=== PATIENT | male | born 1955 | race Caucasian/White ===

== ENCOUNTER 2016-12-26 22:35 | Emergency (ER) | payer OTHER ==
[~2016-12-26] VITALS: Ht 180.3 cm; Wt 115.0 kg
[~2016-12-26 22:35] MED LIST: 1-ME1LIQ PO; ASPI325T PO; CITA20 PO; CLON2TAB PO; CYMB30CA PO; DOXY100T PO; FLUT1SPR9; GLIP10TA6 PO; LISI40TA PO; METF850 PO; METO25 PO; NOVO7030P2 SQ; PRED20 PO; TAMS0.4C67 PO; TRAZ100 PO
[2016-12-26 22:39] VITALS: BP 189/104; PULSE 107; RESP 16; TEMP 97.8; O2SAT 96
[2016-12-27] MEDS ORDERED: PERI0.126 SWISH-SPIT (00:07)
--- NOTE | 2016-12-27 00:08 | PD ---
HPI Chief Complaint: Oral / Dental Pain or Problem Time Seen by Provider: 23:55 Travel History International Travel<30 days: No Contact w/Intl Traveler<30days: No Traveled to known affect area: No History of Present Illness HPI The patient is a 61-year-old male who presents to the emergency department for a lesion on the right mouth. The patient states he has had a lesion on the right mouth for the last 6 months. He was seen by his doctor, Dr. Brady James, and they're going to monitor it, if it progressed in size, he is going to be referred for evaluation. The patient does state that the lesion has enlarged over the last month. The patient was chewing a taco earlier tonight, when he bit the lesion, and in the started to bleed. The lesion is now stopped bleeding, is nonpainful, but is bothersome. The patient denies any history of tobacco use or oral chewing tobacco use. The patient denies any history of known squamous cell carcinoma. Symptoms are mild to moderate, exacerbated after biting into the lesion, and self alleviating. PFSH Past Medical History Hx Anticoagulant Therapy: Yes (ASA) ADHD: Yes Asthma: Yes Blood Disorders: No Anxiety: Yes Depression: Yes Cancer: Yes (MELANOMA STAGE 2 ,RESECTION WAS DONE IN 2009) Cardiovascular Problems: Yes ([place], STENT, OPEN HEART>2006) High Cholesterol: Yes Chest Pain: Yes Congestive Heart Failure: No Coronary Artery Disease: Yes Diabetes: Yes Diminished Hearing: No Endocrine: Yes Fibromyalgia: Yes Gastrointestinal Disorders: Yes Genitourinary: Yes Hypertension: Yes Immune Disorder: No Implanted Vascular Access Dvce: No Kidney Stones: Yes Musculoskeletal: Yes Neurologic: Yes (ADHD) Psychiatric: Yes Reproductive: Yes (ED) Respiratory: Yes Integumentary: Yes (FUNGAL INFECTION TO LEFT FOREARM) Myocardial Infarction: Yes Seizures: No Sleep Apnea: Yes (NO CPAP) Past Surgical History Cardiac Surgery: Yes (ANGINOPLASTY WITH STENT 2000,CABG 2006 4 VESSEL WITH 2 T' S,) Cholecystectomy: Yes Coronary Artery Bypass Graft: Yes (X 6 09/2007) Thoracic Surgery: Yes (SEE ABOVE) Other Surgery: Yes (STENT PLACED, HERNIA REPAIR, CABG) Social History Alcohol Use: No Tobacco Use: No Substance Use: No Allergies-Medications (Allergen,Severity, Reaction): Coded Allergies: Bactrim (Verified Allergy, Severe, ANAPHYLACTIC, 12/26/16) Sulfa (Verified Allergy, Severe, ANAPHYLACTIC REACTION, 12/26/16) Reported Meds & Prescriptions Reported Meds & Active Scripts Active Deltasone (Prednisone) 20 Mg Tab 20 Mg PO BID 4 Days Doxycycline Hyclate 100 mg (Doxycycline Hyclate) 100 Mg Tab 100 Mg PO BID Reported Trazodone Hcl (Trazodone HCl) 100 Mg Tab 100 Mg PO HS Celexa 20 Mg Tab (Citalopram Hydrobromide) 20 Mg Tab 20 Mg PO DAILY Flonase Allergy Relief (Fluticasone Propionate (Nasal)) 50 Mcg/Act Spr PRN Flomax (Tamsulosin HCl) 0.4 Mg Cap 0.4 Mg PO DAILY Metoprolol Tartrate 25 mg (Metoprolol Tartrate) 25 Mg Tab 25 Mg PO BID Clonazepam 2 Mg Tab 2 Mg PO TID Glucophage 850 mg (Metformin HCl) 850 Mg Tab 850 Mg PO BIDPC Glipizide 10 Mg Tab 20 Mg PO BID TAKE BEFORE MEALS Novolin 70/30 (Insulin Human Isoph/Insulin Regular) 100 Units/Ml Inj 0 SQ DIRECTED Sliding Scale As Directed. Cymbalta (Duloxetine HCl) 30 Mg Cap 30 Mg PO DAILY Amlodipine Besylate 10 mg (Amlodipine Besylate) 10 Mg Tab 1 Tab PO DAILY Aspirin 325 mg (Aspirin) 325 Mg Tab 325 Mg PO DAILY Prinivil 40 mg (Lisinopril) 40 Mg Tab 10 Mg PO DAILY Review of Systems Except as stated in HPI: all other systems reviewed are Neg General / Constitutional: No: Fever, Weight Loss HENT: Positive: Other (as noted in the history of present illness) Respiratory: No: Cough, Shortness of Breath Physical Exam Narrative GENERAL: Awake, alert, nontoxic-appearing 61-year-old male who appears his stated age and is in no acute respiratory distress. SKIN: Warm and dry. HEAD: Atraumatic. Normocephalic. EYES: Pupils equal and round. No scleral icterus. No injection or drainage. ENT: No nasal bleeding or discharge. The patient has a pedunculated lesion on the right mucosal surface measuring 1 cm in diameter. No active bleeding. No obvious lesions underlying the tongue. NECK: Trachea midline. No JVD. No significant cervical lymphadenopathy noted on exam. CARDIOVASCULAR: Regular rate and rhythm. No murmur appreciated. RESPIRATORY: No accessory muscle use. Clear to auscultation. Breath sounds equal bilaterally. MUSCULOSKELETAL: No obvious deformities. No clubbing. No cyanosis. No edema. NEUROLOGICAL: Awake and alert. No obvious cranial nerve deficits. Motor grossly within normal limits. Normal speech. PSYCHIATRIC: Appropriate mood and affect; insight and judgment normal. Data Data Last Documented VS Vital Signs Date Time Temp Pulse Resp B/P Pulse Ox O2 Delivery O2 Flow Rate FiO2 12/26/16 22:39 97.8 107 16 189/104 96 Room Air MDM Medical Decision Making Medical Screen Exam Complete: Yes Emergency Medical Condition: Yes Medical Record Reviewed: Yes Differential Diagnosis Differential diagnosis includes squamous cell carcinoma, oropharyngeal cancer, benign tumor, aphthous ulcer. Narrative Course The patient's bleeding has resolved, the lesion has been progressing over the last 6 months, therefore, patient will need follow-up with [facility] for biopsy results to evaluate for possible squamous cell carcinoma. The patient will be placed on Peridex and given a referral to see [facility]. Diagnosis Primary Impression: Oral mucosal lesion Referrals: Christophe Iraheta DDS call for appointment Additional Instructions: Follow-up with [facility] for ENT for evaluation of oropharyngeal mass on the beagle surfaces for possible biopsy to rule out squamous cell carcinoma. Peridex as directed. Return if symptoms worsen or progress. Med/Other Pt SpecificInfo: Prescription(s) given Scripts Chlorhexidine Gluconate (Mouth) Liq (Peridex Liq)0.12% Soln15 Ml SWISH-SPIT BID #[id number] ML Ref 0 Prov:Micky Trimble MD 12/27/16 Disposition: DISCHARGE HOME Condition: Stable Micky Trimble MD Dec 27, 2016 00:08
== END 2016-12-27 00:17 | disposition home or self-care (01) ==
LOC: NEPA 22:35
DX: K13.70 Unspecified lesions of oral mucosa (principal); I25.10 Atherosclerotic heart disease of native coronary artery without angina pectoris; E11.9 Type 2 diabetes mellitus without complications; M79.7 Fibromyalgia; I10 Essential (primary) hypertension; Z88.2 Allergy status to sulfonamides; Z95.1 Presence of aortocoronary bypass graft; Z79.82 Long term (current) use of aspirin
CPT/HCPCS: 99282

== ENCOUNTER 2017-01-26 13:34 | Emergency (ER) | payer OTHER ==
[~2017-01-26] VITALS: Ht 180.3 cm; Wt 120.0 kg
[~2017-01-26 13:34] MED LIST changes: +PERI0.126 SWISH-SPIT
[2017-01-26 13:38] VITALS: BP 113/57; PULSE 78; RESP 20; TEMP 97.4; O2SAT 94
--- NOTE | 2017-01-26 17:22 | PD ---
HPI Chief Complaint: Psychiatric Symptoms Time Seen by Provider: 17:17 Travel History International Travel<30 days: No Contact w/Intl Traveler<30days: No Traveled to known affect area: No History of Present Illness HPI 61-year-old male that presents to the ED for evaluation of psych evaluation. Per patient he has a history of heroine abuse and he has not used for about a week. Per patient he injects. Per patient his been feeling suicidal and depressed. He does have a history of bipolar as well as depression. Has a history of hypertension as well as diabetes. Per patient she is compliant with his medications but states that his been feeling more depressed because of the substance abuse as well as discontinuing the substance abuse. Unclear as to why he stopped. He denies any medical complaint at this time. He states having suicidal thoughts but no obvious plan. Denies any homicidal ideation. No recent trauma. Allergies to Bactrim and sulfa. Symptoms appeared to be moderate. PFSH Past Medical History Medical History: Unable to Obtain Hx Anticoagulant Therapy: Yes (ASA) ADHD: Yes Asthma: Yes Blood Disorders: No Anxiety: Yes Depression: Yes Cancer: Yes (MELANOMA STAGE 2 ,RESECTION WAS DONE IN 2009) Cardiovascular Problems: Yes ([place], STENT, OPEN HEART>2006) High Cholesterol: Yes Chest Pain: Yes Congestive Heart Failure: No Coronary Artery Disease: Yes Diabetes: Yes Patient Takes Glucophage: Yes Diminished Hearing: No Endocrine: Yes Fibromyalgia: Yes Gastrointestinal Disorders: Yes Genitourinary: Yes Hypertension: Yes Immune Disorder: No Implanted Vascular Access Dvce: No Kidney Stones: Yes Musculoskeletal: Yes Neurologic: Yes (ADHD) Psychiatric: Yes Reproductive: Yes (ED) Respiratory: Yes Integumentary: Yes (FUNGAL INFECTION TO LEFT FOREARM) Myocardial Infarction: Yes Seizures: No Sleep Apnea: Yes (NO CPAP) Tetanus Vaccination: Unknown ?: Not Past Surgical History Surgical History: Unable to Obtain Cardiac Surgery: Yes (ANGINOPLASTY WITH STENT 2000,CABG 2006 4 VESSEL WITH 2 T' S,) Cholecystectomy: Yes Coronary Artery Bypass Graft: Yes (X 6 09/2007) Thoracic Surgery: Yes (SEE ABOVE) Other Surgery: Yes (STENT PLACED, HERNIA REPAIR, CABG) Social History Alcohol Use: No Tobacco Use: No Substance Use: Yes (heroine, marijuana) Allergies-Medications (Allergen,Severity, Reaction): Coded Allergies: Bactrim (Verified Allergy, Severe, ANAPHYLACTIC, 12/27/16) Sulfa (Verified Allergy, Severe, ANAPHYLACTIC REACTION, 12/27/16) Reported Meds & Prescriptions Reported Meds & Active Scripts Active Clindamycin (Clindamycin HCl) 150 Mg Cap 300 Mg PO Q6H 10 Days Reported Trazodone HCl 100 Mg Tab 100 Mg PO HS Celexa 20 Mg Tab (Citalopram Hydrobromide) 20 Mg Tab 20 Mg PO DAILY Flonase Allergy Relief Ch (Fluticasone Propionate (Nasal)) 50 Mcg/Act Spr PRN Flomax (Tamsulosin HCl) 0.4 Mg Cap 0.4 Mg PO DAILY Metoprolol Tartrate 25 mg (Metoprolol Tartrate) 25 Mg Tab 25 Mg PO BID Clonazepam 2 Mg Tab 2 Mg PO TID Glucophage 850 mg (Metformin HCl) 850 Mg Tab 850 Mg PO BIDPC Glipizide 10 Mg Tab 20 Mg PO BID TAKE BEFORE MEALS Novolin 70/30 (Insulin Human Isoph/Insulin Regular) 100 Units/Ml Inj 0 SQ DIRECTED Sliding Scale As Directed. Cymbalta (Duloxetine HCl) 30 Mg Cap 30 Mg PO DAILY Aspirin 325 mg (Aspirin) 325 Mg Tab 325 Mg PO DAILY Prinivil 40 mg (Lisinopril) 40 Mg Tab 10 Mg PO DAILY Review of Systems General / Constitutional: No: Fever, Chills, Weight Gain, Weight Loss, Other Eyes: No: Diploplia, Blurred Vision, Photophobia, Drainage, Redness, Foreign Body Sensation, Pain, Tearing, Blind Spots, Visual changes, Blindness, Other HENT: No: Headaches, Vertigo, Lightheadedness, Sore Throat, Rhinitis, Rhinorrhea, Congestion, Nosebleed, Neck Stiffness, Neck Pain, Masses, Gingival Bleeding, Dental Difficulties, Ear Discharge, Earache, Other Cardiovascular: No: Chest Pain or Discomfort, Palpitations, Irregular Rhythm, Tachycardia, Diaphoresis, Syncope, Dyspnea on exertion, Varicosities, Edema, Cyanosis, Varicosities, Phlebitis, Claudication, Other Respiratory: No: Cough, Shortness of Breath, Wheezing, Sneezing, Orthopnea, Hemoptysis, Stridor, Night Sweats, Pleuritic Pain, Other Gastrointestinal: No: Nausea, Vomiting, Diarrhea, Abdominal Pain, Hematemesis, Hematochezia, Constipation, Changes in Bowel Habits, Indigestion, Dysphagia, Loss of Appetite, Other Genitourinary: No: Urgency, Frequency, Dysuria, Nocturia, Hematuria, Decreased Urinary Output, Oliguria, Hesitancy, Dribbling, Incontinence, Pelvic Pain, Flank Pain, Dyspareunia, Discharge, Dysmenorrhea, Menorrhagia, Metorrhagia, Vaginal Bleeding, Other Musculoskeletal: No: Myalgias, Arthralgias, Limited ROM, Weakness, Cramping, Edema, Pain, Atrophy, Other Skin: No Rash, No Itching, No Dryness, No Lumps, No Hives, No Change in Pigmentation, No Change in nails, No Alopecia, No Lesions, No Breast Lumps, No Breast Tenderness, No Breast Swelling, No Other Neurologic: No: Weakness, Dizziness, Syncope, Focal Abnormalities, Coordination Problem, Tremor, Ataxia, Headache, Change in Mentation, Slurred Speech, Paresthesia, Incontinence, Seizures, Sensory Disturbance, Other Psychiatric: Positive: Depression, Suicidal Ideations, Mood Disorder, Substance Abuse, No: Anxiety, Disorder of Thought, Homicidal Ideation, Other Endocrine: No: Heat Intolerance, Cold Intolerance, Polyuria, Polydipsia, Other Hematologic/Lymphatic: No: Easy Bruising, Lymph Node Enlargement, Other Physical Exam Narrative GENERAL: SKIN: Warm and dry. HEAD: Atraumatic. Normocephalic. EYES: Pupils equal and round 4 mm reactive to light and accommodation. No scleral icterus. No injection or drainage. ENT: No nasal bleeding or discharge. Mucous membranes pink and moist. Tongue is midline. No uvula deviation. NECK: Trachea midline. No JVD. CARDIOVASCULAR: Regular rate and rhythm. No murmurs, S3, S4. RESPIRATORY: No accessory muscle use. Clear to auscultation. Breath sounds equal bilaterally. GASTROINTESTINAL: Abdomen soft, non-tender, nondistended. Hepatic and splenic margins not palpable. MUSCULOSKELETAL: Extremities without clubbing, cyanosis, or edema. No obvious deformities. Full range of motion of the upper and lower extremities bilaterally. 2+ pulses bilaterally. Patient does have lesions to his arms and legs that appear to be old. Likely from injecting. Most of them appear to be well-healed. Some other ones in the left arm do appear to be possibly early infected with some erythema noted. NEUROLOGICAL: Awake and alert. No obvious cranial nerve deficits. Motor grossly within normal limits. Five out of 5 muscle strength in the arms and legs. Normal speech. PSYCHIATRIC: Depressed mood and affect; insight and judgment normal. Data Data Last Documented VS Vital Signs Date Time Temp Pulse Resp B/P Pulse Ox O2 Delivery O2 Flow Rate FiO2 01/26/17 13:38 97.4 78 20 113/57 94 Room Air Orders Diet Regular Basic (01/26/17 Dinner) Complete Blood Count With Diff (01/26/17 16:53) Comprehensive Metabolic Panel (01/26/17 16:53) Psych Screen (01/26/17 16:53) Drug Screen, Random Urine (01/26/17 16:53) Alcohol (Ethanol) (01/26/17 16:53) Clindamycin (Cleocin) (01/26/17 17:30) Insulin Human Reg Supp Scale (Novolin R (01/26/17 21:00) Labs Laboratory Tests Test 01/26/17 01/26/17 17:45 17:56 White Blood Count 4.7 TH/MM3 Red Blood Count 5.11 MIL/MM3 Hemoglobin 14.7 GM/DL Hematocrit 43.5 % Mean Corpuscular Volume 85.0 FL Mean Corpuscular Hemoglobin 28.8 PG Mean Corpuscular Hemoglobin 33.9 % Concent Red Cell Distribution Width 13.1 % Platelet Count 158 TH/MM3 Mean Platelet Volume 8.2 FL Neutrophils (%) (Auto) 46.3 % Lymphocytes (%) (Auto) 35.3 % Monocytes (%) (Auto) 12.3 % Eosinophils (%) (Auto) 5.3 % Basophils (%) (Auto) 0.8 % Neutrophils # (Auto) 2.2 TH/MM3 Lymphocytes # (Auto) 1.6 TH/MM3 Monocytes # (Auto) 0.6 TH/MM3 Eosinophils # (Auto) 0.2 TH/MM3 Basophils # (Auto) 0.0 TH/MM3 CBC Comment DIFF FINAL Differential Comment Sodium Level 137 MEQ/L Potassium Level 4.8 MEQ/L Chloride Level 104 MEQ/L Carbon Dioxide Level 25.3 MEQ/L Anion Gap 8 MEQ/L Blood Urea Nitrogen 24 MG/DL Creatinine 1.25 MG/DL Estimat Glomerular Filtration 59 ML/MIN Rate Random Glucose 203 MG/DL Calcium Level 9.0 MG/DL Total Bilirubin 0.5 MG/DL Aspartate Amino Transf 59 U/L (AST/SGOT) Alanine Aminotransferase 106 U/L (ALT/SGPT) Alkaline Phosphatase 75 U/L Total Protein 7.9 GM/DL Albumin 3.5 GM/DL Ethyl Alcohol Level LESS THAN 3 MG/DL Urine Opiates Screen POS Urine Barbiturates Screen NEG Urine Amphetamines Screen NEG Urine Benzodiazepines Screen NEG Urine Cocaine Screen NEG Urine Cannabinoids Screen NEG MDM Medical Decision Making Medical Screen Exam Complete: Yes Emergency Medical Condition: Yes Medical Record Reviewed: Yes Interpretation(s) CBC & BMP Diagram 01/26/17 17:45 tox screen positive for opiates Differential Diagnosis Depression versus suicidal ideation versus anxiety versus adjustment disorder versus mood disorder versus bipolar disorder versus schizophrenia versus paranoid disorder versus psychosis versus substance abuse versus alcohol abuse versus alcohol induced psychosis versus homicidality addition versus cutting versus personality disorder Narrative Course 61-year-old male that presents to the ED for evaluation of psych. Patient was properly examined and was found to have signs and symptoms consistent with appears to be psychiatric illness. No sign of acute medical distress. Patient does appear to have some lesions to his arm Could be an early infected. I will start patient on clindamycin for this. Patient was given first dose here. Labs will be drawn. Patient will be medically clear. Okay to be seen by psych. Mental health screening was discussed with the patient. 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
[2017-01-26] MEDS ORDERED: CLINDAMYCIN 150 MG CAP PO ONE (17:30)
[2017-01-26] MEDS ORDERED: CLIN1CAP5 PO (17:47)
[2017-01-26 18:09] LABS: AUTOMATED NEUTROPHIL # 2.2 TH/MM3 (1.8-7.7); BASOPHIL % 0.8 % (0.0-2.0); EOSINOPHIL # 0.2 TH/MM3 (0-0.4); EOSINOPHIL % 5.3 % (0.0-4.0); HEMATOCRIT 43.5 % (39.0-51.0); HEMO FLAGS DIFF FINAL; LYMPH % 35.3 % (9.0-44.0); LYMPHOCYTE # 1.6 TH/MM3 (1.0-4.8); MEAN CORPUSCULAR HEMOGLOBIN 28.8 PG (27.0-34.0); MEAN CORPUSCULAR HGB CONC 33.9 % (32.0-36.0); MONO % 12.3 % (0.0-8.0); NEUT % 46.3 % (16.0-70.0); PLATELET COUNT 158 TH/MM3 (150-450); RED BLOOD COUNT 5.11 MIL/MM3 (4.50-5.90); RED CELL DISTRIBUTION WIDTH 13.1 % (11.6-17.2); WHITE BLOOD COUNT 4.7 TH/MM3 (4.0-11.0)
[2017-01-26 18:18] LABS: AMPHETAMINE, URINE NEG (NEG); BARBITURATES, URINE NEG (NEG); COCAINE, URINE NEG (NEG)
[2017-01-26 18:27] LABS: ANION GAP 8 MEQ/L (5-15); AST (GOT) 59 U/L (15-37); BICARBONATE 25.3 MEQ/L (21.0-32.0); BLOOD UREA NITROGEN 24 MG/DL (7-18); CHLORIDE 104 MEQ/L (98-107); GLOMERULAR FILTRATION RATE 59 ML/MIN (>89); POTASSIUM 4.8 MEQ/L (3.5-5.1); SODIUM (NA) 137 MEQ/L (136-145)
[2017-01-26 18:28] LABS: ALKALINE PHOSPHATASE 75 U/L (45-117); ALT (GPT) 106 U/L (12-78); TOTAL BILIRUBIN ADULT 0.5 MG/DL (0.2-1.0)
[2017-01-26 18:46] VITALS: BP 134/75; PULSE 77; RESP 18; O2SAT 95
[2017-01-26] MEDS: INSULIN NovoLIN REGULAR SUPPLEMENTAL SCALE SQ SCH (21:45)
[2017-01-26 22:40] VITALS: BP 131/73; PULSE 81; RESP 18; O2SAT 97
[2017-01-27 02:21] VITALS: BP 129/71; PULSE 84; RESP 18; O2SAT 97
[2017-01-27 05:15] VITALS: BP 139/80; PULSE 77; RESP 18; O2SAT 97
[2017-01-27] MEDS: INSULIN NovoLIN REGULAR SUPPLEMENTAL SCALE SQ SCH (06:29)
--- NOTE | 2017-01-27 11:45 | PD ---
History of Present Illness Chief Complaint: Psychiatric Symptoms Time Seen by Provider: 11:30 Travel History International Travel<30 Days: No Contact w/Intl Traveler<30days: No Known affected area: No Legal Status Legal Status: Voluntary History of Present Illness: This is a 61-year-old male with a significant history of substance abuse who came into the emergency room discussing suicidality. He wishes his family would spend more time with him. He has adult children. However, he also admits to using heroin 3 days ago. He somehow does not correlate his use of illicit drugs with his family's wish to stay away from him. The patient does have an appointment with Dr. jacob, whom he has seen in the past. This appointment is in the next few weeks. He also has a place to live and he receives Social Security disability. The patient states he takes 16 pills for his physical ailments each day. He is also scheduled to appear in criminal court for upcoming charges against him. At this time he is not voicing any suicidal or homicidal ideation, plan or intention. He was informed that this facility is not licensed to do detox or rehabilitation. He does not qualify for psychiatric admission to our inpatient service and this physician feels if he threatens suicide that it would be counter therapeutic to give into these manipulations. He does continue to represent a moderate risk for harm to self. This is not changeable given his present drug use. PFSH Past Medical History Medical History: Unable to Obtain Hx Anticoagulant Therapy: Yes (ASA) ADHD: Yes Asthma: Yes Blood Disorders: No Anxiety: Yes Depression: Yes Cancer: Yes (MELANOMA STAGE 2 ,RESECTION WAS DONE IN 2009) Cardiovascular Problems: Yes ([place], STENT, OPEN HEART>2006) High Cholesterol: Yes Chest Pain: Yes Congestive Heart Failure: No Coronary Artery Disease: Yes Diabetes: Yes Patient Takes Glucophage: Yes Diminished Hearing: No Endocrine: Yes Fibromyalgia: Yes Gastrointestinal Disorders: Yes Genitourinary: Yes Hypertension: Yes Immune Disorder: No Implanted Vascular Access Dvce: No Kidney Stones: Yes Musculoskeletal: Yes Neurologic: Yes (ADHD) Psychiatric: Yes Reproductive: Yes (ED) Respiratory: Yes Integumentary: Yes (FUNGAL INFECTION TO LEFT FOREARM) Myocardial Infarction: Yes Seizures: No Sleep Apnea: Yes (NO CPAP) Tetanus Vaccination: Unknown ?: Not Past Surgical History Surgical History: Unable to Obtain Cardiac Surgery: Yes (ANGINOPLASTY WITH STENT 2000,CABG 2006 4 VESSEL WITH 2 T' S,) Cholecystectomy: Yes Coronary Artery Bypass Graft: Yes (X 6 09/2007) Thoracic Surgery: Yes (SEE ABOVE) Other Surgery: Yes (STENT PLACED, HERNIA REPAIR, CABG) Psychiatric History Psychiatric History Hx Psychiatric Treatment: YES History of Inpatient Treatment: Yes Guns or firearms in home: No Social History Hx Alcohol Use: No Hx Tobacco Use: No Hx Substance Use: Yes (heroine, marijuana) Substance Use Type: Alcohol Other Substances Used: ALCOHOL SOCIALY Hx of Substance Use Treatment: No Allergies-Medications (Allergen,Severity, Reaction): Coded Allergies: Bactrim (Verified Allergy, Severe, ANAPHYLACTIC, 12/27/16) Sulfa (Verified Allergy, Severe, ANAPHYLACTIC REACTION, 12/27/16) Reported Meds & Prescriptions Reported Meds & Active Scripts Active Clindamycin (Clindamycin HCl) 150 Mg Cap 300 Mg PO Q6H 10 Days Reported Trazodone HCl 100 Mg Tab 100 Mg PO HS Celexa 20 Mg Tab (Citalopram Hydrobromide) 20 Mg Tab 20 Mg PO DAILY Flonase Allergy Relief Ch (Fluticasone Propionate (Nasal)) 50 Mcg/Act Spr PRN Flomax (Tamsulosin HCl) 0.4 Mg Cap 0.4 Mg PO DAILY Metoprolol Tartrate 25 mg (Metoprolol Tartrate) 25 Mg Tab 25 Mg PO BID Clonazepam 2 Mg Tab 2 Mg PO TID Glucophage 850 mg (Metformin HCl) 850 Mg Tab 850 Mg PO BIDPC Glipizide 10 Mg Tab 20 Mg PO BID TAKE BEFORE MEALS Novolin 70/30 (Insulin Human Isoph/Insulin Regular) 100 Units/Ml Inj 0 SQ DIRECTED Sliding Scale As Directed. Cymbalta (Duloxetine HCl) 30 Mg Cap 30 Mg PO DAILY Aspirin 325 mg (Aspirin) 325 Mg Tab 325 Mg PO DAILY Prinivil 40 mg (Lisinopril) 40 Mg Tab 10 Mg PO DAILY Review of Systems ROS Limitations: Clinical Condition Except as stated in HPI: all other systems reviewed are Neg Exam Exam Limitations: Clinical Condition Alert: Yes [place]: Person, Place, Date, Situation Mood: Calm Affect: Restricted Speech: Clear, Logical Eye Contact: Normal Memory Intact: Immediate, Recent, Remote Insight/Judgement Adequate except where drug and alcohol use is concerned. MDM Medical Decision Making Medical Record Reviewed: Yes Assessment/Plan Patient is being discharged home with follow up scheduled already for Dr. jacob. Patient does not meet inpatient psychiatric criteria. If he threatens to kill himself if not admitted, this physician would still believe it is counter therapeutic to give into his manipulations. He was recommended to stop all illicit drug use and not consume alcohol. He was also recommended to attend AA and NA meetings Orders Diet Regular Basic (01/26/17 Dinner) Complete Blood Count With Diff (01/26/17 16:53) Comprehensive Metabolic Panel (01/26/17 16:53) Psych Screen (01/26/17 16:53) Drug Screen, Random Urine (01/26/17 16:53) Alcohol (Ethanol) (01/26/17 16:53) Clindamycin (Cleocin) (01/26/17 17:30) Insulin Human Reg Supp Scale (Novolin R (01/26/17 21:00) Diet Diabetic (01/27/17 Breakfast) Diet Diabetic (01/27/17 Lunch) Results Vital Signs Date Time Temp Pulse Resp B/P Pulse Ox O2 Delivery O2 Flow Rate FiO2 01/27/17 06:36 77 18 01/27/17 05:15 77 18 139/80 97 Room Air 01/27/17 02:21 84 18 129/71 97 Room Air 01/26/17 22:40 81 18 131/73 97 Room Air 01/26/17 18:46 77 18 01/26/17 18:46 77 18 134/75 95 Room Air 01/26/17 13:38 97.4 78 20 113/57 94 Room Air Laboratory Tests Test 01/26/17 01/26/17 17:45 17:56 White Blood Count 4.7 Red Blood Count 5.11 Hemoglobin 14.7 Hematocrit 43.5 Mean Corpuscular Volume 85.0 Mean Corpuscular Hemoglobin 28.8 Mean Corpuscular Hemoglobin 33.9 Concent Red Cell Distribution Width 13.1 Platelet Count 158 Mean Platelet Volume 8.2 Neutrophils (%) (Auto) 46.3 Lymphocytes (%) (Auto) 35.3 Monocytes (%) (Auto) 12.3 Eosinophils (%) (Auto) 5.3 Basophils (%) (Auto) 0.8 Neutrophils # (Auto) 2.2 Lymphocytes # (Auto) 1.6 Monocytes # (Auto) 0.6 Eosinophils # (Auto) 0.2 Basophils # (Auto) 0.0 CBC Comment DIFF FINAL Differential Comment Sodium Level 137 Potassium Level 4.8 Chloride Level 104 Carbon Dioxide Level 25.3 Anion Gap 8 Blood Urea Nitrogen 24 Creatinine 1.25 Estimat Glomerular Filtration 59 Rate Random Glucose 203 Calcium Level 9.0 Total Bilirubin 0.5 Aspartate Amino Transf 59 (AST/SGOT) Alanine Aminotransferase 106 (ALT/SGPT) Alkaline Phosphatase 75 Total Protein 7.9 Albumin 3.5 Ethyl Alcohol Level LESS THAN 3 Urine Opiates Screen POS Urine Barbiturates Screen NEG Urine Amphetamines Screen NEG Urine Benzodiazepines Screen NEG Urine Cocaine Screen NEG Urine Cannabinoids Screen NEG Diagnosis Primary Impression: Substance abuse Additional Impression: Wound infection Prescriptions Clindamycin 150 Mg [id number] Mg PO Q6H 10 Days Prov:Kourtney Parson MD 01/26/17 Problem Qualifiers Jose J Camacho MD Jan 27, 2017 11:45
== END 2017-01-27 12:59 | disposition home or self-care (01) ==
LOC: NEPJ 13:34
DX: F32.9 Major depressive disorder, single episode, unspecified (principal); F11.10 Opioid abuse, uncomplicated; B99.8 Other infectious disease; E11.9 Type 2 diabetes mellitus without complications; I10 Essential (primary) hypertension; I25.10 Atherosclerotic heart disease of native coronary artery without angina pectoris; J45.909 Unspecified asthma, uncomplicated; Z87.442 Personal history of urinary calculi; Z95.1 Presence of aortocoronary bypass graft; I25.2 Old myocardial infarction; E78.00 Pure hypercholesterolemia, unspecified; Z79.4 Long term (current) use of insulin
CPT/HCPCS: 80053; 80307; 85025; 96372

== ENCOUNTER 2017-03-05 03:00 | Emergency (ER) | payer OTHER ==
[~2017-03-05] VITALS: Ht 180.3 cm; Wt 115.0 kg
[~2017-03-05 03:00] MED LIST changes: -1-ME1LIQ PO; +CLIN1CAP5 PO; -DOXY100T PO; -PERI0.126 SWISH-SPIT; -PRED20 PO
[2017-03-05 03:02] VITALS: BP 173/84; PULSE 86; RESP 20; TEMP 97.8; O2SAT 97
--- NOTE | 2017-03-05 03:30 | PD ---
HPI Chief Complaint: Diabetic Time Seen by Provider: 03:26 Travel History International Travel<30 days: No Contact w/Intl Traveler<30days: No Traveled to known affect area: No History of Present Illness HPI The patient is a 61-year-old insulin-dependent diabetic who felt shaky this evening and took his blood sugar at 0240 this morning and it was 42. He ate a bun and now feels better. It took some time to get the blood sugar up so he came to emergency department. The Accu-Chek here in the emergency Department is 109. PFSH Past Medical History Hx Anticoagulant Therapy: Yes (ASA) ADHD: Yes Asthma: Yes Blood Disorders: No Anxiety: Yes Depression: Yes Cancer: Yes (MELANOMA STAGE 2 ,RESECTION WAS DONE IN 2009) Cardiovascular Problems: Yes (HTN, NH, CABGX6, AORTIC GRAFTS) High Cholesterol: Yes Chest Pain: Yes Congestive Heart Failure: No Coronary Artery Disease: Yes Diabetes: Yes Patient Takes Glucophage: Yes (METFORMIN AND GLIPIZIDE 03/04 1700) Diminished Hearing: No Endocrine: Yes Fibromyalgia: Yes Gastrointestinal Disorders: Yes Genitourinary: Yes Hypertension: Yes Immune Disorder: No Implanted Vascular Access Dvce: No Kidney Stones: Yes Musculoskeletal: Yes Neurologic: Yes (ADHD) Psychiatric: Yes Reproductive: Yes (ED) Respiratory: Yes Integumentary: Yes (FUNGAL INFECTION TO LEFT FOREARM) Myocardial Infarction: Yes Seizures: No Sleep Apnea: Yes (NO CPAP) Past Surgical History Cardiac Surgery: Yes (ANGINOPLASTY WITH STENT 2000,CABG 2006 4 VESSEL WITH 2 T' S,) Cholecystectomy: Yes Coronary Artery Bypass Graft: Yes (X 6 09/2007) Thoracic Surgery: Yes (SEE ABOVE) Other Surgery: Yes (STENT PLACED, HERNIA REPAIR, CABG) Social History Alcohol Use: No Tobacco Use: No Substance Use: Yes (heroine, marijuana) Allergies-Medications (Allergen,Severity, Reaction): Coded Allergies: Bactrim (Verified Allergy, Severe, ANAPHYLACTIC, 03/05/17) Sulfa (Verified Allergy, Severe, ANAPHYLACTIC REACTION, 03/05/17) Reported Meds & Prescriptions Reported Meds & Active Scripts Active Clindamycin (Clindamycin HCl) 150 Mg Cap 300 Mg PO Q6H 10 Days Reported Trazodone HCl 100 Mg Tab 100 Mg PO HS Celexa 20 Mg Tab (Citalopram Hydrobromide) 20 Mg Tab 20 Mg PO DAILY Flonase Allergy Relief Ch (Fluticasone Propionate (Nasal)) 50 Mcg/Act Spr PRN Flomax (Tamsulosin HCl) 0.4 Mg Cap 0.4 Mg PO DAILY Metoprolol Tartrate 25 mg (Metoprolol Tartrate) 25 Mg Tab 25 Mg PO BID Clonazepam 2 Mg Tab 2 Mg PO TID Glucophage 850 mg (Metformin HCl) 850 Mg Tab 850 Mg PO BIDPC Glipizide 10 Mg Tab 20 Mg PO BID TAKE BEFORE MEALS Novolin 70/30 (Insulin Human Isoph/Insulin Regular) 100 Units/Ml Inj 0 SQ DIRECTED Sliding Scale As Directed. Cymbalta (Duloxetine HCl) 30 Mg Cap 30 Mg PO DAILY Aspirin 325 mg (Aspirin) 325 Mg Tab 325 Mg PO DAILY Prinivil 40 mg (Lisinopril) 40 Mg Tab 10 Mg PO DAILY Review of Systems Except as stated in HPI: all other systems reviewed are Neg Physical Exam Narrative GENERAL: Well-nourished, well-developed patient in no apparent distress. He does not have a tremor. He does not smell of alcohol and does not appear intoxicated. His vital signs show blood pressure 173/84. SKIN: Focused skin assessment warm/dry. HEAD: Normocephalic. EYES: No scleral icterus. No injection or drainage. NECK: Supple, trachea midline. No JVD or lymphadenopathy. CARDIOVASCULAR: Regular rate and rhythm without murmurs, gallops, or rubs. RESPIRATORY: Breath sounds equal bilaterally. No accessory muscle use. GASTROINTESTINAL: Abdomen soft, non-tender, nondistended. No guarding or rebound is present. MUSCULOSKELETAL: No cyanosis, or edema. BACK: Nontender without obvious deformity. No CVA tenderness. Data Data Last Documented VS Vital Signs Date Time Temp Pulse Resp B/P Pulse Ox O2 Delivery O2 Flow Rate FiO2 03/05/17 03:02 97.8 86 20 173/84 97 Room Air Orders Blood Glucose (03/05/17 03:30) MDM Medical Decision Making Medical Screen Exam Complete: Yes Emergency Medical Condition: Yes Medical Record Reviewed: Yes Interpretation(s) The Accu-Chek at 338 is 131. Differential Diagnosis Hypoglycemia, insulin overdose, medication side effect Narrative Course The patient has hypoglycemia which resolved with his by mouth intake. Diagnosis Primary Impression: Hypoglycemia associated with diabetes Additional Instructions: Discontinue the [id number] medication that you are taking. Continue to take your Accu-Chek to see whether your sugar starts falling again. Follow-up with your primary care physician this week. Med/Other Pt SpecificInfo: No Change to Meds Disposition: 01 DISCHARGE HOME Condition: Stable Felipe Bal MD Mar 05, 2017 03:30
== END 2017-03-05 04:31 | disposition home or self-care (01) ==
LOC: NEPC 03:00
DX: E11.649 Type 2 diabetes mellitus with hypoglycemia without coma (principal); Z79.4 Long term (current) use of insulin; Z79.84 Long term (current) use of oral hypoglycemic drugs
CPT/HCPCS: 99284

== ENCOUNTER 2017-04-10 17:46 | Emergency (ER) | payer OTHER ==
[~2017-04-10] VITALS: Ht 177.8 cm; Wt 110.0 kg
[2017-04-10 17:48] VITALS: BP 162/72; PULSE 84; RESP 18; TEMP 97.9; O2SAT 95
--- NOTE | 2017-04-10 18:04 | PD ---
HPI Chief Complaint: Pain: Acute or Chronic Time Seen by Provider: 18:04 Travel History International Travel<30 days: No Contact w/Intl Traveler<30days: No Traveled to known affect area: No History of Present Illness HPI 61-year-old male with history of CAD, CABG 6, hypertension, diabetes, anxiety, and substance abuse, presents to emergency department for evaluation of right sided flank pain. This was an acute onset around 345pm today when it awoke the patient from his nap. Patient states it is intermittent and sharp, stabbing. It radiates to his belt line. Reports history of cholecystectomy. Denies a nausea or vomiting. No chest pain or tightness. No recent illnesses, fever, chills. Denies any urinary symptoms. No changes in bowel habits. He has no other symptoms to report. PFSH Past Medical History Hx Anticoagulant Therapy: Yes (ASA) ADHD: Yes Asthma: Yes Blood Disorders: No Anxiety: Yes Depression: Yes Cancer: Yes (MELANOMA STAGE 2 ,RESECTION WAS DONE IN 2009) Cardiovascular Problems: Yes High Cholesterol: Yes Chest Pain: Yes Congestive Heart Failure: No Coronary Artery Disease: Yes Diabetes: Yes Diminished Hearing: No Endocrine: Yes Fibromyalgia: Yes Gastrointestinal Disorders: Yes Genitourinary: Yes Hypertension: Yes Immune Disorder: No Implanted Vascular Access Dvce: No Kidney Stones: Yes Musculoskeletal: Yes Neurologic: Yes (ADHD) Psychiatric: Yes Reproductive: Yes (ED) Respiratory: Yes Integumentary: Yes (FUNGAL INFECTION TO LEFT FOREARM) Myocardial Infarction: Yes Seizures: No Sleep Apnea: Yes (NO CPAP) Past Surgical History Cardiac Surgery: Yes (ANGINOPLASTY WITH STENT 2000,CABG 2006 4 VESSEL WITH 2 T' S,) Cholecystectomy: Yes Coronary Artery Bypass Graft: Yes (X 6 09/2007) Thoracic Surgery: Yes (SEE ABOVE) Other Surgery: Yes (STENT PLACED, HERNIA REPAIR, CABG) Social History Alcohol Use: No Tobacco Use: No Substance Use: Yes (heroine, marijuana) Allergies-Medications (Allergen,Severity, Reaction): Coded Allergies: Bactrim (Verified Allergy, Severe, ANAPHYLACTIC, 04/10/17) Sulfa (Verified Allergy, Severe, ANAPHYLACTIC REACTION, 04/10/17) Reported Meds & Prescriptions Reported Meds & Active Scripts Active Keflex (Cephalexin) 500 Mg Cap 500 Mg PO Q12H 10 Days Lortab (Hydrocodone-Acetaminophen) 5-325 Mg Tab 1 Tab PO Q6H PRN Reported Clonazepam 2 Mg Tab 2 Mg PO TID Cymbalta DR (Duloxetine HCl) 30 Mg Capdr 30 Mg PO TID Flonase Nasal [place] (Fluticasone Nasal [place]) 50 Mcg/Act [place] 1 [place] EACH NARE TID Glipizide 10 Mg Tab 20 Mg PO BIDAC Take 30 minutes before a meal Novolin 70-30 Inj (Insulin Human Isoph/Insulin Regular) 1,000 Unit/10 Ml Vial Unknown Dose SQ ACHS Lisinopril 10 Mg Tab 10 Mg PO TID Metformin (Metformin HCl) 850 Mg Tab 850 Mg PO BIDPC With meals Metoprolol Tartrate 25 Mg Tab 25 Mg PO BID Trazodone (Trazodone HCl) 50 Mg Tab 100 Mg PO HS PRN Review of Systems Except as stated in HPI: all other systems reviewed are Neg Physical Exam Narrative GENERAL: Well-nourished male patient, ambulatory and in no acute distress SKIN: Focused skin assessment warm/dry. HEAD: Atraumatic. Normocephalic. EYES: Pupils equal and round. No scleral icterus. No injection or drainage. ENT: No nasal bleeding or discharge. Mucous membranes pink and moist. NECK: Trachea midline. No JVD. CARDIOVASCULAR: Regular rate and rhythm. No murmur appreciated. RESPIRATORY: No accessory muscle use. Clear to auscultation. Breath sounds equal bilaterally. GASTROINTESTINAL: Abdomen soft, non-tender, nondistended. Hepatic and splenic margins not palpable. MUSCULOSKELETAL: No obvious deformities. No clubbing. No cyanosis. No edema. Right CVA tenderness. NEUROLOGICAL: Awake and alert. No obvious cranial nerve deficits. Motor grossly within normal limits. Normal speech. PSYCHIATRIC: Appropriate mood and affect; insight and judgment normal. Data Data Last Documented VS Vital Signs Date Time Temp Pulse Resp B/P Pulse Ox O2 Delivery O2 Flow Rate FiO2 04/10/17 20:58 17 04/10/17 20:00 94 164/67 96 Room Air 04/10/17 17:48 97.9 Orders Complete Blood Count With Diff (04/10/17 18:10) Comprehensive Metabolic Panel (04/10/17 18:10) Lipase (04/10/17 18:10) Prothrombin Time / Inr (Pt) (04/10/17 18:10) Act Partial Throm Time (Ptt) (04/10/17 18:10) Urinalysis - C+S If Indicated (04/10/17 18:10) Ct Abd/Pel W Iv Contrast(Rout) (04/10/17 18:10) Iv Access Insert/Monitor (04/10/17 18:10) Ecg Monitoring (04/10/17 18:10) Oximetry (04/10/17 18:10) Ondansetron Inj (Zofran Inj) (04/10/17 18:15) Sodium Chloride 0.9% Flush (Ns Flush) (04/10/17 18:15) Electrocardiogram (04/10/17 18:10) Sodium Chlorid 0.9% 500 Ml Inj (Ns 500 M (04/10/17 18:15) Morphine Inj (Morphine Inj) (04/10/17 18:30) Iohexol 350 Inj (Omnipaque 350 Inj) (04/10/17 20:01) Morphine Inj (Morphine Inj) (04/10/17 21:45) Cephalexin (Keflex) (04/10/17 21:45) Labs Laboratory Tests Test 04/10/17 04/10/17 18:36 21:10 White Blood Count 9.8 TH/MM3 Red Blood Count 5.18 MIL/MM3 Hemoglobin 14.7 GM/DL Hematocrit 44.5 % Mean Corpuscular Volume 85.9 FL Mean Corpuscular Hemoglobin 28.3 PG Mean Corpuscular Hemoglobin 33.0 % Concent Red Cell Distribution Width 13.1 % Platelet Count 145 TH/MM3 Mean Platelet Volume 7.8 FL Neutrophils (%) (Auto) 72.6 % Lymphocytes (%) (Auto) 15.4 % Monocytes (%) (Auto) 10.0 % Eosinophils (%) (Auto) 1.7 % Basophils (%) (Auto) 0.3 % Neutrophils # (Auto) 7.1 TH/MM3 Lymphocytes # (Auto) 1.5 TH/MM3 Monocytes # (Auto) 1.0 TH/MM3 Eosinophils # (Auto) 0.2 TH/MM3 Basophils # (Auto) 0.0 TH/MM3 CBC Comment DIFF FINAL Differential Comment Prothrombin Time 11.7 SEC Prothromb Time International 1.1 RATIO Ratio Activated Partial 29.4 SEC Thromboplast Time Sodium Level 139 MEQ/L Potassium Level 4.0 MEQ/L Chloride Level 104 MEQ/L Carbon Dioxide Level 26.6 MEQ/L Anion Gap 8 MEQ/L Blood Urea Nitrogen 32 MG/DL Creatinine 1.63 MG/DL Estimat Glomerular Filtration 43 ML/MIN Rate Random Glucose 89 MG/DL Calcium Level 9.2 MG/DL Total Bilirubin 1.8 MG/DL Aspartate Amino Transf 64 U/L (AST/SGOT) Alanine Aminotransferase 99 U/L (ALT/SGPT) Alkaline Phosphatase 72 U/L Total Protein 8.1 GM/DL Albumin 3.7 GM/DL Lipase 54 U/L Urine Color YELLOW Urine Turbidity CLEAR Urine pH 5.5 Urine Specific Odem 1.050 Urine Protein TRACE mg/dL Urine Glucose (UA) NEG mg/dL Urine Ketones 10 mg/dL Urine Occult Blood MOD Urine Nitrite NEG Urine Bilirubin NEG Urine Urobilinogen LESS THAN 2.0 MG/DL Urine Leukocyte Esterase NEG Urine RBC 21 /hpf Urine WBC 3 /hpf Urine Squamous Epithelial <1 /hpf Cells Urine Mucus FEW /lpf Microscopic Urinalysis Comment CULT NOT INDICATED MDM Medical Decision Making Medical Screen Exam Complete: Yes Emergency Medical Condition: Yes Medical Record Reviewed: Yes Differential Diagnosis Renal calculi versus UTI versus biliary colic versus pneumonia versus muscle strain Narrative Course 61-year-old male presents to the emergency department for evaluation. Patient appears without distress. He does have right sided CVA tenderness. He is intermittently reporting sharp pains. He is treated for this and verbalizes marked relief upon reassessment. CBC is without acute concern. CMP is with BUN of 32, creatinine 1.63, GFR 43. Bilirubin is 1.8 with an AST is 64 and ALT of 99. Patient does have history of substance abuse and this could be related to that. He is given IV fluid bolus. Urinalysis is with 10 ketones, moderate local blood, 21 RBC, few mucus. Culture is not indicated CT of the abdomen and pelvis shows no acute abnormality. A mildly complex cyst involving the right kidney. They're stable from a prior study. There are nonobstructing right renal calculi with the largest measuring 14 mm. There is a prior ventral hernia repair. There is colonic diverticulosis. These results are discussed with the patient. With a mean of hematuria and multiple renal calculi identified within the kidney, the patient possibly could've passed a stone, causing him the pain. He will be treated for hemorrhagic cystitis. He is instructed to follow-up with a urologist, to contact the office on Thursday. He is provided pain control and a prescription for Keflex. He agrees to return immediately with any acute worsening of symptoms. Diagnosis Primary Impression: Renal colic on right side Additional Impressions: Kidney stone on right side Hematuria Referrals: Primary Care Physician call for appointment Urologist call for appointment Patient Instructions: General Instructions, Hematuria (ED), Renal Colic (DC), Renal Colic (ED) Additional Instructions: Maintain adequate oral hydration Follow-up with a primary care provider Seek urology evaluation Return immediately with any acute worsening of symptoms Med/Other Pt SpecificInfo: Prescription(s) given Scripts Cephalexin (Keflex)500 Mg [id number] Mg PO Q12H 10 Days Ref 0 Prov:Enid Hills MD 04/10/17 Hydrocodone-Acetaminophen (Lortab)5-325 Mg Tab1 Tab PO Q6H PRN (PAIN GREATER THAN 5) #15 TAB Ref 0 Prov:Enid Hills MD 04/10/17 Disposition: 01 DISCHARGE HOME Condition: Stable Jessica Winter Apr 10, 2017 18:04
[2017-04-10] MEDS ORDERED: SODIUM CHLORIDE 0.9% FLUSH 10 ML FLUSH IV FLUSH PRN (18:15)
[2017-04-10] MEDS ORDERED: SODIUM CHLORID 0.9% 500 ML INJ 500 ML IV ONE (18:15)
[2017-04-10] MEDS ORDERED: ONDANSETRON HCL 4 MG/2 ML VIAL IVP ONE (18:15)
[2017-04-10] MEDS ORDERED: MORPHINE SULFATE 4 MG/ML INJ IV PUSH ONE ×2 (18:30→21:45)
[2017-04-10 18:50] LABS: AUTOMATED NEUTROPHIL # 7.1 TH/MM3 (1.8-7.7); BASOPHIL % 0.3 % (0.0-2.0); EOSINOPHIL # 0.2 TH/MM3 (0-0.4); EOSINOPHIL % 1.7 % (0.0-4.0); HEMATOCRIT 44.5 % (39.0-51.0); HEMO FLAGS DIFF FINAL; LYMPH % 15.4 % (9.0-44.0); LYMPHOCYTE # 1.5 TH/MM3 (1.0-4.8); MEAN CELL VOLUME 85.9 FL (80.0-100.0); MEAN CORPUSCULAR HEMOGLOBIN 28.3 PG (27.0-34.0); NEUT % 72.6 % (16.0-70.0); PLATELET COUNT 145 TH/MM3 (150-450); RED BLOOD COUNT 5.18 MIL/MM3 (4.50-5.90); RED CELL DISTRIBUTION WIDTH 13.1 % (11.6-17.2); WHITE BLOOD COUNT 9.8 TH/MM3 (4.0-11.0)
[2017-04-10] MEDS ORDERED: METF850T PO (18:50)
[2017-04-10] MEDS ORDERED: METO25TA3 PO (18:50)
[2017-04-10] MEDS ORDERED: LISI10TA3 PO (18:50)
[2017-04-10] MEDS ORDERED: TRAZ50TA12 PO (18:50)
[2017-04-10] MEDS ORDERED: NOVO7030P2 SQ (18:50)
[2017-04-10] MEDS ORDERED: GLIP10TA6 PO (18:51)
[2017-04-10] MEDS ORDERED: CYMB30CA PO (18:53)
[2017-04-10] MEDS ORDERED: FLUT1SPR5 EACH NARE (18:53)
[2017-04-10] MEDS ORDERED: CLON2TAB PO (18:53)
[2017-04-10 19:01] LABS: APTT (PATIENT) 29.4 SEC (24.3-30.1); INTERNATIONAL NORMALIZED RATIO 1.1 RATIO; PROTHROMBIN TIME - PATIENT 11.7 SEC (9.8-11.6)
[2017-04-10 19:30] LABS: ANION GAP 8 MEQ/L (5-15); AST (GOT) 64 U/L (15-37); BICARBONATE 26.6 MEQ/L (21.0-32.0); BLOOD UREA NITROGEN 32 MG/DL (7-18); CHLORIDE 104 MEQ/L (98-107); GLOMERULAR FILTRATION RATE 43 ML/MIN (>89); SODIUM (NA) 139 MEQ/L (136-145)
[2017-04-10 19:34] LABS: ALKALINE PHOSPHATASE 72 U/L (45-117); ALT (GPT) 99 U/L (12-78); TOTAL BILIRUBIN ADULT 1.8 MG/DL (0.2-1.0)
[2017-04-10 20:00] VITALS: BP 164/67; PULSE 94; RESP 16; O2SAT 96
[2017-04-10] MEDS ORDERED: IOHEXOL 350 MG/ML 10 ML VIAL (for RAD DIAG) IV ONE (20:01)
--- NOTE | 2017-04-10 20:16 | RADRPT ---
EXAM DATE/TIME: 04/10/2017 19:57 [facility] COMPARISON: CT ABDOMEN & PELVIS W/O CONTRAST, March 20, 2014, 22:44. INDICATIONS : Right sided rib and abdomen pain. IV CONTRAST: 95 cc Omnipaque 350 (iohexol) IV ORAL CONTRAST: No oral contrast ingested. RADIATION DOSE: 16.95 CTDIvol (mGy) MEDICAL HISTORY : Cardiovascular disease. Hypertension. Diabetes mellitus type 2. SURGICAL HISTORY : Cholecystectomy. ENCOUNTER: Initial ACUITY: 1 day PAIN SCALE: 7/10 LOCATION: Right abdomen TECHNIQUE: Volumetric scanning of the abdomen and pelvis was performed. Using automated exposure control and ad justment of the mA and/or kV according to patient size, radiation dose was kept as low as reasonably achievable to obtain optimal diagnostic quality images. FINDINGS: LOWER LUNGS: The visualized lower lungs are clear. LIVER: Homogeneous density without lesion. There is no dilation of the biliary tree. No calcified gallston es. SPLEEN: Normal size without lesion. PANCREAS: Within normal limits. KIDNEYS: 2 mildly complex cysts are seen involving the right kidney. These measure 5.7 and 8.2 cm respectively . There is some linear calcification associated with the inferior wall of the larger cyst and a small thin septa involving the more superior cyst. A nonobstructing 14 mm right renal stone noted. A small er stones seen adjacent to this. Small cortical renal cysts on the left. No hydronephrosis or hydrour eter. ADRENAL GLANDS: Within normal limits. VASCULAR: Scattered calcified plaque. No aneurysmal change. BOWEL/MESENTERY: The stomach, small bowel, and colon demonstrate no acute abnormality. There is no free intraperitone al air or fluid. Scattered colonic diverticuli. No acute inflammation. ABDOMINAL WALL: Prior ventral hernia repair utilizing mesh. No recurrent hernia observed. RETROPERITONEUM: There is no lymphadenopathy. BLADDER: No wall thickening or mass. REPRODUCTIVE: Within normal limits. INGUINAL: There is no lymphadenopathy or hernia. MUSCULOSKELETAL: Within normal limits for patient age. CONCLUSION: 1. No acute abnormality. 2. Mildly complex cysts involve the right kidney as detailed above. These are stable from the prior s tudy. 3. Nonobstructing right renal calculi. The largest measures 14 mm. 4. Prior ventral hernia repair. 5. Colonic diverticulosis. Joshua Bermudez Jr., MD on April 10, 2017 at 20:08 Board Certified Radiologist. This report was verified electronically.
[2017-04-10 20:58] VITALS: RESP 17
[2017-04-10 21:23] LABS: BLOOD, URINE MOD (NEG); COMMENT (UR) CULT NOT INDICATED; CULTURE IF INDICATED CULT NOT INDICATED; GLUCOSE,URINE NEG (NEG); KETONE, URINE 10 mg/dL (NEG); MUCUS URINE FEW /lpf (OCC); NITRITE,URINE NEG (NEG); PH, URINE 5.5 (5.0-8.5); SQUAMOUS EPITHELIAL CELL URINE <1 /hpf (0-5); URINE COLOR YELLOW (YELLW/STRAW)
[2017-04-10] MEDS ORDERED: HYDR-3533 PO (21:40)
[2017-04-10] MEDS ORDERED: CEPH-460 PO (21:42)
[2017-04-10] MEDS ORDERED: CEPHALEXIN MONOHYDRATE 500 MG CAP PO ONE (21:45)
--- NOTE | 2017-04-11 15:06 | EKG ---
Date Performed: 04/10/2017 Time Performed: 18:54:02 PTAGE: 61 years EKG: Right bundle branch block Possible inferior infarct - age undetermined Since PREVIOUS TRACING 09/03/2016, no significant change. PREVIOUS TRACIN09/03/2016 23.13 DOCTOR: Jose J Hines Interpretating Date/Time 04/11/2017 15:05:10
== END 2017-04-10 22:03 | disposition home or self-care (01) ==
LOC: NEPC 17:46
DX: N20.0 Calculus of kidney (principal); R31.9 Hematuria, unspecified; M79.7 Fibromyalgia; I45.10 Unspecified right bundle-branch block; I10 Essential (primary) hypertension; Z79.4 Long term (current) use of insulin; E11.9 Type 2 diabetes mellitus without complications; Z79.84 Long term (current) use of oral hypoglycemic drugs
CPT/HCPCS: 74177; 80053; 81001; 83690; 85025; 85610; 85730; 93005; 96361; 96374; 96375; 99285; J2270; J2405; J7040; Q9967

== ENCOUNTER 2017-04-16 10:58 | Emergency (ER) | payer OTHER ==
[~2017-04-16] VITALS: Ht 180.3 cm; Wt 110.0 kg
[~2017-04-16 10:58] MED LIST changes: -ASPI325T PO; +CEPH-460 PO; -CITA20 PO; -CLIN1CAP5 PO; +FLUT1SPR5 EACH NARE; -FLUT1SPR9; +HYDR-3533 PO; +LISI10TA3 PO; -LISI40TA PO; -METF850 PO; +METF850T PO; -METO25 PO; +METO25TA3 PO; -TAMS0.4C67 PO; -TRAZ100 PO; +TRAZ50TA12 PO
[2017-04-16 11:01] VITALS: BP 118/67; PULSE 92; RESP 14; TEMP 97.7; O2SAT 95
--- NOTE | 2017-04-16 11:07 | PD ---
HPI Chief Complaint: heroin overdose Time Seen by Provider: 11:02 Travel History International Travel<30 days: No Contact w/Intl Traveler<30days: No History of Present Illness HPI 61-year-old man, found unresponsive by roommate. EMS found him blue in the face and apneic. Patient was given Narcan, 2 mg IM, and 1.2 mg IV followed by complete reversal. Patient admits using IV heroin this morning around 9 AM. He reports this as a "new batch". He is not overdosed before. Patient is somnolent. Denies any complaints at this time. History Past Medical History Narrative Medical Active IV drug use with heroin CAD, CABG in 2006 Hypertension Hyperlipidemia Diabetes Anxiety Social History Alcohol Use: No Tobacco Use: No Allergies-Medications (Allergen,Severity, Reaction): Coded Allergies: Bactrim (Verified Allergy, Severe, ANAPHYLACTIC, 04/10/17) Sulfa (Verified Allergy, Severe, ANAPHYLACTIC REACTION, 04/10/17) Reported Meds & Prescriptions Reported Meds & Active Scripts Active Keflex (Cephalexin) 500 Mg Cap 500 Mg PO Q12H 10 Days Lortab (Hydrocodone-Acetaminophen) 5-325 Mg Tab 1 Tab PO Q6H PRN Reported Clonazepam 2 Mg Tab 2 Mg PO TID Cymbalta DR (Duloxetine HCl) 30 Mg Capdr 30 Mg PO TID Flonase Nasal [place] (Fluticasone Nasal [place]) 50 Mcg/Act Dana 1 Dana EACH NARE TID Glipizide 10 Mg Tab 20 Mg PO BIDAC Take 30 minutes before a meal Novolin 70-30 Inj (Insulin Human Isoph/Insulin Regular) 1,000 Unit/10 Ml Vial Unknown Dose SQ ACHS Lisinopril 10 Mg Tab 10 Mg PO TID Metformin (Metformin HCl) 850 Mg Tab 850 Mg PO BIDPC With meals Metoprolol Tartrate 25 Mg Tab 25 Mg PO BID Trazodone (Trazodone HCl) 50 Mg Tab 100 Mg PO HS PRN Review of Systems ROS Limitations: Altered Mental Status Physical Exam Narrative GENERAL: 61-year-old man, sluggish, no acute distress. SKIN: Focused skin assessment warm/dry. HEAD: Atraumatic. Normocephalic. NECK: Trachea midline. No JVD. CARDIOVASCULAR: Regular rate and rhythm. No murmur appreciated. RESPIRATORY: Coarse breath sounds bilaterally. No respiratory distress. GASTROINTESTINAL: Abdomen soft, non-tender, nondistended. Hepatic and splenic margins not palpable. MUSCULOSKELETAL: No obvious deformities. No edema. NEUROLOGICAL: Sluggishness. Easily arousable to voice. Answers questions appropriately. Moves all extremities. PSYCHIATRIC: Appropriate mood and affect; insight and judgment fair. Data Data Last Documented VS Vital Signs Date Time Temp Pulse Resp B/P Pulse Ox O2 Delivery O2 Flow Rate FiO2 04/16/17 12:51 91 16 121/75 95 Room Air 04/16/17 11:04 2 04/16/17 11:01 97.7 Orders Chest, Single Ap (04/16/17 ) Complete Blood Count With Diff (04/16/17 11:03) Comprehensive Metabolic Panel (04/16/17 11:03) Iv Access Insert/Monitor (04/16/17 11:03) Labs Laboratory Tests Test 04/16/17 11:10 White Blood Count 5.7 TH/MM3 Red Blood Count 4.84 MIL/MM3 Hemoglobin 13.7 GM/DL Hematocrit 41.1 % Mean Corpuscular Volume 85.1 FL Mean Corpuscular Hemoglobin 28.4 PG Mean Corpuscular Hemoglobin 33.4 % Concent Red Cell Distribution Width 13.0 % Platelet Count 143 TH/MM3 Mean Platelet Volume 7.9 FL Neutrophils (%) (Auto) 63.4 % Lymphocytes (%) (Auto) 22.4 % Monocytes (%) (Auto) 9.4 % Eosinophils (%) (Auto) 4.0 % Basophils (%) (Auto) 0.8 % Neutrophils # (Auto) 3.6 TH/MM3 Lymphocytes # (Auto) 1.3 TH/MM3 Monocytes # (Auto) 0.5 TH/MM3 Eosinophils # (Auto) 0.2 TH/MM3 Basophils # (Auto) 0.0 TH/MM3 CBC Comment DIFF FINAL Differential Comment Sodium Level 140 MEQ/L Potassium Level 3.4 MEQ/L Chloride Level 107 MEQ/L Carbon Dioxide Level 24.7 MEQ/L Anion Gap 8 MEQ/L Blood Urea Nitrogen 24 MG/DL Creatinine 1.26 MG/DL Estimat Glomerular Filtration 58 ML/MIN Rate Random Glucose 168 MG/DL Calcium Level 8.3 MG/DL Total Bilirubin 0.6 MG/DL Aspartate Amino Transf 43 U/L (AST/SGOT) Alanine Aminotransferase 64 U/L (ALT/SGPT) Alkaline Phosphatase 65 U/L Total Protein 7.4 GM/DL Albumin 3.1 GM/DL [facility] Medical Decision Making Medical Screen Exam Complete: Yes Emergency Medical Condition: Yes Interpretation(s) LABS: CBC is unremarkable. Platelet count 143. CMP generally unremarkable. BUN to bit elevated at 24. Glucose 168. Chest x-ray: Negative Differential Diagnosis Heroin overdose, aspiration, pneumonia, congestion, other Narrative Course Medical decision making INITIAL: 61-year-old male with accidental heroin overdose. Reversed with Narcan. W will be monitored in the emergency department. Diagnosis Primary Impression: Accidental heroin overdose Qualified Code: T40.1X1A - Accidental heroin overdose, initial encounter Referrals: [facility] day Additional Instructions: Do not use illicit drugs. Avoid IV drug use altogether. Return to the emergency department for any new or worsening symptoms. Med/Other Pt SpecificInfo: No Change to Meds Disposition: 01 DISCHARGE HOME Condition: Stable Ovi Bee MD Apr 16, 2017 11:07
[2017-04-16 11:24] LABS: AUTOMATED NEUTROPHIL # 3.6 TH/MM3 (1.8-7.7); BASOPHIL % 0.8 % (0.0-2.0); EOSINOPHIL # 0.2 TH/MM3 (0-0.4); HEMATOCRIT 41.1 % (39.0-51.0); HEMO FLAGS DIFF FINAL; LYMPH % 22.4 % (9.0-44.0); LYMPHOCYTE # 1.3 TH/MM3 (1.0-4.8); MEAN CELL VOLUME 85.1 FL (80.0-100.0); MEAN CORPUSCULAR HEMOGLOBIN 28.4 PG (27.0-34.0); MEAN CORPUSCULAR HGB CONC 33.4 % (32.0-36.0); MONO % 9.4 % (0.0-8.0); NEUT % 63.4 % (16.0-70.0); PLATELET COUNT 143 TH/MM3 (150-450); RED BLOOD COUNT 4.84 MIL/MM3 (4.50-5.90); WHITE BLOOD COUNT 5.7 TH/MM3 (4.0-11.0)
[2017-04-16 11:41] LABS: ALT (GPT) 64 U/L (12-78); ANION GAP 8 MEQ/L (5-15); AST (GOT) 43 U/L (15-37); BICARBONATE 24.7 MEQ/L (21.0-32.0); BLOOD UREA NITROGEN 24 MG/DL (7-18); CHLORIDE 107 MEQ/L (98-107); POTASSIUM 3.4 MEQ/L (3.5-5.1); SODIUM (NA) 140 MEQ/L (136-145)
[2017-04-16 11:42] LABS: GLOMERULAR FILTRATION RATE 58 ML/MIN (>89); TOTAL BILIRUBIN ADULT 0.6 MG/DL (0.2-1.0)
[2017-04-16 11:43] LABS: ALKALINE PHOSPHATASE 65 U/L (45-117)
--- NOTE | 2017-04-16 12:02 | RADRPT ---
EXAM DATE/TIME: 04/16/2017 11:09 [facility] COMPARISON: CHEST SINGLE AP, September 04, 2016, 1:16. INDICATIONS : Syncopal episode; Possible overdose. MEDICAL HISTORY : Hypertension. Myocardial infarction. Diabetes mellitus type II. CAD SURGICAL HISTORY : CABG. ENCOUNTER: Initial ACUITY: 1 day PAIN SCORE: 0/10 LOCATION: Bilateral chest FINDINGS: A single view of the chest demonstrates the lungs to be symmetrically aerated without evidence of mas s, infiltrate or effusion. The cardiomediastinal contours are unremarkable. Chronic elevation right hemidiaphragm, stable from prior. Osseous structures are intact. Evidence of prior median sternoto my with intact sternal wire sutures. CONCLUSION: The lungs are clear. No evidence pneumothorax. Joshua Tucker MD on April 16, 2017 at 11:59 Board Certified Radiologist. This report was verified electronically.
[2017-04-16 12:51] VITALS: BP 121/75; PULSE 91; RESP 16; O2SAT 95
[2017-04-16 15:53] VITALS: BP 124/71; TEMP 98
== END 2017-04-16 15:54 | disposition home or self-care (01) ==
LOC: NEPC 10:58
DX: T40.1X1A Poisoning by heroin, accidental (unintentional), initial encounter (principal); F19.90 Other psychoactive substance use, unspecified, uncomplicated; I10 Essential (primary) hypertension; E78.5 Hyperlipidemia, unspecified; E11.9 Type 2 diabetes mellitus without complications; Z79.4 Long term (current) use of insulin; Z86.59 Personal history of other mental and behavioral disorders; Z86.79 Personal history of other diseases of the circulatory system
CPT/HCPCS: 71010; 80053; 85025; 99284

== ENCOUNTER 2017-05-03 02:46 | Emergency (ER) | payer OTHER ==
[2017-05-03 03:28] VITALS: BP 162/84; PULSE 105; RESP 16; TEMP 98.2; O2SAT 97
--- NOTE | 2017-05-03 03:32 | PD ---
HPI Chief Complaint: act Time Seen by Provider: 03:27 Travel History International Travel<30 days: No Contact w/Intl Traveler<30days: No Traveled to known affect area: No History of Present Illness HPI 61-year-old white male presents to emergency department under act by PD. The patient is an IV drug abuser. He states that he had shot IV black tar heroin earlier this evening. He was concerned that he may have accidentally injected more than he typically uses. [place] in case he became unconscious or possibly overdose. The patient now is feeling better. His initial heart rate by EMS was in the 130s. It is down in the high 100s. The patient denies that this was a intentional overdose. He denies any suicidal or homicidal ideation. He states that he is a IV drug abuser was getting high. PFSH Past Medical History Narrative Medical Active IV drug use with heroin CAD, CABG in 2006 Hypertension Hyperlipidemia Diabetes Anxiety Hx Anticoagulant Therapy: Yes (ASA) ADHD: Yes Asthma: Yes Blood Disorders: No Anxiety: Yes Depression: Yes Cancer: Yes (MELANOMA STAGE 2 ,RESECTION WAS DONE IN 2009) Cardiovascular Problems: Yes High Cholesterol: Yes Chest Pain: Yes Congestive Heart Failure: No Coronary Artery Disease: Yes Diabetes: Yes Diminished Hearing: No Endocrine: Yes Fibromyalgia: Yes Gastrointestinal Disorders: Yes Genitourinary: Yes Hypertension: Yes Immune Disorder: No Implanted Vascular Access Dvce: No Kidney Stones: Yes Musculoskeletal: Yes Neurologic: Yes (ADHD) Psychiatric: Yes Reproductive: Yes (ED) Respiratory: Yes Integumentary: Yes (FUNGAL INFECTION TO LEFT FOREARM) Myocardial Infarction: Yes Seizures: No Sleep Apnea: Yes (NO CPAP) Tetanus Vaccination: < 5 Years Past Surgical History Cardiac Surgery: Yes (ANGINOPLASTY WITH STENT 2000,CABG 2006 4 VESSEL WITH 2 T' S,) Cholecystectomy: Yes Coronary Artery Bypass Graft: Yes (X 6 09/2007) Neurologic Surgery: No Thoracic Surgery: Yes (SEE ABOVE) Other Surgery: Yes (STENT PLACED, HERNIA REPAIR, CABG) Social History Alcohol Use: No Tobacco Use: No Substance Use: Yes (HEROIN) Allergies-Medications (Allergen,Severity, Reaction): Coded Allergies: Bactrim (Verified Allergy, Severe, ANAPHYLACTIC, 04/10/17) Sulfa (Verified Allergy, Severe, ANAPHYLACTIC REACTION, 04/10/17) Reported Meds & Prescriptions Reported Meds & Active Scripts Active Keflex (Cephalexin) 500 Mg Cap 500 Mg PO Q12H 10 Days Lortab (Hydrocodone-Acetaminophen) 5-325 Mg Tab 1 Tab PO Q6H PRN Reported Clonazepam 2 Mg Tab 2 Mg PO TID Cymbalta DR (Duloxetine HCl) 30 Mg Capdr 30 Mg PO TID Flonase Nasal [place] (Fluticasone Nasal [place]) 50 Mcg/Act [place] 1 [place] EACH NARE TID Glipizide 10 Mg Tab 20 Mg PO BIDAC Take 30 minutes before a meal Novolin 70-30 Inj (Insulin Human Isoph/Insulin Regular) 1,000 Unit/10 Ml Vial Unknown Dose SQ ACHS Lisinopril 10 Mg Tab 10 Mg PO TID Metformin (Metformin HCl) 850 Mg Tab 850 Mg PO BIDPC With meals Metoprolol Tartrate 25 Mg Tab 25 Mg PO BID Trazodone (Trazodone HCl) 50 Mg Tab 100 Mg PO HS PRN Review of Systems ROS Limitations: Intoxication Physical Exam Narrative GENERAL: Well-nourished, well-developed patient. Patient appears to be under the influence of narcotics. SKIN: Warm and dry. No abscesses. HEAD: Normocephalic and atraumatic. EYES: No scleral icterus. No injection or drainage. ENT: No nasal drainage noted. Mucous membranes pink. Airway patent. NECK: Supple, trachea midline. Moves head freely without obvious discomfort. CARDIOVASCULAR: Regular tachycardic rate and rhythm without murmurs, gallops, or rubs. RESPIRATORY: Breath sounds equal bilaterally. No accessory muscle use. GASTROINTESTINAL: Abdomen soft, non-tender, nondistended. EXTREMITIES: No cyanosis or edema. BACK: Nontender without obvious deformity. No CVA tenderness. NEURO: Patient is alert and oriented. no sensorimotor deficits. Nonfocal. Normal speech. PSYCH: No delusions. No auditory or visual hallucinations. MDM Medical Decision Making Medical Screen Exam Complete: Yes Emergency Medical Condition: Yes Medical Record Reviewed: Yes Differential Diagnosis Differential diagnoses: Alcohol intoxication, substance abuse, electrolyte abnormality, malingering Narrative Course The patient is here under [employer] act due to an accidental overdose of heroin. The patient here denies any suicidal homicidal ideation. He states that he had accidentally used too much heroin this evening. The patient will be allowed to sober up here in the ER once he exhibits a higher level of sobriety is [facility] act will be lifted and he will be allowed to go home. This is accidental heroin overdose, IV drug abuse Diagnosis Primary Impression: Accidental heroin overdose Qualified Code: T40.1X1A - Accidental heroin overdose, initial encounter Additional Impression: IV drug abuse Additional Instructions: Rest. Increase fluids. Avoid alcohol. Avoid illegal substances. Follow-up with [facility] for detox. Do not operate a car or any heavy machinery under the influence of alcohol or drugs. Follow-up with a medical doctor this week. Return to the ER for emergencies Med/Other Pt SpecificInfo: No Meds Exist/No RX given Disposition: 01 DISCHARGE HOME Condition: Stable Orlando Castanon May 03, 2017 03:32
[2017-05-03 04:50] VITALS: BP 158/90; PULSE 98; RESP 17; O2SAT 94
[2017-05-03] MEDS ORDERED: ONDANSETRON ODT 4 MG TAB PO ONE (05:00)
[2017-05-03 06:13] VITALS: BP 159/83
== END 2017-05-03 06:18 | disposition home or self-care (01) ==
LOC: NEPD 02:46
DX: T40.1X1A Poisoning by heroin, accidental (unintentional), initial encounter (principal); F19.10 Other psychoactive substance abuse, uncomplicated; I10 Essential (primary) hypertension; E78.5 Hyperlipidemia, unspecified; E11.9 Type 2 diabetes mellitus without complications; G47.30 Sleep apnea, unspecified; Z79.4 Long term (current) use of insulin; Z79.82 Long term (current) use of aspirin; Z86.79 Personal history of other diseases of the circulatory system; Z86.59 Personal history of other mental and behavioral disorders; Z87.09 Personal history of other diseases of the respiratory system; Z87.39 Personal history of other diseases of the musculoskeletal system and connective tissue; Z87.19 Personal history of other diseases of the digestive system; Z87.448 Personal history of other diseases of urinary system; Z87.2 Personal history of diseases of the skin and subcutaneous tissue
CPT/HCPCS: 99283

== ENCOUNTER 2017-06-05 10:06 | Emergency (ER) | payer OTHER ==
[~2017-06-05] VITALS: Ht 180.3 cm; Wt 110.0 kg
[~2017-06-05 10:06] MED LIST changes: -CEPH-460 PO
[2017-06-05 10:08] VITALS: BP 170/89; PULSE 93; RESP 22; TEMP 98.7; O2SAT 95
--- NOTE | 2017-06-05 10:50 | PD ---
HPI Chief Complaint: Flank/Kidney Pain Time Seen by Provider: 10:19 Travel History International Travel<30 days: No Contact w/Intl Traveler<30days: No Traveled to known affect area: No History of Present Illness HPI 61yo M with PMH of DM, diabetic neuropathy, CAD, HTN presents to the ED with c/ o right flank pain since yesterday. States he had a lithotripsy for his kidney stone with Dr. Hall yesterday but the percocet is not enough. Pt last took percocet at 3am and pain is not relieved. Pain is localized in right flank, intermittent and associated with nausea. Denies any fever, chest pain, sob, vomiting, testicular pain, dysuria, hematuria, focal weakness or numbness. Pt also has a history of heroin addiction. PFSH Past Medical History Hx Anticoagulant Therapy: Yes (ASA) ADHD: Yes Asthma: Yes Blood Disorders: No Anxiety: Yes Depression: Yes Cancer: Yes (MELANOMA STAGE 2 ,RESECTION WAS DONE IN 2009) Cardiovascular Problems: Yes High Cholesterol: Yes Chest Pain: Yes Congestive Heart Failure: No Coronary Artery Disease: Yes Diabetes: Yes Patient Takes Glucophage: No Diminished Hearing: No Endocrine: Yes Fibromyalgia: Yes Gastrointestinal Disorders: Yes Genitourinary: Yes Hypertension: Yes Immune Disorder: No Implanted Vascular Access Dvce: No Kidney Stones: Yes Medical other: Yes (DIABETIC NUEROPATHY) Musculoskeletal: Yes Neurologic: Yes (ADHD) Psychiatric: Yes Reproductive: Yes (ED) Respiratory: Yes Integumentary: Yes (FUNGAL INFECTION TO LEFT FOREARM) Myocardial Infarction: Yes Seizures: No Sleep Apnea: Yes (NO CPAP) Tetanus Vaccination: Unknown Past Surgical History Cardiac Surgery: Yes (ANGINOPLASTY WITH STENT 2000,CABG 2006 4 VESSEL WITH 2 T' S,) Cholecystectomy: Yes Coronary Artery Bypass Graft: Yes (X 6 09/2007) Neurologic Surgery: No Thoracic Surgery: Yes (SEE ABOVE) Other Surgery: Yes (LITRHOTRIPSY) Social History Alcohol Use: No Tobacco Use: No Substance Use: No Allergies-Medications (Allergen,Severity, Reaction): Coded Allergies: Bactrim (Verified Allergy, Severe, ANAPHYLACTIC, 06/05/17) Sulfa (Verified Allergy, Severe, ANAPHYLACTIC REACTION, 06/05/17) Reported Meds & Prescriptions Reported Meds & Active Scripts Active Lortab (Hydrocodone-Acetaminophen) 5-325 Mg Tab 1 Tab PO Q6H PRN Reported Clonazepam 2 Mg Tab 2 Mg PO TID Cymbalta DR (Duloxetine HCl) 30 Mg Capdr 30 Mg PO TID Flonase Nasal [place] (Fluticasone Nasal [place]) 50 Mcg/Act [place] 1 [place] EACH NARE TID Glipizide 10 Mg Tab 20 Mg PO BIDAC Take 30 minutes before a meal Novolin 70-30 Inj (Insulin Human Isoph/Insulin Regular) 1,000 Unit/10 Ml Vial Unknown Dose SQ ACHS Lisinopril 10 Mg Tab 10 Mg PO TID Metformin (Metformin HCl) 850 Mg Tab 850 Mg PO BIDPC With meals Metoprolol Tartrate 25 Mg Tab 25 Mg PO BID Trazodone (Trazodone HCl) 50 Mg Tab 100 Mg PO HS PRN Review of Systems Except as stated in HPI: all other systems reviewed are Neg Physical Exam Narrative GENERAL: 61yo M not in distress. SKIN: Focused skin assessment warm/dry. HEAD: Atraumatic. Normocephalic. EYES: Pupils equal and round. No scleral icterus. No injection or drainage. ENT: No nasal bleeding or discharge. Mucous membranes pink and moist. NECK: Trachea midline. No JVD. CARDIOVASCULAR: Regular rate and rhythm. No murmur appreciated. RESPIRATORY: No accessory muscle use. Clear to auscultation. Breath sounds equal bilaterally. GASTROINTESTINAL: Abdomen soft, +TTP right flank. No rebound tenderness or guarding. MUSCULOSKELETAL: No obvious deformities. No clubbing. No cyanosis. No edema. NEUROLOGICAL: Awake and alert. No obvious cranial nerve deficits. Motor grossly within normal limits. Normal speech. PSYCHIATRIC: Appropriate mood and affect; insight and judgment normal. Data Data Last Documented VS Vital Signs Date Time Temp Pulse Resp B/P Pulse Ox O2 Delivery O2 Flow Rate FiO2 06/05/17 11:26 68 182/87 98 Room Air 06/05/17 10:08 98.7 22 Orders Complete Blood Count With Diff (06/05/17 10:46) Comprehensive Metabolic Panel (06/05/17 10:46) Lipase (06/05/17 10:46) Urinalysis - C+S If Indicated (06/05/17 10:46) Ct Abd/Pel W/O Iv Contrast (06/05/17 10:46) Iv Access Insert/Monitor (06/05/17 10:46) Ecg Monitoring (06/05/17 10:46) Oximetry (06/05/17 10:46) Morphine Inj (Morphine Inj) (06/05/17 11:00) Ondansetron Inj (Zofran Inj) (06/05/17 11:00) Sodium Chloride 0.9% Flush (Ns Flush) (06/05/17 11:00) Metoclopramide Inj (Reglan Inj) (06/05/17 12:45) Hydromorphone Pf Inj (Dilaudid Pf Inj) (06/05/17 12:45) Labs Laboratory Tests Test 06/05/17 06/05/17 11:00 11:55 White Blood Count 7.6 TH/MM3 Red Blood Count 5.00 MIL/MM3 Hemoglobin 14.6 GM/DL Hematocrit 42.5 % Mean Corpuscular Volume 84.9 FL Mean Corpuscular Hemoglobin 29.2 PG Mean Corpuscular Hemoglobin 34.4 % Concent Red Cell Distribution Width 12.8 % Platelet Count 154 TH/MM3 Mean Platelet Volume 8.0 FL Neutrophils (%) (Auto) 71.0 % Lymphocytes (%) (Auto) 16.6 % Monocytes (%) (Auto) 11.0 % Eosinophils (%) (Auto) 1.1 % Basophils (%) (Auto) 0.3 % Neutrophils # (Auto) 5.4 TH/MM3 Lymphocytes # (Auto) 1.3 TH/MM3 Monocytes # (Auto) 0.8 TH/MM3 Eosinophils # (Auto) 0.1 TH/MM3 Basophils # (Auto) 0.0 TH/MM3 CBC Comment DIFF FINAL Differential Comment Sodium Level 133 MEQ/L Potassium Level 4.5 MEQ/L Chloride Level 101 MEQ/L Carbon Dioxide Level 23.2 MEQ/L Anion Gap 9 MEQ/L Blood Urea Nitrogen 21 MG/DL Creatinine 1.23 MG/DL Estimat Glomerular Filtration 60 ML/MIN Rate Random Glucose 278 MG/DL Calcium Level 9.0 MG/DL Total Bilirubin 0.9 MG/DL Aspartate Amino Transf 43 U/L (AST/SGOT) Alanine Aminotransferase 63 U/L (ALT/SGPT) Alkaline Phosphatase 81 U/L Total Protein 8.1 GM/DL Albumin 3.7 GM/DL Lipase 102 U/L Urine Color YELLOW Urine Turbidity CLEAR Urine pH 5.5 Urine Specific [place] 1.019 Urine Protein 30 mg/dL Urine Glucose (UA) 1000 mg/dL Urine Ketones NEG mg/dL Urine Occult Blood MOD Urine Nitrite NEG Urine Bilirubin NEG Urine Urobilinogen LESS THAN 2.0 MG/DL Urine Leukocyte Esterase NEG Urine RBC /hpf Urine WBC 1 /hpf Microscopic Urinalysis Comment CULT NOT INDICATED MDM Medical Decision Making Medical Screen Exam Complete: Yes Emergency Medical Condition: Yes Interpretation(s) Laboratory Tests Test 06/05/17 06/05/17 11:00 11:55 White Blood Count 7.6 TH/MM3 (4.0-11.0) Red Blood Count 5.00 MIL/MM3 (4.50-5.90) Hemoglobin 14.6 GM/DL (13.0-17.0) Hematocrit 42.5 % (39.0-51.0) Mean Corpuscular Volume 84.9 FL (80.0-100.0) Mean Corpuscular Hemoglobin 29.2 PG (27.0-34.0) Mean Corpuscular Hemoglobin 34.4 % Concent (32.0-36.0) Red Cell Distribution Width 12.8 % (11.6-17.2) Platelet Count 154 TH/MM3 (150-450) Mean Platelet Volume 8.0 FL (7.0-11.0) Neutrophils (%) (Auto) 71.0 % (16.0-70.0) Lymphocytes (%) (Auto) 16.6 % (9.0-44.0) Monocytes (%) (Auto) 11.0 % (0.0-8.0) Eosinophils (%) (Auto) 1.1 % (0.0-4.0) Basophils (%) (Auto) 0.3 % (0.0-2.0) Neutrophils # (Auto) 5.4 TH/MM3 (1.8-7.7) Lymphocytes # (Auto) 1.3 TH/MM3 (1.0-4.8) Monocytes # (Auto) 0.8 TH/MM3 (0-0.9) Eosinophils # (Auto) 0.1 TH/MM3 (0-0.4) Basophils # (Auto) 0.0 TH/MM3 (0-0.2) CBC Comment DIFF FINAL Differential Comment Sodium Level 133 MEQ/L (136-145) Potassium Level 4.5 MEQ/L (3.5-5.1) Chloride Level 101 MEQ/L (98-107) Carbon Dioxide Level 23.2 MEQ/L (21.0-32.0) Anion Gap 9 MEQ/L (5-15) Blood Urea Nitrogen 21 MG/DL (7-18) Creatinine 1.23 MG/DL (0.60-1.30) Estimat Glomerular Filtration 60 ML/MIN (>89) Rate Random Glucose 278 MG/DL (74-106) Calcium Level 9.0 MG/DL (8.5-10.1) Total Bilirubin 0.9 MG/DL (0.2-1.0) Aspartate Amino Transf 43 U/L (15-37) (AST/SGOT) Alanine Aminotransferase 63 U/L (12-78) (ALT/SGPT) Alkaline Phosphatase 81 U/L (45-117) Total Protein 8.1 GM/DL (6.4-8.2) Albumin 3.7 GM/DL (3.4-5.0) Lipase 102 U/L (73-393) Urine Color YELLOW (YELLW/STRAW) Urine Turbidity CLEAR (CLEAR) Urine pH 5.5 (5.0-8.5) Urine Specific [place] 1.019 (1.002-1.035) Urine Protein 30 mg/dL (NEG-TRACE) Urine Glucose (UA) 1000 mg/dL (NEG) Urine Ketones NEG mg/dL (NEG) Urine Occult Blood MOD (NEG) Urine Nitrite NEG (NEG) Urine Bilirubin NEG (NEG) Urine Urobilinogen LESS THAN 2.0 MG/DL (LESS THAN 2.0) Urine Leukocyte Esterase NEG (NEG) Urine RBC /hpf (0-3) Urine WBC 1 /hpf (0-5) Microscopic Urinalysis Comment CULT NOT INDICATED Last Impressions Abdomen/Pelvis CT 06/05/17 1046 Signed Impressions: Service Date/Time: Monday, June 05, 2017 11:19 - CONCLUSION: 1. Slight hydronephrosis in the right kidney with multiple stones in the proximal and distal ureter not present previously. 2. Bladder stones not present previously. 3. Acute fracture of right 11th rib not present on the study from 04/2017. Shannan Jo MD Differential Diagnosis Nephrolithiasis vs. malingering Narrative Course 61yo M who just had a lithotripsy yesterday by Dr. Hall here with c/o right flank pain not controlled with percocet. Labs reviewed, no leukocytosis. Creatinine 1.23. Glucose elevated at 278. Normal CO2, no increased anion gap. Normal lipase. UA showed moderate blood. CTa/p showed slight hydronephrosis in right kidney with multiple stones in proximal and distal ureter. Acute fracture of right 11th rib not present from 04/2017. Pt denies any recent trauma. Pt has been given morphine 4mg, zofran and still had nausea and pain so reglan and dilaudid 1mg IV was given. Pt reevaluated with improvement of pain and nausea. I discussed with pt's urologist Dr. Hall and he said pt can follow up with him as outpatient. Return precautions given. Diagnosis Primary Impression: Nephrolithiasis Additional Impression: Rib fracture Qualified Code: S22.31XA - Closed fracture of one rib of right side, initial encounter Patient Instructions: General Instructions Departure Forms: Tests/Procedures Additional Instructions: Please follow up with Dr. Hall as an outpatient in 1-2 days. Return to the ED if symptoms worsen. Med/Other Pt SpecificInfo: Prescription(s) given Scripts Ondansetron Odt (Zofran Odt)4 Mg Tab4 Mg SL Q12HR PRN (Nausea/Vomiting) #7 TAB Ref 0 Prov:Bianca Davis DO 06/05/17 Disposition: 01 DISCHARGE HOME Condition: Stable Bianca Davis DO Jun 05, 2017 10:50
[2017-06-05] MEDS: SODIUM CHLORIDE 0.9% FLUSH 10 ML FLUSH IV FLUSH PRN ×2 (10:58→13:00)
[2017-06-05] MEDS ORDERED: MORPHINE SULFATE 4 MG/ML INJ IV PUSH ONE (11:00)
[2017-06-05] MEDS ORDERED: ONDANSETRON HCL 4 MG/2 ML VIAL IVP ONE (11:00)
[2017-06-05 11:24] VITALS: BP 182/87; PULSE 77
[2017-06-05 11:26] VITALS: BP 182/87; PULSE 68; O2SAT 98
[2017-06-05 11:27] LABS: AUTOMATED NEUTROPHIL # 5.4 TH/MM3 (1.8-7.7); BASOPHIL % 0.3 % (0.0-2.0); EOSINOPHIL # 0.1 TH/MM3 (0-0.4); EOSINOPHIL % 1.1 % (0.0-4.0); HEMATOCRIT 42.5 % (39.0-51.0); HEMO FLAGS DIFF FINAL; LYMPH % 16.6 % (9.0-44.0); LYMPHOCYTE # 1.3 TH/MM3 (1.0-4.8); MEAN CELL VOLUME 84.9 FL (80.0-100.0); MEAN CORPUSCULAR HEMOGLOBIN 29.2 PG (27.0-34.0); MEAN CORPUSCULAR HGB CONC 34.4 % (32.0-36.0); PLATELET COUNT 154 TH/MM3 (150-450); RED CELL DISTRIBUTION WIDTH 12.8 % (11.6-17.2); WHITE BLOOD COUNT 7.6 TH/MM3 (4.0-11.0)
[2017-06-05 11:49] LABS: ANION GAP 9 MEQ/L (5-15); AST (GOT) 43 U/L (15-37); BICARBONATE 23.2 MEQ/L (21.0-32.0); BLOOD UREA NITROGEN 21 MG/DL (7-18); CHLORIDE 101 MEQ/L (98-107); GLOMERULAR FILTRATION RATE 60 ML/MIN (>89); POTASSIUM 4.5 MEQ/L (3.5-5.1); SODIUM (NA) 133 MEQ/L (136-145)
[2017-06-05 11:50] LABS: ALT (GPT) 63 U/L (12-78)
[2017-06-05 11:53] LABS: ALKALINE PHOSPHATASE 81 U/L (45-117); TOTAL BILIRUBIN ADULT 0.9 MG/DL (0.2-1.0)
--- NOTE | 2017-06-05 11:54 | RADRPT ---
EXAM DATE/TIME: 06/05/2017 11:19 [facility] COMPARISON: CT ABDOMEN & PELVIS W CONTRAST, April 10, 2017, 19:57. CT ABDOMEN & PELVIS W/O CONTRAST, March 20, 2014 , 22:44. INDICATIONS : Right flank pain, right sided lithotripsy yesterday with nausea and vomiting. ORAL CONTRAST: No oral contrast ingested. RADIATION DOSE: 8.56 CTDIvol (mGy) MEDICAL HISTORY : Cardiovascular disease. Hypertension. Diabetes mellitus type 1. SURGICAL HISTORY : Cholecystectomy. ENCOUNTER: Initial ACUITY: 1 day PAIN SCALE: 8/10 LOCATION: Right flank TECHNIQUE: Volumetric scanning of the abdomen and pelvis was performed. Using automated exposure control and ad justment of the mA and/or kV according to patient size, radiation dose was kept as low as reasonably achievable to obtain optimal diagnostic quality images. DICOM format image data is available electro nically for review and comparison. FINDINGS: CT Abdomen: There is a tiny 2 mm stone in the left kidney without any hydronephrosis. The right kidne y demonstrates slight hydronephrosis due to multiple stones in the right ureter. There are 2 small 4- 5 mm stones in the right proximal ureter past the UPJ and there is a string of stones distally at the level of UVJ the largest one measures almost 5 mm in size. There are also stones in the posterior po rtion of the bladder at least 2 separate areas one near the left UVJ and one near the right UVJ measu ring 4-5 mm each. There are multiple cysts in the kidneys the largest measures 8.6 cm on the right pr esent on the older exams going back to 2013. The liver, spleen, pancreas, adrenals are unremarkable. There is no evidence for any appreciable pathological adenopathy, free fluid, or bowel obstruction. There is an acute fracture of 11th rib on the right side. There are lymph nodes in the maria m hepatis benign in appearance not significantly changed. CT pelvis: There is no evidence for mass, abscess formation, or any significant adenopathy within the pelvis. The prostate gland is inhomogeneous and measures 3.8 x 4.4 cm in AP and transverse diameters and nonspecific. CONCLUSION: 1. Slight hydronephrosis in the right kidney with multiple stones in the proximal and distal ureter n ot present previously. 2. Bladder stones not present previously. 3. Acute fracture of right 11th rib not present on the study from 04/2017. Shannan Jo MD on June 05, 2017 at 11:45 Board Certified Radiologist. This report was verified electronically.
[2017-06-05 12:28] LABS: BLOOD, URINE MOD (NEG); COMMENT (UR) CULT NOT INDICATED; CULTURE IF INDICATED CULT NOT INDICATED; GLUCOSE,URINE 1000 mg/dL (NEG); KETONE, URINE NEG (NEG); NITRITE,URINE NEG (NEG); PH, URINE 5.5 (5.0-8.5); URINE COLOR YELLOW (YELLW/STRAW)
[2017-06-05] MEDS ORDERED: HYDROmorphone HCL PF 1 MG/ML VIAL IV PUSH ONE (12:45)
[2017-06-05] MEDS: METOCLOPRAMIDE HCL 10 MG/2 ML VIAL IV PUSH ONE ×2 (12:48→13:01)
[2017-06-05] MEDS ORDERED: ZOFR4TAB3 SL (13:27)
[2017-06-05 13:47] VITALS: BP 177/87; PULSE 92; RESP 17; O2SAT 94
== END 2017-06-05 14:26 | disposition home or self-care (01) ==
LOC: NEPE 10:06
DX: N20.0 Calculus of kidney (principal); S22.31XA Fracture of one rib, right side, initial encounter for closed fracture; R11.0 Nausea; E11.9 Type 2 diabetes mellitus without complications; I10 Essential (primary) hypertension; E78.00 Pure hypercholesterolemia, unspecified; X58.XXXA Exposure to other specified factors, initial encounter; Z98.890 Other specified postprocedural states; Z79.4 Long term (current) use of insulin; Z79.82 Long term (current) use of aspirin; Z86.79 Personal history of other diseases of the circulatory system; Z86.59 Personal history of other mental and behavioral disorders; Z87.09 Personal history of other diseases of the respiratory system; Z85.828 Personal history of other malignant neoplasm of skin; Z87.39 Personal history of other diseases of the musculoskeletal system and connective tissue; Z87.19 Personal history of other diseases of the digestive system; Z87.448 Personal history of other diseases of urinary system; Z86.69 Personal history of other diseases of the nervous system and sense organs
CPT/HCPCS: 74176; 80053; 81001; 83690; 85025; 96374; 96375; 99285; J1170; J2270; J2405; J2765

== ENCOUNTER 2017-07-03 17:05 | Emergency (ER) | payer OTHER ==
[~2017-07-03] VITALS: Ht 177.8 cm; Wt 110.0 kg
[~2017-07-03 17:05] MED LIST changes: +ZOFR4TAB3 SL
[2017-07-03 17:07] VITALS: BP 194/104; PULSE 105; RESP 17; TEMP 98.3; O2SAT 98
--- NOTE | 2017-07-03 17:17 | PD ---
HPI Chief Complaint: Neuro Symptoms/ Deficits Time Seen by Provider: 17:17 Travel History International Travel<30 days: No Contact w/Intl Traveler<30days: No Traveled to known affect area: No History of Present Illness HPI 62-year-old male came to the emergency room with history of not feeling well and generalized weakness progressive for past 1 week. Today he says he has been feeling dizzy and lightheaded and feels like he is on a pass out. His vision has been blurry since yesterday. No history of chest pain. He does have history of headache in the center of his head head on the front. No history of vomiting. He has been nauseous. Patient is a diabetic. His bedside blood glucose was 312. Vital signs were otherwise stable. He appeared to be anxious and in moderate distress. [facility] Past Medical History Narrative Medical List of his past medical, surgical, social and family history is reviewed from the nursing note Hx Anticoagulant Therapy: Yes (ASA) ADHD: Yes Asthma: Yes Blood Disorders: No Anxiety: Yes Depression: Yes Cancer: Yes (MELANOMA STAGE 2 ,RESECTION WAS DONE IN 2009) Cardiovascular Problems: Yes High Cholesterol: Yes Chest Pain: Yes Congestive Heart Failure: No Coronary Artery Disease: Yes Diabetes: Yes Diminished Hearing: No Endocrine: Yes Fibromyalgia: Yes Gastrointestinal Disorders: Yes Genitourinary: Yes Hypertension: Yes Immune Disorder: No Implanted Vascular Access Dvce: No Kidney Stones: Yes Musculoskeletal: Yes Neurologic: Yes (ADHD) Psychiatric: Yes Reproductive: Yes (ED) Respiratory: Yes Integumentary: Yes (FUNGAL INFECTION TO LEFT FOREARM) Myocardial Infarction: Yes Seizures: No Sleep Apnea: Yes (NO CPAP) Past Surgical History Cardiac Surgery: Yes (ANGINOPLASTY WITH STENT 2000,CABG 2006 4 VESSEL WITH 2 T' S,) Cholecystectomy: Yes Coronary Artery Bypass Graft: Yes (X 6 09/2007) Neurologic Surgery: No Thoracic Surgery: Yes (SEE ABOVE) Other Surgery: Yes (LITRHOTRIPSY) Social History Alcohol Use: No Tobacco Use: No Substance Use: No Allergies-Medications (Allergen,Severity, Reaction): Coded Allergies: Sulfa (Sulfonamide Antibiotics) (Unverified Allergy, Severe, ANAPHYLACTIC REACTION, 06/23/17) sulfamethoxazole (Unverified Allergy, Severe, ANAPHYLACTIC, 06/23/17) trimethoprim (Unverified Allergy, Severe, ANAPHYLACTIC, 06/23/17) Comments List of his allergies reviewed from the nursing note. Reported Meds & Prescriptions Reported Meds & Active Scripts Active Zofran Odt (Ondansetron Odt) 4 Mg Tab 4 Mg SL Q12HR PRN Lortab (Hydrocodone-Acetaminophen) 5-325 Mg Tab 1 Tab PO Q6H PRN Reported Clonazepam 2 Mg Tab 2 Mg PO TID Cymbalta DR (Duloxetine HCl) 30 Mg Capdr 30 Mg PO TID Flonase Nasal Almond (Fluticasone Nasal Almond) 50 Mcg/Act Almond 1 Almond EACH NARE TID Glipizide 10 Mg Tab 20 Mg PO BIDAC Take 30 minutes before a meal Lisinopril 10 Mg Tab 10 Mg PO TID Metformin (Metformin HCl) 850 Mg Tab 850 Mg PO BIDPC With meals Metoprolol Tartrate 25 Mg Tab 25 Mg PO BID Trazodone (Trazodone HCl) 50 Mg Tab 100 Mg PO HS PRN Narrative Medication List of his home medications reviewed from the nursing note. Review of Systems Except as stated in HPI: all other systems reviewed are Neg Physical Exam Narrative GENERAL: Awake, alert, anxious, moderate distress SKIN: Focused skin assessment warm/dry. HEAD: Atraumatic. Normocephalic. EYES: Pupils equal and round. No scleral icterus. No injection or drainage. ENT: No nasal bleeding or discharge. Mucous membranes pink and moist. NECK: Trachea midline. No JVD. CARDIOVASCULAR: Regular rate and rhythm. No murmur appreciated. RESPIRATORY: No accessory muscle use. Clear to auscultation. Breath sounds equal bilaterally. GASTROINTESTINAL: Abdomen soft, non-tender, nondistended. Hepatic and splenic margins not palpable. MUSCULOSKELETAL: No obvious deformities. No clubbing. No cyanosis. No edema. NEUROLOGICAL: Awake and alert. No obvious cranial nerve deficits. Motor grossly within normal limits. Normal speech. NIH stroke score of 0 PSYCHIATRIC: Appropriate mood and affect; insight and judgment normal. Data Data Last Documented VS Vital Signs Date Time Temp Pulse Resp B/P (MAP) Pulse Ox O2 Delivery O2 Flow Rate FiO2 07/03/17 21:20 70 20 165/75 (105) 98 07/03/17 19:14 98.3 Room Air Orders Orders Prothrombin Time / Inr (Pt) (07/03/17 17:26) Complete Blood Count With Diff (07/03/17 17:26) Basic Metabolic Panel (Bmp) (07/03/17 17:26) Creatine Kinase (Cpk) (07/03/17 17:26) Troponin I (07/03/17 17:26) Urinalysis - C+S If Indicated (07/03/17 17:26) Ct Brain W/O Iv Contrast(Rout) (07/03/17 17:26) Ecg Monitoring (07/03/17 17:26) Iv Access Insert/Monitor (07/03/17 17:26) Oximetry (07/03/17 17:26) Sodium Chloride 0.9% Flush (Ns Flush) (07/03/17 17:30) Blood Gas Venous (Vbg) (07/03/17 17:26) Beta Hydroxybutyrate (Acetone) (07/03/17 17:26) Sodium Chlor 0.9% 1000 Ml Inj (Ns 1000 M (07/03/17 17:30) Insulin Human Regular Inj (Novolin R Inj (07/03/17 18:30) Sodium Chlor 0.9% 1000 Ml Inj (Ns 1000 M (07/03/17 18:45) Electrocardiogram (07/03/17 17:37) Labs Laboratory Tests Test 07/03/17 17:41 07/03/17 18:20 07/03/17 18:31 White Blood Count 6.6 TH/MM3 Red Blood Count 4.95 MIL/MM3 Hemoglobin 14.1 GM/DL Hematocrit 40.8 % Mean Corpuscular Volume 82.5 FL Mean Corpuscular Hemoglobin 28.5 PG Mean Corpuscular Hemoglobin Concent 34.6 % Red Cell Distribution Width 12.7 % Platelet Count 196 TH/MM3 Mean Platelet Volume 8.8 FL Neutrophils (%) (Auto) 56.4 % Lymphocytes (%) (Auto) 29.4 % Monocytes (%) (Auto) 12.4 % Eosinophils (%) (Auto) 1.3 % Basophils (%) (Auto) 0.5 % Neutrophils # (Auto) 3.7 TH/MM3 Lymphocytes # (Auto) 1.9 TH/MM3 Monocytes # (Auto) 0.8 TH/MM3 Eosinophils # (Auto) 0.1 TH/MM3 Basophils # (Auto) 0.0 TH/MM3 CBC Comment DIFF FINAL Differential Comment Prothrombin Time 11.4 SEC Prothromb Time International Ratio 1.0 RATIO Blood Urea Nitrogen 19 MG/DL Creatinine 1.00 MG/DL Random Glucose 323 MG/DL Calcium Level 8.8 MG/DL Sodium Level 131 MEQ/L Potassium Level 4.0 MEQ/L Chloride Level 95 MEQ/L Carbon Dioxide Level 23.9 MEQ/L Anion Gap 12 MEQ/L Estimat Glomerular Filtration Rate 75 ML/MIN Total Creatine Kinase 295 U/L Troponin I LESS THAN 0.02 NG/ML B-Hydroxybutyrate 1.29 MMOL/L Urine Color YELLOW Urine Turbidity CLEAR Urine pH 6.0 Urine Specific [place] 1.032 Urine Protein 100 mg/dL Urine Glucose (UA) 1000 mg/dL Urine Ketones 40 mg/dL Urine Occult Blood MOD Urine Nitrite NEG Urine Bilirubin NEG Urine Urobilinogen LESS THAN 2.0 MG/DL Urine Leukocyte Esterase NEG Urine RBC 25 /hpf Urine WBC LESS THAN 1 /hpf Urine Granular Casts 3 /lpf Microscopic Urinalysis Comment CATH-CULT NOT IND Blood Gas Puncture Site LINE Blood Gas Patient Temperature 98.6 Venous Blood pH 7.37 Venous Blood Partial Pressure CO2 43 mmHg Venous Blood Partial Pressure O2 38 mmHg Venous Blood HCO3 24 mmol/L Venous Blood Oxygen Saturation 67 % Venous Blood Oxygen Content 12.5 Vol % Venous Blood Base Excess -0.6 mmol/L MDM Medical Decision Making Medical Screen Exam Complete: Yes Emergency Medical Condition: Yes Medical Record Reviewed: Yes Interpretation(s) Twelve-lead EKG was reviewed by me. Normal sinus rhythm, normal axis, right bundle branch block. Heart rate of 99 bpm. Differential Diagnosis TIA, DKA, sepsis, UTI Narrative Course 6:36 PM CBC is back and within normal limit. Head CT is within normal limit. Chemistry is back and sides hyperglycemia everything else appears to be in acceptable limits. Patient does have high ketones in the blood. Awaiting for the VBG. Patient is given 1 L IV fluid bolus and 10 units of subcutaneous insulin. I will order for another liter and there would be a blood glucose repeated after one hour. 7:20 PM case will be signed over to the oncoming ER physician. Procedures EKG Prior to Arrival: Cecy Butterfield MD Jul 03, 2017 17:17
[2017-07-03] MEDS ORDERED: SODIUM CHLOR 0.9% 1000 ML INJ 1,000 ML IV ONE ×2 (17:30→18:45)
[2017-07-03] MEDS ORDERED: SODIUM CHLORIDE 0.9% FLUSH 10 ML FLUSH IVF PRN (17:30)
[2017-07-03 17:34] VITALS: RESP 18; O2SAT 97
[2017-07-03 18:07] LABS: AUTOMATED NEUTROPHIL # 3.7 TH/MM3 (1.8-7.7); BASOPHIL % 0.5 % (0.0-2.0); EOSINOPHIL # 0.1 TH/MM3 (0-0.4); EOSINOPHIL % 1.3 % (0.0-4.0); HEMATOCRIT 40.8 % (39.0-51.0); HEMO FLAGS DIFF FINAL; LYMPH % 29.4 % (9.0-44.0); LYMPHOCYTE # 1.9 TH/MM3 (1.0-4.8); MEAN CELL VOLUME 82.5 FL (80.0-100.0); MEAN CORPUSCULAR HEMOGLOBIN 28.5 PG (27.0-34.0); MEAN CORPUSCULAR HGB CONC 34.6 % (32.0-36.0); MONO % 12.4 % (0.0-8.0); NEUT % 56.4 % (16.0-70.0); PLATELET COUNT 196 TH/MM3 (150-450); RED BLOOD COUNT 4.95 MIL/MM3 (4.50-5.90); RED CELL DISTRIBUTION WIDTH 12.7 % (11.6-17.2); WHITE BLOOD COUNT 6.6 TH/MM3 (4.0-11.0)
[2017-07-03 18:19] LABS: PROTHROMBIN TIME - PATIENT 11.4 SEC (9.8-11.6)
[2017-07-03 18:24] LABS: ANION GAP 12 MEQ/L (5-15); BICARBONATE 23.9 MEQ/L (21.0-32.0); BLOOD UREA NITROGEN 19 MG/DL (7-18); CHLORIDE 95 MEQ/L (98-107); GLOMERULAR FILTRATION RATE 75 ML/MIN (>89); SODIUM (NA) 131 MEQ/L (136-145)
[2017-07-03 18:28] LABS: BETA-HYDROXYBUTYRATE 1.29 MMOL/L (0.00-0.39); CREATINE KINASE 295 U/L (39-308)
[2017-07-03] MEDS ORDERED: INSULIN HUMAN REGULAR 1,000 UNITS/10 ML VIAL SQ ONE (18:30)
--- NOTE | 2017-07-03 18:30 | RADRPT ---
EXAM DATE/TIME: 07/03/2017 18:11 [place] COMPARISON: CT BRAIN W/O CONTRAST, February 03, 2016, 15:10. INDICATIONS : Stroke, nausea, vomiting, blurred vision, dizziness, confussion. RADIATION DOSE: 38.95 CTDIvol (mGy) MEDICAL HISTORY : Cardiovascular disease. Hypertension. Melanoma SURGICAL HISTORY : CABG Cholecystectomy.Lithotripsy ENCOUNTER: Initial ACUITY: 1 week PAIN SCALE: 0/10 LOCATION: cranial TECHNIQUE: Multiple contiguous axial images were obtained of the head. Using automated exposure control and adj ustment of the mA and/or kV according to patient size, radiation dose was kept as low as reasonably a chievable to obtain optimal diagnostic quality images. DICOM format image data is available electro nically for review and comparison. FINDINGS: CEREBRUM: The ventricles are normal for age. No evidence of midline shift, mass lesion, hemorrhage or acute in farction. No extra-axial fluid collections are seen. POSTERIOR FOSSA: The cerebellum and brainstem are intact. The 4th ventricle is midline. The cerebellopontine angle i s unremarkable. EXTRACRANIAL: The visualized portion of the orbits is intact. SKULL: The calvaria is intact. No evidence of skull fracture. CONCLUSION: Negative noncontrast head CT. Alan Monteiro MD on July 03, 2017 at 18:27 Board Certified Radiologist. This report was verified electronically.
[2017-07-03 18:51] LABS: BLOOD GAS VENOUS BASE EXCESS -0.6 mmol/L (-2-2); BLOOD GAS VENOUS HCO3 24 mmol/L (22-26); BLOOD GAS VENOUS O2 CONTENT 12.5 Vol % (9.0-17.0); BLOOD GAS VENOUS O2 HGB SAT 67 % (70-76); BLOOD GAS VENOUS PCO2 43 mmHg (44-48); BLOOD GAS VENOUS PO2 38 mmHg (35-40); BLOOD GAS VENOUS pH 7.37 (7.360-7.400); TEMP CORR TO 98.6
[2017-07-03 18:52] LABS: CRITICAL VALUE NO; DRAW SITE LINE; STAT YES
[2017-07-03 18:57] LABS: BLOOD, URINE MOD (NEG); GLUCOSE,URINE 1000 mg/dL (NEG); GRANULAR CAST, URINE 3 /lpf; KETONE, URINE 40 mg/dL (NEG); NITRITE,URINE NEG (NEG); URINE COLOR YELLOW (YELLW/STRAW)
[2017-07-03 19:01] LABS: COMMENT (UR) CATH-CULT NOT IND; CULTURE IF INDICATED CATH CULTURE NOT IND
[2017-07-03 19:14] VITALS: BP 169/79; PULSE 86; RESP 12; TEMP 98.3; O2SAT 97
--- NOTE | 2017-07-03 20:40 | PD ---
Physical Exam Date Seen by Provider: Jul 03, 2017 Time Seen by Provider: 19:00 Narrative Patient initially seen and evaluated by Dr. Perera, please see her notes for further details. Patient is awaiting reevaluation of blood sugar after receiving IV fluids and insulin. At this point, on reevaluation at 8:30 PM, patient is sitting up, dressed, states that he feels much better and is ready to go. Vital signs are stable and blood sugar is now 260. At this point, my plan would be to release the patient with follow-up to primary care doctor. Return for any worsening in symptoms as necessary. The plan has been discussed with him and he states understanding. Data Data Last Documented VS Vital Signs Date Time Temp Pulse Resp B/P (MAP) Pulse Ox O2 Delivery O2 Flow Rate FiO2 07/03/17 19:14 98.3 86 12 169/79 (109) 97 Room Air Orders Orders Prothrombin Time / Inr (Pt) (07/03/17 17:26) Complete Blood Count With Diff (07/03/17 17:26) Basic Metabolic Panel (Bmp) (07/03/17 17:26) Creatine Kinase (Cpk) (07/03/17 17:26) Troponin I (07/03/17 17:26) Urinalysis - C+S If Indicated (07/03/17 17:26) Ct Brain W/O Iv Contrast(Rout) (07/03/17 17:26) Ecg Monitoring (07/03/17 17:26) Iv Access Insert/Monitor (07/03/17 17:26) Oximetry (07/03/17 17:26) Sodium Chloride 0.9% Flush (Ns Flush) (07/03/17 17:30) Blood Gas Venous (Vbg) (07/03/17 17:26) Beta Hydroxybutyrate (Acetone) (07/03/17 17:26) Sodium Chlor 0.9% 1000 Ml Inj (Ns 1000 M (07/03/17 17:30) Insulin Human Regular Inj (Novolin R Inj (07/03/17 18:30) Sodium Chlor 0.9% 1000 Ml Inj (Ns 1000 M (07/03/17 18:45) Labs Laboratory Tests Test 07/03/17 17:41 07/03/17 18:20 07/03/17 18:31 White Blood Count 6.6 TH/MM3 Red Blood Count 4.95 MIL/MM3 Hemoglobin 14.1 GM/DL Hematocrit 40.8 % Mean Corpuscular Volume 82.5 FL Mean Corpuscular Hemoglobin 28.5 PG Mean Corpuscular Hemoglobin Concent 34.6 % Red Cell Distribution Width 12.7 % Platelet Count 196 TH/MM3 Mean Platelet Volume 8.8 FL Neutrophils (%) (Auto) 56.4 % Lymphocytes (%) (Auto) 29.4 % Monocytes (%) (Auto) 12.4 % Eosinophils (%) (Auto) 1.3 % Basophils (%) (Auto) 0.5 % Neutrophils # (Auto) 3.7 TH/MM3 Lymphocytes # (Auto) 1.9 TH/MM3 Monocytes # (Auto) 0.8 TH/MM3 Eosinophils # (Auto) 0.1 TH/MM3 Basophils # (Auto) 0.0 TH/MM3 CBC Comment DIFF FINAL Differential Comment Prothrombin Time 11.4 SEC Prothromb Time International Ratio 1.0 RATIO Blood Urea Nitrogen 19 MG/DL Creatinine 1.00 MG/DL Random Glucose 323 MG/DL Calcium Level 8.8 MG/DL Sodium Level 131 MEQ/L Potassium Level 4.0 MEQ/L Chloride Level 95 MEQ/L Carbon Dioxide Level 23.9 MEQ/L Anion Gap 12 MEQ/L Estimat Glomerular Filtration Rate 75 ML/MIN Total Creatine Kinase 295 U/L Troponin I LESS THAN 0.02 NG/ML B-Hydroxybutyrate 1.29 MMOL/L Urine Color YELLOW Urine Turbidity CLEAR Urine pH 6.0 Urine Specific [place] 1.032 Urine Protein 100 mg/dL Urine Glucose (UA) 1000 mg/dL Urine Ketones 40 mg/dL Urine Occult Blood MOD Urine Nitrite NEG Urine Bilirubin NEG Urine Urobilinogen LESS THAN 2.0 MG/DL Urine Leukocyte Esterase NEG Urine RBC 25 /hpf Urine WBC LESS THAN 1 /hpf Urine Granular Casts 3 /lpf Microscopic Urinalysis Comment CATH-CULT NOT IND Blood Gas Puncture Site LINE Blood Gas Patient Temperature 98.6 Venous Blood pH 7.37 Venous Blood Partial Pressure CO2 43 mmHg Venous Blood Partial Pressure O2 38 mmHg Venous Blood HCO3 24 mmol/L Venous Blood Oxygen Saturation 67 % Venous Blood Oxygen Content 12.5 Vol % Venous Blood Base Excess -0.6 mmol/L [facility] Medical Record Reviewed: Yes Supervised Visit with HANG: No Diagnosis Primary Impression: Hyperglycemia Disposition: 01 DISCHARGE HOME Condition: Stable [place],Rewadee MD Jul 03, 2017 20:40
[2017-07-03 21:20] VITALS: BP 165/75
--- NOTE | 2017-07-04 18:31 | EKG ---
Date Performed: 07/03/2017 Time Performed: 17:37:33 PTAGE: 62 years EKG: Sinus rhythm RIGHT BUNDLE BRANCH BLOCK ABNORMAL ECG PREVIOUS TRACING : 04/10/2017 18.54 Compared to prior tracing no significant change DOCTOR: Hayden Barrera Interpretating Date/Time 07/04/2017 18:30:25
== END 2017-07-03 21:39 | disposition home or self-care (01) ==
LOC: NEPE 17:05
DX: I45.10 Unspecified right bundle-branch block (principal); R42 Dizziness and giddiness; E11.9 Type 2 diabetes mellitus without complications; I10 Essential (primary) hypertension; M79.7 Fibromyalgia; I25.10 Atherosclerotic heart disease of native coronary artery without angina pectoris; F90.9 Attention-deficit hyperactivity disorder, unspecified type; J45.909 Unspecified asthma, uncomplicated; I25.2 Old myocardial infarction
CPT/HCPCS: 70450; 80048; 81001; 82010; 82550; 82805; 84484; 85025; 85610; 93005; 96372; 99285; J1815; J7030

== ENCOUNTER 2017-07-15 18:26 | Inpatient (IN) | payer OTHER, MEDICARE ==
[~2017-07-15] VITALS: Ht 180.3 cm; Wt 102.0 kg
[~2017-07-15 18:26] MED LIST changes: -NOVO7030P2 SQ
[2017-07-15 18:28] VITALS: BP 137/75; PULSE 112; RESP 20; TEMP 97.3; O2SAT 95
[2017-07-15] MEDS ORDERED: VANCOMYCIN INJ 1,000 MG in SODIUM CHLOR 0.9% 250 ML INJ 250 ML IV ONE (19:45)
[2017-07-15] MEDS ORDERED: LIDOCAINE HCL 1% 50 ML VIAL INFIL ONE (19:45)
--- NOTE | 2017-07-15 20:06 | PD ---
HPI Chief Complaint: Skin Problem Time Seen by Provider: 19:50 Travel History International Travel<30 days: No Contact w/Intl Traveler<30days: No Traveled to known affect area: No History of Present Illness HPI 62-year-old male with history of IV drug abuse presents for evaluation of soft tissue swelling in the left antecubital region. He reports that he injected heroin in this region one week ago and he believes that he missed the vein. Since then he has had increasing pain and soft tissue swelling. Throbbing pain that is worse with palpation. Denies drainage, fevers or chills, chest pain or shortness of breath, neck or back pain. He has no other complaints at this time. PFSH Past Medical History Hx Anticoagulant Therapy: Yes (ASA) ADHD: Yes Asthma: Yes Blood Disorders: No Anxiety: Yes Depression: Yes Cancer: Yes (MELANOMA STAGE 2 ,RESECTION WAS DONE IN 2009) Cardiovascular Problems: Yes (OPEN HEART SX) High Cholesterol: Yes Chest Pain: Yes Congestive Heart Failure: No Coronary Artery Disease: Yes Diabetes: Yes Diminished Hearing: No Endocrine: Yes Fibromyalgia: Yes Gastrointestinal Disorders: Yes Genitourinary: Yes Hypertension: Yes Immune Disorder: No Implanted Vascular Access Dvce: No Kidney Stones: Yes Musculoskeletal: Yes Neurologic: Yes (ADHD) Psychiatric: Yes Reproductive: Yes (ED) Respiratory: Yes Integumentary: Yes (FUNGAL INFECTION TO LEFT FOREARM) Myocardial Infarction: Yes Seizures: No Sleep Apnea: Yes (NO CPAP) Past Surgical History Cardiac Surgery: Yes (ANGINOPLASTY WITH STENT 2000,CABG 2006 4 VESSEL WITH 2 T' S,) Cholecystectomy: Yes Coronary Artery Bypass Graft: Yes (X 6 09/2007) Neurologic Surgery: No Thoracic Surgery: Yes (SEE ABOVE) Other Surgery: Yes (LITRHOTRIPSY) Social History Alcohol Use: No Tobacco Use: No Substance Use: No Allergies-Medications (Allergen,Severity, Reaction): Coded Allergies: Sulfa (Sulfonamide Antibiotics) (Unverified Allergy, Severe, ANAPHYLACTIC REACTION, 06/23/17) sulfamethoxazole (Unverified Allergy, Severe, ANAPHYLACTIC, 06/23/17) trimethoprim (Unverified Allergy, Severe, ANAPHYLACTIC, 06/23/17) Reported Meds & Prescriptions Reported Meds & Active Scripts Active Reported Amlodipine (Amlodipine Besylate) 10 Mg Tab 10 Mg PO BID Glipizide 10 Mg Tab 20 Mg PO BIDAC Take 30 minutes before a meal Metformin (Metformin HCl) 850 Mg Tab 850 Mg PO BIDPC With meals Metoprolol Tartrate 25 Mg Tab 25 Mg PO BID Trazodone (Trazodone HCl) 50 Mg Tab 100 Mg PO HS PRN Review of Systems Except as stated in HPI: all other systems reviewed are Neg Physical Exam Narrative GENERAL: Well-developed well-nourished male in no acute distress. He is tachycardic in triage. SKIN: Warm and dry. 3 cm area of fluctuance to the left antecubital region. Tender to palpation. HEAD: Atraumatic. Normocephalic. EYES: Pupils equal and round. No scleral icterus. No injection or drainage. ENT: No nasal bleeding or discharge. Mucous membranes pink and moist. NECK: Trachea midline. No JVD. CARDIOVASCULAR: Regular rate and rhythm. No murmur appreciated. RESPIRATORY: No accessory muscle use. Clear to auscultation. Breath sounds equal bilaterally. GASTROINTESTINAL: Abdomen soft, non-tender, nondistended. Hepatic and splenic margins not palpable. MUSCULOSKELETAL: No obvious deformities. No clubbing. No cyanosis. No edema. NEUROLOGICAL: Awake and alert. No obvious cranial nerve deficits. Motor grossly within normal limits. Normal speech. PSYCHIATRIC: Appropriate mood and affect; insight and judgment normal. Data Data Last Documented VS Vital Signs Date Time Temp Pulse Resp B/P (MAP) Pulse Ox O2 Delivery O2 Flow Rate FiO2 07/15/17 18:28 97.3 112 20 137/75 (95) 95 Room Air Orders Orders Complete Blood Count With Diff (07/15/17 19:44) Comprehensive Metabolic Panel (07/15/17 19:44) Lactic Acid Sepsis Protocol (07/15/17 19:44) Blood Culture (07/15/17 19:44) Wound Culture And Gram Stain (07/15/17 19:44) Sodium Chlor 0.9% 1000 Ml Inj (Ns 1000 M (07/15/17 19:44) Vancomycin Inj (Vancomycin Inj) (07/15/17 19:45) Lidocaine 1% Inj (50 Ml) (Xylocaine 1% I (07/15/17 19:45) Sodium Chlor 0.9% 1000 Ml Inj (Ns 1000 M (07/15/17 20:55) Admit Order (Ed Use Only) (07/15/17 21:03) Labs Laboratory Tests Test 07/15/17 19:52 White Blood Count 9.5 TH/MM3 Red Blood Count 5.04 MIL/MM3 Hemoglobin 14.4 GM/DL Hematocrit 41.6 % Mean Corpuscular Volume 82.5 FL Mean Corpuscular Hemoglobin 28.6 PG Mean Corpuscular Hemoglobin Concent 34.6 % Red Cell Distribution Width 13.5 % Platelet Count 189 TH/MM3 Mean Platelet Volume 8.0 FL Neutrophils (%) (Auto) 65.4 % Lymphocytes (%) (Auto) 21.5 % Monocytes (%) (Auto) 11.7 % Eosinophils (%) (Auto) 0.9 % Basophils (%) (Auto) 0.5 % Neutrophils # (Auto) 6.2 TH/MM3 Lymphocytes # (Auto) 2.0 TH/MM3 Monocytes # (Auto) 1.1 TH/MM3 Eosinophils # (Auto) 0.1 TH/MM3 Basophils # (Auto) 0.0 TH/MM3 CBC Comment DIFF FINAL Differential Comment Blood Urea Nitrogen 27 MG/DL Creatinine 1.35 MG/DL Random Glucose 292 MG/DL Total Protein 8.2 GM/DL Albumin 3.3 GM/DL Calcium Level 9.0 MG/DL Alkaline Phosphatase 119 U/L Aspartate Amino Transf (AST/SGOT) 23 U/L Alanine Aminotransferase (ALT/SGPT) 48 U/L Total Bilirubin 0.9 MG/DL Sodium Level 136 MEQ/L Potassium Level 4.0 MEQ/L Chloride Level 98 MEQ/L Carbon Dioxide Level 26.1 MEQ/L Anion Gap 12 MEQ/L Estimat Glomerular Filtration Rate 53 ML/MIN Lactic Acid Level 2.7 mmol/L MDM Medical Decision Making Medical Screen Exam Complete: Yes Emergency Medical Condition: Yes Medical Record Reviewed: Yes Differential Diagnosis Cutaneous abscess, IV infiltration, cellulitis, myositis, sepsis Narrative Course 62-year-old male history of IV heroin abuse presents with soft tissue swelling left antecubital region, symptoms started 1 week ago after injecting heroin in the region. On examination he has a 3 cm area of fluctuance consistent with abscess. He is tachycardic in triage. Therefore basic lab work and blood cultures will be drawn. He will be given IV fluids and vancomycin. He has verbally consented to incision and drainage of the abscess. Wound culture was performed. The patient's lab work is been reviewed. His lactic acid is 2.7. Therefore given his history of IV drug abuse, tachycardia, lactic acidosis, left arm abscess, the patient will be admitted for IV antibiotic therapy and closer monitoring. Procedures Procedure Narrative INCISION AND DRAINAGE OF ABSCESS: The area was prepped and was sterilely draped. A subcutaneous wheal of 1% Xylocaine with a total number 6 mL was used to anesthetize the area. The area was properly anesthetized. A number 11 scalpel was used to make a 1.5 -cm incision across the area of the abscess. Cultures were obtained. The abscess was drained an irrigated with normal saline. Sepsis Criteria SIRS Criteria (2 or more): Heart rate over 90 Sepsis Criteria (SIRS+source): Infect source susp/known Diagnosis Primary Impression: Abscess of left arm Additional Impressions: IV drug abuse Lactic acidosis Admitting Information Admitting Physician Requests: Vickey Tim Jul 15, 2017 20:06
[2017-07-15 20:28] LABS: AUTOMATED NEUTROPHIL # 6.2 TH/MM3 (1.8-7.7); BASOPHIL % 0.5 % (0.0-2.0); EOSINOPHIL # 0.1 TH/MM3 (0-0.4); EOSINOPHIL % 0.9 % (0.0-4.0); HEMATOCRIT 41.6 % (39.0-51.0); HEMO FLAGS DIFF FINAL; LYMPH % 21.5 % (9.0-44.0); MEAN CELL VOLUME 82.5 FL (80.0-100.0); MEAN CORPUSCULAR HEMOGLOBIN 28.6 PG (27.0-34.0); MEAN CORPUSCULAR HGB CONC 34.6 % (32.0-36.0); MONO % 11.7 % (0.0-8.0); NEUT % 65.4 % (16.0-70.0); PLATELET COUNT 189 TH/MM3 (150-450); RED BLOOD COUNT 5.04 MIL/MM3 (4.50-5.90); RED CELL DISTRIBUTION WIDTH 13.5 % (11.6-17.2); WHITE BLOOD COUNT 9.5 TH/MM3 (4.0-11.0)
[2017-07-15] MEDS ORDERED: DOXY100C PO (20:44)
[2017-07-15 20:45] LABS: ALT (GPT) 48 U/L (12-78); ANION GAP 12 MEQ/L (5-15); AST (GOT) 23 U/L (15-37); BICARBONATE 26.1 MEQ/L (21.0-32.0); BLOOD UREA NITROGEN 27 MG/DL (7-18); CHLORIDE 98 MEQ/L (98-107); GLOMERULAR FILTRATION RATE 53 ML/MIN (>89); SODIUM (NA) 136 MEQ/L (136-145)
[2017-07-15 20:48] LABS: ALKALINE PHOSPHATASE 119 U/L (45-117); TOTAL BILIRUBIN ADULT 0.9 MG/DL (0.2-1.0)
[2017-07-15] MEDS ORDERED: SODIUM CHLOR 0.9% 1000 ML INJ 1,000 ML IV SCH (20:55)
[2017-07-15] MEDS ORDERED: NALOXONE HCL 0.4 MG/ML AMP IV PRN (21:15)
[2017-07-15] MEDS ORDERED: SODIUM CHLORIDE 0.9% FLUSH 10 ML FLUSH IV FLUSH PRN (21:15)
[2017-07-15] MEDS ORDERED: MEPERIDINE HCL 50 MG/ML VIAL IM PRN (21:30)
[2017-07-15] MEDS: SODIUM CHLOR 0.9% 1000 ML INJ 1,000 ML IV SCH ×2 (21:40→23:23)
[2017-07-15 22:19] LABS: LACTIC ACID GHOST NOT REPORTABLE
[2017-07-15] MEDS ORDERED: ENALAPRILAT 2.5 MG/2 ML VIAL IV PUSH PRN (23:45)
[2017-07-15] MEDS ORDERED: LISINOPRIL 20 MG TAB PO ONE (23:45)
[2017-07-15] MEDS ORDERED: AMLO10TA2 PO (23:52)
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
[2017-07-16] VITALS (7 sets, daily range): BP systolic 134–166; BP diastolic 75–93; PULSE 80–89; RESP 18–20; TEMP 96.3–98.6; O2SAT 94–98
[2017-07-16] MEDS ORDERED: DEXTROSE 50% IN WATER 50 ML VIAL(D50) IV PRN (00:30)
[2017-07-16] MEDS ORDERED: Vancomycin Consult Pharmacy 1 EA OTHER SCH (00:30)
[2017-07-16] MEDS ORDERED: GLUCAGON 1 MG/ML VIAL OTHER PRN (00:30)
[2017-07-16] MEDS: SODIUM CHLOR 0.9% 1000 ML INJ 1,000 ML IV SCH ×2 (00:58→07:02)
[2017-07-16] MEDS ORDERED: ceFAZolin 1,000 MG/NS 100 ML IV SCH ×2 (01:00)
[2017-07-16] MEDS: INSULIN ASPART SUPPLEMENTAL SCALE SQ SCH ×4 (05:44→20:51)
[2017-07-16] MEDS ORDERED: traZODone HCL 100 MG TAB PO PRN (07:30)
[2017-07-16] MEDS: SODIUM CHLORIDE 0.9% FLUSH 10 ML FLUSH IV FLUSH SCH ×2 (08:25→20:48)
[2017-07-16] MEDS: METOPROLOL TARTRATE 25 MG TAB PO SCH ×2 (08:28→20:44)
[2017-07-16 09:28] LABS: AUTOMATED NEUTROPHIL # 3.8 TH/MM3 (1.8-7.7); BASOPHIL % 0.4 % (0.0-2.0); EOSINOPHIL # 0.1 TH/MM3 (0-0.4); EOSINOPHIL % 2.1 % (0.0-4.0); HEMATOCRIT 38.7 % (39.0-51.0); HEMO FLAGS DIFF FINAL; LYMPH % 27.1 % (9.0-44.0); LYMPHOCYTE # 1.7 TH/MM3 (1.0-4.8); MEAN CORPUSCULAR HEMOGLOBIN 28.3 PG (27.0-34.0); MEAN CORPUSCULAR HGB CONC 34.2 % (32.0-36.0); MONO % 10.8 % (0.0-8.0); NEUT % 59.6 % (16.0-70.0); PLATELET COUNT 166 TH/MM3 (150-450); RED BLOOD COUNT 4.66 MIL/MM3 (4.50-5.90); RED CELL DISTRIBUTION WIDTH 13.3 % (11.6-17.2); WHITE BLOOD COUNT 6.4 TH/MM3 (4.0-11.0)
[2017-07-16] MEDS: PIPERACIL-TAZO 4.5 GM PREMIX 100 ML IV SCH ×3 (09:31→20:44)
[2017-07-16 09:52] LABS: BICARBONATE 25.7 MEQ/L (21.0-32.0); POTASSIUM 3.5 MEQ/L (3.5-5.1)
[2017-07-16] MEDS ORDERED: VANCOMYCIN INJ 1,500 MG in SODIUM CHLORID 0.9% 500 ML INJ 500 ML IV SCH (10:00)
--- NOTE | 2017-07-16 11:33 | PD.CONS ---
History of Present Illness Service Infectious disease Consult Requested By Dr Bora Astorga Reason for Consult Evaluate patient with abscess, known IV drug use Primary Care Physician Papo James M.D. Diagnoses: History of Present Illness Patient seen and examined. Records reviewed. Patient is a 62-year-old male, with known history of IV drug use, injects mostly in both upper extremity, had injected in his left antecubital area about a week ago. He apparently started developing a problem immediately with some pain and redness. It progressively worsened, so he presented to the hospital for further evaluation and treatment. He has not had any fever or chills or sweats. Denies any other respiratory or any or GI problem. In the emergency room he had I&D of an abscess in his left antecubital area. He is afebrile. WBC is normal. He is on IV Vanco and Zosyn. Infectious disease consultation has been requested to make recommendation regarding patient with abscess and known IV drug use. Review of Systems Constitutional: DENIES: Fever, Chills Eyes: DENIES: Eye pain Ears, nose, mouth, throat: DENIES: Nasal discharge, Oral lesions, Throat pain, Ear Pain, Sinus Pain Respiratory: DENIES: Cough, Shortness of breath Cardiovascular: DENIES: Chest pain, Palpitations, Dyspnea on Exertion Gastrointestinal: DENIES: Abdominal pain, Constipation, Diarrhea, Nausea, Vomiting, Difficulty Swallowing Genitourinary: DENIES: Urgency, Dysuria, Nocturia Musculoskeletal: DENIES: Back pain, Neck pain Integumentary: DENIES: Rash Neurologic: DENIES: Headache Psychiatric: DENIES: Hallucinations Past Family Social History Allergies: Coded Allergies: Sulfa (Sulfonamide Antibiotics) (Unverified Allergy, Severe, ANAPHYLACTIC REACTION, 06/23/17) sulfamethoxazole (Unverified Allergy, Severe, ANAPHYLACTIC, 06/23/17) trimethoprim (Unverified Allergy, Severe, ANAPHYLACTIC, 06/23/17) Past Medical History Hypertension Diabetes CAD - S/P stent 1 in 2002 hHpatitis C- not treated CKD 2 renal stones on the right- one taken out by lithotripsy a month ago Melanoma neck - s/p excision - sentinel node biopsy- no mets BPH Previous MRSA infection IVDU Past Surgical History CABG 2006 Cardiac cath Lithotripsies Laproscopic cholecystectomy Active Ordered Medications [place] Norvasc Vasotec Insulin Lopressor Zosyn Desyrel Vancomycin Family History Hx DM and CAD Social History Quit smoking 1976 Denies ETOH IVDU with heroine Physical Exam Vital Signs Vital Signs Date Time Temp Pulse Resp B/P (MAP) Pulse Ox O2 Delivery O2 Flow Rate FiO2 07/16/17 07:30 97.8 80 20 134/75 (94) 95 07/16/17 04:00 98.3 83 18 154/88 (110) 96 07/16/17 04:00 86 07/16/17 00:50 80 07/16/17 00:45 96.6 85 18 166/81 (109) 98 07/15/17 18:28 97.3 112 20 137/75 (95) 95 Room Air Physical Exam GENERAL: Patient is a well-nourished, well-developed male, awake and alert, not in respiratory distress. SKIN: Warm and dry. No generalized rash, no ecchymoses and no evidence of embolic lesions. HEAD: Atraumatic. Normocephalic. No temporal wasting, or tenderness. EYES: Garceno conjunctiva. No petechia or hemorrhage. Pupils equal, round and reactive to light. Extraocular movements full and intact. No scleral icterus. No injection or drainage. EARS, NOSE AND THROAT: Nose without bleeding or purulent nasal discharge. No sinus tenderness. Mucous membranes pink and moist. No oral lesions noted. No exudate. No oral thrush. NECK: Trachea midline. Supple and not tender, no meningeal signs CARDIOVASCULAR: Regular rate and rhythm. No murmurs, rubs or gallops heard RESPIRATORY: Clear to auscultation. Breath sounds equal bilaterally. No rales , wheezing or rhonchi ABDOMEN: Soft, non-tender, nondistended. Bowel sounds present and normoactive. No guarding. No rebound. No organomegaly. EXTREMITIES: No clubbing, cyanosis, or edema in BLE. No joint effusion, has good ROM. No calf tenderness. Well perfused and warm. LUE - has a small incision about 1 cm with some dried blood, indurated, no fluctuant and has mild erythema. No palpable cord NEUROLOGICAL: Awake and alert. Cranial nerves grossly intact. Motor grossly within normal limits. PSYCHIATRIC: Normal affect, calm and cooperative. LINE: No evidence of infection Laboratory Laboratory Tests Test 07/15/17 19:52 07/15/17 23:10 07/16/17 08:08 White Blood Count 9.5 6.4 Red Blood Count 5.04 4.66 Hemoglobin 14.4 13.2 Hematocrit 41.6 38.7 Mean Corpuscular Volume 82.5 83.0 Mean Corpuscular Hemoglobin 28.6 28.3 Mean Corpuscular Hemoglobin Concent 34.6 34.2 Red Cell Distribution Width 13.5 13.3 Platelet Count 189 166 Mean Platelet Volume 8.0 7.9 Neutrophils (%) (Auto) 65.4 59.6 Lymphocytes (%) (Auto) 21.5 27.1 Monocytes (%) (Auto) 11.7 10.8 Eosinophils (%) (Auto) 0.9 2.1 Basophils (%) (Auto) 0.5 0.4 Neutrophils # (Auto) 6.2 3.8 Lymphocytes # (Auto) 2.0 1.7 Monocytes # (Auto) 1.1 0.7 Eosinophils # (Auto) 0.1 0.1 Basophils # (Auto) 0.0 0.0 CBC Comment DIFF FINAL DIFF FINAL Differential Comment Blood Urea Nitrogen 27 19 Creatinine 1.35 0.79 Random Glucose 292 253 Total Protein 8.2 Albumin 3.3 Calcium Level 9.0 8.7 Alkaline Phosphatase 119 Aspartate Amino Transf (AST/SGOT) 23 Alanine Aminotransferase (ALT/SGPT) 48 Total Bilirubin 0.9 Sodium Level 136 135 Potassium Level 4.0 3.5 Chloride Level 98 100 Carbon Dioxide Level 26.1 25.7 Anion Gap 12 9 Estimat Glomerular Filtration Rate 53 99 Lactic Acid Level 2.7 1.8 Date/Time Source Procedure Growth Status 07/15/17 19:52 Blood Peripheral Aerobic Blood Culture - Preliminary NO GROWTH IN 1 DAY Resulted 07/15/17 19:52 Blood Peripheral Anaerobic Blood Culture - Preliminary NO GROWTH IN 1 DAY Resulted 07/15/17 19:56 Wound Arm Gram Stain - Final Resulted 07/15/17 19:56 Wound Arm Wound Culture Pending Resulted Result Diagram: 07/16/17 0808 07/16/17 0808 Assessment and Plan Assessment and Plan IMPRESSION Cellulitis and abscess LUE, known IVDU Known CAD, S/P CABG RECOMMENDATION Follow C/S and adjust Abx Monitor temps Continue Vanco and Zosyn Monitor progress If BC negative, will be able to use oral Abx on D/C Thank you for this consultation Discussed Condition With Explained plan to the patient Cristina Friend MD Jul 16, 2017 11:33
--- NOTE | 2017-07-16 15:15 | HHI.PR ---
Subjective Remarks Follow-up for left antecubital abscess Left antecubital area less swelling, less pain. No fever, no nausea or vomiting. Objective Vitals Vital Signs Date Time Temp Pulse Resp B/P (MAP) Pulse Ox O2 Delivery O2 Flow Rate FiO2 07/16/17 11:30 98.4 82 20 165/89 (114) 96 07/16/17 07:30 97.8 80 20 134/75 (94) 95 07/16/17 04:00 98.3 83 18 154/88 (110) 96 07/16/17 04:00 86 07/16/17 00:50 80 07/16/17 00:45 96.6 85 18 166/81 (109) 98 07/15/17 18:28 97.3 112 20 137/75 (95) 95 Room Air I/O 07/15/17 07/15/17 07/15/17 07/16/17 07/16/17 07/16/17 07:00 15:00 23:00 07:00 15:00 23:00 Intake Total 720 ml Balance 720 ml Intake Oral 720 ml # Voids 3 # Bowel Movements 1 Result Diagram: 07/16/17 0808 07/16/17 0808 Objective Remarks GENERAL: This is a well-nourished, well-developed patient, in no apparent distress. SKIN: left antecubital area cellulitis-better, mild tenderness, no bleeding, no fluctuance. CARDIOVASCULAR: Regular rate and rhythm without murmurs, gallops, or rubs. RESPIRATORY: Clear to auscultation. Breath sounds equal bilaterally. No wheezes , rales, or rhonchi. GASTROINTESTINAL: Abdomen soft, non-tender, nondistended. No guarding. MUSCULOSKELETAL: Extremities without clubbing, cyanosis, or edema. No calf tenderness. NEUROLOGICAL: Awake and alert. Motor and sensory grossly within normal limits.Normal speech. A/P Problem List: (1) Diabetes mellitus type 2 in obese ICD Code: E11.9 - Diabetes mellitus type 2 in obese; E66.9 - Obesity, unspecified Status: Chronic (2) Coronary artery disease ICD Code: I25.10 - Coronary artery disease Status: Chronic (3) Abscess of left arm ICD Code: L02.414 - Cutaneous abscess of left upper limb Status: Acute Assessment and Plan This is a 62-year-old male admitted for left antecubital abscess Left antecubital abscess-patient has history of MRSA and IV drug use. Infectious disease following, continue vancomycin and Zosyn, and blood cultures negative, may switch to oral. Continue pain control with oral narcotics, lactic acidosis resolved. Hypertension-continue Norvasc, metoprolol, Vasotec as needed Diabetes mellitus-hold oral hypoglycemic agents, sliding scale insulin for now Coronary artery disease-status post stenting in 2002, status post CABG, continue metoprolol. Chronic kidney disease-creatinine is stable, monitor. Lovenox for DVT prophylaxis Bashir Biggs MD Jul 16, 2017 15:15
[2017-07-16] MEDS: ENOXAPARIN SODIUM 40 MG/0.4 ML SYRINGE SQ SCH (17:00)
[2017-07-16] MEDS: ACETAMINOPHEN/HYDROcodone 325 MG/5 MG TAB PO PRN (20:55)
[2017-07-16] MEDS: VANCOMYCIN INJ 1,500 MG in SODIUM CHLORID 0.9% 500 ML INJ 500 ML IV SCH (23:03)
[2017-07-17] VITALS: BP 168/88; PULSE 68; PULSE 71; RESP 18; TEMP 98.7; O2SAT 96
[2017-07-17] MEDS: PIPERACIL-TAZO 4.5 GM PREMIX 100 ML IV SCH ×2 (02:32→11:01)
[2017-07-17] MEDS: ACETAMINOPHEN/HYDROcodone 325 MG/5 MG TAB PO PRN (03:00)
[2017-07-17] MEDS: SODIUM CHLOR 0.9% 1000 ML INJ 1,000 ML IV SCH ×3 (03:02→17:00)
[2017-07-17 04:00] VITALS: BP 140/84; PULSE 83; PULSE 87; RESP 18; TEMP 98.3; O2SAT 95
[2017-07-17] MEDS: INSULIN ASPART SUPPLEMENTAL SCALE SQ SCH ×4 (06:19→20:38)
[2017-07-17 08:00] VITALS: BP 163/89; PULSE 87; PULSE 96; RESP 18; TEMP 97.9; O2SAT 96
[2017-07-17] MEDS: METOPROLOL TARTRATE 25 MG TAB PO SCH ×2 (09:00→20:01)
[2017-07-17] MEDS: SODIUM CHLORIDE 0.9% FLUSH 10 ML FLUSH IV FLUSH SCH ×2 (09:00→20:01)
[2017-07-17] MEDS ORDERED: PHARMACY ORDERED LAB ONE ×2 (09:45→11:45)
[2017-07-17] MEDS: VANCOMYCIN INJ 1,500 MG in SODIUM CHLORID 0.9% 500 ML INJ 500 ML IV SCH (10:00)
[2017-07-17 12:00] VITALS: BP 154/89; PULSE 101; PULSE 87; RESP 16; TEMP 97.8; O2SAT 97
[2017-07-17] MEDS ORDERED: VANCOMYCIN INJ 1,500 MG in SODIUM CHLORID 0.9% 500 ML INJ 500 ML IV SCH (12:00)
[2017-07-17] MEDS ORDERED: Vancomycin Consult Pharmacy 1 EA OTHER SCH (13:15)
--- NOTE | 2017-07-17 14:10 | HHI.PR ---
Subjective Remarks patient complain of swelling in his left arm around the wound Denied fever or chills Positive nausea and one time vomiting today Objective Vitals Vital Signs Date Time Temp Pulse Resp B/P (MAP) Pulse Ox O2 Delivery O2 Flow Rate FiO2 07/17/17 12:00 97.8 87 16 154/89 (110) 97 07/17/17 08:00 97.9 96 18 163/89 (113) 96 07/17/17 04:00 98.3 83 18 140/84 (102) 95 07/17/17 04:00 87 07/17/17 00:00 68 07/17/17 00:00 98.7 71 18 168/88 (114) 96 07/16/17 20:00 96.3 89 18 166/89 (114) 94 07/16/17 20:00 87 07/16/17 15:50 98.6 86 20 165/93 (117) 97 I/O 07/16/17 07/16/17 07/16/17 07/17/17 07/17/17 07/17/17 07:00 15:00 23:00 07:00 15:00 23:00 Intake Total 720 ml 480 ml 480 ml Balance 720 ml 480 ml 480 ml Intake Oral 720 ml 480 ml 480 ml # Voids 3 2 3 4 # Bowel Movements 1 Result Diagram: 07/16/17 0807/16/17 08 Objective Remarks GENERAL: This is a well-nourished, well-developed patient, in no apparent distress. SKIN: No rashes, warm and dry HEAD: Atraumatic. Normocephalic. EYES: Pupils equal round and reactive. Extraocular motions intact. No scleral icterus. ENT: Nose without bleeding, or drainage, Airway patent. NECK: Trachea midline. Supple CARDIOVASCULAR: Regular rate and rhythm without murmurs, gallops, or rubs. RESPIRATORY: Fair air entry bilaterally. No wheezes, rales, or rhonchi. GASTROINTESTINAL: Abdomen soft, non-tender, nondistended. Positive bowel sounds MUSCULOSKELETAL: Left upper extremity, antecubital area with induration and swelling, the wound incision have some necrotic skin, lower Extremities without clubbing, cyanosis, or edema. Pedal pulses appreciated NEUROLOGICAL: Awake and alert. Moves all extremity. Normal speech.no focal neurological deficit A/P Problem List: (1) Diabetes mellitus type 2 in obese ICD Code: E11.9 - Diabetes mellitus type 2 in obese; E66.9 - Obesity, unspecified Status: Chronic (2) Coronary artery disease ICD Code: I25.10 - Coronary artery disease Status: Chronic (3) Abscess of left arm ICD Code: L02.414 - Cutaneous abscess of left upper limb Status: Acute Assessment and Plan This is a 62-year-old male admitted for left antecubital abscess Left antecubital abscess-patient has history of MRSA and IV drug use. Infectious disease following, continue vancomycin and Zosyn for now, follow blood cultures negative, Continue pain control with oral narcotics, lactic acidosis resolved. Hypertension-continue Norvasc, metoprolol, Vasotec as needed Diabetes mellitus-hold oral hypoglycemic agents, sliding scale insulin, I will add 5 units Levemir daily at bedtime and resume glipizide for better control of blood glucose Coronary artery disease-status post stenting in 2002, status post CABG, continue metoprolol. Chronic kidney disease-creatinine is stable, trending down monitor. Lovenox for DVT prophylaxis Jacqui Sanchez MD Jul 17, 2017 14:10
[2017-07-17 16:00] VITALS: BP 169/96; PULSE 88; PULSE 99; RESP 18; TEMP 97.3; O2SAT 98
--- NOTE | 2017-07-17 16:12 | HHI.IDPN ---
Subjective Subjective Remarks Patient is a 62-year-old male, with known history of IV drug use, injects mostly in both upper extremity, had injected in his left antecubital area about a week ago. He apparently started developing a problem immediately with some pain and redness. It progressively worsened, so he presented to the hospital for further evaluation and treatment. He has not had any fever or chills or sweats. Denies any other respiratory or any or GI problem. In the emergency room he had I&D of an abscess in his left antecubital area. He is afebrile. WBC is normal. He is on IV Vanco and Zosyn. Infectious disease consultation has been requested to make recommendation regarding patient with abscess and known IV drug use Notes reviewed No fever One BC with Staph aureus Abscess C/S with MSSA Antibiotics Vancomycin Zosyn Past Medical History Hypertension Diabetes CAD - S/P stent 1 in 2002 hHpatitis C- not treated CKD 2 renal stones on the right- one taken out by lithotripsy a month ago Melanoma neck - s/p excision - sentinel node biopsy- no mets BPH Previous MRSA infection IVDU Past Surgical History CABG 2006 Cardiac cath Lithotripsies Laproscopic cholecystectomy Allergies: Coded Allergies: Sulfa (Sulfonamide Antibiotics) (Unverified Allergy, Severe, ANAPHYLACTIC REACTION, 06/23/17) sulfamethoxazole (Unverified Allergy, Severe, ANAPHYLACTIC, 06/23/17) trimethoprim (Unverified Allergy, Severe, ANAPHYLACTIC, 06/23/17) Objective . Vital Signs Date Time Temp Pulse Resp B/P (MAP) Pulse Ox O2 Delivery O2 Flow Rate FiO2 07/17/17 12:00 97.8 87 16 154/89 (110) 97 07/17/17 08:00 97.9 96 18 163/89 (113) 96 07/17/17 04:00 98.3 83 18 140/84 (102) 95 07/17/17 04:00 87 07/17/17 00:00 68 07/17/17 00:00 98.7 71 18 168/88 (114) 96 07/16/17 20:00 96.3 89 18 166/89 (114) 94 07/16/17 20:00 87 07/17/17 07/17/17 07/18/17 15:00 23:00 07:00 Intake Total 615 ml Balance 615 ml IV Total 615 ml # Voids 4 . Laboratory Tests Test 07/15/17 19:52 07/16/17 08:08 White Blood Count 9.5 TH/MM3 6.4 TH/MM3 Red Blood Count 5.04 MIL/MM3 4.66 MIL/MM3 Hemoglobin 14.4 GM/DL 13.2 GM/DL Hematocrit 41.6 % 38.7 % Mean Corpuscular Volume 82.5 FL 83.0 FL Mean Corpuscular Hemoglobin 28.6 PG 28.3 PG Mean Corpuscular Hemoglobin Concent 34.6 % 34.2 % Red Cell Distribution Width 13.5 % 13.3 % Platelet Count 189 TH/MM3 166 TH/MM3 Mean Platelet Volume 8.0 FL 7.9 FL Neutrophils (%) (Auto) 65.4 % 59.6 % Lymphocytes (%) (Auto) 21.5 % 27.1 % Monocytes (%) (Auto) 11.7 % 10.8 % Eosinophils (%) (Auto) 0.9 % 2.1 % Basophils (%) (Auto) 0.5 % 0.4 % Neutrophils # (Auto) 6.2 TH/MM3 3.8 TH/MM3 Lymphocytes # (Auto) 2.0 TH/MM3 1.7 TH/MM3 Monocytes # (Auto) 1.1 TH/MM3 0.7 TH/MM3 Eosinophils # (Auto) 0.1 TH/MM3 0.1 TH/MM3 Basophils # (Auto) 0.0 TH/MM3 0.0 TH/MM3 CBC Comment DIFF FINAL DIFF FINAL Differential Comment Laboratory Tests Test 07/15/17 19:52 07/15/17 23:10 07/16/17 08:08 Blood Urea Nitrogen 27 MG/DL 19 MG/DL Creatinine 1.35 MG/DL 0.79 MG/DL Random Glucose 292 MG/DL 253 MG/DL Total Protein 8.2 GM/DL Albumin 3.3 GM/DL Calcium Level 9.0 MG/DL 8.7 MG/DL Alkaline Phosphatase 119 U/L Aspartate Amino Transf (AST/SGOT) 23 U/L Alanine Aminotransferase (ALT/SGPT) 48 U/L Total Bilirubin 0.9 MG/DL Sodium Level 136 MEQ/L 135 MEQ/L Potassium Level 4.0 MEQ/L 3.5 MEQ/L Chloride Level 98 MEQ/L 100 MEQ/L Carbon Dioxide Level 26.1 MEQ/L 25.7 MEQ/L Anion Gap 12 MEQ/L 9 MEQ/L Estimat Glomerular Filtration Rate 53 ML/MIN 99 ML/MIN Lactic Acid Level 2.7 mmol/L 1.8 mmol/L Microbiology Date/Time Source Procedure Growth Status 07/15/17 19:52 Blood Peripheral Aerobic Blood Culture - Preliminary NO GROWTH IN 2 DAYS Resulted 07/15/17 19:52 Blood Peripheral Anaerobic Blood Culture - Preliminary NO GROWTH IN 2 DAYS Resulted 07/15/17 19:52 Blood Peripheral Aerobic Blood Culture - Preliminary Staphylococcus Aureus Resulted 07/15/17 19:52 Blood Peripheral Anaerobic Blood Culture - Preliminary NO GROWTH IN 2 DAYS Resulted 07/15/17 19:56 Wound Arm Gram Stain - Final Complete 07/15/17 19:56 Wound Culture - Final Staphylococcus Aureus Complete Physical Exam GENERAL: awake and alert, not in respiratory distress. SKIN: Warm and dry. No generalized rash, no ecchymoses and no evidence of embolic lesions. HEAD: Atraumatic. Normocephalic. No temporal wasting, or tenderness. EYES: [place] conjunctiva. No petechia or hemorrhage. No scleral icterus. No injection or drainage. EARS, NOSE AND THROAT: Nose without bleeding or purulent nasal discharge. Mucous membranes pink and moist. No oral lesions noted. No exudate. No oral thrush. NECK: Trachea midline. Supple and not tender, no meningeal signs CARDIOVASCULAR: Regular rate and rhythm. No murmurs, rubs or gallops heard RESPIRATORY: Clear to auscultation. Breath sounds equal bilaterally. No rales , wheezing or rhonchi ABDOMEN: Soft, non-tender, nondistended. Bowel sounds present and normoactive. No guarding. No rebound. No organomegaly. EXTREMITIES: No clubbing, cyanosis, or edema in BLE. No joint effusion, has good ROM. No calf tenderness. Well perfused and warm. LUE - has a small incision about 1 cm with some dried blood, indurated, no fluctuant and has min erythema. No palpable cord NEUROLOGICAL: Non-focal PSYCHIATRIC: Normal affect, calm and cooperative. LINE: No evidence of infection Assessment & Plan Remarks IMPRESSION Cellulitis and abscess LUE, known IVDU - thrombosed vein MSSA bacteremia due to above - endocarditis - ?thrombosed vein Known CAD, S/P CABG RECOMMENDATION Follow C/S and adjust Abx repeat 2 BC today Echo Doppler US LUE Monitor temps Change Abx to Ancef Monitor progress May need vascular evaluation for vein removal if with infected phlebitis Cristina Friend MD Jul 17, 2017 16:11
[2017-07-17] MEDS: glipiZIDE 10 MG TAB PO SCH (16:19)
[2017-07-17] MEDS: ceFAZolin 2 GM PREMIX 50 ML IV SCH ×2 (16:20→22:45)
[2017-07-17] MEDS: ENOXAPARIN SODIUM 40 MG/0.4 ML SYRINGE SQ SCH (16:20)
[2017-07-17] MEDS ORDERED: PIPERACIL-TAZO 4.5 GM PREMIX 100 ML IV SCH (17:00)
[2017-07-17 20:00] VITALS: BP 137/90; PULSE 104; PULSE 89; RESP 20; TEMP 98.6; O2SAT 96
[2017-07-17] MEDS: ONDANSETRON HCL 4 MG/2 ML VIAL IV PUSH PRN (20:01)
[2017-07-17] MEDS ORDERED: INSULIN DETEMIR 100 UNITS/ML VIAL SQ SCH (21:00)
[2017-07-18] VITALS: BP 135/65; PULSE 82; RESP 20; TEMP 99; O2SAT 96
[2017-07-18] MEDS ORDERED: VANCOMYCIN INJ 1,750 MG in SODIUM CHLORID 0.9% 500 ML INJ 500 ML IV SCH ×2
[2017-07-18 04:00] VITALS: BP 161/89; PULSE 103; RESP 19; TEMP 96.7; O2SAT 96
[2017-07-18] MEDS: ceFAZolin 2 GM PREMIX 50 ML IV SCH (06:21)
[2017-07-18] MEDS: glipiZIDE 10 MG TAB PO SCH (06:23)
[2017-07-18] MEDS: INSULIN ASPART SUPPLEMENTAL SCALE SQ SCH (06:26)
[2017-07-18] MEDS: ONDANSETRON HCL 4 MG/2 ML VIAL IV PUSH PRN (06:33)
[2017-07-18 08:00] VITALS: BP 178/88; PULSE 91; RESP 18; TEMP 98.8; O2SAT 96
[2017-07-18 08:21] VITALS: BP 178/88; PULSE 91; RESP 18; TEMP 98.8
--- NOTE | 2017-07-18 09:12 | RADRPT ---
EXAM DATE/TIME: 07/18/2017 08:30 [facility] COMPARISON: No previous studies available for comparison. INDICATIONS : Left arm swelling. MEDICAL HISTORY : Myocardial infarction. Hypercholesterolemia. Hypertension. IV drug use. Thyroid disease. Attention de ficit hyperactivity disorder. Coronary artery disease. BPH. Hepatitis C. Anticoagulant therapy. Chest pain. Asthma. Sleep apnea. Kidney stones. Chronic kidney disease. MRSA. Osteoporosis. Diabetes. Anx iety. Melanoma. Blood transfusions. SURGICAL HISTORY : Angioplasty. Coronary artery stent. Cholecystectomy. Lithotripsy. CABG ENCOUNTER: Initial ACUITY: 2 weeks PAIN SCORE: 6/10 LOCATION: Left arm FINDINGS: There are abnormal intraluminal echoes within the left cephalic vein near the antecubital fossa. This vessel also demonstrates lack of normal compression and blood flow. The remaining veins of the left upper extremity are patent including the internal jugular vein. CONCLUSION: 1. There is superficial venous thrombosis of the left cephalic vein near the antecubital fossa. 2. Remaining veins of the left upper extremity are patent. Alan Marinelli MD on July 18, 2017 at 9:09 Board Certified Radiologist. This report was verified electronically.
[2017-07-18] MEDS: METOPROLOL TARTRATE 25 MG TAB PO SCH (09:39)
[2017-07-18] MEDS: SODIUM CHLORIDE 0.9% FLUSH 10 ML FLUSH IV FLUSH SCH (09:40)
--- NOTE | 2017-07-18 11:30 | HHI.PR ---
Subjective Remarks Patient thing his arm needs debridement around the wound No fever or chills, ultrasound showed superficial thrombosis Objective Vitals Vital Signs Date Time Temp Pulse Resp B/P (MAP) Pulse Ox O2 Delivery O2 Flow Rate FiO2 07/18/17 08:21 98.8 91 18 178/88 (118) 07/18/17 08:00 98.8 91 18 178/88 (118) 96 07/18/17 04:00 96.7 103 19 161/89 (113) 96 07/18/17 00:00 99.0 82 20 135/65 (88) 96 07/17/17 20:00 89 07/17/17 20:00 98.6 104 20 137/90 (106) 96 07/17/17 16:00 88 07/17/17 16:00 97.3 99 18 169/96 (120) 98 07/17/17 12:00 101 07/17/17 12:00 97.8 87 16 154/89 (110) 97 I/O 07/17/17 07/17/17 07/17/17 07/18/17 07/18/17 07/18/17 06:59 14:59 22:59 06:59 14:59 22:59 Intake Total 480 ml 615 ml 410 ml 290 ml Balance 480 ml 615 ml 410 ml 290 ml Intake Oral 480 ml 360 ml 240 ml IV Total 615 ml 50 ml 50 ml # Voids 3 4 3 2 # Bowel Movements 0 0 Result Diagram: 07/16/17 0808 07/16/17 0808 Objective Remarks GENERAL: This is a well-nourished, well-developed patient, in no apparent distress. SKIN: No rashes, warm and dry HEAD: Atraumatic. Normocephalic. EYES: Pupils equal round and reactive. Extraocular motions intact. No scleral icterus. ENT: Nose without bleeding, or drainage, Airway patent. NECK: Trachea midline. Supple CARDIOVASCULAR: Regular rate and rhythm without murmurs, gallops, or rubs. RESPIRATORY: Fair air entry bilaterally. No wheezes, rales, or rhonchi. GASTROINTESTINAL: Abdomen soft, non-tender, nondistended. Positive bowel sounds MUSCULOSKELETAL: Left upper extremity, antecubital area with induration and swelling, the wound incision have some necrotic skin, lower Extremities without clubbing, cyanosis, or edema. Pedal pulses appreciated NEUROLOGICAL: Awake and alert. Moves all extremity. Normal speech.no focal neurological deficit A/P Problem List: (1) Diabetes mellitus type 2 in obese ICD Code: E11.9 - Diabetes mellitus type 2 in obese; E66.9 - Obesity, unspecified Status: Chronic (2) Coronary artery disease ICD Code: I25.10 - Coronary artery disease Status: Chronic (3) Abscess of left arm ICD Code: L02.414 - Cutaneous abscess of left upper limb Status: Acute Assessment and Plan 07/18: Ultrasound of the upper extremity showed superficial thrombus no deep thrombosis, keep elevating the arm, warm pad, NSAID, continue antibiotic A/P: This is a 62-year-old male admitted for left antecubital abscess Left antecubital abscess-patient has history of MRSA and IV drug use. Infectious disease following, continue vancomycin and Zosyn for now, follow blood cultures negative, Continue pain control with oral narcotics, lactic acidosis resolved. Hypertension-continue Norvasc, metoprolol, Vasotec as needed Diabetes mellitus-hold oral hypoglycemic agents, sliding scale insulin, I will add 5 units Levemir daily at bedtime and resume glipizide for better control of blood glucose Coronary artery disease-status post stenting in 2002, status post CABG, continue metoprolol. Chronic kidney disease-creatinine is stable, trending down monitor. Lovenox for DVT prophylaxis Jacqui Sanchez MD Jul 18, 2017 11:30
--- NOTE | 2017-07-18 12:15 | ECHRPT ---
Indication: EVAL ENDOCARDITIS CONCLUSIONS Normal left ventricular size. Wall thickness is measured at the upper limits of normal. The left ventricular systolic function is normal with an estimated ejection fraction in the range of 60-65%. No evidence of endocarditis Trace mitral valve regurgitation. There is trace tricuspid valve regurgitation. The estimated pulmonary arterial pressure is 24 mmHg. BP: / HR: Rhythm: Sinus MEASUREMENTS (Male / Female) Normal Values Technical Quality:Good 2D ECHO LV Diastolic Diameter PLAX 4.1 cm 4.2 - 5.9 / 3.9 - 5.3 cm LV Systolic Diameter PLAX 2.9 cm IVS Diastolic Thickness 1.6 cm 0.6 - 1.0 / 0.6 - 0.9 cm LVPW Diastolic Thickness 0.8 cm 0.6 - 1.0 / 0.6 - 0.9 cm LV Relative Wall Thickness 0.6 RV Internal Dim ED PLAX 2.2 cm M-MODE Aortic Root Diameter MM 3.3 cm AV Cusp Separation MM 2.0 cm DOPPLER Mitral E Point Velocity 61.2 cm/s Mitral A Point Velocity 95.8 cm/s Mitral E to A Ratio 0.6 TR Peak Velocity 186.0 cm/s TR Peak Gradient 13.8 mmHg FINDINGS LEFT VENTRICLE Normal left ventricular size. Wall thickness is measured at the upper limits of normal. The left ventricular systolic function is normal with an estimated ejection fraction in the range of 60-65%. Doppler parameters are consistent with impaired left ventricular relaxtion (grade 1 diastolic dysfun ction). RIGHT VENTRICLE Normal right ventricular size and systolic function. LEFT ATRIUM The left atrial size is normal. RIGHT ATRIUM The right atrial size is normal. ATRIAL SEPTUM Normal atrial septal thickness without atrial level shunting by limited color doppler interrogation. AORTA The aortic root and proximal ascending aorta are normal in size on limited imaging. MITRAL VALVE Trace mitral valve regurgitation. AORTIC VALVE Trileaflet aortic valve. No aortic valve stenosis or regurgitation. TRICUSPID VALVE There is trace tricuspid valve regurgitation. The estimated pulmonary arterial pressure is 24 mmHg. PULMONARY VALVE The pulmonary valve is not well visualized. VESSELS The inferior vena cava is normal in size. PERICARDIUM No pericardial effusion. Jonn Marcus MD (Electronically Signed) Final Date:18 July 2017 12:14
[2017-07-18 14:51] LABS: HEMOGLOBIN A1a 1.1 %; HEMOGLOBIN A1b 1.1 %; HEMOGLOBIN F 1.7 %; HEMOGLOBIN LA1C 3.1 %; HEMOGLOBIN P3 5.3 %
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
[2017-07-19] MEDS ORDERED: PHARMACY ORDERED LAB ONE (11:45)
== END 2017-07-18 13:38 | disposition left against medical advice (07) | DRG 580 ==
LOC: NEPD 18:26 → NEDA 21:04 → HOCA 07-16 00:28 → N07B 07-17 15:21
PROVIDERS: ADMIT Hospitalist; ATTEND Hospitalist
PROC: 0J9F0ZZ Drainage of Left Upper Arm Subcutaneous Tissue and Fascia, Open Approach (ICD-10-PCS; principal; 2017-07-15)
DX: L02.414 Cutaneous abscess of left upper limb (principal); E87.2 Acidosis; I38 Endocarditis, valve unspecified; L03.114 Cellulitis of left upper limb; E11.22 Type 2 diabetes mellitus with diabetic chronic kidney disease; F19.10 Other psychoactive substance abuse, uncomplicated; I12.9 Hypertensive chronic kidney disease with stage 1 through stage 4 chronic kidney disease, or unspecified chronic kidney disease; N18.9 Chronic kidney disease, unspecified; Z86.14 Personal history of Methicillin resistant Staphylococcus aureus infection; I25.10 Atherosclerotic heart disease of native coronary artery without angina pectoris; Z95.1 Presence of aortocoronary bypass graft; B19.20 Unspecified viral hepatitis C without hepatic coma; Z95.5 Presence of coronary angioplasty implant and graft; I45.4 Nonspecific intraventricular block; Z87.442 Personal history of urinary calculi; Z85.820 Personal history of malignant melanoma of skin; B95.61 Methicillin susceptible Staphylococcus aureus infection as the cause of diseases classified elsewhere; E78.00 Pure hypercholesterolemia, unspecified; G47.30 Sleep apnea, unspecified; I25.2 Old myocardial infarction; J45.909 Unspecified asthma, uncomplicated; M79.7 Fibromyalgia; F90.9 Attention-deficit hyperactivity disorder, unspecified type; E66.9 Obesity, unspecified; Z68.31 Body mass index [BMI] 31.0-31.9, adult; F41.8 Other specified anxiety disorders; R00.0 Tachycardia, unspecified
CPT/HCPCS: 10060; 80048; 80053; 80202; 82948; 83036; 83605; 85025; 86403; 87040; 87070; 87147; 87186; 87205; 93306; 93971; J0690; J1650; J1815; J2405; J2543; J3370; J7030; J7040; J7050

== ENCOUNTER 2017-07-21 13:38 | Emergency (ER) | payer MEDICARE, OTHER ==
[~2017-07-21] VITALS: Ht 180.3 cm; Wt 76.0 kg
[~2017-07-21 13:38] MED LIST changes: +AMLO10TA2 PO; -CLON2TAB PO; -CYMB30CA PO; -FLUT1SPR5 EACH NARE; -HYDR-3533 PO; -LISI10TA3 PO; -ZOFR4TAB3 SL
[2017-07-21 13:40] VITALS: BP 93/70; PULSE 85; RESP 18; TEMP 97.5; O2SAT 97
[2017-07-21] MEDS ORDERED: SODIUM CHLORIDE 0.9% FLUSH 10 ML FLUSH IVF PRN (14:45)
[2017-07-21 14:47] VITALS: BP_SYST 130; BP_SYST 135; BP_DIAS 78; BP_DIAS 82; PULSE 79; RESP 18; O2SAT 97
[2017-07-21 15:11] LABS: AUTOMATED NEUTROPHIL # 4.5 TH/MM3 (1.8-7.7); BASOPHIL # 0.1 TH/MM3 (0-0.2); BASOPHIL % 0.7 % (0.0-2.0); EOSINOPHIL # 0.2 TH/MM3 (0-0.4); EOSINOPHIL % 2.3 % (0.0-4.0); HEMATOCRIT 40.9 % (39.0-51.0); HEMO FLAGS DIFF FINAL; LYMPH % 27.2 % (9.0-44.0); MEAN CORPUSCULAR HEMOGLOBIN 28.2 PG (27.0-34.0); MONO % 8.9 % (0.0-8.0); NEUT % 60.9 % (16.0-70.0); PLATELET COUNT 222 TH/MM3 (150-450); RED BLOOD COUNT 4.93 MIL/MM3 (4.50-5.90); RED CELL DISTRIBUTION WIDTH 13.5 % (11.6-17.2); WHITE BLOOD COUNT 7.4 TH/MM3 (4.0-11.0)
[2017-07-21 15:21] LABS: APTT (PATIENT) 27.6 SEC (24.3-30.1); PROTHROMBIN TIME - PATIENT 11.4 SEC (9.8-11.6)
--- NOTE | 2017-07-21 15:28 | PD ---
HPI Chief Complaint: Skin Problem Time Seen by Provider: 14:24 Travel History International Travel<30 days: No Contact w/Intl Traveler<30days: No Traveled to known affect area: No History of Present Illness HPI Patient is a 62-year-old male presenting to emergency evaluation of left antecubital abscess. Patient was seen and evaluated in the emergency department last week and symptoms currently admitted when he left AMA on July 18. Patient states he and family emergency to attend to. He presents today due to the abscess becoming more enlarged. He denies any increased pain, fevers, chills. He does report midsternal chest pain that gets worse with deep breathing. He reports the pain is a 5 out of 10. He states this started this morning and was exacerbated when he walked to the bus stop today. His any further IV drug use since he was admitted. PFSH Past Medical History Hx Anticoagulant Therapy: Yes (ASA) ADHD: Yes Asthma: Yes Blood Disorders: No Anxiety: Yes Depression: Yes Cancer: Yes (MELANOMA STAGE 2 ,RESECTION WAS DONE IN 2009) Cardiovascular Problems: Yes (OPEN HEART SX) High Cholesterol: Yes Chest Pain: Yes Congestive Heart Failure: No Coronary Artery Disease: Yes Diabetes: Yes Patient Takes Glucophage: Yes Diminished Hearing: No Endocrine: Yes Fibromyalgia: Yes Gastrointestinal Disorders: Yes Genitourinary: Yes Hypertension: Yes Immune Disorder: No Implanted Vascular Access Dvce: No Kidney Stones: Yes Musculoskeletal: Yes Neurologic: Yes (ADHD) Psychiatric: Yes Reproductive: Yes (ED) Respiratory: Yes Integumentary: Yes (FUNGAL INFECTION TO LEFT FOREARM) Myocardial Infarction: Yes Seizures: No Sleep Apnea: Yes (NO CPAP) Past Surgical History Cardiac Surgery: Yes (ANGINOPLASTY WITH STENT 2000,CABG 2006 4 VESSEL WITH 2 T' S,) Cholecystectomy: Yes Coronary Artery Bypass Graft: Yes (X 6 09/2007) Neurologic Surgery: No Thoracic Surgery: Yes (SEE ABOVE) Other Surgery: Yes (LITRHOTRIPSY) Social History Alcohol Use: No Tobacco Use: No Substance Use: Yes (IV heroin use) Allergies-Medications (Allergen,Severity, Reaction): Coded Allergies: Sulfa (Sulfonamide Antibiotics) (Unverified Allergy, Severe, ANAPHYLACTIC REACTION, 07/21/17) sulfamethoxazole (Unverified Allergy, Severe, ANAPHYLACTIC, 07/21/17) trimethoprim (Unverified Allergy, Severe, ANAPHYLACTIC, 07/21/17) Reported Meds & Prescriptions Reported Meds & Active Scripts Active Reported Amlodipine (Amlodipine Besylate) 10 Mg Tab 10 Mg PO BID Glipizide 10 Mg Tab 20 Mg PO BIDAC Take 30 minutes before a meal Metformin (Metformin HCl) 850 Mg Tab 850 Mg PO BIDPC With meals Metoprolol Tartrate 25 Mg Tab 25 Mg PO BID Trazodone (Trazodone HCl) 50 Mg Tab 100 Mg PO HS PRN Review of Systems Except as stated in HPI: all other systems reviewed are Neg General / Constitutional: No: Fever, Chills HENT: No: Headaches Cardiovascular: Positive: Chest Pain or Discomfort Respiratory: No: Shortness of Breath Gastrointestinal: No: Nausea, Vomiting Skin: Positive Change in Pigmentation, Positive Lesions Physical Exam Narrative GENERAL: Well-developed, well-nourished, alert male. Resting comfortably in no acute distress. SKIN: Warm and dry. 3 cm x 2 cm area of fluctuance and erythema to the left antecubital fossa. No surrounding induration. Nontender to palpation. HEAD: Atraumatic. Normocephalic. EYES: Pupils equal and round. No scleral icterus. No injection or drainage. ENT: No nasal bleeding or discharge. Mucous membranes pink and moist. NECK: Trachea midline. No JVD. CARDIOVASCULAR: Regular rate and rhythm. RESPIRATORY: No accessory muscle use. Clear to auscultation. Breath sounds equal bilaterally. GASTROINTESTINAL: Abdomen soft, non-tender, nondistended. Hepatic and splenic margins not palpable. MUSCULOSKELETAL: Extremities without clubbing, cyanosis, or edema. No obvious deformities. NEUROLOGICAL: Awake and alert. No obvious cranial nerve deficits. Motor grossly within normal limits. Five out of 5 muscle strength in the arms and legs. Normal speech. PSYCHIATRIC: Appropriate mood and affect; insight and judgment normal. Data Data Last Documented VS Vital Signs Date Time Temp Pulse Resp B/P (MAP) Pulse Ox O2 Delivery O2 Flow Rate FiO2 07/21/17 14:47 79 135/82 (99) 130/78 (95) 07/21/17 14:47 96 Room Air 07/21/17 14:47 18 07/21/17 13:40 97.5 Orders Orders Electrocardiogram (07/21/17 14:36) Ckmb (Isoenzyme) Profile (07/21/17 14:36) Complete Blood Count With Diff (07/21/17 14:36) Comprehensive Metabolic Panel (07/21/17 14:36) Magnesium (Mg) (07/21/17 14:36) Prothrombin Time / Inr (Pt) (07/21/17 14:36) Act Partial Throm Time (Ptt) (07/21/17 14:36) Troponin I (07/21/17 14:36) Chest, Single Ap (07/21/17 14:36) Ecg Monitoring (07/21/17 14:36) Bilateral Bp Monitoring (07/21/17 14:36) Iv Access Insert/Monitor (07/21/17 14:36) Oximetry (07/21/17 14:36) Oxygen Administration (07/21/17 14:36) Sodium Chloride 0.9% Flush (Ns Flush) (07/21/17 14:45) C-Reactive Protein (Crp) (07/21/17 14:36) Westergren Sedimentation Rate (07/21/17 14:36) Labs Laboratory Tests Test 07/21/17 14:53 White Blood Count 7.4 TH/MM3 Red Blood Count 4.93 MIL/MM3 Hemoglobin 13.9 GM/DL Hematocrit 40.9 % Mean Corpuscular Volume 83.0 FL Mean Corpuscular Hemoglobin 28.2 PG Mean Corpuscular Hemoglobin Concent 34.0 % Red Cell Distribution Width 13.5 % Platelet Count 222 TH/MM3 Mean Platelet Volume 7.9 FL Neutrophils (%) (Auto) 60.9 % Lymphocytes (%) (Auto) 27.2 % Monocytes (%) (Auto) 8.9 % Eosinophils (%) (Auto) 2.3 % Basophils (%) (Auto) 0.7 % Neutrophils # (Auto) 4.5 TH/MM3 Lymphocytes # (Auto) 2.0 TH/MM3 Monocytes # (Auto) 0.7 TH/MM3 Eosinophils # (Auto) 0.2 TH/MM3 Basophils # (Auto) 0.1 TH/MM3 CBC Comment DIFF FINAL Differential Comment Erythrocyte Sedimentation Rate 49 mm/hr Prothrombin Time 11.4 SEC Prothromb Time International Ratio 1.0 RATIO Activated Partial Thromboplast Time 27.6 SEC Blood Urea Nitrogen 22 MG/DL Creatinine 1.35 MG/DL Random Glucose 57 MG/DL Total Protein 8.1 GM/DL Albumin 3.6 GM/DL Calcium Level 8.9 MG/DL Magnesium Level 2.0 MG/DL Alkaline Phosphatase 96 U/L Aspartate Amino Transf (AST/SGOT) 40 U/L Alanine Aminotransferase (ALT/SGPT) 61 U/L Total Bilirubin 0.9 MG/DL Sodium Level 137 MEQ/L Potassium Level 3.8 MEQ/L Chloride Level 104 MEQ/L Carbon Dioxide Level 24.1 MEQ/L Anion Gap 9 MEQ/L Estimat Glomerular Filtration Rate 53 ML/MIN Total Creatine Kinase 48 U/L Troponin I LESS THAN 0.02 NG/ML C-Reactive Protein LESS THAN 0.29 MG/DL MDM Medical Decision Making Medical Screen Exam Complete: Yes Emergency Medical Condition: Yes Medical Record Reviewed: Yes Interpretation(s) Laboratory Tests Test 07/21/17 14:53 White Blood Count 7.4 TH/MM3 Red Blood Count 4.93 MIL/MM3 Hemoglobin 13.9 GM/DL Hematocrit 40.9 % Mean Corpuscular Volume 83.0 FL Mean Corpuscular Hemoglobin 28.2 PG Mean Corpuscular Hemoglobin Concent 34.0 % Red Cell Distribution Width 13.5 % Platelet Count 222 TH/MM3 Mean Platelet Volume 7.9 FL Neutrophils (%) (Auto) 60.9 % Lymphocytes (%) (Auto) 27.2 % Monocytes (% %) (Auto) 2.3 % Basophils (%) (Auto) 0.7 % Neutrophils # (Auto) 4.5 TH/MM3 Lymphocytes # (Auto) 2.0 TH/MM3 Monocytes # (Auto) 0.7 TH/MM3 Eosinophils # (Auto) 0.2 TH/MM3 Basophils # (Auto) 0.1 TH/MM3 CBC Comment DIFF FINAL Differential Comment Erythrocyte Sedimentation Rate 49 mm/hr Prothrombin Time 11.4 SEC Prothromb Time International Ratio 1.0 RATIO Activated Partial Thromboplast Time 27.6 SEC Blood Urea Nitrogen 22 MG/DL Creatinine 1.35 MG/DL Random Glucose 57 MG/DL Total Protein 8.1 GM/DL Albumin 3.6 GM/DL Calcium Level 8.9 MG/DL Magnesium Level 2.0 MG/DL Alkaline Phosphatase 96 U/L Aspartate Amino Transf (AST/SGOT) 40 U/L Alanine Aminotransferase (ALT/SGPT) 61 U/L Total Bilirubin 0.9 MG/DL Sodium Level 137 MEQ/L Potassium Level 3.8 MEQ/L Chloride Level 104 MEQ/L Carbon Dioxide Level 24.1 MEQ/L Anion Gap 9 MEQ/L Estimat Glomerular Filtration Rate 53 ML/MIN Total Creatine Kinase 48 U/L Troponin I LESS THAN 0.02 NG/ML C-Reactive Protein LESS THAN 0.29 MG/DL Vital Signs Date Time Temp Pulse Resp B/P (MAP) Pulse Ox O2 Delivery O2 Flow Rate FiO2 07/21/17 14:47 79 135/82 (99) 130/78 (95) 07/21/17 14:47 96 Room Air 07/21/17 14:47 18 97 Room Air 07/21/17 14:31 74 07/21/17 13:40 97.5 85 18 93/70 (78) 97 Differential Diagnosis ACS versus [place] versus sepsis versus cellulitis versus abscess versus other Narrative Course Patient is a 62-year-old male visiting to the emergency department for evaluation of a left antecubital fossa abscess. Patient was admitted last week and left AMA on the . He also subsequently complained of chest pain that started when he was walking to the bus stop this morning. He is currently pain free. Labs and imaging ordered and pending. Initial EKG shows sinus rhythm with a right bundle-branch block with a rate of 73, this was reviewed by my attending physician. CBC is unremarkable, chemistry and the slight bump in the BUN and creatinine, sedimentation rate is 49, CRP is normal. Cardiac enzymes are negative 1 set, chest x-ray shows no acute disease. Discussed with my attending physician. It is not felt that patient's chest pain is cardiac in nature. Please see procedure report for I&D. Patient will be placed on Levaquin. He is encouraged follow-up with his primary doctor. Patient verbalized understanding of instructions. He was encouraged to return to emergency department immediately for any new or worsening symptoms. Patient verbalized understanding of instructions. Patient stable for discharge. Was advised to return to emergency department 48 hours for reevaluation and to have packing removed. Procedures Procedure Narrative After the risks and benefits were discussed the following procedure was performed: INCISION AND DRAINAGE OF ABSCESS: The area was prepped and was sterilely draped. A subcutaneous wheal of 1 % Xylocaine with a total number 1 mL was used to anesthetize the area. The area was properly anesthetized. A number 11 scalpel was used to make a 1 -cm incision across the area of the abscess. Cultures were obtained. The abscess was drained an irrigated with normal saline. Quarter inch iodoform packing was placed in the wound. Sterile dressing applied. Patient advised to have packing removed in two days. Diagnosis Primary Impression: Abscess Additional Impressions: Chest pain made worse by breathing Encounter for incision and drainage procedure Referrals: Primary Care Physician 2 days Patient Instructions: Abscess (GEN), Abscess Incision and Drainage (DC), Chest Pain (ED), General Instructions Additional Instructions: Follow-up with your primary doctor Complete full course of antibiotics as prescribed Return to emergency department for any new or worsening symptoms Return to emergency department in 48 hours to have packing removed Med/Other Pt SpecificInfo: Prescription(s) given Scripts Levofloxacin (Levaquin) 500 Mg Tablet 500 MG PO DAILY for Infection for 10 Days, #10 TAB 0 Refills Prov: Tiara Pérez 07/21/17 Disposition: 01 DISCHARGE HOME Condition: Stable Tiara Pérez Jul 21, 2017 15:28
[2017-07-21 15:42] LABS: ALKALINE PHOSPHATASE 96 U/L (45-117); ALT (GPT) 61 U/L (12-78); TOTAL BILIRUBIN ADULT 0.9 MG/DL (0.2-1.0)
--- NOTE | 2017-07-21 15:42 | RADRPT ---
EXAM DATE/TIME: 07/21/2017 15:11 [facility] COMPARISON: CHEST SINGLE AP, April 16, 2017, 11:09. INDICATIONS : Chest pain and shortness of breath. MEDICAL HISTORY : Myocardial infarction. Hypercholesterolemia. Hypertension. IV drug use. Thyroid disease. Attention de ficit hyperactivity disorder. Coronary artery disease. BPH. Hepatitis C. Anticoagulant therapy. Chest pain. Asthma. Sleep apnea. Kidney stones. Chronic kidney disease. MRSA. Osteoporosis. Diabetes. Anxi ety. Melanoma. Blood transfusions. SURGICAL HISTORY : Angioplasty. Coronary artery stent. Cholecystectomy. Lithotripsy. CABG ENCOUNTER: Initial ACUITY: 3 days PAIN SCORE: 6/10 LOCATION: Bilateral chest FINDINGS: Median sternotomy wires are noted status post cardiac surgery. The heart is normal. Minimal bibasila r scarring and/or atelectasis is noted. There is mild elevation of the right hemidiaphragm. No foca l alveolar consolidation is noted. CONCLUSION: 1. Minimal bibasilar scarring and/or atelectasis. 2. Elevation of the right hemidiaphragm. Fausto Manrique MD on July 21, 2017 at 15:29 Board Certified Radiologist. This report was verified electronically.
[2017-07-21 15:44] LABS: CREATINE KINASE 48 U/L (39-308)
[2017-07-21 15:45] LABS: ANION GAP 9 MEQ/L (5-15); AST (GOT) 40 U/L (15-37); BICARBONATE 24.1 MEQ/L (21.0-32.0); BLOOD UREA NITROGEN 22 MG/DL (7-18); CHLORIDE 104 MEQ/L (98-107); GLOMERULAR FILTRATION RATE 53 ML/MIN (>89); POTASSIUM 3.8 MEQ/L (3.5-5.1); SODIUM (NA) 137 MEQ/L (136-145)
[2017-07-21] MEDS ORDERED: LEVA500T20 PO (16:15)
--- NOTE | 2017-07-22 21:49 | EKG ---
Date Performed: 07/21/2017 Time Performed: 15:01:35 PTAGE: 62 years EKG: Sinus rhythm RIGHT BUNDLE BRANCH BLOCK ABNORMAL ECG PREVIOUS TRACING : 07/03/2017 17.37 Compared to prior tracing no significant change DOCTOR: Hayden Barrera Interpretating Date/Time 07/22/2017 21:48:36
== END 2017-07-21 17:14 | disposition home or self-care (01) ==
LOC: NEPD 13:38
DX: L02.414 Cutaneous abscess of left upper limb (principal); B95.61 Methicillin susceptible Staphylococcus aureus infection as the cause of diseases classified elsewhere; I10 Essential (primary) hypertension; R07.9 Chest pain, unspecified; E11.9 Type 2 diabetes mellitus without complications; I45.10 Unspecified right bundle-branch block; J45.909 Unspecified asthma, uncomplicated; Z79.899 Other long term (current) drug therapy
CPT/HCPCS: 10061; 71010; 80053; 82550; 83735; 84484; 85025; 85610; 85652; 85730; 86140; 86403; 87070; 87186; 93005

== ENCOUNTER 2017-07-23 11:45 | Emergency (ER) | payer OTHER ==
[~2017-07-23] VITALS: Ht 180.3 cm; Wt 110.0 kg
[~2017-07-23 11:45] MED LIST changes: +LEVA500T20 PO
[2017-07-23 11:48] VITALS: BP 89/52; PULSE 68; RESP 20; TEMP 97.3; O2SAT 95
--- NOTE | 2017-07-23 12:14 | PD ---
HPI Chief Complaint: Wound/Suture/Staple Re-Check Time Seen by Provider: 12:12 Travel History International Travel<30 days: No Contact w/Intl Traveler<30days: No Traveled to known affect area: No History of Present Illness HPI Patient comes in for recheck of abscess to his left antecubital that was I&D 2 days ago. Patient states packing came out this morning. Patient is not able get antibiotics because he left without his prescription last time. Patient denies any complaints or concerns with it. Denies any fevers. PFSH Past Medical History Hx Anticoagulant Therapy: Yes (ASA) ADHD: Yes Asthma: Yes Blood Disorders: No Anxiety: Yes Depression: Yes Cancer: Yes (MELANOMA STAGE 2 ,RESECTION WAS DONE IN 2009) Cardiovascular Problems: Yes High Cholesterol: Yes Chest Pain: Yes Congestive Heart Failure: No Coronary Artery Disease: Yes Diabetes: Yes Diminished Hearing: No Endocrine: Yes Fibromyalgia: Yes Gastrointestinal Disorders: Yes Genitourinary: Yes Hypertension: Yes Immune Disorder: No Implanted Vascular Access Dvce: No Kidney Stones: Yes Musculoskeletal: Yes Neurologic: Yes (ADHD) Psychiatric: Yes Reproductive: Yes (ED) Respiratory: Yes Integumentary: Yes (FUNGAL INFECTION TO LEFT FOREARM) Myocardial Infarction: Yes Seizures: No Sleep Apnea: Yes (NO CPAP) Past Surgical History Cardiac Surgery: Yes (ANGINOPLASTY WITH STENT 2000,CABG 2006 4 VESSEL WITH 2 T' S,) Cholecystectomy: Yes Coronary Artery Bypass Graft: Yes (X 6 09/2007) Neurologic Surgery: No Thoracic Surgery: Yes (SEE ABOVE) Other Surgery: Yes (LITRHOTRIPSY) Social History Alcohol Use: No Tobacco Use: No Substance Use: Yes (IV heroin use) Allergies-Medications (Allergen,Severity, Reaction): Coded Allergies: Sulfa (Sulfonamide Antibiotics) (Unverified Allergy, Severe, ANAPHYLACTIC REACTION, 07/21/17) sulfamethoxazole (Unverified Allergy, Severe, ANAPHYLACTIC, 07/21/17) trimethoprim (Unverified Allergy, Severe, ANAPHYLACTIC, 07/21/17) Reported Meds & Prescriptions Reported Meds & Active Scripts Active Levaquin (Levofloxacin) 500 Mg Tablet 500 Mg PO DAILY 10 Days Reported Amlodipine (Amlodipine Besylate) 10 Mg Tab 10 Mg PO BID Glipizide 10 Mg Tab 20 Mg PO BIDAC Take 30 minutes before a meal Metformin (Metformin HCl) 850 Mg Tab 850 Mg PO BIDPC With meals Metoprolol Tartrate 25 Mg Tab 25 Mg PO BID Trazodone (Trazodone HCl) 50 Mg Tab 100 Mg PO HS PRN Review of Systems Except as stated in HPI: all other systems reviewed are Neg Physical Exam Narrative GENERAL: Well-developed, overly nourished, in no acute distress, and non-ill appearing. SKIN: Well-healing abscess noted left antecubital. There is no drainage or crepitus. HEAD: Atraumatic. Normocephalic. EYES: Pupils equal and round. EOMI. No scleral icterus. No injection or drainage. ENT: No nasal bleeding or discharge. Mucous membranes pink and moist. NECK: Trachea midline. Supple. No nuclear rigidity. RESPIRATORY: No accessory muscle use. No respiratory distress. MUSCULOSKELETAL: No obvious deformities. No clubbing. No cyanosis. No edema. Full range of motion. NEUROLOGICAL: Awake and alert. No obvious cranial nerve deficits. Motor grossly within normal limits. Normal speech. PSYCHIATRIC: Appropriate mood and affect; insight and judgment normal. Data Data Last Documented VS Vital Signs Date Time Temp Pulse Resp B/P (MAP) Pulse Ox O2 Delivery O2 Flow Rate FiO2 07/23/17 12:31 07/23/17 11:48 97.3 68 20 95 Room Air MDM Medical Decision Making Medical Screen Exam Complete: Yes Emergency Medical Condition: Yes Differential Diagnosis Cellulitis, abscess, recheck, other Narrative Course Patient in no obvious distress upon re-evaluation. Patient was asked if they wanted to speak to my attending, which the patient did not wish to do at this time. Any questions/concerns in reference to patient diagnosis/condition discussed and clarified prior to patient's discharge. Reinforced sheer importance of close follow up with patient's primary physician or primary care clinic. Instructed patient to return to ED immediately, if symptoms return/ worsen. Pt showed understanding of above instructions. Further instructions and recommendations were detailed in discharge paperwork. Pt ambulated without difficulty out of ED at discharge. Diagnosis Primary Impression: Abscess re-check Patient Instructions: Abscess (GEN), Abscess Follow-up (ED), General Instructions Additional Instructions: Follow-up with your primary care physician next week for re-evaluation. Take all medication as prescribed. Keep wound dry and clean as possible using soap and water. Do not soak or submerge wound. Return to the emergency department if symptoms get worse. Med/Other Pt SpecificInfo: Prescription(s) given Scripts Levofloxacin (Levaquin) 500 Mg Tablet 500 MG PO DAILY for Infection for 10 Days, #10 TAB 0 Refills Prov: Benoit Alejandra MD 07/23/17 Disposition: 01 DISCHARGE HOME Condition: Stable Carlos Ryan Jul 23, 2017 12:14
[2017-07-23] MEDS ORDERED: CLIN1CAP5 PO (12:15)
[2017-07-23] MEDS ORDERED: LEVA500T20 PO (12:17)
== END 2017-07-23 13:25 | disposition home or self-care (01) ==
LOC: EDTENT 11:45
DX: L02.414 Cutaneous abscess of left upper limb (principal); F11.90 Opioid use, unspecified, uncomplicated
CPT/HCPCS: 99283

== ENCOUNTER 2018-03-19 17:13 | Emergency (ER) | payer OTHER ==
[~2018-03-19] VITALS: Ht 180.3 cm; Wt 111.0 kg
[~2018-03-19 17:13] MED LIST changes: -LEVA500T20 PO; +LEVA500T33 PO
[2018-03-19] MEDS ORDERED: IOHEXOL 350 MG/ML 10 ML VIAL (for RAD DIAG) IVCONTRAST ONE (17:14)
[2018-03-19 17:26] VITALS: BP 173/89; PULSE 84; RESP 17; TEMP 98.3; O2SAT 96
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
[2018-03-19] MEDS ORDERED: MORPHINE SULFATE 4 MG/ML INJ IV PUSH ONE (18:45)
[2018-03-19] MEDS ORDERED: AMPICILLIN-SULBACTAM INJ 1,500 MG in SODIUM CHLORIDE 0.9% INJ 100 ML IV ONE (18:45)
[2018-03-19] MEDS ORDERED: ONDANSETRON ODT 4 MG TAB PO ONE (18:45)
[2018-03-19] MEDS ORDERED: TETANUS/DIPHTHERIA TOXOID ADULT 0.5 ML VIAL IM ONE (18:45)
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
[2018-03-19 19:55] LABS: AUTOMATED NEUTROPHIL # 4.7 TH/MM3 (1.8-7.7); BASOPHIL % 0.4 % (0.0-2.0); EOSINOPHIL # 0.1 TH/MM3 (0-0.4); EOSINOPHIL % 1.4 % (0.0-4.0); HEMATOCRIT 46.6 % (39.0-51.0); HEMOGLOBIN 16.1 GM/DL (13.0-17.0); LYMPH % 22.7 % (9.0-44.0); LYMPHOCYTE # 1.6 TH/MM3 (1.0-4.8); MEAN CELL VOLUME 82.8 FL (80.0-100.0); MEAN CORPUSCULAR HEMOGLOBIN 28.6 PG (27.0-34.0); MEAN CORPUSCULAR HGB CONC 34.6 % (32.0-36.0); MEAN PLATELET VOLUME 8.5 FL (7.0-11.0); MONO % 9.1 % (0.0-8.0); MONOCYTE # 0.6 TH/MM3 (0-0.9); NEUT % 66.4 % (16.0-70.0); PLATELET COUNT 164 TH/MM3 (150-450); RED BLOOD COUNT 5.63 MIL/MM3 (4.50-5.90); RED CELL DISTRIBUTION WIDTH 12.8 % (11.6-17.2)
[2018-03-19 19:58] LABS: INTERNATIONAL NORMALIZED RATIO 1.1 RATIO; PROTHROMBIN TIME - PATIENT 10.9 SEC (9.8-11.6)
[2018-03-19 20:17] LABS: BICARBONATE 22.6 MEQ/L (21.0-32.0); CREATININE 1.4 MG/DL (0.60-1.30)
[2018-03-19] MEDS ORDERED: SODIUM CHLOR 0.9% 1000 ML INJ 1,000 ML IV SCH (20:31)
[2018-03-19] MEDS ORDERED: INSULIN HUMAN REGULAR 1,000 UNITS/10 ML VIAL IV PUSH ONE (20:45)
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
[2018-03-19] MEDS ORDERED: DICL50TA3 PO (22:00)
[2018-03-19] MEDS ORDERED: AUGM875T3 PO (22:00)
== END 2018-03-19 22:41 | disposition home or self-care (01) ==
LOC: NEPE 17:13
DX: J39.2 Other diseases of pharynx (principal); S60.512A Abrasion of left hand, initial encounter; T14.8XXA Other injury of unspecified body region, initial encounter; E78.00 Pure hypercholesterolemia, unspecified; I25.10 Atherosclerotic heart disease of native coronary artery without angina pectoris; I12.9 Hypertensive chronic kidney disease with stage 1 through stage 4 chronic kidney disease, or unspecified chronic kidney disease; N18.9 Chronic kidney disease, unspecified; E11.22 Type 2 diabetes mellitus with diabetic chronic kidney disease; M79.7 Fibromyalgia; Y08.02XA Assault by strike by baseball bat, initial encounter; Y92.830 Public park as the place of occurrence of the external cause; Z85.820 Personal history of malignant melanoma of skin; Z87.442 Personal history of urinary calculi; Z95.1 Presence of aortocoronary bypass graft; Z88.2 Allergy status to sulfonamides; Z79.4 Long term (current) use of insulin; Z23 Encounter for immunization
CPT/HCPCS: 70450; 71045; 72125; 72132; 73140; 74177; 80048; 85025; 85610; 85730; 90471; 90714; 96365; 96375; 99285; J0295; J1815; J2270; J7030; Q9967; 96372

== ENCOUNTER 2018-03-30 10:58 | Inpatient (IN) | payer OTHER, MEDICARE ==
[~2018-03-30] VITALS: Ht 172.7 cm; Wt 109.5 kg
[2018-03-30] VITALS (15 sets, daily range): BP systolic 158–209; BP diastolic 81–129; PULSE 80–117; RESP 14–25; TEMP 97.6–98.8; O2SAT 94–100
[~2018-03-30 10:58] MED LIST changes: +AUGM875T3 PO; +DICL50TA3 PO
--- NOTE | 2018-03-30 11:06 | PD ---
HPI Chief Complaint: Altered Mental Status Time Seen by Provider: 11:02 Travel History International Travel<30 days: No Contact w/Intl Traveler<30days: No Traveled to known affect area: No History of Present Illness HPI 62-year-old male that was seen talking normally last night but not acting himself over the past couple of days presents by ambulance with expressive aphasia and right-sided weakness. In the ambulance he had a leftward gaze that has resolved. Patient still has expressive aphasia and history is significantly limited. PFSH Past Medical History Hx Anticoagulant Therapy: Yes (ASA) ADHD: Yes Asthma: Yes Blood Disorders: No Anxiety: Yes Depression: Yes Cancer: Yes (MELANOMA STAGE 2 ,RESECTION WAS DONE IN 2009) Cardiovascular Problems: Yes High Cholesterol: Yes Chest Pain: Yes Congestive Heart Failure: No Coronary Artery Disease: Yes Diabetes: Yes Diminished Hearing: No Endocrine: Yes Fibromyalgia: Yes Gastrointestinal Disorders: Yes Genitourinary: Yes Hypertension: Yes Immune Disorder: No Implanted Vascular Access Dvce: No Kidney Stones: Yes Musculoskeletal: Yes Neurologic: Yes (ADHD) Psychiatric: Yes Reproductive: Yes (ED) Respiratory: Yes Integumentary: Yes (FUNGAL INFECTION TO LEFT FOREARM) Myocardial Infarction: Yes Seizures: No Sleep Apnea: Yes (NO CPAP) Past Surgical History Cardiac Surgery: Yes (ANGINOPLASTY WITH STENT 2000,CABG 2006 4 VESSEL WITH 2 T' S,) Cholecystectomy: Yes Coronary Artery Bypass Graft: Yes (X 6 09/2007) Neurologic Surgery: No Thoracic Surgery: Yes (SEE ABOVE) Other Surgery: Yes (LITRHOTRIPSY) Social History Alcohol Use: No Tobacco Use: No Substance Use: No Allergies-Medications (Allergen,Severity, Reaction): Coded Allergies: Sulfa (Sulfonamide Antibiotics) (Unverified Allergy, Severe, ANAPHYLACTIC REACTION, 03/30/18) sulfamethoxazole (Unverified Allergy, Severe, ANAPHYLACTIC, 03/30/18) trimethoprim (Unverified Allergy, Severe, ANAPHYLACTIC, 03/30/18) Reported Meds & Prescriptions Reported Meds & Active Scripts Active Reported Viagra (Sildenafil Citrate) 50 Mg Tab 50 Mg PO DAILY PRN Simvastatin 20 Mg Tab 20 Mg PO DAILY Amlodipine (Amlodipine Besylate) 10 Mg Tab 10 Mg PO BID Glipizide 10 Mg Tab 20 Mg PO BIDAC Take 30 minutes before a meal Metformin (Metformin HCl) 850 Mg Tab 850 Mg PO BIDPC With meals Metoprolol Tartrate 25 Mg Tab 25 Mg PO BID Trazodone (Trazodone HCl) 50 Mg Tab 100 Mg PO HS PRN Review of Systems ROS Limitations: Altered Mental Status Physical Exam Exam Limitations: Altered Mental Status Narrative GENERAL: 62-year-old male in no apparent distress SKIN: Focused skin assessment warm/dry. HEAD: Atraumatic. Normocephalic. EYES: Pupils equal and round. No scleral icterus. No injection or drainage. ENT: No nasal bleeding or discharge. Mucous membranes pink and moist. NECK: Trachea midline. No JVD. CARDIOVASCULAR: Regular rate and rhythm. RESPIRATORY: No accessory muscle use. Clear to auscultation. Breath sounds equal bilaterally. GASTROINTESTINAL: Abdomen soft, non-tender, nondistended. MUSCULOSKELETAL: No obvious deformities. No clubbing. No cyanosis. NEUROLOGICAL: Eyes open, just keeps repeating yes or no to all questions even when you ask him his name, moves all extremities but appears weaker on the right Data Data Last Documented VS Vital Signs Date Time Temp Pulse Resp B/P (MAP) Pulse Ox O2 Delivery O2 Flow Rate FiO2 03/30/18 12:58 86 16 179/109 (132) 96 03/30/18 11:04 98.1 Orders Orders Electrocardiogram (03/30/18 11:02) Ammonia (03/30/18 11:02) Complete Blood Count With Diff (03/30/18 11:02) Comprehensive Metabolic Panel (03/30/18 11:02) Creatine Kinase (Cpk) (03/30/18 11:02) Prothrombin Time / Inr (Pt) (03/30/18 11:02) Act Partial Throm Time (Ptt) (03/30/18 11:02) Troponin I (03/30/18 11:02) Urinalysis - C+S If Indicated (03/30/18 11:02) Chest, Single Ap (03/30/18 11:02) Ct Brain W/O Iv Contrast(Rout) (03/30/18 11:02) Blood Glucose (03/30/18 11:02) Ecg Monitoring (03/30/18 11:02) Iv Access Insert/Monitor (03/30/18 11:02) Oximetry (03/30/18 11:02) Sodium Chloride 0.9% Flush (Ns Flush) (03/30/18 11:15) Drug Screen, Random Urine (03/30/18 11:02) Alcohol (Ethanol) (03/30/18 11:02) (Hub Use Only)Inp Phy Cons/Ref (03/30/18 ) Blood Culture (03/30/18 11:57) Sodium Chloride 0.9% Flush (Ns Flush) (03/30/18 12:00) Ceftriaxone Inj (Rocephin Inj) (03/30/18 12:00) Azithromycin Inj (Zithromax Inj) (03/30/18 12:00) Metronidazole 500 Mg Inj (Flagyl 500 Mg (03/30/18 12:00) Urine Culture (03/30/18 11:44) Nursing Bedside Swallow Assess .ONCE (03/30/18 13:08) Aspirin (Aspirin) (03/30/18 13:15) Metoclopramide Inj (Reglan Inj) (03/30/18 13:30) Diphenhydramine Inj (Benadryl Inj) (03/30/18 13:30) Lactic Acid (03/30/18 13:18) Admit Order (Ed Use Only) (03/30/18 13:37) Labs Laboratory Tests Test 03/30/18 11:10 03/30/18 11:44 White Blood Count 6.5 TH/MM3 Red Blood Count 5.51 MIL/MM3 Hemoglobin 15.7 GM/DL Hematocrit 45.5 % Mean Corpuscular Volume 82.7 FL Mean Corpuscular Hemoglobin 28.4 PG Mean Corpuscular Hemoglobin Concent 34.4 % Red Cell Distribution Width 13.1 % Platelet Count 162 TH/MM3 Mean Platelet Volume 8.3 FL Neutrophils (%) (Auto) 63.5 % Lymphocytes (%) (Auto) 26.4 % Monocytes (%) (Auto) 7.4 % Eosinophils (%) (Auto) 2.2 % Basophils (%) (Auto) 0.5 % Neutrophils # (Auto) 4.1 TH/MM3 Lymphocytes # (Auto) 1.7 TH/MM3 Monocytes # (Auto) 0.5 TH/MM3 Eosinophils # (Auto) 0.1 TH/MM3 Basophils # (Auto) 0.0 TH/MM3 CBC Comment DIFF FINAL Differential Comment Prothrombin Time 10.9 SEC Prothromb Time International Ratio 1.1 RATIO Activated Partial Thromboplast Time 24.0 SEC Blood Urea Nitrogen 25 MG/DL Creatinine 1.33 MG/DL Random Glucose 226 MG/DL Total Protein 7.4 GM/DL Albumin 3.3 GM/DL Calcium Level 8.9 MG/DL Alkaline Phosphatase 118 U/L Aspartate Amino Transf (AST/SGOT) 38 U/L Alanine Aminotransferase (ALT/SGPT) 57 U/L Total Bilirubin 1.1 MG/DL Sodium Level 142 MEQ/L Potassium Level 3.7 MEQ/L Chloride Level 107 MEQ/L Carbon Dioxide Level 23.3 MEQ/L Anion Gap 12 MEQ/L Estimat Glomerular Filtration Rate 54 ML/MIN Ammonia 37 MCMOL/L Total Creatine Kinase 87 U/L Troponin I LESS THAN 0.02 NG/ML Ethyl Alcohol Level LESS THAN 3 MG/DL Urine Color YELLOW Urine Turbidity CLEAR Urine pH 5.5 Urine Specific [place] 1.032 Urine Protein 300 OR GREATER mg/dL Urine Glucose (UA) 100 mg/dL Urine Ketones NEG mg/dL Urine Occult Blood MOD Urine Nitrite NEG Urine Bilirubin NEG Urine Urobilinogen 0.2 MG/DL Urine Leukocyte Esterase NEG Urine RBC 82 /hpf Urine WBC 3 /hpf Urine Amorphous Sediment MOD Urine Bacteria FEW /hpf Urine Mucus FEW /lpf Microscopic Urinalysis Comment CATH-CULTURE IND Urine Opiates Screen NEG Urine Barbiturates Screen NEG Urine Amphetamines Screen NEG Urine Benzodiazepines Screen NEG Urine Cocaine Screen NEG Urine Cannabinoids Screen NEG MDM Medical Decision Making Medical Screen Exam Complete: Yes Emergency Medical Condition: Yes Medical Record Reviewed: Yes (Past history confirmed) Interpretation(s) CBC & BMP Diagram 03/30/18 11:10 Total Protein 7.4, Albumin 3.3 L, Calcium Level 8.9, Alkaline Phosphatase 118 H , Aspartate Amino Transf (AST/SGOT) 38 H, Alanine Aminotransferase (ALT/SGPT) 57 , Total Bilirubin 1.1 H Last [address] 03/30/18 1102 Signed Impressions: CONCLUSION: Chest X-Ray 03/30/18 1102 Signed Impressions: CONCLUSION: Mild infiltrate in the left costophrenic angle. stable ct head Differential Diagnosis Subdural, stroke, alcohol, drug use Narrative Course Patient outside stroke window will check blood work, imaging and monitor Given chest x-ray will place on antibiotics for possible aspiration pneumonia. Patient's urinalysis shows signs of infection but is already covered with prior antibiotics. He will need to be admitted for further care and workup of expressive aphasia Patient is less cooperative and pulled his IV. He had an episode of nonbloody emesis. Will be given Reglan and Benadryl and monitored. If he needs additional sedation will give Ativan Physician Communication Physician Communication dr eagle agrees to admit Diagnosis Primary Impression: Altered mental status Qualified Codes: R41.82 - Altered mental status, unspecified Additional Impressions: Pneumonia Qualified Codes: J18.9 - Pneumonia, unspecified organism UTI (urinary tract infection) Qualified Codes: N39.0 - Urinary tract infection, site not specified Expressive aphasia Weakness Vomiting Qualified Codes: R11.10 - Vomiting, unspecified Admitting Information Admitting Physician Requests: Admit Daiana Panchal MD March 30, 2018 11:06
[2018-03-30] MEDS ORDERED: SODIUM CHLORIDE 0.9% FLUSH 10 ML FLUSH IV FLUSH PRN ×2 (11:15→14:15)
[2018-03-30] MEDS ORDERED: VIAG50TA PO (11:19)
[2018-03-30] MEDS ORDERED: SIMV20TA PO (11:19)
--- NOTE | 2018-03-30 11:28 | RADRPT ---
EXAM DATE: 03/30/2018 11:20 AM EDT AGE/SEX: 62 years / Male INDICATIONS: Syncope, altered mental status, short of breath CLINICAL DATA: This is the patient's initial encounter. Patient reports that signs and symptoms have been present for 1 day and indicates a pain score of Nonresponsive. MEDICAL/SURGICAL HISTORY: Cardiovascular disease. CABG. [place] [facility] [place]. . FINDINGS: There appears to be a focal mild infiltrate in the left costophrenic angle. There is hypoa eration of both lung aaron most likely from poor inspiration. Otherwise, the lungs are grossly clear . The heart size is mildly enlarged but stable compared to the prior study. There is evidence of prev ious cardiothoracic surgery. The bony structures are stable. CONCLUSION: Mild infiltrate in the left costophrenic angle. Electronically signed by: Fly John MD 03/30/2018 11:27 AM EDT
[2018-03-30 11:47] LABS: AUTOMATED NEUTROPHIL # 4.1 TH/MM3 (1.8-7.7); BASOPHIL % 0.5 % (0.0-2.0); EOSINOPHIL # 0.1 TH/MM3 (0-0.4); EOSINOPHIL % 2.2 % (0.0-4.0); HEMATOCRIT 45.5 % (39.0-51.0); HEMOGLOBIN 15.7 GM/DL (13.0-17.0); LYMPH % 26.4 % (9.0-44.0); LYMPHOCYTE # 1.7 TH/MM3 (1.0-4.8); MEAN CELL VOLUME 82.7 FL (80.0-100.0); MEAN CORPUSCULAR HEMOGLOBIN 28.4 PG (27.0-34.0); MEAN CORPUSCULAR HGB CONC 34.4 % (32.0-36.0); MEAN PLATELET VOLUME 8.3 FL (7.0-11.0); MONO % 7.4 % (0.0-8.0); MONOCYTE # 0.5 TH/MM3 (0-0.9); NEUT % 63.5 % (16.0-70.0); PLATELET COUNT 162 TH/MM3 (150-450); RED BLOOD COUNT 5.51 MIL/MM3 (4.50-5.90); RED CELL DISTRIBUTION WIDTH 13.1 % (11.6-17.2); WHITE BLOOD COUNT 6.5 TH/MM3 (4.0-11.0)
[2018-03-30 11:52] LABS: INTERNATIONAL NORMALIZED RATIO 1.1 RATIO; PROTHROMBIN TIME - PATIENT 10.9 SEC (9.8-11.6)
[2018-03-30] MEDS ORDERED: cefTRIAXone INJ 1,000 MG in SODIUM CHLORIDE 0.9% INJ 100 ML IV ONE (12:00)
[2018-03-30] MEDS ORDERED: AZITHROMYCIN INJ 500 MG in SODIUM CHLOR 0.9% 250 ML INJ 250 ML IV ONE (12:00)
[2018-03-30] MEDS ORDERED: metroNIDAZOLE 500 MG INJ 100 ML IV ONE (12:00)
[2018-03-30] MEDS ORDERED: SODIUM CHLORIDE 0.9% FLUSH 10 ML FLUSH IVF PRN (12:00)
[2018-03-30 12:05] LABS: ALBUMIN 3.3 GM/DL (3.4-5.0); ALT (GPT) 57 U/L (12-78); AST (GOT) 38 U/L (15-37); BICARBONATE 23.3 MEQ/L (21.0-32.0); CALCIUM 8.9 MG/DL (8.5-10.1); CHLORIDE 107 MEQ/L (98-107); CREATININE 1.33 MG/DL (0.60-1.30); GLOMERULAR FILTRATION RATE 54 ML/MIN (>89); GLUCOSE,RANDOM 226 MG/DL (74-106); SODIUM (NA) 142 MEQ/L (136-145)
[2018-03-30 12:12] LABS: ALKALINE PHOSPHATASE 118 U/L (45-117); BLOOD UREA NITROGEN 25 MG/DL (7-18); TOTAL BILIRUBIN ADULT 1.1 MG/DL (0.2-1.0); TOTAL PROTEIN 7.4 GM/DL (6.4-8.2); TROPONIN I LESS THAN 0.02 NG/ML (0.02-0.05)
--- NOTE | 2018-03-30 12:27 | RADRPT ---
EXAM DATE: 03/30/2018 12:24 PM EDT AGE/SEX: 62 years / Male INDICATIONS: Right sided weakness and left facial droop CLINICAL DATA: This is the patient's initial encounter. Patient reports that signs and symptoms have been present for 1 day and indicates a pain score of Nonresponsive. MEDICAL/SURGICAL HISTORY: Cardiovascular disease. Hypertension. Diabetes. None. RADIATION DOSE: 56.35 CTDI (mGy) COMPARISON: [facility] – [place], [place] BRAIN W/O CONTRAST, 07/03/2017. . TECHNIQUE: CT of the head without contrast. Using automated exposure control and adjustment of the mA and/or kV according to patient size, radiation dose was kept as low as reasonably achievable to ob tain optimal diagnostic quality images. FINDINGS: Cerebrum: The ventricles are normal for age. No evidence of midline shift, mass lesion, hemorrhage or acute infarction. No extraaxial fluid collections are seen. Posterior Fossa: The cerebellum and brainstem are intact. The 4th ventricle is midline. The cerebe llopontine angle is unremarkable. Extracranial: The visualized portion of the orbits is intact. Skull: The calvaria is intact. No evidence of skull fracture. Post Contrast: No abnormal areas of parenchymal or dural enhancement. No evidence of blood-brain ba rrier breakdown. CONCLUSION: 1. Stable and unremarkable CT scan compared to 2017. Electronically signed by: Fly John MD 03/30/2018 12:26 PM EDT
[2018-03-30 12:47] LABS: BILIRUBIN, URINE NEG (NEG); BLOOD, URINE MOD (NEG); GLUCOSE,URINE 100 mg/dL (NEG); KETONE, URINE NEG (NEG); NITRITE,URINE NEG (NEG); PH, URINE 5.5 (5.0-8.5); URINE COLOR YELLOW (YELLW/STRAW); URINE LEUKOCYTE ESTERASE NEG (NEG)
[2018-03-30 12:51] LABS: AMORPHOUS SEDIMENT, URINE MOD; BACTERIA, URINE FEW /hpf; MUCUS URINE FEW /lpf (OCC)
[2018-03-30] MEDS ORDERED: ASPIRIN 325 MG TAB PO ONE (13:15)
[2018-03-30] MEDS ORDERED: METOCLOPRAMIDE HCL 10 MG/2 ML VIAL IV PUSH ONE (13:30)
[2018-03-30] MEDS ORDERED: diphenhydrAMINE HCL 50 MG/ML VIAL IV PUSH ONE (13:30)
--- NOTE | 2018-03-30 14:04 | EKG ---
Date Performed: 03/30/2018 Time Performed: 11:05:39 PTAGE: 62 years EKG: Sinus rhythm WITH SINUS ARRHYTHMIA RIGHT BUNDLE BRANCH BLOCK ABNORMAL ECG Compared to prior electrocardiogram, ra te has increased . DOCTOR: Miky Lockett Interpretating Date/Time 03/30/2018 14:04:23
[2018-03-30] MEDS ORDERED: METOPROLOL TARTRATE 5 MG/5 ML VIAL IV PUSH STA (14:20)
[2018-03-30] MEDS ORDERED: GLUCAGON 1 MG/ML VIAL OTHER PRN (14:30)
[2018-03-30] MEDS ORDERED: DEXTROSE 50% IN WATER 50 ML VIAL(D50) IV PUSH PRN (14:30)
[2018-03-30] MEDS ORDERED: cloNIDine HCL 0.1 MG TAB PO PRN (14:30)
[2018-03-30] MEDS ORDERED: ASPIRIN 325 MG TAB PO SCH (14:45)
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
[2018-03-30] MEDS ORDERED: hydrALAZINE HCL 20 MG/ML VIAL IV PUSH ONE (15:30)
[2018-03-30] MEDS ORDERED: LORazepam 2 MG/ML VIAL IV PUSH PRN ×2 (15:45→20:15)
[2018-03-30] MEDS ORDERED: ENALAPRILAT 1.25 MG/ML VIAL IV PUSH PRN (15:45)
--- NOTE | 2018-03-30 15:46 | RADRPT ---
EXAM DATE: 03/30/2018 3:32 PM EDT AGE/SEX: 62 years / Male INDICATIONS: Cerebrovascular accident. CLINICAL DATA: This is the patient's initial encounter. Patient reports that signs and symptoms have been present for 1 day and indicates a pain score of Nonresponsive. MEDICAL/SURGICAL HISTORY: . Thyroid disease. ADHD. PA. CAD. Hypercholesterol. HTN. Kidne y stones. Diabetic. Melanoma. . Lithotripsy. CABG. Cholecystectomy. Angioplasty. COMPARISON: No prior [facility] exams available for comparison. VELOCITY PARAMETERS: ICA/CCA Ratio: Right 1.2 , Left 1.7 ICA: Right 52 cm/sec, Left 95 cm/sec CCA: Right 44 cm/sec, Left 55 cm/sec ECA: Right 69 cm/sec, Left 78 cm/sec Vertebral: Right 44 cm/sec antegrade, Left 48 cm/sec antergrade FINDINGS: Right Carotid: Mild atherosclerotic plaquing at the carotid bifurcation. No significant stenosis is v isualized. The waveforms are within normal limits. Left Carotid: Mild atherosclerotic plaquing at the bifurcation. No significant stenosis is visualize d. The waveforms are within normal limits. Other: None. CONCLUSION: 1. Mild atherosclerotic plaquing at both carotid bifurcations. 2. No focal high-grade or hemodynamically significant stenosis. Electronically signed by: Fly John MD 03/30/2018 3:45 PM EDT
[2018-03-30] MEDS: HEPARIN SODIUM - SQ 10,000 UNITS/ML VIAL SQ SCH (16:04)
--- NOTE | 2018-03-30 17:06 | HHI.HP ---
[facility] Primary Care Physician Papo James M.D. Admission Diagnosis Altered mental status, expressive aphasia, pneumonia Diagnoses: Chief Complaint: Altered mental status Travel History International Travel<30 Days: No Contact w/Intl Traveler <30 Da: No Traveled to Known Affected Are: No History of Present Illness 62-year-old male brought into the emergency room by EMS today after the patient was found by his roommate wrapped up in feces in a blanket. The roommate reportedly saw him talking normally yesterday. There is report that he has been acting out for the past couple of days. EMS reported expressive aphasia, right-sided weakness and a leftward gaze. In the emergency room the patient is very lethargic and is unable to provide any history. History obtained from review of EMR and EMS report. Discussed with ER nurse and ER physician. Review of Systems ROS Limitations: Clinical Condition, Altered Mental Status, Unresponsive Unable to obtain review of systems due to the patient's current clinical condition. Past Family Social History Past Medical History History reviewed from EMR. Patient is unable to contribute due to his mental status. Coronary artery disease status post stent in 2002. CABG 6 in 2006 Hypertension Diabetes History of hep C, untreated History of MRSA Bundle branch block Neck melanoma status post excision Kidney stones bph Past Surgical History CABG Laparoscopic cholecystectomy Lithotripsy Reported Medications Reported Meds & Active Scripts Active Reported Viagra (Sildenafil Citrate) 50 Mg Tab 50 Mg PO DAILY PRN Simvastatin 20 Mg Tab 20 Mg PO DAILY Amlodipine (Amlodipine Besylate) 10 Mg Tab 10 Mg PO BID Glipizide 10 Mg Tab 20 Mg PO BIDAC Take 30 minutes before a meal Metformin (Metformin HCl) 850 Mg Tab 850 Mg PO BIDPC With meals Metoprolol Tartrate 25 Mg Tab 25 Mg PO BID Trazodone (Trazodone HCl) 50 Mg Tab 100 Mg PO HS PRN Allergies: Coded Allergies: Sulfa (Sulfonamide Antibiotics) (Unverified Allergy, Severe, ANAPHYLACTIC REACTION, 03/30/18) sulfamethoxazole (Unverified Allergy, Severe, ANAPHYLACTIC, 03/30/18) trimethoprim (Unverified Allergy, Severe, ANAPHYLACTIC, 03/30/18) Family History Brother has history of diabetes Father has history of coronary artery disease Social History Documented history of IV drug use. No reported history of alcohol and tobacco currently. Physical Exam Vital Signs Vital Signs Date Time Temp Pulse Resp B/P (MAP) Pulse Ox O2 Delivery O2 Flow Rate FiO2 03/30/18 16:51 97.6 80 20 205/108 (140) 100 03/30/18 15:42 191/100 (130) 03/30/18 15:26 208/102 (137) 03/30/18 15:05 189/115 (139) 03/30/18 14:15 209/129 (155) 03/30/18 13:42 87 209/109 (142) 03/30/18 12:58 86 16 179/109 (132) 96 03/30/18 11:17 16 96 03/30/18 11:04 98.1 03/30/18 11:01 94 14 169/102 (124) 96 Physical Exam GENERAL: Patient is lethargic and is unable to answer questions or follow commands. He is moving his extremities spontaneously except for the right arm. SKIN: No rashes, ecchymoses or lesions. Cool and dry. HEAD: Atraumatic. Normocephalic. No temporal or scalp tenderness. EYES: Pupils equal round and reactive. CARDIOVASCULAR: Normal rate and regular rhythm without murmurs, gallops, or rubs. RESPIRATORY: Clear to auscultation. Breath sounds equal bilaterally. No wheezes , rales, or rhonchi. GASTROINTESTINAL: Abdomen soft, non-tender, nondistended. No hepato-splenomegaly , or palpable masses. No guarding. MUSCULOSKELETAL: Extremities without clubbing, cyanosis, or edema. Neuro: Lethargic. Can move all extremities spontaneously except for right upper extremity. Laboratory Laboratory Tests Test 03/30/18 11:10 03/30/18 11:44 03/30/18 14:00 White Blood Count 6.5 Red Blood Count 5.51 Hemoglobin 15.7 Hematocrit 45.5 Mean Corpuscular Volume 82.7 Mean Corpuscular Hemoglobin 28.4 Mean Corpuscular Hemoglobin Concent 34.4 Red Cell Distribution Width 13.1 Platelet Count 162 Mean Platelet Volume 8.3 Neutrophils (%) (Auto) 63.5 Lymphocytes (%) (Auto) 26.4 Monocytes (%) (Auto) 7.4 Eosinophils (%) (Auto) 2.2 Basophils (%) (Auto) 0.5 Neutrophils # (Auto) 4.1 Lymphocytes # (Auto) 1.7 Monocytes # (Auto) 0.5 Eosinophils # (Auto) 0.1 Basophils # (Auto) 0.0 CBC Comment DIFF FINAL Differential Comment Prothrombin Time 10.9 Prothromb Time International Ratio 1.1 Activated Partial Thromboplast Time 24.0 Blood Urea Nitrogen 25 Creatinine 1.33 Random Glucose 226 Total Protein 7.4 Albumin 3.3 Calcium Level 8.9 Alkaline Phosphatase 118 Aspartate Amino Transf (AST/SGOT) 38 Alanine Aminotransferase (ALT/SGPT) 57 Total Bilirubin 1.1 Sodium Level 142 Potassium Level 3.7 Chloride Level 107 Carbon Dioxide Level 23.3 Anion Gap 12 Estimat Glomerular Filtration Rate 54 Ammonia 37 Total Creatine Kinase 87 Troponin I LESS THAN 0.02 Ethyl Alcohol Level LESS THAN 3 Urine Color YELLOW Urine Turbidity CLEAR Urine pH 5.5 Urine Specific [place] 1.032 Urine Protein 300 OR GREATER Urine Glucose (UA) 100 Urine Ketones NEG Urine Occult Blood MOD Urine Nitrite NEG Urine Bilirubin NEG Urine Urobilinogen 0.2 Urine Leukocyte Esterase NEG Urine RBC 82 Urine WBC 3 Urine Amorphous Sediment MOD Urine Bacteria FEW Urine Mucus FEW Microscopic Urinalysis Comment CATH-CULTURE IND Urine Opiates Screen NEG Urine Barbiturates Screen NEG Urine Amphetamines Screen NEG Urine Benzodiazepines Screen NEG Urine Cocaine Screen NEG Urine Cannabinoids Screen NEG Lactic Acid Level 1.2 Date/Time Source Procedure Growth Status 03/30/18 12:05 Blood Peripheral Aerobic Blood Culture Pending Received 03/30/18 12:05 Blood Peripheral Anaerobic Blood Culture Pending Received 03/30/18 11:44 Urine Catheterized Urine Urine Culture Pending Received Result Diagram: 03/30/18 1110 03/30/18 1110 Caprini VTE Risk Assessment Caprini VTE Risk Assessment: Mod/High Risk (score >= 2) Caprini Risk Assessment Model Point Value = 1 Point Value = 2 Point Value = 3 Point Value = 5 Age 41-60 Minor surgery BMI > 25 kg/m2 Swollen legs Varicose veins or History of unexplained or recurrent spontaneous Oral contraceptives or hormone replacement Sepsis (< 1 month) Serious lung disease, including pneumonia (< 1 month) Abnormal pulmonary function Acute myocardial infarction Congestive heart failure (< 1 month) History of inflammatory bowel disease Medical patient at bed rest Age 61-74 Arthroscopic surgery Major open surgery (> 45 min) Laparoscopic surgery (> 45 min) Malignancy Confined to bed (> 72 hours) Immobilizing plaster cast Central venous access Age >= 75 History of VTE Family history of VTE Factor V Leiden Prothrombin [id number] Lupus anticoagulant Anticardiolipin antibodies Elevated serum homocysteine Heparin-induced thrombocytopenia Other congenital or acquired thrombophilia Stroke (< 1 month) Elective arthroplasty Hip, pelvis, or leg fracture Acute spinal cord injury (< 1 month) Prophylaxis Regimen Total Risk Factor Score Risk Level Prophylaxis Regimen 0-1 Low Early ambulation 2 Moderate Order ONE of the following: *Sequential Compression Device (SCD) *Heparin 5000 units SQ BID 3-4 Higher Order ONE of the following medications: *Heparin 5000 units SQ TID *Enoxaparin/Lovenox 40 mg SQ daily (WT < 150 kg, CrCl > 30 mL/min) *Enoxaparin/Lovenox 30 mg SQ daily (WT < 150 kg, CrCl > 10-29 mL/min) *Enoxaparin/Lovenox 30 mg SQ BID (WT < 150 kg, CrCl > 30 mL/min) AND/OR *Sequential Compression Device (SCD) 5 or more Highest Order ONE of the following medications: *Heparin 5000 units SQ TID (Preferred with Epidurals) *Enoxaparin/Lovenox 40 mg SQ daily (WT < 150 kg, CrCl > 30 mL/min) *Enoxaparin/Lovenox 30 mg SQ daily (WT < 150 kg, CrCl > 10-29 mL/min) *Enoxaparin/Lovenox 30 mg SQ BID (WT < 150 kg, CrCl > 30 mL/min) AND *Sequential Compression Device (SCD) Assessment and Plan Problem List: (1) Accelerated hypertension ICD Code: I10 - Essential (primary) hypertension (2) Acute encephalopathy ICD Code: G93.40 - Encephalopathy, unspecified Status: Acute (3) Expressive aphasia ICD Code: R47.01 - Aphasia Status: Acute (4) Vomiting ICD Code: R11.10 - Vomiting, unspecified Status: Acute (5) Diabetes mellitus type 2 in obese ICD Code: E11.9 - Diabetes mellitus type 2 in obese; E66.9 - Obesity, unspecified Status: Chronic (6) Coronary artery disease ICD Code: I25.10 - Coronary artery disease Status: Chronic Assessment and Plan 62-year-old male presented with acute encephalopathy, markedly elevated blood pressure, reported expressive aphasia and right-sided weakness. Need to rule out CVA Acute encephalopathy: Concern for CVA versus hypertensive encephalopathy - Need to rule out CVA. There was report of expressive aphasia and right-sided weakness. -Head CT unremarkable. Obtain MRI, carotid ultrasound, and 2D echocardiogram - Give aspirin 325 mg p.o. daily - Consult neurology Accelerated hypertension, ? Hypertensive encephalopathy: - Start lowering blood pressure. Resume home dose amlodipine and metoprolol. - Patient did not respond to IV Lopressor or IV Vasotec. - Patient started on a Cardene drip and moved to the ICU. Possible UTI, ?infiltrate on CXR: - Doubt pneumonia. Received Rocephin, azithromycin and Flagyl in the ED. - Continue Rocephin for now and follow cultures. Diabetes Mellitus - chronic sliding scale insulin Accu checks 4x daily CAD w/ stents, H/O CABG -chronic daily aspirin H/O IV drug use -heroin - Follow cultures - Watch for possible withdrawals. UDS was negative Code Status Assumed to be full code. Patient is critically ill. Admit to ICU. Discussed Condition With Dr. Panchal. Physician Certification 2 Midnight Certification Type: Admission for Inpatient Services Order for Inpatient Services The services are ordered in accordance with Medicare regulations or non- Medicare payer requirements, as applicable. In the case of services not specified as inpatient-only, they are appropriately provided as inpatient services in accordance with the 2-midnight benchmark. Estimated LOS (days): 5 days is the estimated time the patient will need to remain in the hospital, assuming treatment plan goals are met and no additional complications. Post-Hospital Plan: Not yet determined Problem Qualifiers (1) Vomiting: Qualified Codes: R11.10 - Vomiting, unspecified Kt Garcia MD March 30, 2018 17:06
[2018-03-30] MEDS: niCARdipine INJ 25 MG in SODIUM CHLOR 0.9% 250 ML INJ 250 ML IV PRN ×2 (18:05→23:05)
[2018-03-30] MEDS: 1/2 NS + KCL 20 MEQ INJ 1,000 ML IV SCH (18:47)
[2018-03-30] MEDS: INSULIN ASPART SUPPLEMENTAL SCALE SQ SCH ×2 (18:52→20:47)
[2018-03-30] MEDS: SODIUM CHLORIDE 0.9% FLUSH 10 ML FLUSH IV FLUSH SCH (19:18)
[2018-03-30 19:28] LABS: BILIRUBIN, URINE NEG (NEG); BLOOD, URINE MOD (NEG); GLUCOSE,URINE 1000 mg/dL (NEG); HYALINE CAST, URINE 3 /lpf (RARE); KETONE, URINE 10 mg/dL (NEG); NITRITE,URINE NEG (NEG); URINE COLOR YELLOW (YELLW/STRAW); URINE LEUKOCYTE ESTERASE NEG (NEG)
[2018-03-30] MEDS ORDERED: METOPROLOL TARTRATE 5 MG/5 ML VIAL IV PUSH ONE (20:15)
[2018-03-30] MEDS: METOPROLOL TARTRATE 25 MG TAB PO SCH (20:46)
[2018-03-30] MEDS ORDERED: traZODone HCL 50 MG TAB PO PRN (21:00)
--- NOTE | 2018-03-30 23:05 | RADRPT ---
EXAM DATE: 03/30/2018 10:38 PM EDT AGE/SEX: 62 years / Male INDICATIONS: CVA. . CLINICAL DATA: This is the patient's initial encounter. Patient reports that signs and symptoms have been present for 1 day and indicates a pain score of Nonresponsive. MEDICAL/SURGICAL HISTORY: Hypertension. Carcinoma, skin cancer. Hepatitis C. [place],Kidney stone s. CABG. Coronary artery stent. Cholecystectomy. . COMPARISON: [facility] [place], CT BRAIN W/O CONTRAST, 03/30/2018. . TECHNIQUE: Multiplanar, multisequence examination of the brain was performed without contrast. FINDINGS: Cerebrum: The ventricles, sulci, and basal cisterns are prominent, characteristic of moderate severi ty central cortical atrophy. No evidence of midline shift, mass lesion, hemorrhage or acute infarcti on. No extraaxial fluid collections are seen. The pituitary gland and suprasellar cistern are peter l in configuration. White Matter: Diffuse confluent T2 prolongation in the periventricular white matter characteristic o f degenerative changes. Posterior Fossa: The cerebellum and brainstem are intact. The 4th ventricle is midline. The cerebel lopontine angle is unremarkable. The cerebellar tonsils are normal in position. Diffusion Imaging: No focal areas of restricted diffusion are seen. No evidence of acute infarction . Extracranial: There is a 2 cm round mass in the midline nasopharynx with smooth margins and intermed iate intensity signal on T1 and mild T2 prolongation. The visualized portions of the orbits and paran ariana sinuses are unremarkable. CONCLUSION: 1. Moderate central and cortical atrophy. 2. No evidence for acute stroke. 3. 2 cm midline nasopharyngeal mass. Electronically signed by: Joshua Tucker MD 03/30/2018 11:04 PM EDT
[2018-03-30] MEDS ORDERED: HALOPERIDOL LACTATE 5 MG/ML AMP IM ONE (23:15)
[2018-03-31] VITALS (21 sets, daily range): BP systolic 110–168; BP diastolic 62–86; PULSE 91–115; RESP 19–32; TEMP 97.8–98.8; O2SAT 90–99
[2018-03-31] MEDS: niCARdipine INJ 25 MG in SODIUM CHLOR 0.9% 250 ML INJ 250 ML IV PRN ×4 (01:57→21:21)
[2018-03-31] MEDS: HEPARIN SODIUM - SQ 10,000 UNITS/ML VIAL SQ SCH ×2 (03:22→14:18)
[2018-03-31] MEDS: 1/2 NS + KCL 20 MEQ INJ 1,000 ML IV SCH ×2 (05:13→15:42)
[2018-03-31 07:12] LABS: CHOLESTEROL/ HDL RATIO 5.3 RATIO; HDL CHOLESTEROL 24.7 MG/DL (40.0-60.0)
[2018-03-31] MEDS: PRAVASTATIN SOD 40 MG TAB PO SCH (09:00)
[2018-03-31] MEDS: METOPROLOL TARTRATE 25 MG TAB PO SCH ×2 (09:00→21:20)
[2018-03-31 09:28] LABS: HEMATOCRIT 41.7 % (39.0-51.0); HEMOGLOBIN 14.3 GM/DL (13.0-17.0); MEAN CELL VOLUME 83.7 FL (80.0-100.0); MEAN CORPUSCULAR HEMOGLOBIN 28.7 PG (27.0-34.0); MEAN CORPUSCULAR HGB CONC 34.3 % (32.0-36.0); MEAN PLATELET VOLUME 8.5 FL (7.0-11.0); PLATELET COUNT 154 TH/MM3 (150-450); RED BLOOD COUNT 4.98 MIL/MM3 (4.50-5.90); RED CELL DISTRIBUTION WIDTH 13.2 % (11.6-17.2); WHITE BLOOD COUNT 8.3 TH/MM3 (4.0-11.0)
[2018-03-31 09:53] LABS: ALBUMIN 2.9 GM/DL (3.4-5.0); ALKALINE PHOSPHATASE 116 U/L (45-117); ALT (GPT) 47 U/L (12-78); AST (GOT) 30 U/L (15-37); BICARBONATE 23.2 MEQ/L (21.0-32.0); BLOOD UREA NITROGEN 20 MG/DL (7-18); CALCIUM 8.1 MG/DL (8.5-10.1); CHLORIDE 109 MEQ/L (98-107); CREATININE 1.22 MG/DL (0.60-1.30); GLOMERULAR FILTRATION RATE 60 ML/MIN (>89); GLUCOSE,RANDOM 259 MG/DL (74-106); SODIUM (NA) 143 MEQ/L (136-145); TOTAL BILIRUBIN ADULT 1.3 MG/DL (0.2-1.0); TOTAL PROTEIN 6.6 GM/DL (6.4-8.2)
--- NOTE | 2018-03-31 10:16 | HHI.PR ---
Subjective Remarks Woke up briefly when I called his name but remains lethargic and not answering any questions. Still on Cardene drip. Unable to take PO. Objective Vitals Vital Signs Date Time Temp Pulse Resp B/P (MAP) Pulse Ox O2 Delivery O2 Flow Rate FiO2 03/31/18 09:00 96 03/31/18 08:02 97 Nasal Cannula 2.00 03/31/18 08:00 98.7 95 21 135/76 (95) 98 03/31/18 08:00 95 03/31/18 07:00 98 03/31/18 06:45 94 155/84 03/31/18 06:15 96 150/88 03/31/18 06:00 95 03/31/18 05:45 97 128/76 03/31/18 05:00 93 158/80 03/31/18 04:00 100 03/31/18 04:00 97.8 100 23 110/62 (78) 98 03/31/18 03:15 106 104/61 03/31/18 02:45 110 123/63 03/31/18 02:00 115 03/31/18 02:00 115 134/71 03/31/18 01:57 115 142/67 03/31/18 00:27 96 Nasal Cannula 2.00 03/31/18 00:15 123 127/74 03/31/18 00:00 97.8 113 32 127/74 (91) 90 03/31/18 00:00 113 03/30/18 23:05 105 149/83 03/30/18 22:00 94 03/30/18 20:30 118 150/79 03/30/18 20:00 117 03/30/18 20:00 98.8 117 25 158/81 (106) 95 03/30/18 19:59 95 21 03/30/18 19:15 115 181/102 03/30/18 18:16 97.9 99 25 184/94 (124) 94 03/30/18 18:05 92 183/107 03/30/18 18:00 102 03/30/18 16:51 97.6 80 20 205/108 (140) 100 03/30/18 15:42 191/100 (130) 03/30/18 15:26 208/102 (137) 03/30/18 15:05 189/115 (139) 03/30/18 14:15 209/129 (155) 03/30/18 13:42 87 209/109 (142) 03/30/18 12:58 86 16 179/109 (132) 96 03/30/18 11:17 16 96 03/30/18 11:04 98.1 03/30/18 11:01 94 14 169/102 (124) 96 I/O 03/30/18 03/30/18 03/30/18 03/31/18 03/31/18 03/31/18 07:00 15:00 23:00 07:00 15:00 23:00 Intake Total 350 ml 260 ml 1260 ml Output Total 825 ml Balance 350 ml 260 ml 435 ml Intake IV Total 350 ml 260 ml 1260 ml Output Urine Total 825 ml # Bowel Movements 1 Result Diagram: 03/31/1881903/31/18819 Objective Remarks GENERAL: Patient is lethargic and is unable to answer questions or follow commands. CARDIOVASCULAR: Normal rate and regular rhythm without murmurs, gallops, or rubs. RESPIRATORY: Clear to auscultation anteriorly. GASTROINTESTINAL: Abdomen soft, nondistended. MUSCULOSKELETAL: Extremities without clubbing, cyanosis, or edema. Neuro: Lethargic. Can move all extremities spontaneously. A/P Problem List: (1) Accelerated hypertension ICD Code: I10 - Essential (primary) hypertension (2) Acute encephalopathy ICD Code: G93.40 - Encephalopathy, unspecified Status: Acute (3) Expressive aphasia ICD Code: R47.01 - Aphasia Status: Acute (4) Vomiting ICD Code: R11.10 - Vomiting, unspecified Status: Acute (5) Diabetes mellitus type 2 in obese ICD Code: E11.9 - Diabetes mellitus type 2 in obese; E66.9 - Obesity, unspecified Status: Chronic (6) Coronary artery disease ICD Code: I25.10 - Coronary artery disease Status: Chronic Assessment and Plan 62-year-old male presented with acute encephalopathy, markedly elevated blood pressure, reported expressive aphasia and right-sided weakness. No CVA on imaging. Acute encephalopathy: Imaging negative for CVA. ? Hypertensive encephalopathy. Synthetic illicit drugs may also be a possibility. - Obtain MRI, carotid ultrasound, and 2D echocardiogram - Give aspirin 325 mg p.o. daily - Consult neurology Accelerated hypertension, ? Hypertensive encephalopathy: -Patient is not able to take oral medications for now. Normally on amlodipine and metoprolol at home. - Patient is still requiring Cardene drip. Continue to titrate as tolerated. Possible UTI, ?infiltrate on CXR: - Doubt pneumonia. Received Rocephin, azithromycin and Flagyl in the ED. - Continue Rocephin for now and follow cultures. Diabetes Mellitus - chronic sliding scale insulin Accu checks 4x daily CAD w/ stents, H/O CABG -chronic daily aspirin H/O IV drug use -heroin - Follow cultures - Watch for possible withdrawals. UDS was negative Code Status Assumed to be full code. Discharge Planning Keep in ICU for today. Requiring Cardene drip. Continue to monitor. Problem Qualifiers (1) Vomiting: Qualified Codes: R11.10 - Vomiting, unspecified Kt Garcia MD March 31, 2018 10:16
[2018-03-31] MEDS: INSULIN ASPART SUPPLEMENTAL SCALE SQ SCH ×4 (10:51→20:54)
[2018-03-31] MEDS: cefTRIAXone INJ 1,000 MG in SODIUM CHLORIDE 0.9% INJ 100 ML IV SCH ×2 (10:52→21:20)
[2018-03-31] MEDS: SODIUM CHLORIDE 0.9% FLUSH 10 ML FLUSH IV FLUSH SCH ×2 (10:52→20:54)
--- NOTE | 2018-03-31 13:02 | RADRPT ---
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 CLINICAL DATA: This is the patient's initial encounter. Patient reports that signs and symptoms have been present for 1 day and indicates a pain score of Nonresponsive. MEDICAL/SURGICAL HISTORY: Hypertension. Carcinoma, skin cancer. Cardiovascular disease. IN,I VDU. CABG. Coronary artery stent. Cholecystectomy. Best image possible. Patient was very difficu lt and would not hold still even with ativan given. Was ordered with contrast but stopped exam when patient got aggressive. COMPARISON: [facility], CT BRAIN W/O CONTRAST, 11/04/2012. [facility], MRI BRAIN W/O CONTRAST, 03/30/2018. C, CT BRAIN W/O CONTRAST, 03/30/2018. [facility], CT BRAIN W/O CONTRAST, 03/19/2018. C, CT BRAIN W/O CONTR AST, 07/03/2017. C, CT BRAIN W/O CONTRAST, 02/03/2016. . TECHNIQUE: Multisequence, multiplanar MRI examination was performed without contrast. FINDINGS: The study could not be completed. The study was performed ordered with contrast however th e patient was combative and postcontrast images were not obtained. Nasopharynx: There is a smooth rounded mass in the posterior left nasopharynx extending into the fos sa of [place]. This measures 2.9 x 2.4 x 2.5 cm. In retrospect, this can be seen on multiple prio r exams. It does appear smooth. Oropharynx: The intrinsic muscles of the tongue are symmetric. The tonsillar pillars are intact. T he prevertebral soft tissues are not thickened. Larynx: The supraglottic, glottic, and infraglottic structures are intact. Parapharyngeal: The parapharyngeal space is intact. Salivary Glands: The parotid and submandibular glands are intact. Lymph Nodes: No enlarged or necrotic appearing nodes. Thyroid: Homogeneous signal without evidence of nodule. Bones: Homogeneous signal in the marrow of the visualized osseous structures. The patient is status post sternotomy. CONCLUSION: Left nasopharyngeal mass. This is nonspecific. One could consider benign cystic lesion such as a muco us retention cyst. Neoplasm cannot be excluded but given its smooth appearance and that it has little change, benign etiology should also be considered. Electronically signed by: Alan Mcginnis MD 03/31/2018 1:00 PM EDT
[2018-03-31] MEDS ORDERED: Vancomycin Consult Pharmacy 1 EA OTHER SCH (13:30)
[2018-03-31] MEDS ORDERED: VANCOMYCIN INJ 1,000 MG in SODIUM CHLOR 0.9% 250 ML INJ 250 ML IV SCH (13:30)
[2018-03-31] MEDS: VANCOMYCIN INJ 1,750 MG in SODIUM CHLORID 0.9% 500 ML INJ 500 ML IV SCH (16:39)
[2018-03-31] MEDS ORDERED: ACYCLOVIR IV SCH (22:00)
[2018-03-31] MEDS ORDERED: SODIUM CHLOR 0.9% IV SCH (22:00)
[2018-04-01] VITALS (18 sets, daily range): BP systolic 130–163; BP diastolic 64–106; PULSE 84–107; RESP 28–37; TEMP 98.1–98.7; O2SAT 93–98
[2018-04-01] MEDS: niCARdipine INJ 25 MG in SODIUM CHLOR 0.9% 250 ML INJ 250 ML IV PRN ×2 (00:29→07:33)
[2018-04-01] MEDS: 1/2 NS + KCL 20 MEQ INJ 1,000 ML IV SCH ×4 (00:30→22:08)
[2018-04-01] MEDS: HEPARIN SODIUM - SQ 10,000 UNITS/ML VIAL SQ SCH ×2 (03:41→18:02)
[2018-04-01 06:34] LABS: HEMATOCRIT 41.4 % (39.0-51.0); HEMOGLOBIN 14.1 GM/DL (13.0-17.0); MEAN CELL VOLUME 83.3 FL (80.0-100.0); MEAN CORPUSCULAR HEMOGLOBIN 28.5 PG (27.0-34.0); MEAN CORPUSCULAR HGB CONC 34.2 % (32.0-36.0); PLATELET COUNT 151 TH/MM3 (150-450); RED BLOOD COUNT 4.97 MIL/MM3 (4.50-5.90); RED CELL DISTRIBUTION WIDTH 13.1 % (11.6-17.2); WHITE BLOOD COUNT 6.7 TH/MM3 (4.0-11.0)
[2018-04-01 07:01] LABS: BICARBONATE 20.2 MEQ/L (21.0-32.0); CREATININE 1.1 MG/DL (0.60-1.30)
--- NOTE | 2018-04-01 08:01 | MG ---
cc: Avila Perez MD EEG NUMBER: [id number] INDICATIONS: RI, sleep apnea, depression, melanoma, low pressure. MEDICATIONS: Aspirin. DESCRIPTION: Some diffuse low-amplitude theta rhythms are noted at about 6 Hz. The recording overall is synchronous and symmetric. No hemisphere asymmetry is noted. No epileptiform or seizure activity is seen. Sometimes down into the 4 Hz slowing is noted. Photic stimulation is performed without significant posterior driving. Hyperventilation not performed. IMPRESSION: A 4-6 Hz background consistent with a moderate diffuse encephalopathy. No focal abnormality was noted. No seizure activity was seen. Avila Perez MD DJM/DL , 07:51 AM , 08:00 AM
--- NOTE | 2018-04-01 08:38 | HHI.PR ---
Review/Management Diagnosis/Plan: (1) Acute encephalopathy ICD Codes: G93.40 - Encephalopathy, unspecified Status: Acute Plan: Possibility of posttraumatic injury versus toxic metabolic, DT MRI brain negative for any acute lesion EEG showed moderate encephalopathy no seizure activity 's been afebrile no leukocytosis Recommendations Mental status improved PT eval Okay for floor with telemetry Discharge planning from neurologic standpoint (2) Renal insufficiency ICD Codes: N28.9 - Disorder of kidney and ureter, unspecified Status: Chronic Plan: Per medical (3) Pneumonia ICD Codes: J18.9 - Pneumonia, unspecified organism Status: Acute Plan: Per medical Subjective Subjective Comments No acute events reported Denies any alcohol consumption, binge drinking or illicit drug use. Admits to recent physical trauma to the head and body Denies any history of seizures No headache No chest pain No dyspnea Active Medications Current Medications Medications (Trade) Dose Ordered Sig/Steffi Route Start Time Stop Time Status Last Admin (Norvasc) 10 mg DAILY PO 03/30/18 15:00 (Lopressor) 25 mg BID PO 03/30/18 21:00 03/31/18 21:20 (Desyrel) 100 mg HS PRN PO 03/30/18 21:00 (Pravachol) 40 mg DAILY PO 03/31/18 09:00 (NS Flush) 2 ml BID IV FLUSH 03/30/18 21:00 03/31/18 10:52 (NS Flush) 2 ml UNSCH PRN IV FLUSH 03/30/18 14:15 (Heparin Inj) 5,000 units Q12H SQ 03/30/18 15:00 04/01/18 03:41 (D50w (Vial) Inj) 50 ml UNSCH PRN IV PUSH 03/30/18 14:30 (Glucagon Inj) 1 mg UNSCH PRN OTHER 03/30/18 14:30 (NovoLOG SUPPLEMENTAL SCALE) 1 ACHS SLIDING SCALE SQ 03/30/18 17:00 03/31/18 16:41 (Catapres) 0.1 mg Q6H PRN PO 03/30/18 14:30 (Vasotec Inj) 1.25 mg Q6H PRN IV PUSH 03/30/18 15:45 03/30/18 16:47 Potassium Chloride/Sodium Chloride 1,000 ml @ 100 mls/hr Q10H IV 03/30/18 15:45 04/01/18 00:30 (Ativan Inj) 1 mg Q4H PRN IV PUSH 03/30/18 15:45 03/30/18 23:05 Nicardipine HCl 25 mg/Sodium Chloride 260 ml @ 52 mls/hr TITRATE PRN IV 03/30/18 18:00 04/01/18 07:33 Ceftriaxone Sodium 1000 mg/ Sodium Chloride 100 ml @ 200 mls/hr Q12H IV 03/31/18 08:00 03/31/18 21:20 Pharmacy Profile Note 0 ml @ 0 mls/hr UNSCH OTHER 03/31/18 13:30 Vancomycin HCl 1750 mg/Sodium Chloride 517.5 ml @ 250 mls/hr Q18H IV 03/31/18 16:00 03/31/18 16:39 ([facility] Ordered Lab Info) SPECIFIC LAB TO BE DRAWN:VANCOMYCIN TROUGH DATE TO... ONCE ONCE .XX 04/02/18 21:45 04/02/18 21:46 Acyclovir Sodium 1000 mg/Sodium Chloride 250 ml @ 250 mls/hr Q12H IV 03/31/18 22:00 03/31/18 21:20 (Aspirin Chew) 81 mg DAILY PO 04/01/18 09:00 Allergies Allergies Coded Allergies Sulfa (Sulfonamide Antibiotics) (Unverified Allergy, Severe, ANAPHYLACTIC REACTION, 03/30/18) sulfamethoxazole (Unverified Allergy, Severe, ANAPHYLACTIC, 03/30/18) trimethoprim (Unverified Allergy, Severe, ANAPHYLACTIC, 03/30/18) Review of Systems All other ROS: ROS reviewed as documented in chart Exam I&O / VS Vital Signs Date Time Temp Pulse Resp B/P (MAP) Pulse Ox O2 Delivery O2 Flow Rate FiO2 04/01/18 07:33 101 142/70 04/01/18 06:00 104 04/01/18 05:45 104 152/80 04/01/18 04:00 104 04/01/18 04:00 98.7 104 29 150/64 (92) 96 04/01/18 03:00 102 146/71 04/01/18 02:00 106 04/01/18 01:00 109 142/70 04/01/18 00:29 109 155/79 04/01/18 00:00 98.1 107 31 160/80 (106) 93 04/01/18 00:00 107 03/31/18 22:00 97 03/31/18 21:21 116 156/83 03/31/18 20:16 97 Nasal Cannula 2.00 03/31/18 20:00 99 03/31/18 20:00 98.3 99 23 160/85 (110) 97 03/31/18 19:30 103 166/92 03/31/18 18:00 93 03/31/18 17:00 94 03/31/18 16:56 93 158/83 03/31/18 16:00 94 03/31/18 16:00 98.5 94 19 162/83 (109) 98 03/31/18 15:00 93 03/31/18 14:00 97 03/31/18 13:00 92 03/31/18 12:00 98.8 93 24 168/86 (113) 99 03/31/18 12:00 93 03/31/18 11:21 95 154/82 03/31/18 11:00 91 03/31/18 10:00 92 03/31/18 09:00 96 General: Alert and Oriented Eye: EOMI Respiratory: Non-labored respirations Cardiology: No murmur Neurologic: Alert, Oriented, Normal DTR's Exam Comments Awake alert oriented 3 follows nose current president, visual aaron full, extra ocular movements intact. No facial asymmetry was all 4 limbs to gravity no pronator drift Objective Micro and Labs Laboratory Tests Test 04/01/18 06:20 White Blood Count 6.7 Red Blood Count 4.97 Hemoglobin 14.1 Hematocrit 41.4 Mean Corpuscular Volume 83.3 Mean Corpuscular Hemoglobin 28.5 Mean Corpuscular Hemoglobin Concent 34.2 Red Cell Distribution Width 13.1 Platelet Count 151 Mean Platelet Volume 8.0 Blood Urea Nitrogen 14 Creatinine 1.10 Random Glucose 216 Calcium Level 8.0 Sodium Level 140 Potassium Level 4.0 Chloride Level 108 Carbon Dioxide Level 20.2 Anion Gap 12 Estimat Glomerular Filtration Rate 68 Date/Time Source Procedure Growth Status 03/30/18 12:05 Blood Peripheral Aerobic Blood Culture - Preliminary Staph Sp Coagulase Negative Resulted 03/30/18 12:05 Blood Peripheral Anaerobic Blood Culture - Preliminary NO GROWTH IN 1 DAY Resulted 03/30/18 11:44 Urine Catheterized Urine Urine Culture - Preliminary NO GROWTH IN 24 HOURS. Resulted Problem Qualifiers (1) Pneumonia: Qualified Codes: J18.9 - Pneumonia, unspecified organism Jarrett Bansal MD April 01, 2018 08:38
[2018-04-01] MEDS: SODIUM CHLORIDE 0.9% FLUSH 10 ML FLUSH IV FLUSH SCH ×2 (09:19→20:00)
[2018-04-01] MEDS: PRAVASTATIN SOD 40 MG TAB PO SCH (09:19)
[2018-04-01] MEDS: METOPROLOL TARTRATE 25 MG TAB PO SCH ×2 (09:19→19:59)
[2018-04-01] MEDS: ASPIRIN 81 MG CHEW TAB PO SCH (09:19)
[2018-04-01] MEDS: INSULIN ASPART SUPPLEMENTAL SCALE SQ SCH ×4 (09:20→20:00)
[2018-04-01] MEDS: cefTRIAXone INJ 1,000 MG in SODIUM CHLORIDE 0.9% INJ 100 ML IV SCH ×2 (09:20→20:00)
[2018-04-01] MEDS: VANCOMYCIN INJ 1,750 MG in SODIUM CHLORID 0.9% 500 ML INJ 500 ML IV SCH (11:23)
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
[2018-04-01] MEDS: FLUTICASONE PROPIONATE 50 MCG/ACT 16 GM NASAL SPRAY NASAL SCH ×2 (12:00→19:59)
[2018-04-02] VITALS (8 sets, daily range): BP systolic 143–166; BP diastolic 67–81; PULSE 81–96; RESP 12–27; TEMP 97.9–98.2; O2SAT 96–99
[2018-04-02] MEDS: HEPARIN SODIUM - SQ 10,000 UNITS/ML VIAL SQ SCH ×2 (02:29→15:00)
[2018-04-02] MEDS: VANCOMYCIN INJ 1,750 MG in SODIUM CHLORID 0.9% 500 ML INJ 500 ML IV SCH (03:35)
[2018-04-02] MEDS: PRAVASTATIN SOD 40 MG TAB PO SCH (07:39)
[2018-04-02] MEDS: ASPIRIN 81 MG CHEW TAB PO SCH (07:39)
[2018-04-02] MEDS: METOPROLOL TARTRATE 25 MG TAB PO SCH (07:39)
[2018-04-02] MEDS: SODIUM CHLORIDE 0.9% FLUSH 10 ML FLUSH IV FLUSH SCH (07:40)
[2018-04-02] MEDS: cefTRIAXone INJ 1,000 MG in SODIUM CHLORIDE 0.9% INJ 100 ML IV SCH (07:40)
[2018-04-02] MEDS: FLUTICASONE PROPIONATE 50 MCG/ACT 16 GM NASAL SPRAY NASAL SCH (07:41)
[2018-04-02] MEDS: INSULIN ASPART SUPPLEMENTAL SCALE SQ SCH ×3 (09:21→17:00)
[2018-04-02 11:44] LABS: BICARBONATE 20.1 MEQ/L (21.0-32.0); CALCIUM 8.8 MG/DL (8.5-10.1); CREATININE 0.99 MG/DL (0.60-1.30)
[2018-04-02] MEDS: 1/2 NS + KCL 20 MEQ INJ 1,000 ML IV SCH (13:45)
[2018-04-02] MEDS ORDERED: CEFU1TAB20 PO (14:05)
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
[2018-04-02] MEDS ORDERED: PHARMACY ORDERED LAB ONE (21:45)
== END 2018-04-02 17:15 | disposition home or self-care (01) | DRG 77 ==
LOC: NEPC 10:58 → NEDA 13:38 → HCIS 16:27 → HIMN 17:41
PROVIDERS: ADMIT Family Medicine; ATTEND Family Medicine
DX: I67.4 Hypertensive encephalopathy (principal); J18.9 Pneumonia, unspecified organism; E72.20 Disorder of urea cycle metabolism, unspecified; E11.22 Type 2 diabetes mellitus with diabetic chronic kidney disease; I16.1 Hypertensive emergency; R47.01 Aphasia; E78.00 Pure hypercholesterolemia, unspecified; I25.10 Atherosclerotic heart disease of native coronary artery without angina pectoris; N18.9 Chronic kidney disease, unspecified; I12.9 Hypertensive chronic kidney disease with stage 1 through stage 4 chronic kidney disease, or unspecified chronic kidney disease; I25.2 Old myocardial infarction; G47.30 Sleep apnea, unspecified; R11.10 Vomiting, unspecified; B19.20 Unspecified viral hepatitis C without hepatic coma; N40.0 Benign prostatic hyperplasia without lower urinary tract symptoms; I45.4 Nonspecific intraventricular block; R29.810 Facial weakness; I45.10 Unspecified right bundle-branch block; M79.7 Fibromyalgia; E66.9 Obesity, unspecified; F11.10 Opioid abuse, uncomplicated; F32.9 Major depressive disorder, single episode, unspecified; F41.9 Anxiety disorder, unspecified; Z68.36 Body mass index [BMI] 36.0-36.9, adult; Z79.84 Long term (current) use of oral hypoglycemic drugs; Z82.49 Family history of ischemic heart disease and other diseases of the circulatory system; Z85.820 Personal history of malignant melanoma of skin; Z86.14 Personal history of Methicillin resistant Staphylococcus aureus infection; Z87.891 Personal history of nicotine dependence; Z88.2 Allergy status to sulfonamides; Z95.1 Presence of aortocoronary bypass graft; Z95.5 Presence of coronary angioplasty implant and graft; Z83.3 Family history of diabetes mellitus
CPT/HCPCS: 70450; 70540; 70551; 71045; 76937; 80048; 80053; 80061; 80307; 81001; 82140; 82550; 82948; 83605; 84484; 85025; 85027; 85610; 85652; 85730; 86140; 86403; 87040; 87077; 87086; 87186; 87205; 87641; 93005; 93880; 95819; 96365; 96368; 96375; J0133; J0456; J0696; J1200; J1630; J1644; J1815; J2060; J2765; J3370; J7040; J7050

== ENCOUNTER 2018-04-06 08:29 | Emergency (ER) | payer MEDICARE, OTHER ==
[~2018-04-06] VITALS: Ht 180.3 cm; Wt 118.0 kg
[~2018-04-06 08:29] MED LIST changes: -AUGM875T3 PO; +CEFU1TAB20 PO; -DICL50TA3 PO; -LEVA500T33 PO; +SIMV20TA PO; +VIAG50TA PO
[2018-04-06 08:46] VITALS: BP 199/112; PULSE 84; RESP 20; TEMP 97.6; O2SAT 95
[2018-04-06] MEDS ORDERED: SODIUM CHLOR 0.9% 1000 ML INJ 1,000 ML IV ONE (09:15)
[2018-04-06] MEDS ORDERED: KETOROLAC TROMETHAMINE 30 MG/ML (IVP) VIAL IV PUSH ONE (09:15)
[2018-04-06] MEDS ORDERED: ONDANSETRON ODT 4 MG TAB PO ONE (09:15)
[2018-04-06] MEDS ORDERED: HYDROmorphone HCL PF 1 MG/ML VIAL IV PUSH ONE (09:30)
[2018-04-06 09:34] LABS: AUTOMATED NEUTROPHIL # 3.6 TH/MM3 (1.8-7.7); BASOPHIL % 0.8 % (0.0-2.0); EOSINOPHIL # 0.1 TH/MM3 (0-0.4); EOSINOPHIL % 2.4 % (0.0-4.0); HEMATOCRIT 43.2 % (39.0-51.0); HEMOGLOBIN 15.1 GM/DL (13.0-17.0); LYMPH % 28.7 % (9.0-44.0); LYMPHOCYTE # 1.8 TH/MM3 (1.0-4.8); MEAN CELL VOLUME 82.7 FL (80.0-100.0); MEAN CORPUSCULAR HEMOGLOBIN 28.9 PG (27.0-34.0); MONO % 8.6 % (0.0-8.0); MONOCYTE # 0.5 TH/MM3 (0-0.9); NEUT % 59.5 % (16.0-70.0); PLATELET COUNT 205 TH/MM3 (150-450); RED BLOOD COUNT 5.23 MIL/MM3 (4.50-5.90); RED CELL DISTRIBUTION WIDTH 13.6 % (11.6-17.2); WHITE BLOOD COUNT 6.1 TH/MM3 (4.0-11.0)
[2018-04-06 09:47] LABS: CHLORIDE 105 MEQ/L (98-107); SODIUM (NA) 138 MEQ/L (136-145)
[2018-04-06 10:00] VITALS: BP 184/88; PULSE 82; RESP 16; O2SAT 98
[2018-04-06] MEDS ORDERED: HYDROmorphone HCL PF 2 MG/ML VIAL IVS ONE (10:00)
--- NOTE | 2018-04-06 10:37 | PD ---
HPI Chief Complaint: Flank/Kidney Pain Time Seen by Provider: 09:00 Travel History International Travel<30 days: No Contact w/Intl Traveler<30days: No Traveled to known affect area: No History of Present Illness HPI 62-year-old male presents to the emergency department complaining of left flank pain. He has a history of kidney stones in the past. He states symptoms started this morning, are similar to his previous kidney stones. Some nausea. Some dark urine. No fevers or chills. No other complaints. Patient was recently admitted with some type of encephalopathy. He diagnosed with accelerated hypertension, after he was found with bizarre behavior, sitting at home, wrapped in a blanket with feces, and may be some left thigh gaze. Workup for stroke was negative. There is suspicion for toxic encephalopathy versus possible synthetic illicit drug use. Patient has a history of IV drug use in the past. Denies any illicit drug use leading up to this admission. Discharge several days ago. Patient has history of pain with nephrolithiasis without ureterolithiasis well. History Past Medical History Narrative Medical Diabetes CAD, history of CABG Hypertension History of IVDU History of recent diagnosis of nasal pharyngeal mass, referred to outpatient follow-up. Social History Alcohol Use: Yes Tobacco Use: No Allergies-Medications (Allergen,Severity, Reaction): Coded Allergies: Sulfa (Sulfonamide Antibiotics) (Verified Allergy, Severe, ANAPHYLACTIC REACTION, 04/06/18) sulfamethoxazole (Verified Allergy, Severe, ANAPHYLACTIC, 04/06/18) trimethoprim (Verified Allergy, Severe, ANAPHYLACTIC, 04/06/18) Reported Meds & Prescriptions Reported Meds & Active Scripts Active Reported Viagra (Sildenafil Citrate) 50 Mg Tab 50 Mg PO DAILY PRN Simvastatin 20 Mg Tab 20 Mg PO DAILY Amlodipine (Amlodipine Besylate) 10 Mg Tab 10 Mg PO BID Glipizide 10 Mg Tab 20 Mg PO BIDAC Take 30 minutes before a meal Metoprolol Tartrate 25 Mg Tab 25 Mg PO BID Trazodone (Trazodone HCl) 50 Mg Tab 100 Mg PO HS PRN Review of Systems Except as stated in HPI: all other systems reviewed are Neg Physical Exam Narrative GENERAL: Well-appearing 62-year-old man, appears uncomfortable, nontoxic. SKIN: Focused skin assessment warm/dry. HEAD: Atraumatic. Normocephalic. EYES: Pupils equal and round. No scleral icterus. No injection or drainage. ENT: No nasal bleeding or discharge. Mucous membranes pink and moist. NECK: Trachea midline. No JVD. CARDIOVASCULAR: Regular rate and rhythm. No murmur appreciated. RESPIRATORY: No accessory muscle use. Clear to auscultation. Breath sounds equal bilaterally. GASTROINTESTINAL: Abdomen is obese, soft, mild diffuse tenderness. MUSCULOSKELETAL: No obvious deformities. No clubbing. No cyanosis. No edema. NEUROLOGICAL: Awake and alert. No obvious cranial nerve deficits. Motor grossly within normal limits. Normal speech. PSYCHIATRIC: Appropriate mood and affect; insight and judgment normal. Data Data Last Documented VS Vital Signs Date Time Temp Pulse Resp B/P (MAP) Pulse Ox O2 Delivery O2 Flow Rate FiO2 04/06/18 10:00 82 16 184/88 (120) 98 Room Air 04/06/18 08:46 97.6 Orders Orders Complete Blood Count With Diff (04/06/18 09:10) Comprehensive Metabolic Panel (04/06/18 09:10) Urinalysis - C+S If Indicated (04/06/18 09:10) Iv Access Insert/Monitor (04/06/18 09:10) Ketorolac Inj (Toradol Inj) (04/06/18 09:15) Sodium Chlor 0.9% 1000 Ml Inj (Ns 1000 M (04/06/18 09:15) Ondansetron Odt (Zofran Odt) (04/06/18 09:15) Hydromorphone Pf Inj (Dilaudid Pf Inj) (04/06/18 09:30) Hydromorphone Pf Inj (Dilaudid Pf Inj) (04/06/18 10:00) Alcohol (Ethanol) (04/06/18 11:52) Osmolality,Serum (04/06/18 11:52) Labs Laboratory Tests Test 04/06/18 09:00 04/06/18 10:05 White Blood Count 6.1 TH/MM3 Red Blood Count 5.23 MIL/MM3 Hemoglobin 15.1 GM/DL Hematocrit 43.2 % Mean Corpuscular Volume 82.7 FL Mean Corpuscular Hemoglobin 28.9 PG Mean Corpuscular Hemoglobin Concent 35.0 % Red Cell Distribution Width 13.6 % Platelet Count 205 TH/MM3 Mean Platelet Volume 8.0 FL Neutrophils (%) (Auto) 59.5 % Lymphocytes (%) (Auto) 28.7 % Monocytes (%) (Auto) 8.6 % Eosinophils (%) (Auto) 2.4 % Basophils (%) (Auto) 0.8 % Neutrophils # (Auto) 3.6 TH/MM3 Lymphocytes # (Auto) 1.8 TH/MM3 Monocytes # (Auto) 0.5 TH/MM3 Eosinophils # (Auto) 0.1 TH/MM3 Basophils # (Auto) 0.0 TH/MM3 CBC Comment DIFF FINAL Differential Comment Blood Urea Nitrogen 21 MG/DL Creatinine 1.31 MG/DL Random Glucose 182 MG/DL Total Protein 7.3 GM/DL Albumin 3.0 GM/DL Calcium Level 8.8 MG/DL Alkaline Phosphatase 148 U/L Aspartate Amino Transf (AST/SGOT) 56 U/L Alanine Aminotransferase (ALT/SGPT) 72 U/L Total Bilirubin 0.5 MG/DL Sodium Level 138 MEQ/L Potassium Level 3.9 MEQ/L Chloride Level 105 MEQ/L Carbon Dioxide Level 24.9 MEQ/L Anion Gap 8 MEQ/L Estimat Glomerular Filtration Rate 55 ML/MIN Urine Color YELLOW Urine Turbidity HAZY Urine pH 6.0 Urine Specific Nunda 1.011 Urine Protein 100 mg/dL Urine Glucose (UA) 70 mg/dL Urine Ketones NEG mg/dL Urine Occult Blood TRACE Urine Nitrite NEG Urine Bilirubin NEG Urine Urobilinogen LESS THAN 2.0 MG/DL Urine Leukocyte Esterase NEG Urine RBC 14 /hpf Urine Squamous Epithelial Cells <1 /hpf Urine Calcium Oxalate Crystals OCC /hpf Urine Mucus FEW /lpf Microscopic Urinalysis Comment CULT NOT INDICATED MDM Medical Decision Making Medical Screen Exam Complete: Yes Emergency Medical Condition: Yes Interpretation(s) LABS: CBC is unremarkable. CMP UA Differential Diagnosis Renal lithiasis, renal colic, drug-seeking, zoster, AAA, other Narrative Course Medical decision making 59-year-old man with history of renal colic, also suspicion of IV drug use in the past, looks well now. Uncomfortable. Will check labs, urine. Will try to defer CT imaging if minimize opiates. Likely discharge. FINAL: Patient feeling much improved. Pathologist called and spoke to him regarding the patient's urine. She reports that there are unusual uric acid crystals in the urine could be seen in the setting of ethylene glycol toxicity. Clinically history is not suggestive ethyl glycol toxicity. I did initially order serum also was then at the alcohol. Patient came to me and states that he has an appointment and feels much better needs to leave. I discussed the concern for ethylene glycol toxicity and the potential sources for that. He states he will monitor for any potential exposures. Diagnosis Primary Impression: Kidney stones Additional Instructions: Follow-up with your primary doctor. Monitor for any potential exposures ethylene glycol, commonly found in any freeze. Return to the emergency department for any new or worsening symptoms. Med/Other Pt SpecificInfo: No Change to Meds Disposition: 01 DISCHARGE HOME Condition: Ovi Cruran MD April 06, 2018 10:37
[2018-04-06 10:53] LABS: BILIRUBIN, URINE NEG (NEG); BLOOD, URINE TRACE (NEG); GLUCOSE,URINE 70 mg/dL (NEG); KETONE, URINE NEG (NEG); MUCUS URINE FEW /lpf (OCC); NITRITE,URINE NEG (NEG); SQUAMOUS EPITHELIAL CELL URINE <1 /hpf (0-5); URINE COLOR YELLOW (YELLW/STRAW); URINE LEUKOCYTE ESTERASE NEG (NEG)
[2018-04-06 10:57] LABS: ALT (GPT) 72 U/L (12-78); AST (GOT) 56 U/L (15-37); BICARBONATE 24.9 MEQ/L (21.0-32.0); BLOOD UREA NITROGEN 21 MG/DL (7-18); CALCIUM 8.8 MG/DL (8.5-10.1); CREATININE 1.31 MG/DL (0.60-1.30); GLOMERULAR FILTRATION RATE 55 ML/MIN (>89); GLUCOSE,RANDOM 182 MG/DL (74-106)
[2018-04-06 11:03] LABS: ALKALINE PHOSPHATASE 148 U/L (45-117); TOTAL BILIRUBIN ADULT 0.5 MG/DL (0.2-1.0); TOTAL PROTEIN 7.3 GM/DL (6.4-8.2)
[2018-04-06 11:41] LABS: CALCIUM OXALATE CRYSTALS,URINE OCC /hpf
[2018-04-06 12:42] VITALS: BP 162/82
== END 2018-04-06 12:47 | disposition home or self-care (01) ==
LOC: NEPC 08:29
DX: N20.0 Calculus of kidney (principal); I10 Essential (primary) hypertension; Z79.899 Other long term (current) drug therapy
CPT/HCPCS: 80053; 80307; 81001; 83930; 85025; 96361; 96374; 96375; 99284; J1170; J1885; J7030

== ENCOUNTER 2018-04-28 11:25 | Inpatient (IN) | payer OTHER, MEDICARE ==
[2018-04-28] VITALS (7 sets, daily range): BP systolic 152–186; BP diastolic 78–101; PULSE 80–98; RESP 15–18; TEMP 97.3–97.9; O2SAT 89–98
[~2018-04-28] VITALS: Ht 180.3 cm; Wt 125.4 kg
[~2018-04-28 11:25] MED LIST changes: -CEFU1TAB20 PO; -METF850T PO
[2018-04-28] MEDS ORDERED: DEXTROSE 50% IN WATER 50 ML SYRINGE ONE (11:28)
--- NOTE | 2018-04-28 11:39 | PD ---
HPI Chief Complaint: Altered mental status Time Seen by Provider: 11:32 Travel History International Travel<30 days: No Contact w/Intl Traveler<30days: No Traveled to known affect area: No History of Present Illness HPI This is a diabetic patient who is driving with his friend. His friend called 911 when patient became unresponsive. Paramedics found him seated in the front seat of his car behind the steering well at a gas station. He was not able to answer any questions or provide any useful history or review of systems. The friend told paramedics that his sugar was elevated at 230 and so a friend gave him 70 units of 70/30 subcu. Paramedics had an Accu-Chek of 69 on scene. His current Accu-Chek is 54. Symptoms are severe. No alleviating factors. Symptoms may be exacerbated by hypoglycemia. Duration 1 hour PFSH Past Medical History Hx Anticoagulant Therapy: Yes (ASA) ADHD: Yes Asthma: Yes Blood Disorders: No Anxiety: Yes Depression: Yes Cancer: Yes (MELANOMA STAGE 2 ,RESECTION WAS DONE IN 2009) Cardiovascular Problems: Yes High Cholesterol: Yes Chest Pain: Yes Congestive Heart Failure: No Coronary Artery Disease: Yes Diabetes: Yes Diminished Hearing: No Endocrine: Yes Fibromyalgia: Yes Gastrointestinal Disorders: Yes Genitourinary: Yes Hypertension: Yes Immune Disorder: No Implanted Vascular Access Dvce: No Kidney Stones: Yes Musculoskeletal: Yes Neurologic: Yes (ADHD) Psychiatric: Yes Reproductive: Yes (ED) Respiratory: Yes Integumentary: Yes (FUNGAL INFECTION TO LEFT FOREARM) Myocardial Infarction: Yes Seizures: No Sleep Apnea: Yes (NO CPAP) Past Surgical History Cardiac Surgery: Yes (ANGINOPLASTY WITH STENT 2000,CABG 2006 4 VESSEL WITH 2 T' S,) Cholecystectomy: Yes Coronary Artery Bypass Graft: Yes (X 6 09/2007) Neurologic Surgery: No Thoracic Surgery: Yes (SEE ABOVE) Other Surgery: Yes (LITRHOTRIPSY) Social History Alcohol Use: Yes Tobacco Use: No Substance Use: Yes (IV HEROIN USE) Allergies-Medications (Allergen,Severity, Reaction): Coded Allergies: Sulfa (Sulfonamide Antibiotics) (Verified Allergy, Severe, ANAPHYLACTIC REACTION, 04/28/18) sulfamethoxazole (Verified Allergy, Severe, ANAPHYLACTIC, 04/28/18) trimethoprim (Verified Allergy, Severe, ANAPHYLACTIC, 04/28/18) Reported Meds & Prescriptions Reported Meds & Active Scripts Active Reported Viagra (Sildenafil Citrate) 50 Mg Tab 50 Mg PO DAILY PRN Simvastatin 20 Mg Tab 20 Mg PO DAILY Amlodipine (Amlodipine Besylate) 10 Mg Tab 10 Mg PO BID Glipizide 10 Mg Tab 20 Mg PO BIDAC Take 30 minutes before a meal Metoprolol Tartrate 25 Mg Tab 25 Mg PO BID Trazodone (Trazodone HCl) 50 Mg Tab 100 Mg PO HS PRN Review of Systems ROS Limitations: Clinical Condition, Altered Mental Status, Unresponsive, Poor Historian Physical Exam Narrative GENERAL: Well-nourished, well-developed patient who is minimally responsive . SKIN: Focused skin assessment reveals no rash and nodules. Skin is Warm and dry. HEAD: Atraumatic. Normocephalic. EYES: Pupils equal and round small and reactive. No scleral icterus. No injection or drainage. ENT: No nasal bleeding or discharge. Mucous membranes pink and moist. NECK: Trachea midline. No JVD. CARDIOVASCULAR: Regular rate and rhythm. No murmur appreciated. RESPIRATORY: No accessory muscle use. Clear to auscultation. Breath sounds equal bilaterally. GASTROINTESTINAL: Abdomen soft, obese, non-tender, nondistended. Hepatic and splenic margins not palpable. MUSCULOSKELETAL: No obvious deformities. No clubbing. No cyanosis. No edema. NEUROLOGICAL: Minimally responsive and drowsy. Normal gag reflex. Controlling his airway. No obvious cranial nerve deficits. Motor grossly within normal limits. Normal speech. PSYCHIATRIC: Sedated/lethargic mood and affect; insight and judgment poor Data Data Last Documented VS Vital Signs Date Time Temp Pulse Resp B/P (MAP) Pulse Ox O2 Delivery O2 Flow Rate FiO2 04/28/18 14:39 80 16 181/86 (117) 98 Nasal Cannula 2.00 04/28/18 11:34 97.9 Orders Orders Dextrose 50% In Artem (Syr) Inj (D50w (Syr (04/28/18 11:28) Ct Brain W/O Iv Contrast(Rout) (04/28/18 ) Iv Access Insert/Monitor (04/28/18 11:33) Complete Blood Count With Diff (04/28/18 11:33) Comprehensive Metabolic Panel (04/28/18 11:33) Dextrose 50% In Artem (Vial) Inj (D50w (Vi (04/28/18 11:45) Alcohol (Ethanol) (04/28/18 11:33) Drug Screen, Random Urine (04/28/18 11:33) Electrocardiogram (04/28/18 11:37) Potassium Chlor 20 Meq Premix (Kcl 20 Me (04/28/18 15:00) Metoprolol Tartrate (Lopressor) (04/28/18 21:00) (Nf) Simvastatin (04/29/18 09:00) Amlodipine (Norvasc) (04/29/18 09:00) Bedside Glucose Q15M (04/28/18 14:58) Hypoglycemia 70 Mg/Dl Or < (04/28/18 14:58) Dextrose 50% In Artem (Vial) Inj (D50w (Vi (04/28/18 15:00) Glucagon Inj (Glucagon Inj) (04/28/18 15:00) Glucose, Random (04/28/18 14:58) Bedside Glucose SHAYY.Q2H.E (04/28/18 14:58) Admit To Inpatient (04/28/18 ) Vital Signs (Adult) Q4H (04/28/18 15:00) Neuro Checks Q4H (04/28/18 15:00) Activity Oob With Assistance (04/28/18 15:00) Diet 1800 Ada Cons Carb (04/28/18 Dinner) Sodium Chloride 0.9% Flush (Ns Flush) (04/28/18 15:00) Sodium Chloride 0.9% Flush (Ns Flush) (04/28/18 21:00) Acetaminophen (Tylenol) (04/28/18 15:00) Comprehensive Metabolic Panel (04/29/18 06:00) Complete Blood Count With Diff (04/29/18 06:00) Resp Oxygen Kwaku C Titrat 1-4 L (04/28/18 ) Case Management Consult (04/28/18 15:00) Scd Bilateral/Knee High SHAYY.BID (04/28/18 15:00) Sathya Bilateral/Knee High SHAYY.QSHIFT (04/28/18 15:00) Acetaminophen (Tylenol) (04/28/18 15:00) Naloxone Inj (Narcan Inj) (04/28/18 15:00) Inpatient Certification (04/28/18 ) Labs Laboratory Tests Test 04/28/18 11:30 04/28/18 12:20 White Blood Count 9.3 TH/MM3 Red Blood Count 5.42 MIL/MM3 Hemoglobin 15.5 GM/DL Hematocrit 45.6 % Mean Corpuscular Volume 84.3 FL Mean Corpuscular Hemoglobin 28.7 PG Mean Corpuscular Hemoglobin Concent 34.0 % Red Cell Distribution Width 13.8 % Platelet Count 190 TH/MM3 Mean Platelet Volume 8.5 FL Neutrophils (%) (Auto) 40.0 % Lymphocytes (%) (Auto) 45.9 % Monocytes (%) (Auto) 10.6 % Eosinophils (%) (Auto) 3.0 % Basophils (%) (Auto) 0.5 % Neutrophils # (Auto) 3.7 TH/MM3 Lymphocytes # (Auto) 4.3 TH/MM3 Monocytes # (Auto) 1.0 TH/MM3 Eosinophils # (Auto) 0.3 TH/MM3 Basophils # (Auto) 0.0 TH/MM3 CBC Comment AUTO DIFF Differential Comment AUTO DIFF CONFIRMED Blood Urea Nitrogen 13 MG/DL Creatinine 1.18 MG/DL Random Glucose 45 MG/DL Total Protein 7.6 GM/DL Albumin 3.3 GM/DL Calcium Level 7.7 MG/DL Alkaline Phosphatase 110 U/L Aspartate Amino Transf (AST/SGOT) 38 U/L Alanine Aminotransferase (ALT/SGPT) 53 U/L Total Bilirubin 1.2 MG/DL Sodium Level 149 MEQ/L Potassium Level 3.1 MEQ/L Chloride Level 113 MEQ/L Carbon Dioxide Level 25.3 MEQ/L Anion Gap 11 MEQ/L Estimat Glomerular Filtration Rate 62 ML/MIN Ethyl Alcohol Level LESS THAN 3 MG/DL Urine Opiates Screen POS Urine Barbiturates Screen NEG Urine Amphetamines Screen NEG Urine Benzodiazepines Screen NEG Urine Cocaine Screen NEG Urine Cannabinoids Screen NEG MDM Medical Decision Making Medical Screen Exam Complete: Yes Emergency Medical Condition: Yes Medical Record Reviewed: Yes Differential Diagnosis Hypoglycemia, hyperglycemia, overdose, intracranial hemorrhage Narrative Course I have reviewed the patient's electronic medical record. IV placed and labs sent Current Accu-Chek is 54. He recently had a large dose of 70/30 insulin I gave him an amp of D50 There was rather immediate improvement of his mental status. He open his eyes and started looking around and mumbling. I am getting an emergent CT of the brain I reviewed his EKG which shows a sinus rhythm in the 80s with a right bundle branch block and no ectopy Brain CT is negative for emergent problem We have belatedly found out that the patient has been abusing oral morphine He supposedly took 90 mg of it today No intent to harm himself He abuses it periodically Denied injecting himself ever I watched him 3.5 hours and he is still very altered and not stable for outpatient follow-up. He is drowsy and having hypoglycemia issues as well. Metabolic studies reveal hyponatremia and hypokalemia. I reviewed with hospitalist Critical Care Narrative Aggregate critical care time was 33 minutes. Time to perform other separately billable procedures was not included in the critical care time. My time did not include minutes spent treating any other patients simultaneously or on activities that did not directly contribute to the patient's treatment. The services I provided to this patient were to treat and/or prevent clinically significant deterioration that could result in: Loss of airway, aspiration, cardiopulmonary arrest I provided critical care services requiring my management, as noted below: Chart data review, documentation time, medication orders and management, vital sign assessments/reviewing monitor data, ordering and reviewing lab tests, ordering and interpreting/reviewing x-rays and diagnostic studies, care of the patient and discussion of the patient with the admitting physicians. Diagnosis Primary Impression: Acute encephalopathy Additional Impressions: Diabetes mellitus type 2 in obese Hypoglycemia associated with diabetes Narcotic overdose Qualified Codes: T40.601A - Poisoning by unspecified narcotics, accidental ( unintentional), initial encounter Admitting Information Admitting Physician Requests: Admit Vance Coulter MD Apr 28, 2018 11:39
[2018-04-28] MEDS ORDERED: DEXTROSE 50% IN WATER 50 ML VIAL(D50) IV PUSH ONE (11:45)
[2018-04-28 12:00] LABS: AUTOMATED NEUTROPHIL # 3.7 TH/MM3 (1.8-7.7); BASOPHIL % 0.5 % (0.0-2.0); EOSINOPHIL # 0.3 TH/MM3 (0-0.4); HEMATOCRIT 45.6 % (39.0-51.0); HEMOGLOBIN 15.5 GM/DL (13.0-17.0); LYMPH % 45.9 % (9.0-44.0); LYMPHOCYTE # 4.3 TH/MM3 (1.0-4.8); MEAN CELL VOLUME 84.3 FL (80.0-100.0); MEAN CORPUSCULAR HEMOGLOBIN 28.7 PG (27.0-34.0); MEAN PLATELET VOLUME 8.5 FL (7.0-11.0); MONO % 10.6 % (0.0-8.0); PLATELET COUNT 190 TH/MM3 (150-450); RED BLOOD COUNT 5.42 MIL/MM3 (4.50-5.90); RED CELL DISTRIBUTION WIDTH 13.8 % (11.6-17.2); WHITE BLOOD COUNT 9.3 TH/MM3 (4.0-11.0)
--- NOTE | 2018-04-28 12:12 | RADRPT ---
EXAM DATE: 04/28/2018 12:02 PM EDT AGE/SEX: 62 years / Male INDICATIONS: Altered mental status CLINICAL DATA: This is the patient's initial encounter. Patient reports that signs and symptoms have been present for 1 day and indicates a pain score of 0/10. MEDICAL/SURGICAL HISTORY: Cardiovascular disease. Hypertension. Diabetes. Asthma None. RADIATION DOSE: 45.26 CTDI (mGy) COMPARISON: [facility] [place], CT BRAIN W/O CONTRAST, 03/30/2018. . TECHNIQUE: CT of the head without contrast. Using automated exposure control and adjustment of the mA and/or kV according to patient size, radiation dose was kept as low as reasonably achievable to ob tain optimal diagnostic quality images. DICOM format image data is available electronically for revi ew and comparison. FINDINGS: Cerebrum: The ventricles and cortical sulci are mildly widened. No evidence of midline shift, mass lesion, hemorrhage or acute infarction. No extraaxial fluid collections are seen. Posterior Fossa: The cerebellum and brainstem are intact. The 4th ventricle is midline. The cerebe llopontine angle is unremarkable. Extracranial: The visualized portion of the orbits is intact. There is minimal right maxillary sinus disease. Skull: The calvaria is intact. No evidence of skull fracture. CONCLUSION: 1. No acute intracranial abnormalities seen. 2. Mild atrophy. 3. Minimal right maxillary sinus disease. Electronically signed by: Alan Mcginnis MD 04/28/2018 12:11 PM EDT
[2018-04-28 12:25] LABS: ALBUMIN 3.3 GM/DL (3.4-5.0); ALKALINE PHOSPHATASE 110 U/L (45-117); ALT (GPT) 53 U/L (12-78); AST (GOT) 38 U/L (15-37); BICARBONATE 25.3 MEQ/L (21.0-32.0); BLOOD UREA NITROGEN 13 MG/DL (7-18); CALCIUM 7.7 MG/DL (8.5-10.1); CHLORIDE 113 MEQ/L (98-107); CREATININE 1.18 MG/DL (0.60-1.30); GLOMERULAR FILTRATION RATE 62 ML/MIN (>89); SODIUM (NA) 149 MEQ/L (136-145); TOTAL BILIRUBIN ADULT 1.2 MG/DL (0.2-1.0); TOTAL PROTEIN 7.6 GM/DL (6.4-8.2)
[2018-04-28 12:29] LABS: GLUCOSE,RANDOM 45 MG/DL (74-106)
--- NOTE | 2018-04-28 14:20 | EKG ---
Date Performed: 04/28/2018 Time Performed: 11:37:07 PTAGE: 62 years EKG: Sinus rhythm WITH FREQUENT SUPRAVENTRICULAR PREMATURE COMPLEXES RIGHT BUNDLE BRANCH BLOCK ABNORMAL ECG PREVIOUS TRACING : 03/30/2018 11.05 DOCTOR: Ovi Velázquez Interpretating Date/Time 04/28/2018 14:18:05
[2018-04-28] MEDS ORDERED: SODIUM CHLORIDE 0.9% FLUSH 10 ML FLUSH IV FLUSH PRN (15:00)
[2018-04-28] MEDS ORDERED: NALOXONE HCL 0.4 MG/ML AMP IV PUSH PRN (15:00)
[2018-04-28] MEDS ORDERED: ACETAMINOPHEN 325 MG TAB PO PRN ×2 (15:00)
[2018-04-28] MEDS ORDERED: GLUCAGON 1 MG/ML VIAL IM PRN (15:00)
[2018-04-28] MEDS ORDERED: DEXTROSE 50% IN WATER 50 ML VIAL(D50) IV PUSH PRN (15:00)
[2018-04-28] MEDS ORDERED: ENALAPRILAT 1.25 MG/ML VIAL IV PUSH PRN (15:15)
--- NOTE | 2018-04-28 15:33 | HHI.HP ---
[facility] Papo James M.D. Admission Diagnosis acute encephalopathy,narcotic overdose,hypoglycemia Diagnoses: Chief Complaint: AMS Travel History International Travel<30 Days: No Contact w/Intl Traveler <30 Da: No Traveled to Known Affected Are: No History of Present Illness The patient is a 62 year old male with a past medical history of diabetes and CAD who is presenting to the hospital with altered mental status. Per reports his friend called 911 when the patient became unresponsive. Paramedics found him seated in the front seat of his car behind the steering wheel at a gas station. He was not able to answer any questions. The friend told paramedics that his sugar was found to be elevated at 230 and so a friend gave him 70 units of 70/30 subcutaneously. Paramedics had an Accu-Chek of 69 on scene, it was 54 upon arrival. The pt's mental status has improved but he is still unable to give a history. He appears comfortable and is able to minimally respond to questions. He states that Dr. James prescribes him pain medications but that is as far as he can get in a conversation before trailing off and going back to sleep. Review of Systems ROS Limitations: Clinical Condition, Intoxication, Altered Mental Status, Poor Historian Except as stated in HPI: all other systems reviewed are Neg Past Family Social History Past Medical History History reviewed from EMR. Patient is unable to contribute due to his mental status. Coronary artery disease status post stent in 2002 CABG 6 in 2006 Hypertension Diabetes History of hep C, untreated History of MRSA Neck melanoma status post excision Kidney stones BPH Laparoscopic cholecystectomy Lithotripsy Allergies: Coded Allergies: Sulfa (Sulfonamide Antibiotics) (Verified Allergy, Severe, ANAPHYLACTIC REACTION, 04/28/18) sulfamethoxazole (Verified Allergy, Severe, ANAPHYLACTIC, 04/28/18) trimethoprim (Verified Allergy, Severe, ANAPHYLACTIC, 04/28/18) Family History Unable to obtain s/t condition Social History Unable to obtain s/t condition Physical Exam Vital Signs Vital Signs Date Time Temp Pulse Resp B/P (MAP) Pulse Ox O2 Delivery O2 Flow Rate FiO2 04/28/18 14:39 80 16 181/86 (117) 98 Nasal Cannula 2.00 04/28/18 11:34 97.9 89 15 152/78 (102) 89 Physical Exam GENERAL: Well-nourished, well-developed patient who is minimally responsive. SKIN: Focused skin assessment reveals no rash and nodules. Skin is Warm and dry. HEAD: Atraumatic. Normocephalic. EYES: Pupils equal and round small and reactive. No scleral icterus. No injection or drainage. ENT: No nasal bleeding or discharge. Mucous membranes pink and moist. NECK: Trachea midline. No JVD. CARDIOVASCULAR: Regular rate and rhythm. No murmur appreciated. RESPIRATORY: No accessory muscle use. Clear to auscultation. Breath sounds equal bilaterally. GASTROINTESTINAL: Abdomen soft, obese, non-tender, nondistended. Hepatic and splenic margins not palpable. MUSCULOSKELETAL: No obvious deformities. No clubbing. No cyanosis. No edema. NEUROLOGICAL: Minimally responsive and drowsy. Controlling his airway. No obvious cranial nerve deficits. Motor grossly within normal limits. Laboratory Laboratory Tests Test 04/28/18 11:30 04/28/18 12:20 White Blood Count 9.3 Red Blood Count 5.42 Hemoglobin 15.5 Hematocrit 45.6 Mean Corpuscular Volume 84.3 Mean Corpuscular Hemoglobin 28.7 Mean Corpuscular Hemoglobin Concent 34.0 Red Cell Distribution Width 13.8 Platelet Count 190 Mean Platelet Volume 8.5 Neutrophils (%) (Auto) 40.0 Lymphocytes (%) (Auto) 45.9 Monocytes (%) (Auto) 10.6 Eosinophils (%) (Auto) 3.0 Basophils (%) (Auto) 0.5 Neutrophils # (Auto) 3.7 Lymphocytes # (Auto) 4.3 Monocytes # (Auto) 1.0 Eosinophils # (Auto) 0.3 Basophils # (Auto) 0.0 CBC Comment AUTO DIFF Differential Comment AUTO DIFF CONFIRMED Blood Urea Nitrogen 13 Creatinine 1.18 Random Glucose 45 Total Protein 7.6 Albumin 3.3 Calcium Level 7.7 Alkaline Phosphatase 110 Aspartate Amino Transf (AST/SGOT) 38 Alanine Aminotransferase (ALT/SGPT) 53 Total Bilirubin 1.2 Sodium Level 149 Potassium Level 3.1 Chloride Level 113 Carbon Dioxide Level 25.3 Anion Gap 11 Estimat Glomerular Filtration Rate 62 Ethyl Alcohol Level LESS THAN 3 Urine Opiates Screen POS Urine Barbiturates Screen NEG Urine Amphetamines Screen NEG Urine Benzodiazepines Screen NEG Urine Cocaine Screen NEG Urine Cannabinoids Screen NEG Result Diagram: 04/28/18 1130 04/28/18 1130 Imaging Last Impressions Head CT 04/28/18 0000 Signed Impressions: CONCLUSION: 1. No acute intracranial abnormalities seen. 2. Mild atrophy. 3. Minimal right maxillary sinus disease. Caprini VTE Risk Assessment Caprini VTE Risk Assessment: Mod/High Risk (score >= 2) Caprini Risk Assessment Model Point Value = 1 Point Value = 2 Point Value = 3 Point Value = 5 Age 41-60 Minor surgery BMI > 25 kg/m2 Swollen legs Varicose veins or History of unexplained or recurrent spontaneous Oral contraceptives or hormone replacement Sepsis (< 1 month) Serious lung disease, including pneumonia (< 1 month) Abnormal pulmonary function Acute myocardial infarction Congestive heart failure (< 1 month) History of inflammatory bowel disease Medical patient at bed rest Age 61-74 Arthroscopic surgery Major open surgery (> 45 min) Laparoscopic surgery (> 45 min) Malignancy Confined to bed (> 72 hours) Immobilizing plaster cast Central venous access Age >= 75 History of VTE Family history of VTE Factor V Leiden Prothrombin [id number] Lupus anticoagulant Anticardiolipin antibodies Elevated serum homocysteine Heparin-induced thrombocytopenia Other congenital or acquired thrombophilia Stroke (< 1 month) Elective arthroplasty Hip, pelvis, or leg fracture Acute spinal cord injury (< 1 month) Prophylaxis Regimen Total Risk Factor Score Risk Level Prophylaxis Regimen 0-1 Low Early ambulation 2 Moderate Order ONE of the following: *Sequential Compression Device (SCD) *Heparin 5000 units SQ BID 3-4 Higher Order ONE of the following medications: *Heparin 5000 units SQ TID *Enoxaparin/Lovenox 40 mg SQ daily (WT < 150 kg, CrCl > 30 mL/min) *Enoxaparin/Lovenox 30 mg SQ daily (WT < 150 kg, CrCl > 10-29 mL/min) *Enoxaparin/Lovenox 30 mg SQ BID (WT < 150 kg, CrCl > 30 mL/min) AND/OR *Sequential Compression Device (SCD) 5 or more Highest Order ONE of the following medications: *Heparin 5000 units SQ TID (Preferred with Epidurals) *Enoxaparin/Lovenox 40 mg SQ daily (WT < 150 kg, CrCl > 30 mL/min) *Enoxaparin/Lovenox 30 mg SQ daily (WT < 150 kg, CrCl > 10-29 mL/min) *Enoxaparin/Lovenox 30 mg SQ BID (WT < 150 kg, CrCl > 30 mL/min) AND *Sequential Compression Device (SCD) Assessment and Plan Assessment and Plan Metabolic encephalopathy/ Hypoglycemia/ Opiate use The pt's tox screen was positive for opiates. He has a history of opiate abuse. His friend supposedly injected him with 70 units of insulin, resulting in severe hypoglycemia. The pt's mental status is slowly improving. - follow glucose closely. - continue hypoglycemic protocol. - hold PO diabetes meds. - check A1c. - neuro checks. - protective services case worker consult. - narcotic cessation instruction. - PT if needed. Hypernatremia Likely s/t decreased PO intake. - continue D5W x 1 L. - follow BMP. - ADAT when more alert. Hypokalemia K level was 3.1 on admission. - IV KCl x 2. - follow BMP. Add mg and phos levels. HTN Recently hospitalized for hypertensive emergency. - resume home meds. - Vasotec as needed. PPx: SCDs Discussed Condition With Dr. Coulter, pt Physician Certification 2 Midnight Certification Type: Admission for Inpatient Services Order for Inpatient Services The services are ordered in accordance with Medicare regulations or non- Medicare payer requirements, as applicable. In the case of services not specified as inpatient-only, they are appropriately provided as inpatient services in accordance with the 2-midnight benchmark. Estimated LOS (days): 2 days is the estimated time the patient will need to remain in the hospital, assuming treatment plan goals are met and no additional complications. Post-Hospital Plan: Home Tito Aj DO Apr 28, 2018 15:33
[2018-04-28] MEDS: DEXTROSE 5% IN WATE 1000ML INJ 1,000 ML IV SCH ×2 (16:52→22:13)
[2018-04-28] MEDS: POTASSIUM CHLOR 20 MEQ PREMIX 100 ML IV SCH ×2 (16:53→19:25)
[2018-04-28 18:20] LABS: MAGNESIUM 1.9 MG/DL (1.5-2.5); PHOSPHORUS 3.2 MG/DL (2.5-4.9)
[2018-04-28] MEDS: SODIUM CHLORIDE 0.9% FLUSH 10 ML FLUSH IV FLUSH SCH (21:00)
[2018-04-28] MEDS: METOPROLOL TARTRATE 25 MG TAB PO SCH (22:17)
[2018-04-29] VITALS (7 sets, daily range): BP systolic 138–161; BP diastolic 74–86; PULSE 79–104; RESP 18–20; TEMP 98.2–99.1; O2SAT 93–96
[2018-04-29 07:26] LABS: BASOPHIL % 0.3 % (0.0-2.0); EOSINOPHIL # 0.1 TH/MM3 (0-0.4); EOSINOPHIL % 1.7 % (0.0-4.0); HEMATOCRIT 41.8 % (39.0-51.0); HEMOGLOBIN 14.2 GM/DL (13.0-17.0); LYMPH % 19.6 % (9.0-44.0); LYMPHOCYTE # 1.5 TH/MM3 (1.0-4.8); MEAN CELL VOLUME 85.1 FL (80.0-100.0); MEAN CORPUSCULAR HEMOGLOBIN 28.9 PG (27.0-34.0); MEAN PLATELET VOLUME 8.3 FL (7.0-11.0); MONO % 11.4 % (0.0-8.0); MONOCYTE # 0.8 TH/MM3 (0-0.9); PLATELET COUNT 152 TH/MM3 (150-450); RED BLOOD COUNT 4.92 MIL/MM3 (4.50-5.90); RED CELL DISTRIBUTION WIDTH 13.8 % (11.6-17.2); WHITE BLOOD COUNT 7.4 TH/MM3 (4.0-11.0)
[2018-04-29 08:27] LABS: ALBUMIN 3.3 GM/DL (3.4-5.0); ALKALINE PHOSPHATASE 105 U/L (45-117); ALT (GPT) 45 U/L (12-78); AST (GOT) 35 U/L (15-37); BICARBONATE 26.3 MEQ/L (21.0-32.0); BLOOD UREA NITROGEN 12 MG/DL (7-18); CALCIUM 8.7 MG/DL (8.5-10.1); CHLORIDE 104 MEQ/L (98-107); CREATININE 1.13 MG/DL (0.60-1.30); GLOMERULAR FILTRATION RATE 66 ML/MIN (>89); GLUCOSE,RANDOM 166 MG/DL (74-106); SODIUM (NA) 139 MEQ/L (136-145); TOTAL BILIRUBIN ADULT 2.1 MG/DL (0.2-1.0); TOTAL PROTEIN 7.3 GM/DL (6.4-8.2)
[2018-04-29] MEDS: METOPROLOL TARTRATE 25 MG TAB PO SCH ×2 (10:27→20:50)
[2018-04-29] MEDS: PRAVASTATIN SOD 40 MG TAB PO SCH (10:27)
[2018-04-29] MEDS: SODIUM CHLORIDE 0.9% FLUSH 10 ML FLUSH IV FLUSH SCH ×2 (10:28→20:50)
[2018-04-29] MEDS ORDERED: THIAMINE HCL 100 MG TAB PO ONE (11:00)
[2018-04-29] MEDS ORDERED: MULTIVITAMIN TAB PO ONE (11:00)
[2018-04-29] MEDS ORDERED: FOLIC ACID 1 MG TAB PO ONE (11:00)
--- NOTE | 2018-04-29 11:07 | HHI.PR ---
Subjective Remarks The patient is a 62 year old male with a past medical history of diabetes and CAD who is presenting to the hospital with altered mental status. Per reports his friend called 911 when the patient became unresponsive. Paramedics found him seated in the front seat of his car behind the steering wheel at a gas station. He was not able to answer any questions. The friend told paramedics that his sugar was found to be elevated at 230 and so a friend gave him 70 units of 70/30 subcutaneously. Paramedics had an Accu-Chek of 69 on scene, it was 54 upon arrival. The pt's mental status has improved but he is still unable to give a history. He appears comfortable and is able to minimally respond to questions. He states that Dr. James prescribes him pain medications but that is as far as he can get in a conversation before trailing off and going back to sleep. 04-29 NO NEW COMPLAINTS HAS BOSS CATHETER IN PLACE WITH HEMATURIA/DARK URINE PATIENT STATES HE TOOK BOSS OUT EARLIER??? PATIENT APPEARS CONFUSED STILL DW RN AND PT BOSS HAS HEMATURIA AT THIS TIME Objective Vitals Vital Signs Date Time Temp Pulse Resp B/P (MAP) Pulse Ox O2 Delivery O2 Flow Rate FiO2 04/29/18 10:42 95 21 04/29/18 04:18 Room Air 04/29/18 04:00 98.7 98 18 148/86 (106) 95 04/29/18 00:00 98.5 100 18 161/78 (105) 95 04/29/18 00:00 Room Air 04/28/18 20:15 04/28/18 20:00 Room Air 04/28/18 20:00 97.3 98 18 164/79 (107) 96 04/28/18 19:25 93 18 175/85 (115) 94 Room Air 04/28/18 19:12 95 16 186/101 (129) 95 Room Air 04/28/18 17:32 97 Nasal Cannula 2.00 04/28/18 17:07 90 16 172/78 (109) 97 Nasal Cannula 2.00 04/28/18 14:39 80 16 181/86 (117) 98 Nasal Cannula 2.00 04/28/18 11:34 97.9 89 15 152/78 (102) 89 I/O 04/28/18 04/28/18 04/28/18 04/29/18 04/29/1804/29/18 07:00 15:00 23:00 07:00 15:00 23:00 Intake Total 100 ml 1000 ml Balance 100 ml 1000 ml Intake IV Total 100 ml 1000 ml Result Diagram: 04/29/18 0538 04/29/18 0538 Other Results Laboratory Tests Test 04/28/18 11:30 04/28/18 12:20 04/28/18 21:09 04/29/18 05:38 White Blood Count 9.3 TH/MM3 7.4 TH/MM3 Red Blood Count 5.42 MIL/MM3 4.92 MIL/MM3 Hemoglobin 15.5 GM/DL 14.2 GM/DL Hematocrit 45.6 % 41.8 % Mean Corpuscular Volume 84.3 FL 85.1 FL Mean Corpuscular Hemoglobin 28.7 PG 28.9 PG Mean Corpuscular Hemoglobin Concent 34.0 % 34.0 % Red Cell Distribution Width 13.8 % 13.8 % Platelet Count 190 TH/MM3 152 TH/MM3 Mean Platelet Volume 8.5 FL 8.3 FL Neutrophils (%) (Auto) 40.0 % 67.0 % Lymphocytes (%) (Auto) 45.9 % 19.6 % Monocytes (%) (Auto) 10.6 % 11.4 % Eosinophils (%) (Auto) 3.0 % 1.7 % Basophils (%) (Auto) 0.5 % 0.3 % Neutrophils # (Auto) 3.7 TH/MM3 5.0 TH/MM3 Lymphocytes # (Auto) 4.3 TH/MM3 1.5 TH/MM3 Monocytes # (Auto) 1.0 TH/MM3 0.8 TH/MM3 Eosinophils # (Auto) 0.3 TH/MM3 0.1 TH/MM3 Basophils # (Auto) 0.0 TH/MM3 0.0 TH/MM3 CBC Comment AUTO DIFF DIFF FINAL Differential Comment AUTO DIFF CONFIRMED Blood Urea Nitrogen 13 MG/DL 12 MG/DL Creatinine 1.18 MG/DL 1.13 MG/DL Random Glucose 45 MG/DL 76 MG/DL 166 MG/DL Total Protein 7.6 GM/DL 7.3 GM/DL Albumin 3.3 GM/DL 3.3 GM/DL Calcium Level 7.7 MG/DL 8.7 MG/DL Alkaline Phosphatase 110 U/L 105 U/L Aspartate Amino Transf (AST/SGOT) 38 U/L 35 U/L Alanine Aminotransferase (ALT/SGPT) 53 U/L 45 U/L Total Bilirubin 1.2 MG/DL 2.1 MG/DL Sodium Level 149 MEQ/L 139 MEQ/L Potassium Level 3.1 MEQ/L 4.1 MEQ/L Chloride Level 113 MEQ/L 104 MEQ/L Carbon Dioxide Level 25.3 MEQ/L 26.3 MEQ/L Anion Gap 11 MEQ/L 9 MEQ/L Estimat Glomerular Filtration Rate 62 ML/MIN 66 ML/MIN Phosphorus Level 3.2 MG/DL Magnesium Level 1.9 MG/DL Ethyl Alcohol Level LESS THAN 3 MG/DL Urine Opiates Screen POS Urine Barbiturates Screen NEG Urine Amphetamines Screen NEG Urine Benzodiazepines Screen NEG Urine Cocaine Screen NEG Urine Cannabinoids Screen NEG Imaging Last Impressions Head CT 04/28/18 0000 Signed Impressions: CONCLUSION: 1. No acute intracranial abnormalities seen. 2. Mild atrophy. 3. Minimal right maxillary sinus disease. Objective Remarks GENERAL: Awake and alert oriented 1 some confusion still has Boss catheter in place SKIN: Warm and dry. HEAD: Atraumatic. Normocephalic. EYES: Pupils equal and round. No scleral icterus. No injection or drainage. ENT: No nasal bleeding or discharge. Mucous membranes pink and moist. NECK: Trachea midline. No JVD. CARDIOVASCULAR: Regular rate and rhythm. S1-S2 no S3 or S4 RESPIRATORY: No accessory muscle use. Clear to auscultation. Breath sounds equal bilaterally. GASTROINTESTINAL: Abdomen soft, non-tender, nondistended. Hepatic and splenic margins not palpable. MUSCULOSKELETAL: Extremities without clubbing, cyanosis, or edema. No obvious deformities. NEUROLOGICAL: Awake and alert. No obvious cranial nerve deficits. Motor grossly within normal limits. 4 out of 5 muscle strength in the arms and legs. Normal speech. PSYCHIATRIC: INAppropriate mood and affect; insight and judgment ABnormal. Boss catheter in place Medications and IVs Current Medications Dextrose (D50w (Syr) Inj) 50 ml STK-MED ONCE .ROUTE Last administered on at 11:33; Start 04/28/18 at 11:28; Stop 04/28/18 at 11:29; Status DC Dextrose (D50w (Vial) Inj) 50 ml ONCE ONCE IV PUSH ; Start 04/28/18 at 11:45; Stop 04/28/18 at 11:46; Status DC Potassium Chloride 100 ml @ 50 mls/hr Q2H IV Last administered on 04/28/18at 19 :25; Start 04/28/18 at 15:00; Stop 04/28/18 at 18:59; Status DC Metoprolol Tartrate (Lopressor) 25 mg BID PO Last administered on 04/29/18at 10: 27; Start 04/28/18 at 21:00 Pravastatin Sodium (Pravachol) 40 mg DAILY PO Last administered on 04/29/18at 10 :27; Start 04/29/18 at 09:00 Amlodipine Besylate (Norvasc) 10 mg DAILY PO Last administered on 04/29/18at 10: 27; Start 04/29/18 at 09:00 Dextrose (D50w (Vial) Inj) 50 ml UNSCH PRN IV PUSH HYPOGLYCEMIA-SEE COMMENTS; Start 04/28/18 at 15:00 Glucagon (Glucagon Inj) 1 mg STAT PRN IM HYPOGLYCEMIA-SEE COMMENTS; Start 04/28 at 15:00 Sodium Chloride (NS Flush) 2 ml UNSCH PRN IV FLUSH FLUSH AFTER USING IV ACCESS ; Start 04/28/18 at 15:00 Sodium Chloride (NS Flush) 2 ml BID IV FLUSH Last administered on 04/29/18at 10: 28; Start 04/28/18 at 21:00 Acetaminophen (Tylenol) 650 mg Q4H PRN PO TEMP > 100.4; Start 04/28/18 at 15:00 Acetaminophen (Tylenol) 650 mg Q6H PRN PO PAIN SCALE 1 TO 2; Start 04/28/18 at 15:00 Naloxone HCl (Narcan Inj) 0.4 mg UNSCH PRN IV PUSH SEE LABEL COMMENTS; Start at 15:00 Enalaprilat (Vasotec Inj) 1.25 mg Q6H PRN IV PUSH SBP> OR = 170, DBP> OR = 100 ; Start 04/28/18 at 15:15 Dextrose 1,000 ml @ 100 mls/hr Q10H IV Last administered on 04/28/18at 16:52; Start 04/28/18 at 16:00; Stop 04/29/18 at 01:59; Status DC A/P Assessment and Plan Metabolic encephalopathy/ Hypoglycemia/ Opiate use The pt's tox screen was positive for opiates. He has a history of opiate abuse. His friend supposedly injected him with 70 units of insulin, resulting in severe hypoglycemia. The pt's mental status is slowly improving. - follow glucose closely. - continue hypoglycemic protocol. - hold PO diabetes meds. - check A1c. - neuro checks. - employment evaluator/case manager consult. - narcotic cessation instruction. - PT if needed. Hypernatremia Likely s/t decreased PO intake. - continue D5W x 1 L. - follow BMP. - ADAT when more alert. Hypokalemia K level was 3.1 on admission. - IV KCl x 2. - follow BMP. Add mg and phos levels. HTN Recently hospitalized for hypertensive emergency. - resume home meds. - Vasotec as needed. PPx: SCDs HAS BOSS IN PLACE WITH HEMATURIA- MAY HAVE HAD SOME BOSS TRAUMA Discharge Planning NOT SURE WHERE PATIENT RESIDES CONSULT CASE MANAGEMENT FOR DC PLANNING Tam Muprhy DO Apr 29, 2018 11:07
[2018-04-29] MEDS ORDERED: DEXTROSE 50% IN WATER 50 ML VIAL(D50) IV PUSH PRN (11:15)
[2018-04-29] MEDS ORDERED: GLUCAGON 1 MG/ML VIAL OTHER PRN (11:15)
[2018-04-29] MEDS ORDERED: cloNIDine HCL 0.1 MG TAB PO PRN (11:15)
[2018-04-29] MEDS: INSULIN ASPART SUPPLEMENTAL SCALE SQ SCH ×3 (12:00→20:51)
[2018-04-29] MEDS ORDERED: traZODone HCL 100 MG TAB PO ONE (22:45)
[2018-04-30] VITALS (7 sets, daily range): BP systolic 139–177; BP diastolic 72–95; PULSE 77–95; RESP 16–20; TEMP 97.4–99; O2SAT 93–96
[2018-04-30 07:51] LABS: AUTOMATED NEUTROPHIL # 3.1 TH/MM3 (1.8-7.7); BASOPHIL % 0.6 % (0.0-2.0); EOSINOPHIL # 0.2 TH/MM3 (0-0.4); EOSINOPHIL % 2.6 % (0.0-4.0); HEMATOCRIT 41.5 % (39.0-51.0); HEMOGLOBIN 14.3 GM/DL (13.0-17.0); LYMPH % 35.8 % (9.0-44.0); LYMPHOCYTE # 2.3 TH/MM3 (1.0-4.8); MEAN CELL VOLUME 84.1 FL (80.0-100.0); MEAN CORPUSCULAR HGB CONC 34.4 % (32.0-36.0); MEAN PLATELET VOLUME 8.6 FL (7.0-11.0); MONOCYTE # 0.8 TH/MM3 (0-0.9); PLATELET COUNT 167 TH/MM3 (150-450); RED BLOOD COUNT 4.94 MIL/MM3 (4.50-5.90); RED CELL DISTRIBUTION WIDTH 13.5 % (11.6-17.2); WHITE BLOOD COUNT 6.3 TH/MM3 (4.0-11.0)
[2018-04-30 08:25] LABS: AST (GOT) 30 U/L (15-37); BICARBONATE 25.9 MEQ/L (21.0-32.0); BLOOD UREA NITROGEN 20 MG/DL (7-18); CALCIUM 8.5 MG/DL (8.5-10.1); CHLORIDE 102 MEQ/L (98-107); GLOMERULAR FILTRATION RATE 56 ML/MIN (>89); GLUCOSE,RANDOM 260 MG/DL (74-106); SODIUM (NA) 138 MEQ/L (136-145)
[2018-04-30 08:26] LABS: ALT (GPT) 40 U/L (12-78); PHOSPHORUS 3.4 MG/DL (2.5-4.9)
[2018-04-30 08:35] LABS: ALKALINE PHOSPHATASE 100 U/L (45-117); FREE T4 1.25 NG/DL (0.76-1.46); TOTAL BILIRUBIN ADULT 2.1 MG/DL (0.2-1.0); TOTAL PROTEIN 7.3 GM/DL (6.4-8.2)
[2018-04-30] MEDS: INSULIN ASPART SUPPLEMENTAL SCALE SQ SCH ×4 (09:09→20:29)
[2018-04-30] MEDS: MULTIVITAMIN TAB PO SCH (09:11)
[2018-04-30] MEDS: METOPROLOL TARTRATE 25 MG TAB PO SCH ×2 (09:11→20:29)
[2018-04-30] MEDS: PRAVASTATIN SOD 40 MG TAB PO SCH (09:11)
[2018-04-30] MEDS: FOLIC ACID 1 MG TAB PO SCH (09:11)
[2018-04-30] MEDS: THIAMINE HCL 100 MG TAB PO SCH (09:11)
[2018-04-30] MEDS: SODIUM CHLORIDE 0.9% FLUSH 10 ML FLUSH IV FLUSH SCH ×2 (09:16→20:29)
--- NOTE | 2018-04-30 10:36 | HHI.PR ---
Subjective Remarks The patient is a 62 year old male with a past medical history of diabetes and CAD who is presenting to the hospital with altered mental status. Per reports his friend called 911 when the patient became unresponsive. Paramedics found him seated in the front seat of his car behind the steering wheel at a gas station. He was not able to answer any questions. The friend told paramedics that his sugar was found to be elevated at 230 and so a friend gave him 70 units of 70/30 subcutaneously. Paramedics had an Accu-Chek of 69 on scene, it was 54 upon arrival. The pt's mental status has improved but he is still unable to give a history. He appears comfortable and is able to minimally respond to questions. He states that Dr. James prescribes him pain medications but that is as far as he can get in a conversation before trailing off and going back to sleep. 04-29 NO NEW COMPLAINTS HAS BOSS CATHETER IN PLACE WITH HEMATURIA/DARK URINE PATIENT STATES HE TOOK BOSS OUT EARLIER??? PATIENT APPEARS CONFUSED STILL [facility] RN AND PT BOSS HAS HEMATURIA AT THIS TIME 04-30 BLADDER TRAINING RAHEEM RN AND PT TRY TO REMOVE BOSS TODAY HAS CLEAR URINE IN BOSS TUBING BUT NOT IN BAG STATES HE LIVES IN HIS [place]- MAY TRULY BE HOMELESS AM LABS Objective Vitals Vital Signs Date Time Temp Pulse Resp B/P (MAP) Pulse Ox O2 Delivery O2 Flow Rate FiO2 04/30/18 08:05 97.4 90 16 177/95 (122) 93 04/30/18 04:00 98.2 81 20 139/73 (95) 93 04/30/18 00:04 98.0 79 20 156/72 (100) 95 04/30/18 00:00 Room Air 04/29/18 20:17 21 04/29/18 20:00 Room Air 04/29/18 20:00 98.9 93 20 151/74 (99) 96 04/29/18 16:00 98.2 94 20 159/77 (104) 93 04/29/18 12:00 98.4 79 20 145/85 (105) 96 04/29/18 10:42 95 21 I/O 04/29/18 04/29/18 04/29/18 04/30/18 04/30/18 04/30/18 07:00 15:00 23:00 07:00 15:00 23:00 Intake Total 1000 ml 600 ml 240 ml Output Total 1750 ml 600 ml Balance 1000 ml -1150 ml -360 ml Intake Oral 600 ml 240 ml IV Total 1000 ml Output Urine Total 1750 ml 600 ml # Bowel Movements 2 Result Diagram: 04/30/18 0547 04/30/18 0547 Other Results Laboratory Tests Test 04/28/18 11:30 04/28/18 12:20 04/28/18 21:09 04/29/18 05:38 White Blood Count 9.3 TH/MM3 7.4 TH/MM3 Red Blood Count 5.42 MIL/MM3 4.92 MIL/MM3 Hemoglobin 15.5 GM/DL 14.2 GM/DL Hematocrit 45.6 % 41.8 % Mean Corpuscular Volume 84.3 FL 85.1 FL Mean Corpuscular Hemoglobin 28.7 PG 28.9 PG Mean Corpuscular Hemoglobin Concent 34.0 % 34.0 % Red Cell Distribution Width 13.8 % 13.8 % Platelet Count 190 TH/MM3 152 TH/MM3 Mean Platelet Volume 8.5 FL 8.3 FL Neutrophils (%) (Auto) 40.0 % 67.0 % Lymphocytes (%) (Auto) 45.9 % 19.6 % Monocytes (%) (Auto) 10.6 % 11.4 % Eosinophils (%) (Auto) 3.0 % 1.7 % Basophils (%) (Auto) 0.5 % 0.3 % Neutrophils # (Auto) 3.7 TH/MM3 5.0 TH/MM3 Lymphocytes # (Auto) 4.3 TH/MM3 1.5 TH/MM3 Monocytes # (Auto) 1.0 TH/MM3 0.8 TH/MM3 Eosinophils # (Auto) 0.3 TH/MM3 0.1 TH/MM3 Basophils # (Auto) 0.0 TH/MM3 0.0 TH/MM3 CBC Comment AUTO DIFF DIFF FINAL Differential Comment AUTO DIFF CONFIRMED Blood Urea Nitrogen 13 MG/DL 12 MG/DL Creatinine 1.18 MG/DL 1.13 MG/DL Random Glucose 45 MG/DL 76 MG/DL 166 MG/DL Total Protein 7.6 GM/DL 7.3 GM/DL Albumin 3.3 GM/DL 3.3 GM/DL Calcium Level 7.7 MG/DL 8.7 MG/DL Alkaline Phosphatase 110 U/L 105 U/L Aspartate Amino Transf (AST/SGOT) 38 U/L 35 U/L Alanine Aminotransferase (ALT/SGPT) 53 U/L 45 U/L Total Bilirubin 1.2 MG/DL 2.1 MG/DL Sodium Level 149 MEQ/L 139 MEQ/L Potassium Level 3.1 MEQ/L 4.1 MEQ/L Chloride Level 113 MEQ/L 104 MEQ/L Carbon Dioxide Level 25.3 MEQ/L 26.3 MEQ/L Anion Gap 11 MEQ/L 9 MEQ/L Estimat Glomerular Filtration Rate 62 ML/MIN 66 ML/MIN Phosphorus Level 3.2 MG/DL Magnesium Level 1.9 MG/DL Ethyl Alcohol Level LESS THAN 3 MG/DL Urine Opiates Screen POS Urine Barbiturates Screen NEG Urine Amphetamines Screen NEG Urine Benzodiazepines Screen NEG Urine Cocaine Screen NEG Urine Cannabinoids Screen NEG Test 04/30/18 05:47 White Blood Count 6.3 TH/MM3 Red Blood Count 4.94 MIL/MM3 Hemoglobin 14.3 GM/DL Hematocrit 41.5 % Mean Corpuscular Volume 84.1 FL Mean Corpuscular Hemoglobin 29.0 PG Mean Corpuscular Hemoglobin Concent 34.4 % Red Cell Distribution Width 13.5 % Platelet Count 167 TH/MM3 Mean Platelet Volume 8.6 FL Neutrophils (%) (Auto) 49.0 % Lymphocytes (%) (Auto) 35.8 % Monocytes (%) (Auto) 12.0 % Eosinophils (%) (Auto) 2.6 % Basophils (%) (Auto) 0.6 % Neutrophils # (Auto) 3.1 TH/MM3 Lymphocytes # (Auto) 2.3 TH/MM3 Monocytes # (Auto) 0.8 TH/MM3 Eosinophils # (Auto) 0.2 TH/MM3 Basophils # (Auto) 0.0 TH/MM3 CBC Comment DIFF FINAL Differential Comment Blood Urea Nitrogen 20 MG/DL Creatinine 1.30 MG/DL Random Glucose 260 MG/DL Total Protein 7.3 GM/DL Albumin 3.0 GM/DL Calcium Level 8.5 MG/DL Phosphorus Level 3.4 MG/DL Magnesium Level 2.0 MG/DL Alkaline Phosphatase 100 U/L Aspartate Amino Transf (AST/SGOT) 30 U/L Alanine Aminotransferase (ALT/SGPT) 40 U/L Total Bilirubin 2.1 MG/DL Sodium Level 138 MEQ/L Potassium Level 3.6 MEQ/L Chloride Level 102 MEQ/L Carbon Dioxide Level 25.9 MEQ/L Anion Gap 10 MEQ/L Estimat Glomerular Filtration Rate 56 ML/MIN Free Thyroxine 1.25 NG/DL Thyroid Stimulating Hormone 3rd Gen 0.687 uIU/ML Imaging Last Impressions Head CT 04/28/18 0000 Signed Impressions: CONCLUSION: 1. No acute intracranial abnormalities seen. 2. Mild atrophy. 3. Minimal right maxillary sinus disease. Objective Remarks GENERAL: Awake and alert oriented 1 some confusion still has Boss catheter in place SKIN: Warm and dry. HEAD: Atraumatic. Normocephalic. EYES: Pupils equal and round. No scleral icterus. No injection or drainage. ENT: No nasal bleeding or discharge. Mucous membranes pink and moist. NECK: Trachea midline. No JVD. CARDIOVASCULAR: Regular rate and rhythm. S1-S2 no S3 or S4 RESPIRATORY: No accessory muscle use. Clear to auscultation. Breath sounds equal bilaterally. GASTROINTESTINAL: Abdomen soft, non-tender, nondistended. Hepatic and splenic margins not palpable. MUSCULOSKELETAL: Extremities without clubbing, cyanosis, or edema. No obvious deformities. NEUROLOGICAL: Awake and alert. No obvious cranial nerve deficits. Motor grossly within normal limits. 4 out of 5 muscle strength in the arms and legs. Normal speech. PSYCHIATRIC: INAppropriate mood and affect; insight and judgment ABnormal. Boss catheter in place Medications and IVs Current Medications Dextrose (D50w (Syr) Inj) 50 ml STK-MED ONCE .ROUTE Last administered on at 11:33; Start 04/28/18 at 11:28; Stop 04/28/18 at 11:29; Status DC Dextrose (D50w (Vial) Inj) 50 ml ONCE ONCE IV PUSH ; Start 04/28/18 at 11:45; Stop 04/28/18 at 11:46; Status DC Potassium Chloride 100 ml @ 50 mls/hr Q2H IV Last administered on 04/28/18at 19 :25; Start 04/28/18 at 15:00; Stop 04/28/18 at 18:59; Status DC Metoprolol Tartrate (Lopressor) 25 mg BID PO Last administered on 04/30/18at 09: 11; Start 04/28/18 at 21:00 Pravastatin Sodium (Pravachol) 40 mg DAILY PO Last administered on 04/30/18at 09 :11; Start 04/29/18 at 09:00 Amlodipine Besylate (Norvasc) 10 mg DAILY PO Last administered on 04/30/18at 09: 11; Start 04/29/18 at 09:00 Dextrose (D50w (Vial) Inj) 50 ml UNSCH PRN IV PUSH HYPOGLYCEMIA-SEE COMMENTS; Start 04/28/18 at 15:00 Glucagon (Glucagon Inj) 1 mg STAT PRN IM HYPOGLYCEMIA-SEE COMMENTS; Start 04/28 at 15:00 Sodium Chloride (NS Flush) 2 ml UNSCH PRN IV FLUSH FLUSH AFTER USING IV ACCESS ; Start 04/28/18 at 15:00 Sodium Chloride (NS Flush) 2 ml BID IV FLUSH Last administered on 04/30/18at 09: 16; Start 04/28/18 at 21:00 Acetaminophen (Tylenol) 650 mg Q4H PRN PO TEMP > 100.4; Start 04/28/18 at 15:00 Acetaminophen (Tylenol) 650 mg Q6H PRN PO PAIN SCALE 1 TO 2; Start 04/28/18 at 15:00 Naloxone HCl (Narcan Inj) 0.4 mg UNSCH PRN IV PUSH SEE LABEL COMMENTS; Start at 15:00 Enalaprilat (Vasotec Inj) 1.25 mg Q6H PRN IV PUSH SBP> OR = 170, DBP> OR = 100 ; Start 04/28/18 at 15:15 Dextrose 1,000 ml @ 100 mls/hr Q10H IV Last administered on 04/28/18at 16:52; Start 04/28/18 at 16:00; Stop 04/29/18 at 01:59; Status DC Multivitamins (Theragran) 1 tab ONCE ONCE PO Last administered on 04/29/18at 13 :13; Start 04/29/18 at 11:00; Stop 04/29/18 at 11:56; Status DC Multivitamins (Theragran) 1 tab DAILY PO Last administered on 04/30/18at 09:11; Start 04/30/18 at 09:00 Folic Acid (Folate) 1 mg ONCE ONCE PO Last administered on 04/29/18at 13:13; Start 04/29/18 at 11:00; Stop 04/29/18 at 11:56; Status DC Folic Acid (Folate) 1 mg DAILY PO Last administered on 04/30/18at 09:11; Start 04/30/18 at 09:00 Thiamine HCl (Vitamin B1) 100 mg ONCE ONCE PO Last administered on 04/29/18at 13:13; Start 04/29/18 at 11:00; Stop 04/29/18 at 11:56; Status DC Thiamine HCl (Vitamin B1) 100 mg DAILY PO Last administered on 04/30/18at 09:11 ; Start 04/30/18 at 09:00 Clonidine (Catapres) 0.1 mg Q4H PRN PO SBP>160, DBP>90; Start 04/29/18 at 11:15 Insulin Aspart (NovoLOG SUPPLEMENTAL SCALE) 1 ACHS SLIDING SCALE SQ Last administered on 04/30/18at 09:09; Start 04/29/18 at 12:00 Dextrose (D50w (Vial) Inj) 50 ml UNSCH PRN IV PUSH HYPOGLYCEMIA-SEE COMMENTS; Start 04/29/18 at 11:15 Glucagon (Glucagon Inj) 1 mg UNSCH PRN OTHER HYPOGLYCEMIA-SEE COMMENTS; Start 04/29/18 at 11:15 Trazodone HCl (Desyrel) 100 mg ONCE ONCE PO Last administered on 04/29/18at 23: 04; Start 04/29/18 at 22:45; Stop 04/29/18 at 22:46; Status DC A/P Assessment and Plan Metabolic encephalopathy/ Hypoglycemia/ Opiate use The pt's tox screen was positive for opiates. He has a history of opiate abuse. His friend supposedly injected him with 70 units of insulin, resulting in severe hypoglycemia. The pt's mental status is slowly improving. - follow glucose closely. - continue hypoglycemic protocol. - hold PO diabetes meds. - check A1c. - neuro checks. - geriatric case manager consult. - narcotic cessation instruction. - PT if needed. Hypernatremia Likely s/t decreased PO intake. - continue D5W x 1 L. - follow BMP. - ADAT when more alert. Hypokalemia K level was 3.1 on admission. - IV KCl x 2. - follow BMP. Add mg and phos levels. HTN Recently hospitalized for hypertensive emergency. - resume home meds. - Vasotec as needed. PPx: SCDs HAS BOSS IN PLACE WITH HEMATURIA- MAY HAVE HAD SOME BOSS TRAUMA REMOVE BOSS LATER TODAY Discharge Planning NOT SURE WHERE PATIENT RESIDES CONSULT CASE MANAGEMENT FOR DC PLANNING Tam Murphy DO Apr 30, 2018 10:36
[2018-04-30 22:28] LABS: HEMOGLOBIN A1C 9.9 % (4.3-6.0)
[2018-05-01] VITALS: BP 177/85; PULSE 78; RESP 16; TEMP 98; O2SAT 95
[2018-05-01 04:00] VITALS: BP 182/88; PULSE 83; RESP 18; TEMP 98.1; O2SAT 96
[2018-05-01 08:00] VITALS: BP 175/98; PULSE 95; RESP 22; TEMP 97.9; O2SAT 95
[2018-05-01] MEDS: INSULIN ASPART SUPPLEMENTAL SCALE SQ SCH ×4 (08:00→20:43)
--- NOTE | 2018-05-01 08:36 | HHI.PR ---
Subjective Remarks Patient seen and examined this morning. Blood pressure persistently elevated. Fells well. Sees a doctor as an outpatient. Patient reports he does not remember what happened, he remembers being in EMS. Denies any chest pain or shortness of breath. Reports some congestion. Asking when he can go home. Objective Vital Signs Date Time Temp Pulse Resp B/P (MAP) Pulse Ox O2 Delivery O2 Flow Rate FiO2 05/01/18 04:00 98.1 83 18 182/88 (119) 96 05/01/18 00:00 98.0 78 16 177/85 (115) 95 04/30/18 20:15 Room Air 04/30/18 19:45 99.0 95 16 154/80 (104) 93 04/30/18 16:03 98.1 83 17 146/79 (101) 95 04/30/18 12:49 94 21 04/30/18 12:02 98.2 77 16 144/91 (108) 96 I/O 04/30/18 04/30/18 04/30/18 05/01/18 05/01/18 05/01/18 07:00 15:00 23:00 07:00 15:00 23:00 Intake Total 240 ml 480 ml Output Total 600 ml 600 ml 1800 ml Balance -360 ml -120 ml -1800 ml Intake Oral 240 ml 480 ml Output Urine Total 600 ml 600 ml 1800 ml # Voids 0 # Bowel Movements 0 0 Result Diagram: 04/30/18 0547 04/30/18 0547 Imaging Last Impressions Head CT 04/28/18 0000 Signed Impressions: CONCLUSION: 1. No acute intracranial abnormalities seen. 2. Mild atrophy. 3. Minimal right maxillary sinus disease. Objective Remarks GENERAL: Well-appearing, no acute distress SKIN: Warm and dry. HEAD: Normocephalic. EYES: No scleral icterus. No injection or drainage. NECK: Supple, trachea midline. No JVD or lymphadenopathy. CARDIOVASCULAR: Regular rate and rhythm without murmurs, gallops, or rubs. RESPIRATORY: Breath sounds equal bilaterally. No accessory muscle use. GASTROINTESTINAL: Abdomen soft, non-tender, nondistended. MUSCULOSKELETAL: No cyanosis, or edema. A/P Problem List: (1) Diabetes mellitus type 2 in obese ICD Code: E11.9 - Diabetes mellitus type 2 in obese; E66.9 - Obesity, unspecified Status: Chronic (2) Coronary artery disease ICD Code: I25.10 - Coronary artery disease Status: Chronic (3) Acute encephalopathy ICD Code: G93.40 - Encephalopathy, unspecified Status: Acute (4) Benign hypertension ICD Code: I10 - Benign hypertension Status: Acute Assessment and Plan In summary this is a 62-year-old male patient with a medical history significant for diabetes and CAD [facility] with altered mental status. Apparently the patient's friend called 911 the patient became unresponsive. Paramedics found him seated in a front seat of a car behind the steering well at a gas station. Apparently the patient had an elevated blood glucose and his friend gave him 70 units of insulin. When paramedics arrived at the scene his Accu-Chek was 69, and then 59 upon arrival to the ED. Metabolic encephalopathy, hypoglycemia, opioid abuse Narcotic cessation instructions given Hold all diabetes medications Watch glucose closely--supplemental sliding scale. Home glipizide on hold Hypernatremia Status post fluid replacement with D5W 1 L Hypokalemia Currently stable Hypertension Continue amlodipine 10 mg daily and metoprolol 25 mg twice daily BP continues to be elevated, will add lisinopril 10 DVT prophylaxis Discharge Planning PT recommends home with no PT recommendations Case management to help with discharge needs Discharge pending stabilization of mental status BP medications change, repeat blood pressure and if stable may d/c home this afternoon Tanika Talbot MD May 01, 2018 08:36
[2018-05-01 09:02] LABS: AUTOMATED NEUTROPHIL # 3.2 TH/MM3 (1.8-7.7); BASOPHIL % 0.3 % (0.0-2.0); EOSINOPHIL # 0.2 TH/MM3 (0-0.4); EOSINOPHIL % 3.3 % (0.0-4.0); HEMATOCRIT 42.5 % (39.0-51.0); HEMOGLOBIN 14.8 GM/DL (13.0-17.0); LYMPH % 32.7 % (9.0-44.0); LYMPHOCYTE # 1.9 TH/MM3 (1.0-4.8); MEAN CELL VOLUME 83.6 FL (80.0-100.0); MEAN CORPUSCULAR HEMOGLOBIN 29.1 PG (27.0-34.0); MEAN CORPUSCULAR HGB CONC 34.8 % (32.0-36.0); MEAN PLATELET VOLUME 8.5 FL (7.0-11.0); MONO % 9.1 % (0.0-8.0); MONOCYTE # 0.5 TH/MM3 (0-0.9); NEUT % 54.6 % (16.0-70.0); PLATELET COUNT 182 TH/MM3 (150-450); RED BLOOD COUNT 5.08 MIL/MM3 (4.50-5.90); RED CELL DISTRIBUTION WIDTH 13.7 % (11.6-17.2); WHITE BLOOD COUNT 5.9 TH/MM3 (4.0-11.0)
[2018-05-01] MEDS: METOPROLOL TARTRATE 25 MG TAB PO SCH ×2 (09:37→20:42)
[2018-05-01] MEDS: FOLIC ACID 1 MG TAB PO SCH (09:37)
[2018-05-01] MEDS: PRAVASTATIN SOD 40 MG TAB PO SCH (09:37)
[2018-05-01] MEDS: MULTIVITAMIN TAB PO SCH (09:37)
[2018-05-01] MEDS: LISINOPRIL 10 MG TAB PO SCH (09:37)
[2018-05-01] MEDS: THIAMINE HCL 100 MG TAB PO SCH (09:37)
[2018-05-01 09:39] LABS: ALBUMIN 3.1 GM/DL (3.4-5.0); AST (GOT) 33 U/L (15-37); BICARBONATE 22.6 MEQ/L (21.0-32.0); BLOOD UREA NITROGEN 18 MG/DL (7-18); CALCIUM 9.1 MG/DL (8.5-10.1); CHLORIDE 103 MEQ/L (98-107); CREATININE 1.13 MG/DL (0.60-1.30); GLOMERULAR FILTRATION RATE 66 ML/MIN (>89); GLUCOSE,RANDOM 279 MG/DL (74-106); MAGNESIUM 1.9 MG/DL (1.5-2.5); SODIUM (NA) 138 MEQ/L (136-145)
[2018-05-01 09:44] LABS: ALKALINE PHOSPHATASE 104 U/L (45-117); ALT (GPT) 43 U/L (12-78); PHOSPHORUS 3.1 MG/DL (2.5-4.9); TOTAL BILIRUBIN ADULT 1.6 MG/DL (0.2-1.0); TOTAL PROTEIN 7.7 GM/DL (6.4-8.2)
[2018-05-01] MEDS ORDERED: LISI10TA3 PO (09:50)
--- NOTE | 2018-05-01 09:50 | HHI.DCPOC ---
Discharge Care Plan Diagnosis: (1) Diabetes mellitus type 2 in obese (2) Hypoglycemia associated with diabetes Goals to Promote Your Health * To prevent worsening of your condition and complications * To maintain your health at the optimal level Directions to Meet Your Goals Take your medications as prescribed Follow your dietary instruction Follow activity as directed Keep your appointments as scheduled Take your immunizations and boosters as scheduled If your symptoms worsen call your PCP, if no PCP go to Urgent Care Center or Emergency Room Smoking is Dangerous to Your Health. Avoid second hand smoke Call the 24-hour hour crisis hotline for domestic abuse at Tanika Talbot MD May 01, 2018 09:50
[2018-05-01 12:53] VITALS: BP 168/99; PULSE 84; RESP 20; TEMP 97.3; O2SAT 95
[2018-05-01 16:00] VITALS: BP 170/88; PULSE 87; RESP 20; TEMP 98.6; O2SAT 97
[2018-05-01 20:00] VITALS: BP 143/78; PULSE 86; RESP 17; TEMP 98.4; O2SAT 96
[2018-05-01] MEDS: SODIUM CHLORIDE 0.9% FLUSH 10 ML FLUSH IV FLUSH SCH (20:43)
[2018-05-02] VITALS: BP 151/80; PULSE 75; RESP 17; TEMP 98.6; O2SAT 96
[2018-05-02 04:00] VITALS: BP 161/85; PULSE 95; RESP 16; TEMP 98.7; O2SAT 96
[2018-05-02 06:00] VITALS: BP 158/78
--- NOTE | 2018-05-02 07:13 | HHI.PR ---
Subjective Remarks Patient seen and examined this morning. Blood pressure better controlled today. No complaints or concerns. Denies CP or SOB. Wants to go home. Objective Vital Signs Date Time Temp Pulse Resp B/P (MAP) Pulse Ox O2 Delivery O2 Flow Rate FiO2 05/02/18 06:00 158/78 (104) 05/02/18 04:00 98.7 95 16 161/85 (110) 96 05/02/18 00:00 98.6 75 17 151/80 (103) 96 05/02/18 00:00 Room Air 05/01/18 22:09 21 05/01/18 20:40 Room Air 05/01/18 20:00 98.4 86 17 143/78 (99) 96 05/01/18 16:00 98.6 87 20 170/88 (115) 97 05/01/18 15:25 21 05/01/18 12:53 97.3 84 20 168/99 (122) 95 05/01/18 08:00 97.9 95 22 175/98 (123) 95 05/01/18 08:00 96 Room Air 2.00 21 I/O 05/01/18 05/01/18 05/01/18 05/02/18 05/02/18 05/02/18 07:00 15:00 23:00 07:00 15:00 23:00 Intake Total 720 ml Output Total 1800 ml Balance -1800 ml 720 ml Intake Oral 720 ml Output Urine Total 1800 ml # Voids 3 # Bowel Movements 0 2 Result Diagram: 05/01/18 0758 05/01/18 0758 Imaging Last Impressions Head CT 04/28/18 0000 Signed Impressions: CONCLUSION: 1. No acute intracranial abnormalities seen. 2. Mild atrophy. 3. Minimal right maxillary sinus disease. Objective Remarks GENERAL: Well-appearing, no acute distress SKIN: Warm and dry. HEAD: Normocephalic. EYES: No scleral icterus. No injection or drainage. NECK: Supple, trachea midline. No JVD or lymphadenopathy. CARDIOVASCULAR: Regular rate and rhythm without murmurs, gallops, or rubs. RESPIRATORY: Breath sounds equal bilaterally. No accessory muscle use. GASTROINTESTINAL: Abdomen soft, non-tender, nondistended. MUSCULOSKELETAL: No cyanosis, or edema. A/P Problem List: (1) Diabetes mellitus type 2 in obese ICD Code: E11.9 - Diabetes mellitus type 2 in obese; E66.9 - Obesity, unspecified Status: Chronic (2) Coronary artery disease ICD Code: I25.10 - Coronary artery disease Status: Chronic (3) Acute encephalopathy ICD Code: G93.40 - Encephalopathy, unspecified Status: Acute (4) Benign hypertension ICD Code: I10 - Benign hypertension Status: Acute Assessment and Plan In summary this is a 62-year-old male patient with a medical history significant for diabetes and CAD presented to the [place] ED with altered mental status. Apparently the patient's friend called 911 the patient became unresponsive. Paramedics found him seated in a front seat of a car behind the steering well at a gas station. Apparently the patient had an elevated blood glucose and his friend gave him 70 units of insulin. When paramedics arrived at the scene his Accu-Chek was 69, and then 59 upon arrival to the ED. Blood sugars have stabilized. BP was persistently elevated, but home medications were adjusted and BP was better controlled. Metabolic encephalopathy, hypoglycemia, opioid abuse Narcotic cessation instructions given Hold all diabetes medications Watch glucose closely--supplemental sliding scale. Home glipizide on hold, may resume upon D/C. Hypernatremia Status post fluid replacement with D5W 1 L Hypokalemia Currently stable Hypertension Continue amlodipine 10 mg daily and metoprolol 25 mg twice daily BP better controlled with the addition of lisinopril 10 mg daily DVT prophylaxis Discharge Planning D/C home today Tanika Talbot MD May 02, 2018 07:13
[2018-05-02 08:00] VITALS: BP 164/102; PULSE 103; RESP 22; TEMP 97.9; O2SAT 97
[2018-05-02] MEDS: INSULIN ASPART SUPPLEMENTAL SCALE SQ SCH (08:00)
--- NOTE | 2018-05-02 08:50 | HHI.DS ---
Discharge Summary Admission Date Apr 28, 2018 at 15:14 Discharge Date: May 02, 2018 Admitting Diagnosis acute encephalopathy,narcotic overdose,hypoglycemia CBC/BMP: 05/01/18 0758 05/01/18 0758 Significant Findings Laboratory Tests Test 04/30/18 05:47 05/01/18 07:58 Monocytes (%) (Auto) 12.0 % (0.0-8.0) 9.1 % (0.0-8.0) Blood Urea Nitrogen 20 MG/DL (7-18) Random Glucose 260 MG/DL (74-106) 279 MG/DL (74-106) Albumin 3.0 GM/DL (3.4-5.0) 3.1 GM/DL (3.4-5.0) Total Bilirubin 2.1 MG/DL (0.2-1.0) 1.6 MG/DL (0.2-1.0) Estimat Glomerular Filtration Rate 56 ML/MIN (>89) 66 ML/MIN (>89) Hemoglobin A1c 9.9 % (4.3-6.0) PE at Discharge GENERAL: Well-appearing, no acute distress SKIN: Warm and dry. HEAD: Normocephalic. EYES: No scleral icterus. No injection or drainage. NECK: Supple, trachea midline. No JVD or lymphadenopathy. CARDIOVASCULAR: Regular rate and rhythm without murmurs, gallops, or rubs. RESPIRATORY: Breath sounds equal bilaterally. No accessory muscle use. GASTROINTESTINAL: Abdomen soft, non-tender, nondistended. MUSCULOSKELETAL: No cyanosis, or edema. Hospital Course In summary this is a 62-year-old male patient with a medical history significant for diabetes and CAD presented to the [place] ED with altered mental status. Apparently the patient's friend called 911 the patient became unresponsive. Paramedics found him seated in a front seat of a car behind the steering well at a gas station. Apparently the patient had an elevated blood glucose and his friend gave him 70 units of insulin. When paramedics arrived at the scene his Accu-Chek was 69, and then 59 upon arrival to the ED. Blood sugars have stabilized. BP was persistently elevated, but home medications were adjusted and BP was better controlled. Pt Condition on Discharge: Stable Discharge Disposition: Discharge Home Discharge Instructions DIET: Follow Instructions for: Diabetic Diet Activities you can perform: Weight Bearing as Subhash Follow up Referrals: PCP Follow-up - 1 Week New Medications: Lisinopril (Lisinopril) 10 Mg Tab 10 MG PO DAILY for blood pressure, #30 TAB Continued Medications: Amlodipine (Amlodipine) 10 Mg Tab 10 MG PO BID for Blood Pressure Management, #30 TAB 0 Refills Glipizide (Glipizide) 10 Mg Tab 20 MG PO BIDAC for Blood Sugar Management, #60 TAB 0 Refills Take 30 minutes before a meal Metoprolol Tartrate (Metoprolol Tartrate) 25 Mg Tab 25 MG PO BID, #60 TAB 0 Refills Sildenafil (Viagra) 50 Mg Tab 50 MG PO DAILY PRN for ERECTILE DYSFUNCTION, TAB 0 Refills Simvastatin (Simvastatin) 20 Mg Tab 20 MG PO DAILY for Cholesterol Management, #30 TAB 0 Refills Trazodone (Trazodone) 50 Mg Tab 100 MG PO HS PRN for INSOMNIA, #30 TAB 0 Refills Tanika Talbot MD May 02, 2018 08:50
[2018-05-02] MEDS: PRAVASTATIN SOD 40 MG TAB PO SCH (10:31)
[2018-05-02] MEDS: METOPROLOL TARTRATE 25 MG TAB PO SCH (10:31)
[2018-05-02] MEDS: THIAMINE HCL 100 MG TAB PO SCH (10:31)
[2018-05-02] MEDS: FOLIC ACID 1 MG TAB PO SCH (10:31)
[2018-05-02] MEDS: LISINOPRIL 10 MG TAB PO SCH (10:31)
[2018-05-02] MEDS: MULTIVITAMIN TAB PO SCH (10:31)
[2018-05-02 12:00] VITALS: BP 143/76; PULSE 83; RESP 20; TEMP 98; O2SAT 97
== END 2018-05-02 13:46 | disposition home or self-care (01) | DRG 637 ==
LOC: NEPC 11:25 → NEDA 15:14 → N04A 19:39
PROVIDERS: ADMIT Family Medicine; ATTEND Family Medicine
DX: E11.649 Type 2 diabetes mellitus with hypoglycemia without coma (principal); G93.41 Metabolic encephalopathy; E87.0 Hyperosmolality and hypernatremia; I10 Essential (primary) hypertension; E66.9 Obesity, unspecified; T40.601A Poisoning by unspecified narcotics, accidental (unintentional), initial encounter; F11.10 Opioid abuse, uncomplicated; E87.6 Hypokalemia; R31.9 Hematuria, unspecified; I25.10 Atherosclerotic heart disease of native coronary artery without angina pectoris; B19.20 Unspecified viral hepatitis C without hepatic coma; N40.0 Benign prostatic hyperplasia without lower urinary tract symptoms; Z68.38 Body mass index [BMI] 38.0-38.9, adult; Z95.5 Presence of coronary angioplasty implant and graft; Z87.442 Personal history of urinary calculi; Z85.820 Personal history of malignant melanoma of skin; Z79.82 Long term (current) use of aspirin; Z86.14 Personal history of Methicillin resistant Staphylococcus aureus infection; Z59.0 Homelessness; Z79.899 Other long term (current) drug therapy
CPT/HCPCS: 70450; 80053; 80307; 82947; 82948; 83036; 83735; 84100; 84439; 84443; 85025; 93005; 96374; J1815; J3480; J7070

== ENCOUNTER 2018-05-15 17:32 | Inpatient (IN) ==
--- NOTE | 2018-05-15 19:19 | XR ---
EXAM DATE: 05/15/2018 6:53 PM EDT AGE/SEX: 62 years / Male INDICATIONS: Chest pain. CLINICAL DATA: This is the patient's initial encounter. Patient reports that signs and symptoms have been present for 2 days and indicates a pain score of 3/10. MEDICAL/SURGICAL HISTORY: None. CABG. COMPARISON: [facility] [place], CHEST SINGLE AP, 03/30/2018. . FINDINGS: A single AP view of the chest demonstrates the lungs to be symmetrically aerated without evidence of mass, infiltrate or effusion. Mild basilar atelectasis. The cardiomediastinal contours are unremarkab le. Osseous structures are intact. CONCLUSION: Mild basilar atelectasis. Elevated right hemidiaphragm. No effusion. Previous sternotomy. Electronically signed by: Orlando Valerio MD 05/15/2018 7:18 PM EDT
[2018-05-15 19:30] LABS: Baso % (Auto) 0.6 % (0.0-2.0); Eos # (Auto) 0.1 th/mm3 (0.0-0.4); Eos % (Auto) 1.7 % (0.0-4.0); Hematocrit 41.1 % (39.0-51.0); Lymph # (Auto) 1.9 th/mm3 (1.0-4.8); Lymph % (Auto) 33.1 % (9.0-44.0); Mean Corpuscular HGB Conc 34.1 % (32.0-36.0); Mean Corpuscular Hemoglobin 29.4 pg (27.0-34.0); Mean Corpuscular Volume 86.2 fL (80.0-100.0); Mean Platelet Volume 9.1 fL (7.0-11.0); Mono # (Auto) 0.7 th/mm3 (0.0-0.9); Mono % (Auto) 11.7 % (0.0-8.0); Neut # (Auto) 3.1 th/mm3 (1.8-7.7); Neut % (Auto) 52.9 % (16.0-70.0); Platelet Count 175 th/mm3 (150-450); Red Blood Count 4.77 mil/mm3 (4.50-5.90); Red Cell Distribution Width 13.2 % (11.6-17.2); White Blood Count 5.9 th/mm3 (4.0-11.0)
[2018-05-15 19:33] LABS: Activated Partial Thrombo Time 26.1 sec (24.3-30.1); Prothrombin Time 10.5 sec (9.8-11.6)
[2018-05-15 19:38] LABS: Amphetamine Screen,Urine Neg (Neg); Barbiturate Screen,Urine Neg (Neg); Cannabinoid Screen,Urine Neg (Neg); Cocaine Screen,Urine Neg (Neg)
[2018-05-15 19:40] LABS: Opiate Screen,Urine Neg (Neg)
[2018-05-15 19:45] LABS: Bilirubin,Urine Negative (Negative); Clarity,Urine Clear (Clear); Color,Urine Straw (Yellw/Straw); Glucose,Urine (UA) 500 or Greater mg/dL (Negative); Leukocyte Esterase,Urine Negative (Negative); Nitrite,Urine Negative (Negative); Specific Gravity,Urine 1.026 (1.002-1.035)
[2018-05-15 19:57] LABS: Alanine Aminotransferase 78 U/L (12-78); Anion Gap 13 meq/L (5-15); Aspartate Aminotransferase 66 U/L (15-37); Blood Urea Nitrogen 28 mg/dL (7-18); Calcium 8.8 mg/dL (8.5-10.1); Carbon Dioxide 20.5 meq/L (21.0-32.0); Chloride 100 meq/L (98-107); Glomerular Filtration Rate 45 mL/min (>89); Sodium 133 meq/L (136-145); Total Protein 7.3 g/dL (6.4-8.2)
[2018-05-15 19:58] LABS: Potassium 5.1 meq/L (3.5-5.1)
[2018-05-15 20:01] LABS: Glucose,Random 547 mg/dL (74-106)
[2018-05-15] MEDS ORDERED: Sod Chloride 0.9% Inj 1,000 ML IV.SIG ONE ×2 (20:06)
[2018-05-15 20:21] LABS: Alkaline Phosphatase 102 U/L (45-117); Creatine Kinase 118 U/L (39-308)
[2018-05-15 20:55] LABS: Creatine Kinase MB 2.7 ng/mL (0.5-3.6)
[2018-05-15 21:30] LABS: ABG Base Excess -8.6 mmol/L (-2-2); ABG PCO2 29 mmHg (38-42); ABG PO2 38 mmHg (61-120)
--- NOTE | 2018-05-15 22:18 | ED ---
HPI General Chief Complaint: Chest Pain Stated Complaint: Chest Pain,Sob Time Seen by Provider: 05/15/18 20:00 History of Present Illness HPI narrative: Patient is a 62-year-old male presents the emergency department with chest pain which started late yesterday. It is worsened throughout the course of the day which brought him to the emergency department this evening. No prior history of chest pain or cardiac disease. Patient is also diabetic and states that he is compliant with medications. Non smoker. Complete Quality Measures for STEMI Alert Patients Related Data Home Medications Medication Instructions Recorded Confirmed amlodipine [Norvasc] 10 mg PO DAILY 05/15/18 05/15/18 duloxetine 60 mg PO BID 05/15/18 05/15/18 fluticasone [Flonase Allergy 1 spray INTRANASAL DAILY PRN 05/15/18 05/15/18 Relief] glipizide 10 mg PO BID 05/15/18 05/15/18 insulin NPH and regular human 95 units SUB-Q BID 05/15/18 05/15/18 [Novolin 70/30 U-100 Insulin] lisinopril 20 mg PO DAILY 05/15/18 05/15/18 metformin 850 mg PO BID 05/15/18 05/15/18 metoprolol tartrate 25 mg PO BID 05/15/18 05/15/18 Allergies Allergy/AdvReac Type Severity Reaction Status Date / Time Sulfa (Sulfonamide Allergy Severe ANAPHYLACTIC Verified 04/28/18 11:34 Antibiotics) REACTION sulfamethoxazole Allergy Severe ANAPHYLACTI Verified 04/28/18 11:34 C trimethoprim Allergy Severe ANAPHYLACTI Verified 04/28/18 11:34 C Review of Systems Except as stated in HPI: all other systems reviewed are negative Cardiovascular Reports chest pain, Reports chest pain at rest, Denies diaphoresis, Denies syncope, Denies edema and Denies dyspnea [facility] Medical History Medical History Coronary artery disease (Acute) Depression (Acute) Diabetes (Acute) Diabetic nephropathy (Acute) HLD (hyperlipidemia) (Acute) Hypertension (Acute) Osteoarthritis (Acute) Surgical History Surgical History Hx of cholecystectomy (Acute) S/P CABG x 6 (Acute) Family History Family History Other CAD (coronary artery disease) Diabetes mellitus Social History Social History Substance History: Past History Second Hand Smoke Exposure: No Smoking Status: Never smoker How Often Do You Have a Drink Containing Alcohol: Never Recent Travel in [facility] within the Last 8 Weeks: No Recent Out of Country Travel within the Last 8 Weeks: No Immunization History Tetanus Immunization: <5 Years Hx Influenza Vaccine This Season: No Exam Narrative Exam Narrative: GENERAL: Nontoxic-appearing 62-year-old male in mild distress secondary to pain SKIN: Focused skin assessment warm/dry. HEAD: Atraumatic. Normocephalic. EYES: Pupils equal and round. No scleral icterus. No injection or drainage. ENT: No nasal bleeding or discharge. Mucous membranes pink and moist. NECK: Trachea midline. No JVD. CARDIOVASCULAR: Regular rate and rhythm. No murmur appreciated. RESPIRATORY: No accessory muscle use. Clear to auscultation. Breath sounds equal bilaterally. GASTROINTESTINAL: Abdomen soft, non-tender, nondistended. Hepatic and splenic margins not palpable. MUSCULOSKELETAL: No obvious deformities. No clubbing. No cyanosis. No edema. NEUROLOGICAL: Awake and alert. No obvious cranial nerve deficits. Motor grossly within normal limits. Normal speech. PSYCHIATRIC: Appropriate mood and affect; insight and judgment normal. Course Initial Documented Vital Signs Temperature 97.7 F 05/15/18 17:36 Pulse Rate 113 H 05/15/18 17:36 Respiratory Rate 24 05/15/18 17:36 Blood Pressure 151/86 H 05/15/18 17:36 Pulse Oximetry 97 05/15/18 17:36 Last Documented Vital Signs Temperature 97.8 F 05/16/18 12:00 Pulse Rate 86 05/16/18 12:00 Respiratory Rate 18 05/16/18 12:00 Blood Pressure 159/87 H 05/16/18 12:00 Pulse Oximetry 94 L 05/16/18 12:00 Medical Decision Making [facility] Narrative Medical decision making narrative: Patient was seen and evaluated in the emergency department. Was found to have a glucose greater than 500. He is not DKA this is simply hyper glycemic state in a diabetic. He was admitted for further observation and treatment for both his hyperglycemia and his chest pain. Lab Data Result diagrams: 05/16/18 06:50 05/16/18 06:50 Lab Results 05/15/18 05/15/18 05/15/18 Range/Units 18:30 18:30 18:50 WBC 5.9 (4.0-11.0) th/mm3 RBC 4.77 (4.50-5.90) mil/mm3 Hgb 14.0 (13.0-17.0) gm/dL Hct 41.1 (39.0-51.0) % MCV 86.2 (80.0-100.0) fL MCH 29.4 (27.0-34.0) pg MCHC 34.1 (32.0-36.0) % RDW 13.2 (11.6-17.2) % Plt Count 175 (150-450) th/mm3 MPV 9.1 (7.0-11.0) fL Neut % (Auto) 52.9 (16.0-70.0) % Lymph % (Auto) 33.1 (9.0-44.0) % [place] % (Auto) 11.7 H (0.0-8.0) % Eos % (Auto) 1.7 (0.0-4.0) % Baso % (Auto) 0.6 (0.0-2.0) % Neut # (Auto) 3.1 (1.8-7.7) th/mm3 Lymph # (Auto) 1.9 (1.0-4.8) th/mm3 [place] # (Auto) 0.7 (0.0-0.9) th/mm3 Eos # (Auto) 0.1 (0.0-0.4) th/mm3 Baso # (Auto) 0.0 (0.0-0.2) th/mm3 WBC Differential . Differential Comment Auto diff final PT (9.8-11.6) sec INR Ratio APTT (24.3-30.1) sec Puncture Site Patient Temperature O2 Saturation (90-100) % ABG pH (7.380-7.420) ABG pCO2 (38-42) mmHg ABG pO2 (61-120) mmHg ABG HCO3 (22-26) mmol/L ABG O2 Content (12.0-20.0) Vol % ABG Base Excess (-2-2) mmol/L ABG Methemoglobin (0-2) % [place] Test Hemoglobin (12.0-16.0) G/DL Carboxyhemoglobin (0-4) % O2 Delivery Device Inspired O2 % Critical Value Sodium 133 L (136-145) meq/L Potassium 5.1 (3.5-5.1) meq/L Chloride 100 (98-107) meq/L Carbon Dioxide 20.5 L (21.0-32.0) meq/L Anion Gap 13 (5-15) meq/L BUN 28 H (7-18) mg/dL Creatinine 1.56 H (0.60-1.30) mg/dL Estimated GFR 45 L (>89) mL/min POC Glucose (68-110) mg/dl Random Glucose 547 H* (74-106) mg/dL Calcium 8.8 (8.5-10.1) mg/dL Total Bilirubin 1.0 (0.2-1.0) mg/dL AST 66 H (15-37) U/L ALT 78 (12-78) U/L Alkaline Phosphatase 102 (45-117) U/L Total Creatine Kinase 118 (39-308) U/L CK-MB (CK-2) 2.7 (0.5-3.6) ng/mL Troponin I Less than 0.02 L (0.02-0.05) ng/mL B-Natriuretic Peptide (0-100) pg/mL Total Protein 7.3 (6.4-8.2) g/dL Albumin 3.0 L (3.4-5.0) g/dL Beta-Hydroxybutyric Acd 0.16 (0.00-0.39) mmol/L Urine Color (Yellw/Straw) Urine Clarity (Clear) Urine pH (5.0-8.5) Ur Specific [place] (1.002-1.035) Urine Protein (Neg-Trace) mg/dL Urine Glucose (UA) (Negative) mg/dL Urine Ketones (Negative) mg/dL Urine Occult Blood (Negative) Urine Nitrate (Negative) Urine Bilirubin (Negative) Urine Urobilinogen (Less than 2) mg/dL Ur Leukocyte Esterase (Negative) Urine RBC (0-3) /hpf Urine WBC (0-5) /hpf Micro UA Comment Urine Culture Comments Urine Opiates Screen (Neg) Ur Barbiturates Screen (Neg) Ur Amphetamines Screen (Neg) U Benzodiazepines Scrn (Neg) Urine Cocaine Screen (Neg) U Cannabinoids Screen (Neg) Serum Alcohol Less than 3 (0-5) mg/dL 05/15/18 05/15/18 05/15/18 Range/Units 18:50 18:50 19:08 WBC (4.0-11.0) th/mm3 RBC (4.50-5.90) mil/mm3 Hgb (13.0-17.0) gm/dL Hct (39.0-51.0) % MCV (80.0-100.0) fL MCH (27.0-34.0) pg MCHC (32.0-36.0) % RDW (11.6-17.2) % Plt Count (150-450) th/mm3 MPV (7.0-11.0) fL Neut % (Auto) (16.0-70.0) % Lymph % (Auto) (9.0-44.0) % [place] % (Auto) (0.0-8.0) % Eos % (Auto) (0.0-4.0) % Baso % (Auto) (0.0-2.0) % Neut # (Auto) (1.8-7.7) th/mm3 Lymph # (Auto) (1.0-4.8) th/mm3 [place] # (Auto) (0.0-0.9) th/mm3 Eos # (Auto) (0.0-0.4) th/mm3 Baso # (Auto) (0.0-0.2) th/mm3 WBC Differential Differential Comment PT 10.5 (9.8-11.6) sec INR 1.0 Ratio APTT 26.1 (24.3-30.1) sec Puncture Site Patient Temperature O2 Saturation (90-100) % ABG pH (7.380-7.420) ABG pCO2 (38-42) mmHg ABG pO2 (61-120) mmHg ABG HCO3 (22-26) mmol/L ABG O2 Content (12.0-20.0) Vol % ABG Base Excess (-2-2) mmol/L ABG Methemoglobin (0-2) % [place] Test Hemoglobin (12.0-16.0) G/DL Carboxyhemoglobin (0-4) % O2 Delivery Device Inspired O2 % Critical Value Sodium (136-145) meq/L Potassium (3.5-5.1) meq/L Chloride (98-107) meq/L Carbon Dioxide (21.0-32.0) meq/L Anion Gap (5-15) meq/L BUN (7-18) mg/dL Creatinine (0.60-1.30) mg/dL Estimated GFR (>89) mL/min POC Glucose (68-110) mg/dl Random Glucose (74-106) mg/dL Calcium (8.5-10.1) mg/dL Total Bilirubin (0.2-1.0) mg/dL AST (15-37) U/L ALT (12-78) U/L Alkaline Phosphatase (45-117) U/L Total Creatine Kinase (39-308) U/L CK-MB (CK-2) (0.5-3.6) ng/mL Troponin I (0.02-0.05) ng/mL B-Natriuretic Peptide 25 (0-100) pg/mL Total Protein (6.4-8.2) g/dL Albumin (3.4-5.0) g/dL Beta-Hydroxybutyric Acd (0.00-0.39) mmol/L Urine Color (Yellw/Straw) Urine Clarity (Clear) Urine pH (5.0-8.5) Ur Specific [place] (1.002-1.035) Urine Protein (Neg-Trace) mg/dL Urine Glucose (UA) (Negative) mg/dL Urine Ketones (Negative) mg/dL Urine Occult Blood (Negative) Urine Nitrate (Negative) Urine Bilirubin (Negative) Urine Urobilinogen (Less than 2) mg/dL Ur Leukocyte Esterase (Negative) Urine RBC (0-3) /hpf Urine WBC (0-5) /hpf Micro UA Comment Urine Culture Comments Urine Opiates Screen Neg (Neg) Ur Barbiturates Screen Neg (Neg) Ur Amphetamines Screen Neg (Neg) U Benzodiazepines Scrn Neg (Neg) Urine Cocaine Screen Neg (Neg) U Cannabinoids Screen Neg (Neg) Serum Alcohol (0-5) mg/dL 05/15/18 05/15/18 05/15/18 Range/Units 19:08 21:10 22:55 WBC (4.0-11.0) th/mm3 RBC (4.50-5.90) mil/mm3 Hgb (13.0-17.0) gm/dL Hct (39.0-51.0) % MCV (80.0-100.0) fL MCH (27.0-34.0) pg MCHC (32.0-36.0) % RDW (11.6-17.2) % Plt Count (150-450) th/mm3 MPV (7.0-11.0) fL Neut % (Auto) (16.0-70.0) % Lymph % (Auto) (9.0-44.0) % [place] % (Auto) (0.0-8.0) % Eos % (Auto) (0.0-4.0) % Baso % (Auto) (0.0-2.0) % Neut # (Auto) (1.8-7.7) th/mm3 Lymph # (Auto) (1.0-4.8) th/mm3 [place] # (Auto) (0.0-0.9) th/mm3 Eos # (Auto) (0.0-0.4) th/mm3 Baso # (Auto) (0.0-0.2) th/mm3 WBC Differential Differential Comment PT (9.8-11.6) sec INR Ratio APTT (24.3-30.1) sec Puncture Site Right radial Patient Temperature 98.6 O2 Saturation 67 L* (90-100) % ABG pH 7.36 L (7.380-7.420) ABG pCO2 29 L (38-42) mmHg ABG pO2 38 L* (61-120) mmHg ABG HCO3 16 L* (22-26) mmol/L ABG O2 Content 8.6 L (12.0-20.0) Vol % ABG Base Excess -8.6 L (-2-2) mmol/L ABG Methemoglobin 0.5 (0-2) % [place] Test Present Hemoglobin 9.2 L (12.0-16.0) G/DL Carboxyhemoglobin 1.3 (0-4) % O2 Delivery Device Room air Inspired O2 21 % Critical Value Yes Sodium (136-145) meq/L Potassium (3.5-5.1) meq/L Chloride (98-107) meq/L Carbon Dioxide (21.0-32.0) meq/L Anion Gap (5-15) meq/L BUN (7-18) mg/dL Creatinine (0.60-1.30) mg/dL Estimated GFR (>89) mL/min POC Glucose 342 H (68-110) mg/dl Random Glucose (74-106) mg/dL Calcium (8.5-10.1) mg/dL Total Bilirubin (0.2-1.0) mg/dL AST (15-37) U/L ALT (12-78) U/L Alkaline Phosphatase (45-117) U/L Total Creatine Kinase (39-308) U/L CK-MB (CK-2) (0.5-3.6) ng/mL Troponin I (0.02-0.05) ng/mL B-Natriuretic Peptide (0-100) pg/mL Total Protein (6.4-8.2) g/dL Albumin (3.4-5.0) g/dL Beta-Hydroxybutyric Acd (0.00-0.39) mmol/L Urine Color Straw (Yellw/Straw) Urine Clarity Clear (Clear) Urine pH 5.0 (5.0-8.5) Ur Specific [place] 1.026 (1.002-1.035) Urine Protein 100 H (Neg-Trace) mg/dL Urine Glucose (UA) 500 or greater (Negative) mg/dL Urine Ketones Negative (Negative) mg/dL Urine Occult Blood Moderate H (Negative) Urine Nitrate Negative (Negative) Urine Bilirubin Negative (Negative) Urine Urobilinogen Less than 2 (Less than 2) mg/dL Ur Leukocyte Esterase Negative (Negative) Urine RBC 22 H (0-3) /hpf Urine WBC 2 (0-5) /hpf Micro UA Comment Culture not ind Urine Culture Comments Culture not ind Urine Opiates Screen (Neg) Ur Barbiturates Screen (Neg) Ur Amphetamines Screen (Neg) U Benzodiazepines Scrn (Neg) Urine Cocaine Screen (Neg) U Cannabinoids Screen (Neg) Serum Alcohol (0-5) mg/dL 05/16/18 05/16/18 05/16/18 Range/Units 00:12 04:00 06:50 WBC 4.9 (4.0-11.0) th/mm3 RBC 4.63 (4.50-5.90) mil/mm3 Hgb 13.3 (13.0-17.0) gm/dL Hct 38.5 L (39.0-51.0) % MCV 83.2 (80.0-100.0) fL MCH 28.8 (27.0-34.0) pg MCHC 34.6 (32.0-36.0) % RDW 13.5 (11.6-17.2) % Plt Count 140 L (150-450) th/mm3 MPV 8.5 (7.0-11.0) fL Neut % (Auto) 46.0 (16.0-70.0) % Lymph % (Auto) 39.1 (9.0-44.0) % [place] % (Auto) 10.9 H (0.0-8.0) % Eos % (Auto) 3.4 (0.0-4.0) % Baso % (Auto) 0.6 (0.0-2.0) % Neut # (Auto) 2.2 (1.8-7.7) th/mm3 Lymph # (Auto) 1.9 (1.0-4.8) th/mm3 [place] # (Auto) 0.5 (0.0-0.9) th/mm3 Eos # (Auto) 0.2 (0.0-0.4) th/mm3 Baso # (Auto) 0.0 (0.0-0.2) th/mm3 WBC Differential . Differential Comment Auto diff final PT (9.8-11.6) sec INR Ratio APTT (24.3-30.1) sec Puncture Site Patient Temperature O2 Saturation (90-100) % ABG pH (7.380-7.420) ABG pCO2 (38-42) mmHg ABG pO2 (61-120) mmHg ABG HCO3 (22-26) mmol/L ABG O2 Content (12.0-20.0) Vol % ABG Base Excess (-2-2) mmol/L ABG Methemoglobin (0-2) % [place] Test Hemoglobin (12.0-16.0) G/DL Carboxyhemoglobin (0-4) % O2 Delivery Device Inspired O2 % Critical Value Sodium (136-145) meq/L Potassium (3.5-5.1) meq/L Chloride (98-107) meq/L Carbon Dioxide (21.0-32.0) meq/L Anion Gap (5-15) meq/L BUN (7-18) mg/dL Creatinine (0.60-1.30) mg/dL Estimated GFR (>89) mL/min POC Glucose 255 H (68-110) mg/dl Random Glucose (74-106) mg/dL Calcium (8.5-10.1) mg/dL Total Bilirubin (0.2-1.0) mg/dL AST (15-37) U/L ALT (12-78) U/L Alkaline Phosphatase (45-117) U/L Total Creatine Kinase 74 (39-308) U/L CK-MB (CK-2) (0.5-3.6) ng/mL Troponin I Less than 0.02 L (0.02-0.05) ng/mL B-Natriuretic Peptide (0-100) pg/mL Total Protein (6.4-8.2) g/dL Albumin (3.4-5.0) g/dL Beta-Hydroxybutyric Acd (0.00-0.39) mmol/L Urine Color (Yellw/Straw) Urine Clarity (Clear) Urine pH (5.0-8.5) Ur Specific [place] (1.002-1.035) Urine Protein (Neg-Trace) mg/dL Urine Glucose (UA) (Negative) mg/dL Urine Ketones (Negative) mg/dL Urine Occult Blood (Negative) Urine Nitrate (Negative) Urine Bilirubin (Negative) Urine Urobilinogen (Less than 2) mg/dL Ur Leukocyte Esterase (Negative) Urine RBC (0-3) /hpf Urine WBC (0-5) /hpf Micro UA Comment Urine Culture Comments Urine Opiates Screen (Neg) Ur Barbiturates Screen (Neg) Ur Amphetamines Screen (Neg) U Benzodiazepines Scrn (Neg) Urine Cocaine Screen (Neg) U Cannabinoids Screen (Neg) Serum Alcohol (0-5) mg/dL 05/16/18 05/16/18 05/16/18 Range/Units 06:50 08:09 11:44 WBC (4.0-11.0) th/mm3 RBC (4.50-5.90) mil/mm3 Hgb (13.0-17.0) gm/dL Hct (39.0-51.0) % MCV (80.0-100.0) fL MCH (27.0-34.0) pg MCHC (32.0-36.0) % RDW (11.6-17.2) % Plt Count (150-450) th/mm3 MPV (7.0-11.0) fL Neut % (Auto) (16.0-70.0) % Lymph % (Auto) (9.0-44.0) % [place] % (Auto) (0.0-8.0) % Eos % (Auto) (0.0-4.0) % Baso % (Auto) (0.0-2.0) % Neut # (Auto) (1.8-7.7) th/mm3 Lymph # (Auto) (1.0-4.8) th/mm3 [place] # (Auto) (0.0-0.9) th/mm3 Eos # (Auto) (0.0-0.4) th/mm3 Baso # (Auto) (0.0-0.2) th/mm3 WBC Differential Differential Comment PT (9.8-11.6) sec INR Ratio APTT (24.3-30.1) sec Puncture Site Patient Temperature O2 Saturation (90-100) % ABG pH (7.380-7.420) ABG pCO2 (38-42) mmHg ABG pO2 (61-120) mmHg ABG HCO3 (22-26) mmol/L ABG O2 Content (12.0-20.0) Vol % ABG Base Excess (-2-2) mmol/L ABG Methemoglobin (0-2) % [place] Test Hemoglobin (12.0-16.0) G/DL Carboxyhemoglobin (0-4) % O2 Delivery Device Inspired O2 % Critical Value Sodium 141 (136-145) meq/L Potassium 4.0 D (3.5-5.1) meq/L Chloride 109 H D (98-107) meq/L Carbon Dioxide 23.1 (21.0-32.0) meq/L Anion Gap 9 (5-15) meq/L BUN 18 (7-18) mg/dL Creatinine 0.95 (0.60-1.30) mg/dL Estimated GFR 80 L (>89) mL/min POC Glucose 243 H 229 H (68-110) mg/dl Random Glucose 213 H D (74-106) mg/dL Calcium 8.1 L (8.5-10.1) mg/dL Total Bilirubin (0.2-1.0) mg/dL AST (15-37) U/L ALT (12-78) U/L Alkaline Phosphatase (45-117) U/L Total Creatine Kinase 71 (39-308) U/L CK-MB (CK-2) (0.5-3.6) ng/mL Troponin I Less than 0.02 L (0.02-0.05) ng/mL B-Natriuretic Peptide (0-100) pg/mL Total Protein (6.4-8.2) g/dL Albumin (3.4-5.0) g/dL Beta-Hydroxybutyric Acd (0.00-0.39) mmol/L Urine Color (Yellw/Straw) Urine Clarity (Clear) Urine pH (5.0-8.5) Ur Specific [place] (1.002-1.035) Urine Protein (Neg-Trace) mg/dL Urine Glucose (UA) (Negative) mg/dL Urine Ketones (Negative) mg/dL Urine Occult Blood (Negative) Urine Nitrate (Negative) Urine Bilirubin (Negative) Urine Urobilinogen (Less than 2) mg/dL Ur Leukocyte Esterase (Negative) Urine RBC (0-3) /hpf Urine WBC (0-5) /hpf Micro UA Comment Urine Culture Comments Urine Opiates Screen (Neg) Ur Barbiturates Screen (Neg) Ur Amphetamines Screen (Neg) U Benzodiazepines Scrn (Neg) Urine Cocaine Screen (Neg) U Cannabinoids Screen (Neg) Serum Alcohol (0-5) mg/dL 05/16/18 Range/Units 15:56 WBC (4.0-11.0) th/mm3 RBC (4.50-5.90) mil/mm3 Hgb (13.0-17.0) gm/dL Hct (39.0-51.0) % MCV (80.0-100.0) fL MCH (27.0-34.0) pg MCHC (32.0-36.0) % RDW (11.6-17.2) % Plt Count (150-450) th/mm3 MPV (7.0-11.0) fL Neut % (Auto) (16.0-70.0) % Lymph % (Auto) (9.0-44.0) % [place] % (Auto) (0.0-8.0) % Eos % (Auto) (0.0-4.0) % Baso % (Auto) (0.0-2.0) % Neut # (Auto) (1.8-7.7) th/mm3 Lymph # (Auto) (1.0-4.8) th/mm3 [place] # (Auto) (0.0-0.9) th/mm3 Eos # (Auto) (0.0-0.4) th/mm3 Baso # (Auto) (0.0-0.2) th/mm3 WBC Differential Differential Comment PT (9.8-11.6) sec INR Ratio APTT (24.3-30.1) sec Puncture Site Patient Temperature O2 Saturation (90-100) % ABG pH (7.380-7.420) ABG pCO2 (38-42) mmHg ABG pO2 (61-120) mmHg ABG HCO3 (22-26) mmol/L ABG O2 Content (12.0-20.0) Vol % ABG Base Excess (-2-2) mmol/L ABG Methemoglobin (0-2) % [place] Test Hemoglobin (12.0-16.0) G/DL Carboxyhemoglobin (0-4) % O2 Delivery Device Inspired O2 % Critical Value Sodium (136-145) meq/L Potassium (3.5-5.1) meq/L Chloride (98-107) meq/L Carbon Dioxide (21.0-32.0) meq/L Anion Gap (5-15) meq/L BUN (7-18) mg/dL Creatinine (0.60-1.30) mg/dL Estimated GFR (>89) mL/min POC Glucose 193 H (68-110) mg/dl Random Glucose (74-106) mg/dL Calcium (8.5-10.1) mg/dL Total Bilirubin (0.2-1.0) mg/dL AST (15-37) U/L ALT (12-78) U/L Alkaline Phosphatase (45-117) U/L Total Creatine Kinase (39-308) U/L CK-MB (CK-2) (0.5-3.6) ng/mL Troponin I (0.02-0.05) ng/mL B-Natriuretic Peptide (0-100) pg/mL Total Protein (6.4-8.2) g/dL Albumin (3.4-5.0) g/dL Beta-Hydroxybutyric Acd (0.00-0.39) mmol/L Urine Color (Yellw/Straw) Urine Clarity (Clear) Urine pH (5.0-8.5) Ur Specific [place] (1.002-1.035) Urine Protein (Neg-Trace) mg/dL Urine Glucose (UA) (Negative) mg/dL Urine Ketones (Negative) mg/dL Urine Occult Blood (Negative) Urine Nitrate (Negative) Urine Bilirubin (Negative) Urine Urobilinogen (Less than 2) mg/dL Ur Leukocyte Esterase (Negative) Urine RBC (0-3) /hpf Urine WBC (0-5) /hpf Micro UA Comment Urine Culture Comments Urine Opiates Screen (Neg) Ur Barbiturates Screen (Neg) Ur Amphetamines Screen (Neg) U Benzodiazepines Scrn (Neg) Urine Cocaine Screen (Neg) U Cannabinoids Screen (Neg) Serum Alcohol (0-5) mg/dL Imaging Data Radiologist's impression: ITS Impressions Chest X-Ray 05/15/18 18:26 CONCLUSION: Mild basilar atelectasis. Elevated right hemidiaphragm. No effusion. Previous sternotomy. Myocardial Perfusion Scan Nuc Med 05/16/18 00:00 CONCLUSION: 1. Negative examination. Discharge Plan Discharge Disposition Patient Disposition: 30 Still Patient Discharge Condition Condition: Stable Physicians Team ED Provider: Sera Perry Primary Care Provider: Papo James V Attending Provider: Jeffery Peraza Other Providers: Jeffery Pope Status ED Status: Left Department Discharge Information Discharge Date/Time: 05/16/18 00:33
--- NOTE | 2018-05-15 23:10 | ECG ---
Date Performed: 05/15/2018 Time Performed: 17:43:47 PTAGE: 62 years EKG: SINUS TACHYCARDIA RIGHT BUNDLE BRANCH BLOCK ABNORMAL ECG PREVIOUS TRACING : 04/28/2018 11.37 No significant change from previous tracing noted. DOCTOR: Avni Blair Interpretating Date/Time 05/15/2018 23:09:00
[2018-05-15] MEDS ORDERED: Acetaminophen 325 MG Tablet PO PRN (23:45)
[2018-05-15] MEDS ORDERED: Temazepam 15 MG Capsule PO PRN (23:45)
[2018-05-15] MEDS ORDERED: Bisacodyl 10 MG Supp RECTAL PRN (23:45)
[2018-05-15] MEDS ORDERED: Dextrose 50% in Water 50 ML Vial IV.PUSH PRN (23:48)
[2018-05-16] MEDS: Sod Chloride 0.9% Inj 1,000 ML IV.CONT SCH (00:03)
[2018-05-16] MEDS: Heparin - SQ 10,000 UNITS/ML Vial SQ SCH ×3 (00:03→15:56)
[2018-05-16] MEDS: Morphine Inj 4 MG/ML Vial IV.PUSH PRN ×4 (00:04→12:51)
[2018-05-16 01:25] LABS: Creatine Kinase 74 U/L (39-308)
[2018-05-16] MEDS: Insulin NovoLOG Aspart Correctional Sugar Inj SQ SCH ×5 (04:27→21:19)
--- NOTE | 2018-05-16 05:19 | P.HP ---
History of Present Illness Service: [facility] Primary Care Physician: Papo James MD Chief Complaint: Chest pain History of Present Illness: 62-year-old male with a past medical history significant for diabetes mellitus, hypertension, hyperlipidemia, coronary artery disease, osteoarthritis, diabetic neuropathy and depression presents the emergency department for the evaluation of chest pain. The patient reports that yesterday he started to have a sharp substernal intermittent chest pain that radiated to his right arm. He states that the pain would subside but then returned. He came to the emergency department for further evaluation. Additionally, the patient states he has had increased depression over the last couple of days. He states he has been out of his and Cymbalta for the past 2 weeks and has had thoughts of suicide. He reports that he is homeless and is having difficulty regulating his meals and his insulin. Blood sugar on arrival was over 600. The patient reports that he only took a half dose of his insulin this morning because his blood glucose was 150. The patient denies any episodes of diaphoresis or shortness of breath. No abdominal pain. No nausea/vomiting/diarrhea. No weakness. No lateralizing signs/symptoms. No fever/chills. Inpatient Certification: I certify that the inpatient services were ordered in accordance with Medicare regulations governing the order. This includes certification that hospital inpatient services are reasonable and necessary and in the case of services not specified as inpatient-only under 42 CFR 419.22(n), that they are appropriately provided as inpatient services in accordance to with the 2-midnight benchmark under 43 CFR 412.3(e) Estimated Total Length of Stay (Days): 2 Plans for Post Hospital Care: Not yet determined Review of Systems All other systems reviewed negative except as stated in HPI [facility] - History History Provided By: Patient - Medical History Medical History: Medical History (Last Updated 05/16/18 @ 05:07 by Charlee Mendez MD) Coronary artery disease Depression Diabetes Diabetic nephropathy HLD (hyperlipidemia) Hypertension Osteoarthritis - Surgical History Surgical History: Surgical History (Last Updated 05/16/18 @ 05:07 by Charlee Mendez MD) Hx of cholecystectomy S/P CABG x 6 - Family History Family History: Family History (Last Updated 05/16/18 @ 05:08 by Charlee Mendez MD) Other CAD (coronary artery disease) Diabetes mellitus - Tobacco History Second Hand Smoke Exposure: No Tobacco Use In Past 30 Days: No Smoking Status: Never smoker - Alcohol History How Often Do You Have a Drink Containing Alcohol: Never - Substance Use History Substance History: Past History - 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 Used: Intravenously Comment: 1 year ago - Travel History Recent Travel in the [place] Within the Last 8 Weeks: No Recent Travel Out of the Country Within the Last 8 Weeks: No - Immunization History Tetanus Immunization: <5 Years Hx Influenza Vaccine This Season: Yes Medications and Allergies Active Medications: Active Medications Acetaminophen (Tylenol) 650 mg PO Q4H PRN PRN Reason: Temp > 100.4 Al Hydroxide/Mg Hydroxide (Milk Of Magnesia Liq) 30 ml PO Q12H PRN PRN Reason: Mild Constipation Amlodipine Besylate (Norvasc) 10 mg PO DAILY [facility] Bisacodyl (Dulcolax Supp) 10 mg RECTAL DAILY PRN PRN Reason: SEVERE CONSITIPATION Dextrose (D50w Vial) 50 ml IV.PUSH UNSCH PRN PRN Reason: PER HYPOGLYCEMIA PROTOCOL Duloxetine HCl (Cymbalta) 60 mg PO BID [facility] Glucagon (Glucagon Inj) 1 mg OTHER PRN PRN PRN Reason: for Hypoglycemia Protocol Heparin Sodium (Porcine) (Heparin Inj) 5,000 units SQ Q8H [facility] Last Admin: 05/16/18 00:03 Dose: 5,000 units Sodium Chloride (Ns Inj) 1,000 mls @ 100 mls/hr IV.CONT .Q10H [facility] Last Admin: 05/16/18 00:03 Dose: 100 mls/hr Insulin Aspart (Novolog Insulin Suppl Scale Inj) 0 unit SQ ACHS AND 3AM [facility]; Protocol Last Admin: 05/16/18 04:27 Dose: 7 unit Lactulose (Lactulose Liq) 30 ml PO DAILY PRN PRN Reason: SEVERE CONSITIPATION Lisinopril (Prinivil) 20 mg PO DAILY [facility] Metoprolol Tartrate (Lopressor) 25 mg PO BID [facility] Morphine Sulfate (Morphine Inj) 4 mg IV.PUSH Q4H PRN PRN Reason: pain 6-10 Last Admin: 05/16/18 04:25 Dose: 4 mg Ondansetron HCl (Zofran Inj) 4 mg IV.PUSH Q6H PRN PRN Reason: NAUSEA OR VOMITING Senna/Docusate Sodium (Jennifer-Colace) 1 tab PO BID [facility] Sennosides (Senokot) 17.2 mg PO Q12H PRN PRN Reason: Moderate Constipation Sodium Chloride (Ns Flush) 2 ml IV.FLUSH UNSCH PRN PRN Reason: FLUSH AFTER USING IV ACCESS Temazepam (Restoril) 15 mg PO HS PRN PRN Reason: INSOMNIA Allergies Allergy/AdvReac Type Severity Reaction Status Date / Time Sulfa (Sulfonamide Allergy Severe ANAPHYLACTIC Verified 04/28/18 11:34 Antibiotics) REACTION sulfamethoxazole Allergy Severe ANAPHYLACTI Verified 04/28/18 11:34 C trimethoprim Allergy Severe ANAPHYLACTI Verified 04/28/18 11:34 C Home Medications Medication Instructions Recorded Confirmed Type amlodipine [Norvasc] 10 mg PO DAILY 05/15/18 05/15/18 History duloxetine 60 mg PO BID 05/15/18 05/15/18 History fluticasone [Flonase Allergy 1 spray INTRANASAL DAILY PRN 05/15/18 05/15/18 History Relief] glipizide 10 mg PO BID 05/15/18 05/15/18 History insulin NPH and regular human 95 units SUB-Q BID 05/15/18 05/15/18 History [Novolin 70/30 U-100 Insulin] lisinopril 20 mg PO DAILY 05/15/18 05/15/18 History metformin 850 mg PO BID 05/15/18 05/15/18 History metoprolol tartrate 25 mg PO BID 05/15/18 05/15/18 History Exam Vital signs: Vital Signs 05/15/18 17:36 05/15/18 18:55 05/15/18 20:55 Temperature 97.7 F Pulse Rate 113 H 105 H 100 H Respiratory Rate 24 18 18 Blood Pressure 151/86 H 150/86 H 158/86 H Pulse Oximetry 97 98 96 05/15/18 23:49 05/16/18 01:05 Temperature 97.5 F L Pulse Rate 102 H 97 H Respiratory Rate 18 20 Blood Pressure 133/75 156/81 H Pulse Oximetry 96 Intake & Output 05/15/18 05/15/18 05/16/18 06:59 18:59 06:59 Weight 112 kg 111.5 kg Other: Weight On Admission 111.5 kg Narrative: Gen.: No acute distress Head: Normocephalic. Atraumatic. EENT: Pupils equal round and reactive to light. Nose without drainage. Airway intact. Throat without injection. Cardiovascular: Regular rate and rhythm. No murmurs, rubs or gallops. Respiratory: Lungs clear to auscultation bilaterally. No wheezes or rhonchi. Abdomen: Soft, nontender, nondistended. No peritoneal signs. Musculoskeletal: No gross deformities. No edema. Skin: No obvious rashes or erythema. Neuro: Sensory and motor grossly intact. Cranial nerves II through XII grossly intact. Psych: Depressed mood Results - Labs CBC & Chem 7: 05/15/18 18:50 05/15/18 18:30 Labs: Laboratory Results - last 24 hr 05/15/18 05/15/18 05/15/18 18:30 18:30 18:50 WBC 5.9 RBC 4.77 Hgb 14.0 Hct 41.1 MCV 86.2 MCH 29.4 MCHC 34.1 RDW 13.2 Plt Count 175 MPV 9.1 Neut % (Auto) 52.9 Lymph % (Auto) 33.1 Mcdonald % (Auto) 11.7 H Eos % (Auto) 1.7 Baso % (Auto) 0.6 Neut # (Auto) 3.1 Lymph # (Auto) 1.9 Mcdonald # (Auto) 0.7 Eos # (Auto) 0.1 Baso # (Auto) 0.0 WBC Differential . Differential Comment Auto diff final PT INR APTT Puncture Site Patient Temperature O2 Saturation ABG pH ABG pCO2 ABG pO2 ABG HCO3 ABG O2 Content ABG Base Excess ABG Methemoglobin Filipe Test Hemoglobin Carboxyhemoglobin O2 Delivery Device Inspired O2 Critical Value Sodium 133 L Potassium 5.1 Chloride 100 Carbon Dioxide 20.5 L Anion Gap 13 BUN 28 H Creatinine 1.56 H Estimated GFR 45 L POC Glucose Random Glucose 547 H* Calcium 8.8 Total Bilirubin 1.0 AST 66 H ALT 78 Alkaline Phosphatase 102 Total Creatine Kinase 118 CK-MB (CK-2) 2.7 Troponin I Less than 0.02 L B-Natriuretic Peptide Total Protein 7.3 Albumin 3.0 L Beta-Hydroxybutyric Acd 0.16 Urine Color Urine Clarity Urine pH Ur Specific [place] Urine Protein Urine Glucose (UA) Urine Ketones Urine Occult Blood Urine Nitrate Urine Bilirubin Urine Urobilinogen Ur Leukocyte Esterase Urine RBC Urine WBC Micro UA Comment Urine Culture Comments Urine Opiates Screen Ur Barbiturates Screen Ur Amphetamines Screen U Benzodiazepines Scrn Urine Cocaine Screen U Cannabinoids Screen Serum Alcohol Less than 3 05/15/18 05/15/18 05/15/18 18:50 18:50 19:08 WBC RBC Hgb Hct MCV MCH MCHC RDW Plt Count MPV Neut % (Auto) Lymph % (Auto) Mcdonald % (Auto) Eos % (Auto) Baso % (Auto) Neut # (Auto) Lymph # (Auto) Mcdonald # (Auto) Eos # (Auto) Baso # (Auto) WBC Differential Differential Comment PT 10.5 INR 1.0 APTT 26.1 Puncture Site Patient Temperature O2 Saturation ABG pH ABG pCO2 ABG pO2 ABG HCO3 ABG O2 Content ABG Base Excess ABG Methemoglobin Filipe Test Hemoglobin Carboxyhemoglobin O2 Delivery Device Inspired O2 Critical Value Sodium Potassium Chloride Carbon Dioxide Anion Gap BUN Creatinine Estimated GFR POC Glucose Random Glucose Calcium Total Bilirubin AST ALT Alkaline Phosphatase Total Creatine Kinase CK-MB (CK-2) Troponin I B-Natriuretic Peptide 25 Total Protein Albumin Beta-Hydroxybutyric Acd Urine Color Urine Clarity Urine pH Ur Specific [place] Urine Protein Urine Glucose (UA) Urine Ketones Urine Occult Blood Urine Nitrate Urine Bilirubin Urine Urobilinogen Ur Leukocyte Esterase Urine RBC Urine WBC Micro UA Comment Urine Culture Comments Urine Opiates Screen Neg Ur Barbiturates Screen Neg Ur Amphetamines Screen Neg U Benzodiazepines Scrn Neg Urine Cocaine Screen Neg U Cannabinoids Screen Neg Serum Alcohol 05/15/18 05/15/18 05/15/18 19:08 21:10 22:55 WBC RBC Hgb Hct MCV MCH MCHC RDW Plt Count MPV Neut % (Auto) Lymph % (Auto) Mcdonald % (Auto) Eos % (Auto) Baso % (Auto) Neut # (Auto) Lymph # (Auto) Mcdonald # (Auto) Eos # (Auto) Baso # (Auto) WBC Differential Differential Comment PT INR APTT Puncture Site Right radial Patient Temperature 98.6 O2 Saturation 67 L* ABG pH 7.36 L ABG pCO2 29 L ABG pO2 38 L* ABG HCO3 16 L* ABG O2 Content 8.6 L ABG Base Excess -8.6 L ABG Methemoglobin 0.5 Filipe Test Present Hemoglobin 9.2 L Carboxyhemoglobin 1.3 O2 Delivery Device Room air Inspired O2 21 Critical Value Yes Sodium Potassium Chloride Carbon Dioxide Anion Gap BUN Creatinine Estimated GFR POC Glucose 342 H Random Glucose Calcium Total Bilirubin AST ALT Alkaline Phosphatase Total Creatine Kinase CK-MB (CK-2) Troponin I B-Natriuretic Peptide Total Protein Albumin Beta-Hydroxybutyric Acd Urine Color Straw Urine Clarity Clear Urine pH 5.0 Ur Specific [place] 1.026 Urine Protein 100 H Urine Glucose (UA) 500 or greater Urine Ketones Negative Urine Occult Blood Moderate H Urine Nitrate Negative Urine Bilirubin Negative Urine Urobilinogen Less than 2 Ur Leukocyte Esterase Negative Urine RBC 22 H Urine WBC 2 Micro UA Comment Culture not ind Urine Culture Comments Culture not ind Urine Opiates Screen Ur Barbiturates Screen Ur Amphetamines Screen U Benzodiazepines Scrn Urine Cocaine Screen U Cannabinoids Screen Serum Alcohol 05/16/18 05/16/18 00:12 04:00 WBC RBC Hgb Hct MCV MCH MCHC RDW Plt Count MPV Neut % (Auto) Lymph % (Auto) Mcdonald % (Auto) Eos % (Auto) Baso % (Auto) Neut # (Auto) Lymph # (Auto) Mcdonald # (Auto) Eos # (Auto) Baso # (Auto) WBC Differential Differential Comment PT INR APTT Puncture Site Patient Temperature O2 Saturation ABG pH ABG pCO2 ABG pO2 ABG HCO3 ABG O2 Content ABG Base Excess ABG Methemoglobin Filipe Test Hemoglobin Carboxyhemoglobin O2 Delivery Device Inspired O2 Critical Value Sodium Potassium Chloride Carbon Dioxide Anion Gap BUN Creatinine Estimated GFR POC Glucose 255 H Random Glucose Calcium Total Bilirubin AST ALT Alkaline Phosphatase Total Creatine Kinase 74 CK-MB (CK-2) Troponin I Less than 0.02 L B-Natriuretic Peptide Total Protein Albumin Beta-Hydroxybutyric Acd Urine Color Urine Clarity Urine pH Ur Specific [place] Urine Protein Urine Glucose (UA) Urine Ketones Urine Occult Blood Urine Nitrate Urine Bilirubin Urine Urobilinogen Ur Leukocyte Esterase Urine RBC Urine WBC Micro UA Comment Urine Culture Comments Urine Opiates Screen Ur Barbiturates Screen Ur Amphetamines Screen U Benzodiazepines Scrn Urine Cocaine Screen U Cannabinoids Screen Serum Alcohol - Imaging Impressions Chest X-Ray 05/15/18 18:26 CONCLUSION: Mild basilar atelectasis. Elevated right hemidiaphragm. No effusion. Previous sternotomy. Caprini VTE Risk Assessment Caprini VTE Risk Assessment: Moderate/High Risk (score >= 2) Caprini Risk Assessment Model: Point Value = 1 Point Value = 2 Point Value = 3 Point Value = 5 Age 41-60 Minor surgery BMI > 25 kg/m2 Swollen legs Varicose veins or History of unexplained or recurrent spontaneous Oral contraceptives or hormone replacement Sepsis (< 1 month) Serious lung disease, including pneumonia (< 1 month) Abnormal pulmonary function Acute myocardial infarction Congestive heart failure (< 1 month) History of inflammatory bowel disease Medical patient at bed rest Age 61-74 Arthroscopic surgery Major open surgery (> 45 min) Laparoscopic surgery (> 45 min) Malignancy Confined to bed (> 72 hours) Immobilizing plaster cast Central venous access Age >= 75 History of VTE Family history of VTE Factor V Leiden Prothrombin [id number] Lupus anticoagulant Anticardiolipin antibodies Elevated serum homocysteine Heparin-induced thrombocytopenia Other congenital or acquired thrombophilia Stroke (< 1 month) Elective arthroplasty Hip, pelvis, or leg fracture Acute spinal cord injury (< 1 month) Prophylaxis Regimen: Total Risk Factor Score Risk Level Prophylaxis Regimen 0-1 Low Early ambulation 2 Moderate Order ONE of the following: *Sequential Compression Device (SCD) *Heparin 5000 units SQ BID 3-4 Higher Order ONE of the following medications: *Heparin 5000 units SQ TID *Enoxaparin/Lovenox 40 mg SQ daily (WT < 150 kg, CrCl > 30 mL/min) *Enoxaparin/Lovenox 30 mg SQ daily (WT < 150 kg, CrCl > 10-29 mL/min) *Enoxaparin/Lovenox 30 mg SQ BID (WT < 150 kg, CrCl > 30 mL/min) AND/OR *Sequential Compression Device (SCD) 5 or more Highest Order ONE of the following medications: *Heparin 5000 units SQ TID (Preferred with Epidurals) *Enoxaparin/Lovenox 40 mg SQ daily (WT < 150 kg, CrCl > 30 mL/min) *Enoxaparin/Lovenox 30 mg SQ daily (WT < 150 kg, CrCl > 10-29 mL/min) *Enoxaparin/Lovenox 30 mg SQ BID (WT < 150 kg, CrCl > 30 mL/min) AND *Sequential Compression Device (SCD) Assessment and Plan - Plan Assessment/plan: 1. Chest pain/CAD Initial troponin negative EKG showed sinus tachycardia with right bundle branch block, personally reviewed ACS rule out pending; serial troponins/EKGs 2. Hyperglycemia/diabetes mellitus Patient reports taking half of his usual dose of insulin this morning Blood glucose on arrival over 600 Responded well to IV insulin Sliding-scale insulin Resume home 70/30 once diet ordered 3. Suicidal ideation/depressed mood Patient reports thoughts of suicide and increasing depressed mood He reports he has been out of his Cymbalta for approximately 2 weeks Psychiatry consulted, appreciate assistance 4. Hypertension/hyperlipidemia Continue home medications FEN N.p.o. Electrolytes: Monitor and replete as needed NS at 100 cc/hour Heparin
[2018-05-16 07:48] LABS: Baso % (Auto) 0.6 % (0.0-2.0); Eos # (Auto) 0.2 th/mm3 (0.0-0.4); Eos % (Auto) 3.4 % (0.0-4.0); Hematocrit 38.5 % (39.0-51.0); Hemoglobin 13.3 gm/dL (13.0-17.0); Lymph # (Auto) 1.9 th/mm3 (1.0-4.8); Lymph % (Auto) 39.1 % (9.0-44.0); Mean Corpuscular HGB Conc 34.6 % (32.0-36.0); Mean Corpuscular Hemoglobin 28.8 pg (27.0-34.0); Mean Corpuscular Volume 83.2 fL (80.0-100.0); Mean Platelet Volume 8.5 fL (7.0-11.0); Mono # (Auto) 0.5 th/mm3 (0.0-0.9); Mono % (Auto) 10.9 % (0.0-8.0); Neut # (Auto) 2.2 th/mm3 (1.8-7.7); Platelet Count 140 th/mm3 (150-450); Red Blood Count 4.63 mil/mm3 (4.50-5.90); Red Cell Distribution Width 13.5 % (11.6-17.2); White Blood Count 4.9 th/mm3 (4.0-11.0)
[2018-05-16] MEDS: Duloxetine 60 MG DR Capsule PO SCH ×2 (08:18→21:18)
[2018-05-16] MEDS: Lisinopril 20 MG Tablet PO SCH (08:19)
[2018-05-16] MEDS: Senna/Docusate Sodium 8.6/50 MG Tablet PO SCH ×2 (08:19→21:18)
[2018-05-16] MEDS: amLODIPine 10 MG Tablet PO SCH (08:19)
[2018-05-16] MEDS: Metoprolol Tartrate 25 MG Tablet PO SCH ×2 (08:19→21:18)
[2018-05-16 08:32] LABS: Anion Gap 9 meq/L (5-15); Blood Urea Nitrogen 18 mg/dL (7-18); Calcium 8.1 mg/dL (8.5-10.1); Carbon Dioxide 23.1 meq/L (21.0-32.0); Chloride 109 meq/L (98-107); Glomerular Filtration Rate 80 mL/min (>89); Glucose,Random 213 mg/dL (74-106); Sodium 141 meq/L (136-145)
[2018-05-16 08:37] LABS: Creatine Kinase 71 U/L (39-308)
--- NOTE | 2018-05-16 11:10 | ECG ---
Date Performed: 05/16/2018 Time Performed: 07:01:24 PTAGE: 62 years EKG: Sinus arrhythmia Right bundle branch block Possible inferior infarct - age undetermined Abn ormal ECG NO PREVIOUS TRACING DOCTOR: Avni Blair Interpretating Date/Time 05/16/2018 11:09:17
--- NOTE | 2018-05-16 11:19 | ECG ---
Date Performed: 05/16/2018 Time Performed: 00:04:37 PTAGE: 62 years EKG: SINUS TACHYCARDIA WITH FIRST DEGREE AV BLOCK RIGHT BUNDLE BRANCH BLOCK ABNORMAL ECG NO PREVIOUS TRACING DOCTOR: Avni Blair Interpretating Date/Time 05/16/2018 11:17:55
--- NOTE | 2018-05-16 12:01 | P.PN ---
Subjective Interval history: Follow-up atypical chest pain/suicidal ideation May 16, 2018-patient seen and examined, continued to have substernal chest pain although improved since admission. Sitter in the room Physical Exam Vital signs: Vital Signs 05/15/18 17:36 05/15/18 18:55 05/15/18 20:55 Temperature 97.7 F Pulse Rate 113 H 105 H 100 H Respiratory Rate 24 18 18 Blood Pressure 151/86 H 150/86 H 158/86 H Pulse Oximetry 97 98 96 05/15/18 23:49 05/16/18 01:05 05/16/18 04:00 Temperature 97.5 F L 97.6 F Pulse Rate 102 H 97 H 92 H Respiratory Rate 18 20 20 Blood Pressure 133/75 156/81 H 146/78 H Pulse Oximetry 96 94 L 05/16/18 08:00 Temperature 98.2 F Pulse Rate 82 Respiratory Rate 18 Blood Pressure 134/69 Pulse Oximetry 96 Intake & Output 05/15/18 05/16/18 05/16/18 18:59 06:59 18:59 Intake Total 120 / 120 Output Total 1000 / 1000 Balance -880 / -880 Weight 112 kg 111.4 kg Intake: Oral 120 / 120 Output: Urine 1000 / 1000 Other: Weight On Admission 111.5 kg Narrative: GENERAL: NAD SKIN: Warm and dry. HEAD: Normocephalic. EYES: No scleral icterus. No injection or drainage. NECK: Supple, trachea midline. No JVD or lymphadenopathy. CARDIOVASCULAR: Regular rate and rhythm without murmurs, gallops, or rubs. RESPIRATORY: Breath sounds equal bilaterally. No accessory muscle use. GASTROINTESTINAL: Abdomen soft, non-tender, nondistended. MUSCULOSKELETAL: No cyanosis, or edema. BACK: Nontender without obvious deformity. No CVA tenderness. Results - Labs CBC & Chem 7: 05/16/18 06:50 05/16/18 06:50 Laboratory Results - last 24 hr 05/15/18 05/15/18 05/15/18 18:30 18:30 18:50 WBC 5.9 RBC 4.77 Hgb 14.0 Hct 41.1 MCV 86.2 MCH 29.4 MCHC 34.1 RDW 13.2 Plt Count 175 MPV 9.1 Neut % (Auto) 52.9 Lymph % (Auto) 33.1 [place] % (Auto) 11.7 H Eos % (Auto) 1.7 Baso % (Auto) 0.6 Neut # (Auto) 3.1 Lymph # (Auto) 1.9 [place] # (Auto) 0.7 Eos # (Auto) 0.1 Baso # (Auto) 0.0 WBC Differential . Differential Comment Auto diff final PT INR APTT Puncture Site Patient Temperature O2 Saturation ABG pH ABG pCO2 ABG pO2 ABG HCO3 ABG O2 Content ABG Base Excess ABG Methemoglobin Filipe Test Hemoglobin Carboxyhemoglobin O2 Delivery Device Inspired O2 Critical Value Sodium 133 L Potassium 5.1 Chloride 100 Carbon Dioxide 20.5 L Anion Gap 13 BUN 28 H Creatinine 1.56 H Estimated GFR 45 L POC Glucose Random Glucose 547 H* Calcium 8.8 Total Bilirubin 1.0 AST 66 H ALT 78 Alkaline Phosphatase 102 Total Creatine Kinase 118 CK-MB (CK-2) 2.7 Troponin I Less than 0.02 L B-Natriuretic Peptide Total Protein 7.3 Albumin 3.0 L Beta-Hydroxybutyric Acd 0.16 Urine Color Urine Clarity Urine pH Ur Specific [place] Urine Protein Urine Glucose (UA) Urine Ketones Urine Occult Blood Urine Nitrate Urine Bilirubin Urine Urobilinogen Ur Leukocyte Esterase Urine RBC Urine WBC Micro UA Comment Urine Culture Comments Urine Opiates Screen Ur Barbiturates Screen Ur Amphetamines Screen U Benzodiazepines Scrn Urine Cocaine Screen U Cannabinoids Screen Serum Alcohol Less than 3 05/15/18 05/15/18 05/15/18 18:50 18:50 19:08 WBC RBC Hgb Hct MCV MCH MCHC RDW Plt Count MPV Neut % (Auto) Lymph % (Auto) [place] % (Auto) Eos % (Auto) Baso % (Auto) Neut # (Auto) Lymph # (Auto) [place] # (Auto) Eos # (Auto) Baso # (Auto) WBC Differential Differential Comment PT 10.5 INR 1.0 APTT 26.1 Puncture Site Patient Temperature O2 Saturation ABG pH ABG pCO2 ABG pO2 ABG HCO3 ABG O2 Content ABG Base Excess ABG Methemoglobin Filipe Test Hemoglobin Carboxyhemoglobin O2 Delivery Device Inspired O2 Critical Value Sodium Potassium Chloride Carbon Dioxide Anion Gap BUN Creatinine Estimated GFR POC Glucose Random Glucose Calcium Total Bilirubin AST ALT Alkaline Phosphatase Total Creatine Kinase CK-MB (CK-2) Troponin I B-Natriuretic Peptide 25 Total Protein Albumin Beta-Hydroxybutyric Acd Urine Color Urine Clarity Urine pH Ur Specific [place] Urine Protein Urine Glucose (UA) Urine Ketones Urine Occult Blood Urine Nitrate Urine Bilirubin Urine Urobilinogen Ur Leukocyte Esterase Urine RBC Urine WBC Micro UA Comment Urine Culture Comments Urine Opiates Screen Neg Ur Barbiturates Screen Neg Ur Amphetamines Screen Neg U Benzodiazepines Scrn Neg Urine Cocaine Screen Neg U Cannabinoids Screen Neg Serum Alcohol 05/15/18 05/15/18 05/15/18 19:08 21:10 22:55 WBC RBC Hgb Hct MCV MCH MCHC RDW Plt Count MPV Neut % (Auto) Lymph % (Auto) [place] % (Auto) Eos % (Auto) Baso % (Auto) Neut # (Auto) Lymph # (Auto) [place] # (Auto) Eos # (Auto) Baso # (Auto) WBC Differential Differential Comment PT INR APTT Puncture Site Right radial Patient Temperature 98.6 O2 Saturation 67 L* ABG pH 7.36 L ABG pCO2 29 L ABG pO2 38 L* ABG HCO3 16 L* ABG O2 Content 8.6 L ABG Base Excess -8.6 L ABG Methemoglobin 0.5 Filipe Test Present Hemoglobin 9.2 L Carboxyhemoglobin 1.3 O2 Delivery Device Room air Inspired O2 21 Critical Value Yes Sodium Potassium Chloride Carbon Dioxide Anion Gap BUN Creatinine Estimated GFR POC Glucose 342 H Random Glucose Calcium Total Bilirubin AST ALT Alkaline Phosphatase Total Creatine Kinase CK-MB (CK-2) Troponin I B-Natriuretic Peptide Total Protein Albumin Beta-Hydroxybutyric Acd Urine Color Straw Urine Clarity Clear Urine pH 5.0 Ur Specific [place] 1.026 Urine Protein 100 H Urine Glucose (UA) 500 or greater Urine Ketones Negative Urine Occult Blood Moderate H Urine Nitrate Negative Urine Bilirubin Negative Urine Urobilinogen Less than 2 Ur Leukocyte Esterase Negative Urine RBC 22 H Urine WBC 2 Micro UA Comment Culture not ind Urine Culture Comments Culture not ind Urine Opiates Screen Ur Barbiturates Screen Ur Amphetamines Screen U Benzodiazepines Scrn Urine Cocaine Screen U Cannabinoids Screen Serum Alcohol 05/16/18 05/16/18 05/16/18 00:12 04:00 06:50 WBC 4.9 RBC 4.63 Hgb 13.3 Hct 38.5 L MCV 83.2 MCH 28.8 MCHC 34.6 RDW 13.5 Plt Count 140 L MPV 8.5 Neut % (Auto) 46.0 Lymph % (Auto) 39.1 [place] % (Auto) 10.9 H Eos % (Auto) 3.4 Baso % (Auto) 0.6 Neut # (Auto) 2.2 Lymph # (Auto) 1.9 [place] # (Auto) 0.5 Eos # (Auto) 0.2 Baso # (Auto) 0.0 WBC Differential . Differential Comment Auto diff final PT INR APTT Puncture Site Patient Temperature O2 Saturation ABG pH ABG pCO2 ABG pO2 ABG HCO3 ABG O2 Content ABG Base Excess ABG Methemoglobin Filipe Test Hemoglobin Carboxyhemoglobin O2 Delivery Device Inspired O2 Critical Value Sodium Potassium Chloride Carbon Dioxide Anion Gap BUN Creatinine Estimated GFR POC Glucose 255 H Random Glucose Calcium Total Bilirubin AST ALT Alkaline Phosphatase Total Creatine Kinase 74 CK-MB (CK-2) Troponin I Less than 0.02 L B-Natriuretic Peptide Total Protein Albumin Beta-Hydroxybutyric Acd Urine Color Urine Clarity Urine pH Ur Specific [place] Urine Protein Urine Glucose (UA) Urine Ketones Urine Occult Blood Urine Nitrate Urine Bilirubin Urine Urobilinogen Ur Leukocyte Esterase Urine RBC Urine WBC Micro UA Comment Urine Culture Comments Urine Opiates Screen Ur Barbiturates Screen Ur Amphetamines Screen U Benzodiazepines Scrn Urine Cocaine Screen U Cannabinoids Screen Serum Alcohol 05/16/18 05/16/18 05/16/18 06:50 08:09 11:44 WBC RBC Hgb Hct MCV MCH MCHC RDW Plt Count MPV Neut % (Auto) Lymph % (Auto) [place] % (Auto) Eos % (Auto) Baso % (Auto) Neut # (Auto) Lymph # (Auto) [place] # (Auto) Eos # (Auto) Baso # (Auto) WBC Differential Differential Comment PT INR APTT Puncture Site Patient Temperature O2 Saturation ABG pH ABG pCO2 ABG pO2 ABG HCO3 ABG O2 Content ABG Base Excess ABG Methemoglobin Filipe Test Hemoglobin Carboxyhemoglobin O2 Delivery Device Inspired O2 Critical Value Sodium 141 Potassium 4.0 D Chloride 109 H D Carbon Dioxide 23.1 Anion Gap 9 BUN 18 Creatinine 0.95 Estimated GFR 80 L POC Glucose 243 H 229 H Random Glucose 213 H D Calcium 8.1 L Total Bilirubin AST ALT Alkaline Phosphatase Total Creatine Kinase 71 CK-MB (CK-2) Troponin I Less than 0.02 L B-Natriuretic Peptide Total Protein Albumin Beta-Hydroxybutyric Acd Urine Color Urine Clarity Urine pH Ur Specific [place] Urine Protein Urine Glucose (UA) Urine Ketones Urine Occult Blood Urine Nitrate Urine Bilirubin Urine Urobilinogen Ur Leukocyte Esterase Urine RBC Urine WBC Micro UA Comment Urine Culture Comments Urine Opiates Screen Ur Barbiturates Screen Ur Amphetamines Screen U Benzodiazepines Scrn Urine Cocaine Screen U Cannabinoids Screen Serum Alcohol - Imaging Impressions Chest X-Ray 05/15/18 18:26 CONCLUSION: Mild basilar atelectasis. Elevated right hemidiaphragm. No effusion. Previous sternotomy. Assessment and Plan - Assessment (1) Angina pectoris Code(s): I20.9 - Angina pectoris, unspecified Status: Acute - Plan 62-year-old man with 1. Chest pain/CAD Initial troponin negative EKG showed sinus tachycardia with right bundle branch block, Due to patient multiple risk factor, will order Lexiscan stress test. And if abnormal, will consult cardiology Continue aspirin, check lipid profile as well as 2D echo 2. Hyperglycemia/diabetes mellitus Currently on insulin sliding scale, resume basal insulin 3. Suicidal ideation/depressed mood Patient reports thoughts of suicide and increasing depressed mood He reports he has been out of his Cymbalta for approximately 2 weeks Psychiatry consulted, appreciate assistance 4. Hypertension/hyperlipidemia Continue home medications
--- NOTE | 2018-05-16 12:54 | P.CONPSY ---
Provisional Diagnosis Admission Date: May 15, 2018 23:43 [place].: Major depressive disorder History of Present Illness Service: Psychiatry Consult date: 05/16/18 Requesting Physician: Charlee Mendez Reason for Consult: Depressed mood, SI Primary Care Provider: Papo James MD Family Provider: Papo James MD Chief Complaint: Chest pain History of Present Illness: Patient is a 62-year-old man, , 3 of the children, unemployed , homeless, living in his vehicle, with a past psychiatric history of depression , several previous psychiatric hospitalizations, last time being years ago, remote suicide attempts, no history of self-injurious behavior currently being treated for depression through his outpatient primary care physician, with a past medical history significant for hypertension, diabetes and coronary artery disease who presented to the ED for chest pain and during admission had reported feeling depressed along with suicidal ideations which psychiatry was consulted for evaluation. Patient was found lying hospital room with sitter at bedside for safety, noted to be calm and cooperative. Patient states that he had been feeling depressed for the past couple weeks after he had run out of his medications for depression as well as current psychosocial stressors such as homelessness, financial difficulty and had been experiencing difficulty with sleep, energy concentration with mood being "irritable" feeling depressed, at times feeling helpless and hopeless and having suicide ideations for about a week last time being a couple days ago. Patient states that he does not feel well physically due to ongoing physical symptoms such as nausea today. He reported that when he started having suicide ideation had been periodically and has not had a recurrence of suicide ideations for the past couple of days now. Patient states that when he has had suicide ideations he had no plan, no intention, as well as denying any perceptual disturbances or delusions. Patient this time states feeling well due to the nausea but denying having any suicide ideations, reports feeling somewhat depressed due to ongoing medical issues. Patient states that when he was taking his medications he was doing quite well which is glad that he was restarted back on his Cymbalta yesterday. Family psychiatric history: Brother with schizoaffective disorder, no suicide in the family Past psychiatric history: Previous psychiatric diagnoses depression, 2-4 previous psychiatric admissions, last time being couple years ago, previous suicide attempts via cutting last time being years ago, no history of self interest behavior or history of abuse. Patient has no outpatient mental health provider, reported planning on making an appointment with an outpatient psychiatrist, previous medication trials include duloxetine 60 mg p.o. twice daily last taken was 2 weeks ago after he had run out. Past medical history: Hypertension, diabetes, CAD Allergies: Sulfa, sulfamethoxazole, trimethoprim Social history: , 3 adult children, unemployed, homeless, domiciled in vehicle, social security income. [facility] - History History Provided By: Patient - Medical History Medical History: Medical History (Last Updated 05/16/18 @ 05:07 by Charlee Mendez MD) Coronary artery disease Depression Diabetes Diabetic nephropathy HLD (hyperlipidemia) Hypertension Osteoarthritis - Surgical History Surgical History: Surgical History (Last Updated 05/16/18 @ 05:07 by Charlee Mendez MD) Hx of cholecystectomy S/P CABG x 6 - Family History Family History: Family History (Last Updated 05/16/18 @ 05:08 by Charlee Mendez MD) Other CAD (coronary artery disease) Diabetes mellitus - Tobacco History Second Hand Smoke Exposure: No Tobacco Use In Past 30 Days: No Smoking Status: Never smoker - Alcohol History How Often Do You Have a Drink Containing Alcohol: Never - Substance Use History Substance History: Past History - 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 Used: Intravenously Comment: 1 year ago - Travel History Recent Travel in the [place] Within the Last 8 Weeks: No Recent Travel Out of the Country Within the Last 8 Weeks: No - Immunization History Tetanus Immunization: <5 Years Hx Influenza Vaccine This Season: Yes Medications and Allergies Active Medications: Active Medications Acetaminophen (Tylenol) 650 mg PO Q4H PRN PRN Reason: Temp > 100.4 Al Hydroxide/Mg Hydroxide (Milk Of Magnesia Liq) 30 ml PO Q12H PRN PRN Reason: Mild Constipation Amlodipine Besylate (Norvasc) 10 mg PO DAILY [facility] Last Admin: 05/16/18 08:19 Dose: 10 mg Bisacodyl (Dulcolax Supp) 10 mg RECTAL DAILY PRN PRN Reason: SEVERE CONSITIPATION Dextrose (D50w Vial) 50 ml IV.PUSH UNSCH PRN PRN Reason: PER HYPOGLYCEMIA PROTOCOL Duloxetine HCl (Cymbalta) 60 mg PO BID [facility] Last Admin: 05/16/18 08:18 Dose: 60 mg Fluticasone Propionate (Flonase Nasal [place]) 1 spray EACH NARE DAILY PRN PRN Reason: ALLERGY SYMPTOMS Glucagon (Glucagon Inj) 1 mg OTHER PRN PRN PRN Reason: for Hypoglycemia Protocol Heparin Sodium (Porcine) (Heparin Inj) 5,000 units SQ Q8H [facility] Last Admin: 05/16/18 08:19 Dose: 5,000 units Sodium Chloride (Ns Inj) 1,000 mls @ 100 mls/hr IV.CONT .Q10H [facility] Last Infusion: 05/16/18 11:43 Dose: 100 mls/hr Insulin Aspart (Novolog Insulin Suppl Scale Inj) 0 unit SQ ACHS AND 3AM CARTER; Protocol Last Admin: 05/16/18 08:20 Dose: 4 unit Insulin Human Isoph/Insulin Regular (Novolin 70/30 Inj) 95 units SQ BID [facility] Lactulose (Lactulose Liq) 30 ml PO DAILY PRN PRN Reason: SEVERE CONSITIPATION Lisinopril (Prinivil) 20 mg PO DAILY [facility] Last Admin: 05/16/18 08:19 Dose: 20 mg Metoprolol Tartrate (Lopressor) 25 mg PO BID [facility] Last Admin: 05/16/18 08:19 Dose: 25 mg Morphine Sulfate (Morphine Inj) 4 mg IV.PUSH Q4H PRN PRN Reason: pain 6-10 Last Admin: 05/16/18 08:20 Dose: 4 mg Ondansetron HCl (Zofran Inj) 4 mg IV.PUSH Q6H PRN PRN Reason: NAUSEA OR VOMITING Last Admin: 05/16/18 11:43 Dose: 4 mg Senna/Docusate Sodium (Jennifer-Colace) 1 tab PO BID [facility] Last Admin: 05/16/18 08:19 Dose: 1 tab Sennosides (Senokot) 17.2 mg PO Q12H PRN PRN Reason: Moderate Constipation Sodium Chloride (Ns Flush) 2 ml IV.FLUSH UNSCH PRN PRN Reason: FLUSH AFTER USING IV ACCESS Temazepam (Restoril) 15 mg PO HS PRN PRN Reason: INSOMNIA Allergies Allergy/AdvReac Type Severity Reaction Status Date / Time Sulfa (Sulfonamide Allergy Severe ANAPHYLACTIC Verified 04/28/18 11:34 Antibiotics) REACTION sulfamethoxazole Allergy Severe ANAPHYLACTI Verified 04/28/18 11:34 C trimethoprim Allergy Severe ANAPHYLACTI Verified 04/28/18 11:34 C Home Medications Medication Instructions Recorded Confirmed Type amlodipine [Norvasc] 10 mg PO DAILY 05/15/18 05/15/18 History duloxetine 60 mg PO BID 05/15/18 05/15/18 History fluticasone [Flonase Allergy 1 spray INTRANASAL DAILY PRN 05/15/18 05/15/18 History Relief] glipizide 10 mg PO BID 05/15/18 05/15/18 History insulin NPH and regular human 95 units SUB-Q BID 05/15/18 05/15/18 History [Novolin 70/30 U-100 Insulin] lisinopril 20 mg PO DAILY 05/15/18 05/15/18 History metformin 850 mg PO BID 05/15/18 05/15/18 History metoprolol tartrate 25 mg PO BID 05/15/18 05/15/18 History Exam Vital signs: Vital Signs 05/15/18 17:36 05/15/18 18:55 05/15/18 20:55 Temperature 97.7 F Pulse Rate 113 H 105 H 100 H Respiratory Rate 24 18 18 Blood Pressure 151/86 H 150/86 H 158/86 H Pulse Oximetry 97 98 96 05/15/18 23:49 05/16/18 01:05 05/16/18 04:00 Temperature 97.5 F L 97.6 F Pulse Rate 102 H 97 H 92 H Respiratory Rate 18 20 20 Blood Pressure 133/75 156/81 H 146/78 H Pulse Oximetry 96 94 L 05/16/18 08:00 Temperature 98.2 F Pulse Rate 82 Respiratory Rate 18 Blood Pressure 134/69 Pulse Oximetry 96 Intake & Output 05/15/18 05/16/18 05/16/18 18:59 06:59 18:59 Intake Total 120 / 120 Output Total 1000 / 1000 Balance -880 / -880 Weight 112 kg 111.4 kg Intake: Oral 120 / 120 Output: Urine 1000 / 1000 Other: Weight On Admission 111.5 kg Mental Status Examination Appearance: Appropriate Consciousness: Alert Orientation: x4 Speech: Unremarkable Language: Adequate Fund of Knowledge: Inadequate Attention and Concentration: Adequate Memory: Unremarkable Mood: Other ("Not well because of my nausea") Affect: Appropriate Thought Process & Associations: Intact, Goal directed, Linear Thought Content: Appropriate Hallucination Type: None Delusion Type: None Suicidal Ideation: No Suicidal Plan: No Suicidal Intention: No Homicidal Ideation: No Homicidal Plan: No Homicidal Intention: No Insight: Adequate Judgment: Adequate Assessment and Plan - Assessment (1) Major depressive disorder Code(s): F32.9 - Major depressive disorder, single episode, unspecified Status : Acute - Plan Plan: Estimated LOS: [] days Patient is a 62-year-old man who carries a diagnosis of depression, previous psychiatric admissions years ago, previous suicide attempt years ago, currently being managed for depression through his primary care physician to endorse feeling depressed with previous suicide ideations in the context of having run out of his antidepressant medications as well as other psychosocial stressors at this time. Patient had been endorsing some depressive symptoms but at this time has been denied having had any suicide ideation, has been restarted back on his antidepressant therapy which patient previously has responded well to. Patient this time does not meet criteria for inpatient psychiatric admission, May discontinue one-to-one observation. Patient to continue Cymbalta 60 mg p.o. twice daily for depression. Social work/shoe parts caser to assist in arranging outpatient mental health provider follow-up appointment as well as information regarding assisted living facilities as this patient is currently homeless. Consult appreciated. Justification for Continued Inpatient Stay: At risk of further decompensation a lower level of care. (1) Major depressive disorder Qualifiers: Major depression recurrence: recurrent Active/Remission status: currently active Major depression episode severity: moderate Qualified Code(s): F33.1 - Major depressive disorder, recurrent, moderate
[2018-05-16] MEDS ORDERED: Regadenoson Inj 0.4 MG/5 ML Syringe IV.PUSH ONE (17:17)
--- NOTE | 2018-05-16 18:53 | NM ---
EXAM DATE: 05/16/2018 6:33 PM EDT AGE/SEX: 62 years / Male INDICATIONS:Angina. . Chest pain. CLINICAL DATA: This is the patient's initial encounter. Patient reports that signs and symptoms have been present for 1 day and indicates a pain score of 0/10. MEDICAL/SURGICAL HISTORY: Diabetes mellitus type II. Cardiovascular disease. Hypertension. CA BG. Cholecystectomy. COMPARISON: No prior exams available for comparison. DOSE: 10.2 mCi Tc 99m Myoview at rest 30.3 mCi [id number] at stress 0.4 mg Lexiscan STRESS SYMPTOMS: Nausea and dyspnea. EJECTION FRACTION: 65 % TECHNIQUE: The patient underwent pharmacologic stress with infusion of prescribed dose. Continuous ECG tracing was monitored during stress. Gated SPECT imaging was performed after stress and conventi onal SPECT imaging was performed at rest. The examination was performed on a SPECT/CT scanner, both attenuation and non-corrected datasets were reviewed. FINDINGS: Distribution: The maximum perfused segment at stress is in the septal wall. Perfusion Study: The pattern of perfusion at stress is within normal limits. Gated Study: There are intact wall motion and wall thickening without hypokinetic or dyskinetic segm ents. The ejection fraction is calculated at 65%. RISK CATEGORY: Low (<1% Annual Motality Rate) CONCLUSION: 1. Negative examination. Electronically signed by: Orlando Valerio MD 05/16/2018 6:52 PM EDT
[2018-05-17] MEDS: Sod Chloride 0.9% Inj 1,000 ML IV.CONT SCH (00:21)
[2018-05-17] MEDS: Heparin - SQ 10,000 UNITS/ML Vial SQ SCH ×2 (00:43→08:27)
[2018-05-17 06:10] LABS: Alanine Aminotransferase 87 U/L (12-78); Alkaline Phosphatase 91 U/L (45-117); Anion Gap 10 meq/L (5-15); Aspartate Aminotransferase 64 U/L (15-37); Blood Urea Nitrogen 13 mg/dL (7-18); Calcium 8.5 mg/dL (8.5-10.1); Chloride 107 meq/L (98-107); Cholesterol 125 mg/dL (120-200); Glomerular Filtration Rate Greater Than 89 mL/min (>89); Glucose,Random 73 mg/dL (74-106); HDL Cholesterol 28.4 mg/dL (40.0-60.0); LDL Cholesterol,Calculated 47 mg/dL (0-99); Potassium 3.7 meq/L (3.5-5.1); Sodium 140 meq/L (136-145); Total Protein 6.8 g/dL (6.4-8.2); Triglycerides 249 mg/dL (42-150)
[2018-05-17] MEDS: Insulin NovoLOG Aspart Correctional Sugar Inj SQ SCH ×2 (08:25→11:14)
[2018-05-17] MEDS: Metoprolol Tartrate 25 MG Tablet PO SCH (08:26)
[2018-05-17] MEDS: Duloxetine 60 MG DR Capsule PO SCH (08:26)
[2018-05-17] MEDS: Lisinopril 20 MG Tablet PO SCH (08:26)
[2018-05-17] MEDS: Senna/Docusate Sodium 8.6/50 MG Tablet PO SCH (08:26)
[2018-05-17] MEDS: amLODIPine 10 MG Tablet PO SCH (08:27)
--- NOTE | 2018-05-17 11:00 | P.PN ---
Subjective Interval history: Follow-up atypical chest pain/suicidal ideation May 16, 2018-patient seen and examined, continued to have substernal chest pain although improved since admission. Sitter in the room May 17, 2018-patient seen and examined, patient denies any chest pain. Had a negative nuclear stress test yesterday. No acute event overnight; looking for discharge home today. Physical Exam Vital signs: Vital Signs 05/16/18 12:00 05/16/18 16:00 05/16/18 20:00 Temperature 97.8 F 98.1 F 97.9 F Pulse Rate 86 86 101 H Respiratory Rate 18 18 18 Blood Pressure 159/87 H 159/87 H 162/94 H Pulse Oximetry 94 L 94 L 95 05/17/18 00:00 05/17/18 04:00 05/17/18 08:57 Temperature 97.8 F 98.3 F Pulse Rate 84 85 Respiratory Rate 17 19 Blood Pressure 153/73 H 148/82 H Pulse Oximetry 98 97 98 05/17/18 09:00 Temperature Pulse Rate 85 Respiratory Rate Blood Pressure Pulse Oximetry Intake & Output 05/16/18 05/17/18 05/17/18 18:59 06:59 18:59 Intake Total 1000 / 1000 Balance 1000 / 1000 Weight 110.9 kg Intake: IV 1000 / 1000 NS Inj 1,000 ML @ 100 mls/hr IV 1000 / 1000 .CONT .Q10H [facility] Rx#:[id number] Narrative: GENERAL: NAD SKIN: Warm and dry. HEAD: Normocephalic. EYES: No scleral icterus. No injection or drainage. NECK: Supple, trachea midline. No JVD or lymphadenopathy. CARDIOVASCULAR: Regular rate and rhythm without murmurs, gallops, or rubs. RESPIRATORY: Breath sounds equal bilaterally. No accessory muscle use. GASTROINTESTINAL: Abdomen soft, non-tender, nondistended. MUSCULOSKELETAL: No cyanosis, or edema. BACK: Nontender without obvious deformity. No CVA tenderness. Results - Labs CBC & Chem 7: 05/16/18 06:50 05/17/18 03:45 Laboratory Results - last 24 hr 05/16/18 05/16/18 05/16/18 11:44 15:56 19:49 Sodium Potassium Chloride Carbon Dioxide Anion Gap BUN Creatinine Estimated GFR POC Glucose 229 H 193 H 304 H Random Glucose Calcium Total Bilirubin AST ALT Alkaline Phosphatase Total Protein Albumin Triglycerides Cholesterol LDL Cholesterol, Calc HDL Cholesterol Cholesterol/HDL Ratio 05/17/18 05/17/18 03:45 08:25 Sodium 140 Potassium 3.7 Chloride 107 Carbon Dioxide 23.0 Anion Gap 10 BUN 13 Creatinine 0.83 Estimated GFR Greater than 89 POC Glucose 96 Random Glucose 73 L D Calcium 8.5 Total Bilirubin 1.2 H AST 64 H ALT 87 H Alkaline Phosphatase 91 Total Protein 6.8 Albumin 3.0 L Triglycerides 249 H Cholesterol 125 LDL Cholesterol, Calc 47 HDL Cholesterol 28.4 L Cholesterol/HDL Ratio 4.40 - Imaging Impressions Myocardial Perfusion Scan Nuc Med 05/16/18 00:00 CONCLUSION: 1. Negative examination. - Procedures none Assessment and Plan - Assessment (1) Angina pectoris Code(s): I20.9 - Angina pectoris, unspecified Status: Resolved (2) Major depressive disorder Code(s): F32.9 - Major depressive disorder, single episode, unspecified Status : Chronic - Plan 62-year-old man with 1. Chest pain/CAD Initial troponin negative EKG showed sinus tachycardia with right bundle branch block, Patient had a negative Lexiscan stress test on 05/16/18 Continue aspirin. d/c 2D echo 2. Hyperglycemia/diabetes mellitus Currently on insulin sliding scale, continue basal insulin 3. Suicidal ideation/depressed mood Continue with Cymbalta 60 mg twice daily Appreciate input from psychiatry 4. Hypertension/hyperlipidemia Continue home medications (2) Major depressive disorder Qualifiers: Major depression recurrence: recurrent Active/Remission status: currently active Major depression episode severity: moderate Qualified Code(s): F33.1 - Major depressive disorder, recurrent, moderate
--- NOTE | 2018-05-17 11:09 | P.DS ---
Date of admission: 05/16/18 14:53 Primary care physician: Papo James MD Brief History from admission: 62-year-old male with a past medical history significant for diabetes mellitus, hypertension, hyperlipidemia, coronary artery disease, osteoarthritis, diabetic neuropathy and depression presents the emergency department for the evaluation of chest pain. The patient reports that yesterday he started to have a sharp substernal intermittent chest pain that radiated to his right arm. He states that the pain would subside but then returned. He came to the emergency department for further evaluation. Additionally, the patient states he has had increased depression over the last couple of days. He states he has been out of his and Cymbalta for the past 2 weeks and has had thoughts of suicide. He reports that he is homeless and is having difficulty regulating his meals and his insulin. Blood sugar on arrival was over 600. The patient reports that he only took a half dose of his insulin this morning because his blood glucose was 150. The patient denies any episodes of diaphoresis or shortness of breath. No abdominal pain. No nausea/vomiting/diarrhea. No weakness. No lateralizing signs/symptoms. No fever/chills. DS: Diagnosis - Discharge Diagnosis (1) Angina pectoris Status: Resolved (2) Major depressive disorder Status: Chronic DS: Summary Hospital Course: While in hospital, patient was treated for; 1. Chest pain/CAD Initial troponin negative EKG showed sinus tachycardia with right bundle branch block, Patient had a negative Lexiscan stress test on 05/16/18 Continue aspirin 2. Hyperglycemia/diabetes mellitus Currently on insulin sliding scale, continue basal insulin 3. Suicidal ideation/depressed mood Continue with Cymbalta 60 mg twice daily Appreciate input from psychiatry 4. Hypertension/hyperlipidemia Continue home medications - Time Spent with Patient Total time spent providing and/or coordinating discharge services: Less than 30 minutes - Quality: VTE Deep Vein Thrombosis/Pulmonary Embolism Present on Admission: No Exam Vital signs: Vital Signs 05/16/18 12:00 05/16/18 16:00 05/16/18 20:00 Temperature 97.8 F 98.1 F 97.9 F Pulse Rate 86 86 101 H Respiratory Rate 18 18 18 Blood Pressure 159/87 H 159/87 H 162/94 H Pulse Oximetry 94 L 94 L 95 05/17/18 00:00 05/17/18 04:00 05/17/18 08:57 Temperature 97.8 F 98.3 F Pulse Rate 84 85 Respiratory Rate 17 19 Blood Pressure 153/73 H 148/82 H Pulse Oximetry 98 97 98 05/17/18 09:00 Temperature Pulse Rate 85 Respiratory Rate Blood Pressure Pulse Oximetry Intake & Output 05/16/18 05/17/18 05/17/18 18:59 06:59 18:59 Intake Total 1000 / 1000 Balance 1000 / 1000 Weight 110.9 kg Intake: IV 1000 / 1000 NS Inj 1,000 ML @ 100 mls/hr IV 1000 / 1000 .CONT .Q10H [facility] Rx#:[id number] Narrative: GENERAL: NAD SKIN: Warm and dry. HEAD: Normocephalic. EYES: No scleral icterus. No injection or drainage. NECK: Supple, trachea midline. No JVD or lymphadenopathy. CARDIOVASCULAR: Regular rate and rhythm without murmurs, gallops, or rubs. RESPIRATORY: Breath sounds equal bilaterally. No accessory muscle use. GASTROINTESTINAL: Abdomen soft, non-tender, nondistended. MUSCULOSKELETAL: No cyanosis, or edema. BACK: Nontender without obvious deformity. No CVA tenderness. Results Procedures completed during hospitalization: none Labs on day of discharge: Labs from last 24 hours 05/17/18 05/17/18 05/16/18 08:25 03:45 19:49 Sodium 140 Potassium 3.7 Chloride 107 Carbon Dioxide 23.0 Anion Gap 10 BUN 13 Creatinine 0.83 Estimated GFR Greater than 89 POC Glucose 96 304 H Random Glucose 73 L D Calcium 8.5 Total Bilirubin 1.2 H AST 64 H ALT 87 H Alkaline Phosphatase 91 Total Protein 6.8 Albumin 3.0 L Triglycerides 249 H Cholesterol 125 LDL Cholesterol, Calc 47 HDL Cholesterol 28.4 L Cholesterol/HDL Ratio 4.40 05/16/18 05/16/18 15:56 11:44 Sodium Potassium Chloride Carbon Dioxide Anion Gap BUN Creatinine Estimated GFR POC Glucose 193 H 229 H Random Glucose Calcium Total Bilirubin AST ALT Alkaline Phosphatase Total Protein Albumin Triglycerides Cholesterol LDL Cholesterol, Calc HDL Cholesterol Cholesterol/HDL Ratio - Impressions ITS Impressions Chest X-Ray 05/15/18 18:26 CONCLUSION: Mild basilar atelectasis. Elevated right hemidiaphragm. No effusion. Previous sternotomy. Myocardial Perfusion Scan Nuc Med 05/16/18 00:00 CONCLUSION: 1. Negative examination. Discharge Plan - Discharge Disposition Patient Disposition: 01 Discharge Home - Discharge Condition Condition: Stable - Discharge Order Discharge Orders: Discharge Order (Routine); Ordered 05/17/18 Ordered By: Jeffery Peraza - Physicians Team Primary Care Provider: Papo James V Attending Provider: Jeffery Peraza Other Providers: Jeffery Pope MD
--- NOTE | 2018-05-17 17:55 | ECHRPT ---
Indication: CHEST PAIN CONCLUSIONS Moderate concentric left ventricular hypertrophy. The left ventricular systolic function is normal with an estimated ejection fraction in the range of 55-60%. Trace mitral valve regurgitation. There is mild tricuspid valve regurgitation. Trivial pulmonary valve regurgitation. BP: / HR: Rhythm: Sinus MEASUREMENTS (Male / Female) Normal Values Technical Quality:Fair 2D ECHO LV Diastolic Diameter PLAX 4.0 cm 4.2 - 5.9 / 3.9 - 5.3 cm LV Systolic Diameter PLAX 2.9 cm IVS Diastolic Thickness 1.4 cm 0.6 - 1.0 / 0.6 - 0.9 cm LVPW Diastolic Thickness 1.3 cm 0.6 - 1.0 / 0.6 - 0.9 cm LV Relative Wall Thickness 0.7 RV Internal Dim ED PLAX 3.1 cm LVOT Diameter 1.9 cm Aortic Root Diameter 3.1 cm LA Systolic Diameter LX 3.1 cm 3.0 - 4.0 / 2.7 - 3.8 cm M-MODE AV Cusp Separation MM 2.2 cm DOPPLER AV Peak Velocity 91.0 cm/s AV Peak Gradient 3.3 mmHg AV Mean Gradient 2.0 mmHg AV Velocity Time Integral 17.6 cm LVOT Peak Velocity 81.2 cm/s LVOT Peak Gradient 2.6 mmHg LVOT Velocity Time Integral 14.6 cm AV Area Cont Eq vti 2.4 cm AV Area Cont Eq pk 2.5 cm Mitral E Point Velocity 84.9 cm/s Mitral A Point Velocity 71.6 cm/s Mitral E to A Ratio 1.2 LV E' Lateral Velocity 8.3 cm/s Mitral E to LV E' Lateral Ratio 10.2 LV E' Septal Velocity 6.7 cm/s Mitral E to LV E' Septal Ratio 12.6 TR Peak Velocity 270.0 cm/s TR Peak Gradient 29.2 mmHg Right Atrial Pressure 10.0 mmHg Pulmonary Artery Systolic Pressu 39.2 mmHg Right Ventricular Systolic Press 39.2 mmHg PV Peak Velocity 58.7 cm/s PV Peak Gradient 1.4 mmHg FINDINGS LEFT VENTRICLE Normal left ventricular size. Moderate concentric left ventricular hypertrophy. The left ventricular systolic function is normal with an estimated ejection fraction in the range of 55-60%. RIGHT VENTRICLE Normal right ventricular size and systolic function. LEFT ATRIUM The left atrial size is normal. RIGHT ATRIUM The right atrial size is normal. ATRIAL SEPTUM No atrial level shunt is demonstrated by color flow Doppler interrogation. AORTA The aortic root and proximal ascending aorta are not well visualized. MITRAL VALVE Structurally normal mitral valve. No mitral valve stenosis. Trace mitral valve regurgitation. AORTIC VALVE Aortic valve sclerosis is present. No aortic valve stenosis. No aortic valve regurgitation. TRICUSPID VALVE Structurally normal tricuspid valve. There is mild tricuspid valve regurgitation. The estimated pulmonary arterial pressure is 39.2 mmHg. PULMONARY VALVE Trivial pulmonary valve regurgitation. VESSELS The inferior vena cava is normal in size. PERICARDIUM No pericardial effusion. Trenton Alejandra DO (Electronically Signed) Final Date:17 May 2018 17:54
== END 2018-05-17 12:24 | disposition home or self-care (01) ==
LOC: NEDA 17:32 → NEPC 17:32 → NEDA 05-16 00:33 → N04 05-16 00:36
PROVIDERS: ADMIT Hospitalist; ATTEND Hospitalist